=== PATIENT | female | born 1955 | race Caucasian/White ===

== ENCOUNTER → 2016-04-02 | Outpatient (CLI) | payer MEDICARE, MEDICAID | LOC: RAD 07:40 | PROVIDERS: ATTEND Specialist | DX: C34.82 Malignant neoplasm of overlapping sites of left bronchus and lung (principal) | CPT/HCPCS: 71260 ==

== ENCOUNTER → 2016-06-26 | Outpatient (CLI) | payer MEDICARE, MEDICAID | LOC: RAD 08:19 | PROVIDERS: ATTEND Specialist | DX: C34.82 Malignant neoplasm of overlapping sites of left bronchus and lung (principal) | CPT/HCPCS: 71260; 74160 ==

== ENCOUNTER → 2016-08-31 | Outpatient (CLI) | payer MEDICARE, MEDICAID ==
--- NOTE | 2016-08-31 08:58 | RADIOLOGY REPORT (SQ) ---
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 Images reviewed with lung, soft tissue and bone windows. Reconstruc lópez coronal and sagittal MPR images reviewed. All images stored on PACS. All CT scanners at this facility use dose modulation, iterative reconstruction, and/or weight based d osing when appropriate to reduce radiation dose to as low as reasonably achievable (ALARA). [facility]: Dose Right [facility]: CareDose [facility]: Dose Right [facility]: Teradose 4D [facility]: Infobright CONTRAST TYPE AND DOSE: contrast/concentration: Isovue 370.00 mg/ml; Total Contrast Delivered: 54.0 ml; Total Saline Delivered: 65.0 ml RENAL FUNCTION: Creatinine 0.8 RADIATION DOSE: 4.43; 9.82 . LIMITATIONS: None. FINDINGS: LUNGS AND PLEURA: Scarring in the posterior right lung apex with cavitation along its infe rior edge is similar compared to 06/26/2016, measuring about 5 x 2 cm in size. Stable left apical cav itary nodule 12 mm in size. Stable bandlike nodular scarring in the superior segment right lower lob e, superior segment left lower lobe, medial right middle lobe, medial lingula, and left lung base all stable from 06/26/2016. End-stage appearance of COPD. No pleural effusions. No pneumothorax. HILAR AND MEDIASTINAL STRUCTURES: No identified masses or abnormal nodes. HEART AND VASCULAR STRUCTURES: No aneurysm or dissection. No central pulmonary emboli. No pericardi al effusion. HARDWARE: Right jugular central line tip superior vena cava THYROID AND OTHER SOFT TISSUES: No masses. No adenopathy. BONES: Osteoporotic with multiple stable thoracic compression deformities. LIVER: Normal size. No masses or dilated ducts. Stable 1 cm cyst inferior left lobe liver SPLEEN: Normal size. No focal lesions. PANCREAS: No masses. No significant calcifications. No adjacent inflammation or peripancreatic fluid collections. Pancreatic duct not dilated. GALLBLADDER: Single 1 cm stone in the gallbladder. No gallbladder wall thickening or pericholecystic fluid ADRENAL GLANDS: No significant masses or asymmetry. RIGHT KIDNEY AND URETER: No solid masses. No significant calcification. No hydronephrosis or hydroureter. LEFT KIDNEY AND URETER: No solid masses. No significant calcification. No hydronephrosis or hydroureter. AORTA AND VESSELS: No aneurysm. No dissection. Renal arteries, SMA, celiac without stenosis. RETROPERITONEUM: No retroperitoneal adenopathy, hemorrhage or masses. BOWEL AND PERITONEAL CAVITY: No masses or inflammatory changes. OTHER: No other significant finding. IMPRESSION: Stable CT OF THE CHEST WITH IV CONTRAST. Unremarkable CT abdomen aside from a single gallstone without gallbladder wall thickening or perichol ecystic fluid. TECHNICAL DOCUMENTATION: JOB ID: [id number] Quality ID # [id number]: Final reports with documentation of one or more dose reduction techniques (e.g., Au tomated exposure control, adjustment of the mA and/or kV according to patient size, use of iterative reconstruction technique) 2010 [employer]- All Rights Reserved
== END ==
LOC: RAD 07:27
PROVIDERS: ATTEND Specialist
DX: C34.82 Malignant neoplasm of overlapping sites of left bronchus and lung (principal)
CPT/HCPCS: 71260; 74160

== ENCOUNTER → 2016-12-25 | Outpatient (CLI) | payer MEDICARE, MEDICAID ==
--- NOTE | 2016-12-25 09:20 | RADIOLOGY REPORT (SQ) ---
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 Images reviewed with lung, soft tissue and bone windows. Reconstructed coronal and sagittal MPR images reviewed. All images stored on PACS. All CT scanners at this facility use dose modulation, iterative reconstruction, and/or weight based d osing when appropriate to reduce radiation dose to as low as reasonably achievable (ALARA). [facility]: Dose Right [facility]: CareDose [facility]: Dose Right [facility]: Teradose 4D [facility]: [employer] CONTRAST TYPE AND DOSE: contrast/concentration: Isovue 370.00 mg/ml; Total Contrast Delivered: 80.0 ml; Total Saline Delivered: 55.0 ml RENAL FUNCTION: Creatinine 0.9 RADIATION DOSE: Up-to-date CT equipment and radiation dose reduction techniques were employed. CTDIv ol: 2.9 mGy. DLP: 112 mGy-cm. . LIMITATIONS: None. FINDINGS: LUNGS AND PLEURA: Patient has baseline extensive obstructive lung disease with hyperinflat ion and hyperlucency. Throughout both lungs, confluent opacities with combination of airspace disease and cavitation are pr esent, more pronounced than on 08/31/2016. In particular, there has been coal absence of the multiple small cavities in the right lung apex now forming 1 large cavity with an air-fluid level measuring a bout 6 x 4 cm in size. Tuberculosis or atypical tubercular infection, fungal disease should be consi dered. The patient's hypermetabolic lung lesions seen on 07/22/2015 are no longer identified. There are thin -walled cavities in these areas on the current study. No pleural effusion. No pneumothorax. HILAR AND MEDIASTINAL STRUCTURES: 11 x 9 mm precarinal lymph node is stable compared to 08/31/2016. M ultiple other smaller AP window, pretracheal, and bilateral hilar lymph nodes are stable HEART AND VASCULAR STRUCTURES: Trace pericardial fluid, stable. No cardiomegaly. Reason HARDWARE: None in the chest. UPPER ABDOMEN: No significant findings. Limited exam. THYROID AND OTHER SOFT TISSUES: No masses. No adenopathy. BONES: Thoracic and lumbar compression deformities at multiple levels, unchanged from 08/31/2016 OTHER: No other significant finding. IMPRESSION: Obstructive lung disease Multiple cavitary infiltrates throughout both lungs worrisome for tuberculosis or fungal infection TECHNICAL DOCUMENTATION: JOB ID: [id number] Quality ID # 436: Final reports with documentation of one or more dose reduction techniques (e.g., Au tomated exposure control, adjustment of the mA and/or kV according to patient size, use of iterative reconstruction technique) 2010 [employer]- All Rights Reserved
== END ==
LOC: RAD 07:26
PROVIDERS: ATTEND Internal Medicine Hematology & Oncology
DX: C34.82 Malignant neoplasm of overlapping sites of left bronchus and lung (principal)
CPT/HCPCS: 71260

== ENCOUNTER 2017-01-24 11:03 | Outpatient (CLI) | payer MEDICARE, MEDICAID ==
[~2017-01-24 11:03] MED LIST: ACETAMINOPHEN 325 MG TABLET PO PRN; DIPHENHYDRAMINE HCL 25 MG CAPSULE PO PRN
[2017-01-24] MEDS ORDERED: ACETAMINOPHEN 325 MG TABLET PO PRN (11:06)
[2017-01-24] MEDS ORDERED: DIPHENHYDRAMINE HCL 25 MG CAPSULE PO PRN (11:06)
[2017-01-24] MEDS ORDERED: NORMAL SALINE 250 ML IV PRN (11:28)
[2017-01-24 11:52] LABS: HEMATOCRIT 31.2 % (36.0-47.0); HEMOGLOBIN 9.7 g/dL (12.0-15.5); HGB HCT DIFFERENCE -2.1; MEAN CORPUSCULAR HGB CONC 31.1 g/dL (32.0-36.0); MEAN CORPUSCULAR VOLUME 74 fl (80-97); RED BLOOD COUNT 4.21 10^6/uL (3.72-5.28); RED CELL DISTRIBUTION WIDTH 19.6 % (11.5-14.0)
[2017-01-24 13:10] VITALS: BP 100/50
[2017-01-25 14:47] LABS: PATH REVIEW PATHOLOGIST REVIEWED
== END 2017-01-24 13:11 | disposition home or self-care (01) ==
LOC: II 11:03 → 5TH 11:06 → II 13:11
PROVIDERS: ATTEND Internal Medicine Hematology & Oncology
PROC: 30243R1 Transfusion of Nonautologous Platelets into Central Vein, Percutaneous Approach (ICD-10-PCS; principal; 2017-01-24)
DX: D69.6 Thrombocytopenia, unspecified (principal); C34.82 Malignant neoplasm of overlapping sites of left bronchus and lung
CPT/HCPCS: 86900; 86901; 36415; 36430; P9035; A9270 ×2

== ENCOUNTER → 2017-02-14 | Outpatient (CLI) | payer MEDICARE, MEDICAID ==
--- NOTE | 2017-02-14 09:30 | RADIOLOGY REPORT (SQ) ---
EXAM DESCRIPTION: CT ABD/PELVIS WITH IV ORAL COMPLETED DATE/TIME: 02/14/2017 9:16 am REASON FOR STUDY: LUNG CA (C34.82), ABD PAIN (R10.9) C34.82 MALIGNANT NEOPLASM OF OVRLP SITES OF LE FT BRONCHUS AN R10.9 UNSPECIFIED ABDOMINAL PAIN COMPARISON: 08/31/2016 and 06/26/2016. TECHNIQUE: CT scan of the abdomen and pelvis performed with intravenous and oral contrast using bri tammie scanning technique with dynamic intravenous contrast injection. Images reviewed with lung, soft t issue, and bone windows. Reconstructed coronal and sagittal MPR images reviewed. Delayed images for e valuation of the urinary system also acquired. All images stored on PACS. All CT scanners at this facility use dose modulation, iterative reconstruction, and/or weight based d osing when appropriate to reduce radiation dose to as low as reasonably achievable (ALARA). [facility]: Dose Right [facility]: CareDose [facility]: Dose Right [facility]: Teradose 4D [facility]: [employer] CONTRAST TYPE AND DOSE: contrast/concentration: Isovue 370.00 mg/ml; Total Contrast Delivered: 49.0 ml; Total Saline Delivered: 65.0 ml RENAL FUNCTION: Creatinine 0.8. RADIATION DOSE: CT Rad equipment meets quality standard of care and radiation dose reduction techniq ues were employed. CTDIvol: 2.4 - 2.9 mGy. DLP: 350 mGy-cm.. LIMITATIONS: None. FINDINGS: LOWER CHEST: Chronic changes in the lower lobes. Increasing density in the left lung base . LIVER: Normal size. Small subcentimeter cyst in the right lobe, unchanged. No masses. No dilated d ucts. SPLEEN: Normal size. No focal lesions. PANCREAS: No masses. No significant calcifications. No adjacent inflammation or peripancreatic fluid collections. Pancreatic duct not dilated. GALLBLADDER: Gallstone. No inflammatory changes to suggest cholecystitis. ADRENAL GLANDS: No significant masses or asymmetry. RIGHT KIDNEY AND URETER: No solid masses. No significant calcification. No hydronephrosis or hydroure ter. LEFT KIDNEY AND URETER: No solid masses. No significant calcification. No hydronephrosis or hydrouret er. AORTA AND VESSELS: No aneurysm. No dissection. Renal arteries, SMA, celiac without stenosis. RETROPERITONEUM: No retroperitoneal adenopathy, hemorrhage or masses. BOWEL AND PERITONEAL CAVITY: No obstruction. No visualized masses. No free fluid. No inflammatory ch anges or thickening of bowel wall. APPENDIX: Not visualized. PELVIS: No significant masses. Normal bladder. No free fluid. ABDOMINAL WALL: No masses. No hernias. BONES: No significant or acute findings. Chronic changes throughout the spine with multiple compress ion deformities. OTHER: No other significant finding. IMPRESSION: 1. GALLSTONE. NO ACUTE INFLAMMATORY CHANGES. STABLE SMALL SUBCENTIMETER CYST IN THE RIGHT LOBE OF T HE LIVER. NO OTHER SIGNIFICANT OR ACUTE FINDINGS IN THE ABDOMEN OR PELVIS. 2. CHRONIC CHANGES IN THE LUNG BASES. INCREASING DENSITY IN THE LEFT LOWER LOBE MAY BE DUE TO PROGRE SSION OF DISEASE OR DEVELOPING PNEUMONIA. TECHNICAL DOCUMENTATION: JOB ID: [id number] Quality ID # 436: Final reports with documentation of one or more dose reduction techniques (e.g., Au tomated exposure control, adjustment of the mA and/or kV according to patient size, use of iterative reconstruction technique) 2010 [employer]- All Rights Reserved
== END ==
LOC: RAD 08:21
PROVIDERS: ATTEND Internal Medicine Hematology & Oncology
DX: C34.82 Malignant neoplasm of overlapping sites of left bronchus and lung (principal); R10.9 Unspecified abdominal pain
CPT/HCPCS: 74177; 82565

== ENCOUNTER 2017-02-15 13:45 | Inpatient (IN) | payer MEDICARE, MEDICAID ==
[2017-02-15] MEDS ORDERED: MORPHINE SULFATE 10 MG/ML INJ IV ONE ×2 (14:13→15:43)
[2017-02-15] MEDS ORDERED: ONDANSETRON HCL INJ/PF 4 MG/2 ML SDV IV ONE ×2 (14:13→15:43)
--- NOTE | 2017-02-15 14:17 | ER Document Report ---
ED Medical Screen (RME) - General Chief Complaint: Abdominal Pain Stated Complaint: ABDOMINAL PAIN Time Seen by Provider: 02/15/17 14:10 Notes: 61-year-old female past medical history cancer here with complaints of upper abdominal pain ongoing for the past 1 week with nausea and vomiting. She was sent by her oncologist to obtain a CT scan yesterday which did show a gallstone but did not show any inflammatory changes. The CT scan did not show any other acute findings to account for the patient's abdominal symptoms however did show possible left lower lobe pneumonia. She has not had any diarrhea fevers chills. Last bowel movement was yesterday, nonbloody EXAM mod TTP upper quadrants no peritoneal signs TRAVEL OUTSIDE OF THE [place] IN LAST 30 DAYS: No - Related Data Allergies/Adverse Reactions: No Known Allergies Allergy (Verified 02/15/17 13:48) Past Medical History - Social History Chew tobacco use (# tins/day): No Frequency of alcohol use: None Drug Abuse: None - Past Medical History Cardiac Medical History: Denies: Hx Coronary Artery Disease, Hx Heart Attack, Hx Hypertension - HX OF LBP Pulmonary Medical History: Reports: Hx Bronchitis, Hx COPD Denies: Hx Asthma, Hx Pneumonia Neurological Medical History: Denies: Hx Cerebrovascular Accident, Hx Seizures Renal/ Medical History: Denies: Hx Peritoneal Dialysis Malignancy Medical History: Reports: Hx Lung Cancer - Current GI Medical History: Reports: Hx Ulcer - YRS AGO,. Denies: Hx Hepatitis, Hx Hiatal Hernia Musculoskeltal Medical History: Denies Hx Arthritis Psychiatric Medical History: Reports: Hx Depression Infectious Medical History: Denies: Hx Hepatitis Past Surgical History: Reports: Hx Abdominal Surgery - hernia repair, Hx Orthopedic Surgery - back. Denies: Hx Hysterectomy, Hx Mastectomy, Hx Open Heart Surgery, Hx Pacemaker - Immunizations Hx Diphtheria, Pertussis, Tetanus Vaccination: No History of Influenza Vaccine for 12/2016 - 05/2017 Season: Refused Physical Exam - Vital signs Vitals: Temp Pulse Resp BP Pulse Ox 97.5 F 110 H 24 H 112/75 93 02/15/17 13:53 02/15/17 13:53 02/15/17 13:53 02/15/17 13:53 02/15/17 13:53 Course - Vital Signs Vital signs: Temp Pulse Resp BP Pulse Ox 97.5 F 110 H 24 H 112/75 93 02/15/17 13:53 02/15/17 13:53 02/15/17 13:53 02/15/17 13:53 02/15/17 13:53
[2017-02-15 14:58] LABS: ABSOLUTE EOSINOPHILS # (AUTO) 0.2 10^3/uL (0.0-0.6); ABSOLUTE LYMPHOCYTES (AUTO) 1.5 10^3/uL (0.5-4.7); ABSOLUTE MONOCYTES (AUTO) 0.7 10^3/uL (0.1-1.4); ABSOLUTE NEUT (AUTO) 4.9 10^3/uL (1.7-8.2); BASOPHILS % (AUTO) 0.3 % (0-2); EOSINOPHILS % (AUTO) 2.5 % (0-6); HEMATOCRIT 38.4 % (36.0-47.0); HEMOGLOBIN 12.2 g/dL (12.0-15.5); HGB HCT DIFFERENCE -1.8; LYMPHOCYTES % (AUTO) 20.3 % (13-45); MEAN CORPUSCULAR HEMOGLOBIN 24.9 pg (27.0-33.4); MEAN CORPUSCULAR HGB CONC 31.7 g/dL (32.0-36.0); MONOCYTES % (AUTO) 9.3 % (3-13); RED BLOOD COUNT 4.88 10^6/uL (3.72-5.28); RED CELL DISTRIBUTION WIDTH 20.6 % (11.5-14.0); SEGMENTED NEUTROPHILS % (AUTO) 67.6 % (42-78); WHITE BLOOD COUNT 7.3 10^3/uL (4.0-10.5)
[2017-02-15 15:14] LABS: ALANINE AMINOTRANSFERASE 32 U/L (9-52); ALBUMIN 3.5 g/dL (3.5-5.0); ALKALINE PHOSPHATASE 77 U/L (38-126); ANION GAP 12 (5-19); ASPARTATE AMINO TRANSFERASE 19 U/L (14-36); BILIRUBIN,DIRECT 0.3 mg/dL (0.0-0.4); BILIRUBIN,TOTAL 0.5 mg/dL (0.2-1.3); BLOOD UREA NITROGEN 19 mg/dL (7-20); CALCIUM 8.5 mg/dL (8.4-10.2); CARBON DIOXIDE 24 mmol/L (22-30); CHLORIDE 109 mmol/L (98-107); CREATININE RESULT 0.68 mg/dL (0.52-1.25); GLUCOSE 126 mg/dL (75-110); LIPASE 52.8 U/L (23-300); POTASSIUM 3.9 mmol/L (3.6-5.0); SODIUM 145.4 mmol/L (137-145); TOTAL PROTEIN 6.4 g/dL (6.3-8.2)
[2017-02-15 15:29] LABS: MEAN CORPUSCULAR VOLUME 79 fl (80-97)
--- NOTE | 2017-02-15 15:40 | RADIOLOGY REPORT (SQ) ---
EXAM DESCRIPTION: CHEST PA/LAT COMPLETED DATE/TIME: 02/15/2017 3:26 pm REASON FOR STUDY: eval for L lower lobe pneumonia seen on CT COMPARISON: 07/11/2015 CT abdomen 2016 EXAM PARAMETERS: NUMBER OF VIEWS: two views TECHNIQUE: Digital Frontal and Lateral radiographic views of the chest acquired. RADIATION DOSE: NA LIMITATIONS: none FINDINGS: LUNGS AND PLEURA: Patchy infiltrate is seen the left mid and lower lung. Ill-defined opac ification is seen in the right and upper lung. MEDIASTINUM AND HILAR STRUCTURES: No masses or contour abnormalities. HEART AND VASCULAR STRUCTURES: Heart normal size. No evidence for failure. BONES: No acute findings. HARDWARE: None in the chest. OTHER: No other significant finding. IMPRESSION: Left lower lobe pneumonia, possible pneumonia with involvement of the right upper lobe o r middle lobe as well. TECHNICAL DOCUMENTATION: JOB ID: [id number] [employer]- All Rights Reserved
--- NOTE | 2017-02-15 15:44 | RADIOLOGY REPORT (SQ) ---
EXAM DESCRIPTION: U/S ABDOMEN LIMITED W/O DOP COMPLETED DATE/TIME: 02/15/2017 3:25 pm REASON FOR STUDY: upper abd pain n/v; eval cholecystitis COMPARISON: CT abdomen 02/14/2017 TECHNIQUE: Dynamic and static grayscale images acquired of the abdomen and recorded on PACS. Additio nal selected color Doppler and spectral images recorded. LIMITATIONS: None. FINDINGS: PANCREAS: No masses. Visualized pancreatic duct normal caliber. LIVER: 14.9 cm. Normal echotexture. Small amount of fluid around the liver. LIVER VASCULATURE: Normal directional flow of the main portal vein and hepatic veins. GALLBLADDER: Gallstones. No gallbladder wall thickening. No pericholecystic fluid. ULTRASOUND-DETECTED CHILDRESS'S SIGN: Negative. INTRAHEPATIC DUCTS AND COMMON DUCT: CBD and intrahepatic ducts normal caliber. No filling defects. INFERIOR VENA CAVA: Normal flow. AORTA: No aneurysm. RIGHT KIDNEY: Normal size, 9.1 cm. Normal echogenicity. No solid or suspicious masses. No hydronephr osis. No calcifications. PERITONEAL AND RIGHT PLEURAL SPACE: There is a small amount of ascites around the liver. OTHER: No other significant findings. IMPRESSION: Cholelithiasis with no evidence acute cholecystitis. There is a small amount of fluid a round the liver. TECHNICAL DOCUMENTATION: JOB ID: [id number] [employer]- All Rights Reserved
[2017-02-15] MEDS ORDERED: CEFEPIME 1 GM/D5W RTU 1 GM/50 ML RTUPB IV ONE (16:05)
--- NOTE | 2017-02-15 16:05 | ER Document Report ---
ED General - General Chief Complaint: Abdominal Pain Stated Complaint: ABDOMINAL PAIN Time Seen by Provider: 02/15/17 14:10 Mode of Arrival: Ambulatory Information source: Patient Notes: This is a 61-year-old female who has a history of lung cancer (status post chemotherapy, currently on Nevoldamab which heightens the immune system), history of thrombocytopenia (has received IVIG in the past and is currently on prednisone). The patient presents with nausea, vomiting and upper abdominal discomfort. She had an outpatient CT of the abdomen which showed cholelithiasis and a potential left lower lobe pneumonia. The patient presents with nausea and vomiting today. She does have some mild upper abdominal tenderness. TRAVEL OUTSIDE OF THE [place] IN LAST 30 DAYS: No - HPI Onset: Just prior to arrival Onset/Duration: Gradual Quality of pain: Dull Severity: Moderate Pain Level: 2 Associated symptoms: Nausea, Vomiting. denies: Chest pain, Fever, Shortness of breath, Slow to respond Exacerbated by: Denies Relieved by: Denies Similar symptoms previously: Yes Recently seen / treated by doctor: Yes - Related Data Allergies/Adverse Reactions: No Known Allergies Allergy (Verified 02/15/17 13:48) Home Medications: Current Home Medications Albuterol Sulfate [Ventolin Hfa] 2 puff IH Q4HP PRN 02/15/17 [History] Fluoxetine HCl [Fluoxetine HCl] 20 mg PO DAILY 02/15/17 [History] Levothyroxine Sodium [Levothyroxine Sodium] 150 mcg PO Q6AM 02/15/17 [History] Omeprazole [Omeprazole] 20 mg PO DAILY 02/15/17 [History] Prednisone [Prednisone] 10 mg PO QID 02/15/17 [History] Tiotropium Ida [Spiriva Respimat] 2 puff IH DAILY 02/15/17 [History] Past Medical History - General Information source: Patient - Social History Smoking Status: Former Smoker Cigarette use (# per day): No Chew tobacco use (# tins/day): No Frequency of alcohol use: None Drug Abuse: None Lives with: Family Family History: Reviewed & Not Pertinent Patient has suicidal ideation: No Patient has homicidal ideation: No - Past Medical History Cardiac Medical History: Denies: Hx Coronary Artery Disease, Hx Heart Attack, Hx Hypertension - HX OF LBP Pulmonary Medical History: Reports: Hx Bronchitis, Hx COPD Denies: Hx Asthma, Hx Pneumonia Neurological Medical History: Denies: Hx Cerebrovascular Accident, Hx Seizures Renal/ Medical History: Denies: Hx Peritoneal Dialysis Malignancy Medical History: Reports: Hx Lung Cancer - Current GI Medical History: Reports: Hx Ulcer - YRS AGO,. Denies: Hx Hepatitis, Hx Hiatal Hernia Musculoskeltal Medical History: Denies Hx Arthritis Psychiatric Medical History: Reports: Hx Depression Infectious Medical History: Denies: Hx Hepatitis Past Surgical History: Reports: Hx Abdominal Surgery - hernia repair, Hx Orthopedic Surgery - back. Denies: Hx Hysterectomy, Hx Mastectomy, Hx Open Heart Surgery, Hx Pacemaker - Immunizations Hx Diphtheria, Pertussis, Tetanus Vaccination: No Review of Systems - Review of Systems Constitutional: denies: Chills, Fever EENT: No symptoms reported Cardiovascular: No symptoms reported Respiratory: No symptoms reported Gastrointestinal: See HPI Genitourinary: No symptoms reported Female Genitourinary: No symptoms reported Musculoskeletal: No symptoms reported Skin: No symptoms reported Hematologic/Lymphatic: No symptoms reported Neurological/Psychological: No symptoms reported Physical Exam - Vital signs Vitals: Temp Pulse Resp BP Pulse Ox 97.5 F 110 H 24 H 112/75 93 02/15/17 13:53 02/15/17 13:53 02/15/17 13:53 02/15/17 13:53 02/15/17 13:53 Notes: Physical exam: GENERAL: 61-year-old female, chronic ill-appearing, no acute distress HEAD: Atraumatic, normocephalic. EYES: Pupils equal round and reactive to light, extraocular movements intact, sclera anicteric, conjunctiva are normal. ENT: TMs normal, nares patent, oropharynx clear without exudates. Moist mucous membranes. NECK: Normal range of motion, supple without obvious mass or JVD. LUNGS: Breath sounds clear to auscultation bilaterally and equal. No wheezes rales or rhonchi. HEART: Regular rate and rhythm without murmurs, rubs or gallops. ABDOMEN: Soft, normoactive bowel sounds. Mild upper abdominal tenderness to palpation. No guarding, no rebound. No masses appreciated. EXTREMITIES: Normal range of motion, no pitting or edema. No clubbing or cyanosis. NEUROLOGICAL: Cranial nerves II through XII grossly intact. Normal speech, moving all extremities. PSYCH: Normal mood, normal affect. SKIN: Warm, Dry, normal turgor, no rashes or lesions noted. No petechiae. Course - Re-evaluation Re-evalutation: 02/15/17 16:02 I discussed case with Dr. Garcia: The issues are as follows: Pneumonia: Chest x-ray does show a left lower lobe pneumonia and possible right pneumonia. The plan will be to start IV antibiotics. After speaking with Dr. Garcia, the patient is not considered immune optimized at this time. Blood cultures were sent. IV cefepime and IV azithromycin started. Thrombocytopenia: Dr. Garcia recommended IVIG while in the hospital. She can be consulted regarding writing the orders for this. She recommends keeping the current steroid dose as is. Patient has not had any active bleeding. She denies any black stools. She not denies any blood in the vomitus Vomiting with nausea: Treat symptomatically. CT of the abdomen performed yesterday and the ultrasound performed today shows cholelithiasis without any inflammation or acute surgical pathology. There is no evidence of obstruction on exam. 02/15/17 16:06 - Vital Signs Vital signs: Temp Pulse Resp BP Pulse Ox 97.7 F 70 18 95/60 L 95 02/15/17 20:35 02/15/17 20:35 02/15/17 20:35 02/15/17 20:35 02/15/17 20:35 - Laboratory Result Diagrams: 02/15/17 14:24 02/15/17 14:24 Laboratory results interpreted by me: 02/15/17 02/15/17 14:24 14:24 MCV 79 L D MCH 24.9 L MCHC 31.7 L RDW 20.6 H Plt Count 10 L* Sodium 145.4 H Chloride 109 H Glucose 126 H - Diagnostic Test Radiology reviewed: Image reviewed, Reports reviewed - Chest x-ray shows left lower lobe pneumonia, possible early right pneumonia Critical Care Note - Critical Care Note Total time excluding time spent on procedures (mins): 60 Discharge - Discharge Clinical Impression: Pneumonia, Thrombocytopenia, Vomiting with nausea Condition: Stable Disposition: ADMITTED INPATIENT Admitting Provider: Hospitalist - [facility] Admitted: Telemetry
[2017-02-15] MEDS ORDERED: AZITHROMYCIN INJ 500 MG VIAL IV ONE (16:06)
[2017-02-15] MEDS ORDERED: NORMAL SALINE 1000 ML 1,000 ML IV PRN (17:22)
[2017-02-15] MEDS ORDERED: ACETAMINOPHEN 325 MG TABLET PO PRN (17:31)
[2017-02-15] MEDS ORDERED: ONDANSETRON HCL INJ/PF 4 MG/2 ML SDV IV PRN (17:31)
[2017-02-15] MEDS ORDERED: ONDANSETRON 4 MG TAB.RAPDIS PO PRN (17:31)
--- NOTE | 2017-02-15 18:13 | PDOC H&P ---
History of Present Illness Admission Date/PCP: 02/15/17 17:14 DARA MINOR MD Oncologist: Dr. Garcia Patient complains of: Nausea, vomiting and abdominal pain. History of Present Illness: MERRILL BLAKE is a 61 year old female who presented to the emergency room with nausea, vomiting and diarrhea. Her past medical history is significant for lung cancer. Patient also has significant thrombocytopenia. She was recently transferred from this facility to [facility] where she was treated with steroids and IVIG. In the emergency room the patient was found to have a platelet level of 10. Chest x-ray was concerning for an underlying infiltrate. She had recently had a CT scan of the abdomen and pelvis this week which revealed evidence of cholelithiasis but no acute abnormalities. She had an abdominal ultrasound in the emergency room which confirmed this. Due to her low platelet level and underlying pneumonia she was referred for admission. Past Medical History Cardiac Medical History: Denies: Coronary Artery Disease, Myocardial Infarction, Hypertension - HX OF LBP Pulmonary Medical History: Reports: Bronchitis, Chronic Obstructive Pulmonary Disease (COPD) Denies: Asthma, Pneumonia EENT Medical History: Reports: None Neurological Medical History: Denies: Hemorrhagic CVA, Ischemic CVA, Seizures Endocrine Medical History: Reports: None, Hypothyroidism Renal/ Medical History: Reports: None Malignancy Medical History: Reports: Lung Cancer - Current, Other GI Medical History: Denies: Hepatitis, Hiatal Hernia Musculoskeltal Medical History: Denies: Arthritis Skin Medical History: Reports: None Psychiatric Medical History: Reports: Depression Traumatic Medical History: Reports: None Hematology: Reports: Anemia, Other - The patient also has chronic thrombocytopenia Denies: Sickle Cell Disease Infectious Medical History: Reports: None Past Surgical History Past Surgical History: Reports: Orthopedic Surgery - back Denies: Amputation, Hysterectomy, Mastectomy, Pacemaker Social History Information Source: Patient Lives with: Family Smoking Status: Former Smoker Frequency of Alcohol Use: None Hx Recreational Drug Use: No Hx Prescription Drug Abuse: No - Advance Directive Resuscitation Status: Full Code Surrogate healthcare decision maker:: Yen Varma [phone] is the patient's daughter and surrogate decision maker. The patient lives with her granddaughter, Juanita Huntley [phone] Family History Family History: Reviewed & Not Pertinent Parental Family History Reviewed: Yes Children Family History Reviewed: Yes Sibling(s) Family History Reviewed.: Yes Medication/Allergy Home Medications: Fluoxetine HCl [Prozac] 20 mg PO DAILY 08/03/13 Levothyroxine Sodium 175 mcg PO DAILY 08/03/13 Dexamethasone [Decadron 4 mg Tablet] 4 mg PO DAILY 06/01/15 Promethazine HCl [Phenergan 25 mg Tablet] 25 mg PO QID PRN 06/01/15 Aspirin [Ecotrin 81 mg EC Tablet] 81 mg PO DAILY tabec 06/10/15 Meclizine HCl [Antivert 25 mg Tablet] 25 mg PO TID PRN #90 tablet 06/10/15 Oxycodone HCl/Acetaminophen [Percocet 5-325 mg Tablet] 1 - 2 tab PO ASDIR PRN # 15 tablet 07/11/15 Allergies/Adverse Reactions: No Known Allergies Allergy (Verified 02/15/17 13:48) Review of Systems Constitutional: PRESENT: fatigue, weakness, weight loss Eyes: ABSENT: visual disturbances Ears: ABSENT: hearing changes Nose, Mouth, and Throat: ABSENT: headache(s), mouth pain, sore throat Cardiovascular: ABSENT: chest pain, dyspnea on exertion, edema, orthropnea, palpitations Respiratory: PRESENT: cough, dyspnea, sputum Gastrointestinal: PRESENT: abdominal pain, nausea, vomiting. ABSENT: diarrhea, hematemesis, hematochezia Genitourinary: ABSENT: dysuria, hematuria Musculoskeletal: ABSENT: joint swelling Integumentary: ABSENT: rash, wounds Neurological: ABSENT: abnormal gait, abnormal speech, confusion, dizziness, focal weakness, syncope Psychiatric: ABSENT: anxiety, depression, homidical ideation, suicidal ideation Endocrine: ABSENT: cold intolerance, heat intolerance, polydipsia, polyuria Hematologic/Lymphatic: PRESENT: easy bleeding, easy bruising Allergic/Immunologic: ABSENT: seasonal rhinorrhea Physical Exam Vital Signs: Temp Pulse Resp BP Pulse Ox 97.5 F 110 H 24 H 112/75 93 02/15/17 13:53 02/15/17 13:53 02/15/17 13:53 02/15/17 13:53 02/15/17 13:53 General appearance: PRESENT: thin, other - The patient is chronically ill- appearing and cachectic Head exam: PRESENT: atraumatic, other - Bitemporal muscle wasting Ear exam: PRESENT: normal external ear exam Mouth exam: PRESENT: dry mucosa Neck exam: ABSENT: carotid bruit, JVD, lymphadenopathy, thyromegaly Respiratory exam: PRESENT: decreased breath sounds, rhonchi Cardiovascular exam: PRESENT: RRR. ABSENT: diastolic murmur, rubs, systolic murmur GI/Abdominal exam: PRESENT: normal bowel sounds, soft. ABSENT: ascites, organolmegaly, tenderness Rectal exam: PRESENT: deferred Extremities exam: PRESENT: full ROM. ABSENT: calf tenderness, clubbing, pedal edema Musculoskeletal exam: PRESENT: full ROM Neurological exam: PRESENT: alert, awake, oriented to person, oriented to place , oriented to time, oriented to situation, CN II-XII grossly intact. ABSENT: motor sensory deficit Psychiatric exam: PRESENT: appropriate affect, normal mood. ABSENT: homicidal ideation, suicidal ideation Skin exam: PRESENT: dry, intact, warm. ABSENT: cyanosis, rash Results Impressions: Abdomen Ultrasound 02/15/17 14:14 IMPRESSION: Cholelithiasis with no evidence acute cholecystitis. There is a small amount of fluid around the liver. Chest X-Ray 02/15/17 14:17 IMPRESSION: Left lower lobe pneumonia, possible pneumonia with involvement of the right upper lobe or middle lobe as well. Assessment & Plan - Diagnosis (1) Abdominal pain Is this a current diagnosis for this admission?: Yes Plan: This is the reason for the patient's admission. She has received IV Zofran and currently has had no further episodes of nausea and vomiting. Her abdominal exam is benign. She does have noted cholelithiasis both on her CT scan and abdominal ultrasound. No evidence of an acute process seems to be going on. Her abdominal pain could be due to her possible underlying pneumonia or even her most recent treatment for her lung cancer. (2) Thrombocytopenia Is this a current diagnosis for this admission?: Yes Plan: I have spoken to oncology. She will continue prednisone 40 mg daily. She will start IVIG 1g/kg daily x [address] Zelaya will see the patient tomorrow (3) Pneumonia Is this a current diagnosis for this admission?: Yes Plan: Chest xray was concerning for pneumonia. However clinically on exam she does not appear acutely ill. She does not have a cough or increased shortness of breath. Oncology states she has been on nivolumab and is not considered immunosuppressed. Dr Garcia recommended she just be treated for community- acquired pneumonia with concerns for gram positives and atypicals. The patient received IV cefepime and Zithromax in the emergency room. I am going to place the patient on IV Levaquin for now. I did discuss this with oncology and we are going to get a noncontrasted CT scan of the chest to confirm her pneumonia. (4) Lung cancer Is this a current diagnosis for this admission?: Yes Plan: She follows with Dr. Garcia. (5) COPD (chronic obstructive pulmonary disease) Is this a current diagnosis for this admission?: Yes Plan: She does not appear to be having an acute exacerbation. She states she was recently started on Spiriva as an outpatient and we will continue this. She will have breathing treatments scheduled. (6) Hypothyroidism Plan: Continue Synthroid (7) Full code status Is this a current diagnosis for this admission?: Yes Plan: I did discuss this at length with the patient. She does not want to be resuscitated if there is no hope for meaningful recovery. I have discussed with her that in light of her advanced cancer and severe thrombocytopenia that she would likely not have a meaningful recovery. She is going to think about this overnight and follow-up conversations need to be had. For now she will remain a full code. - Time Time Spent: 50 to 70 Minutes - Inpatient Certification Based on my medical assessment, after consideration of the patient's comorbidities, presenting symptoms, or acuity I expect that the services needed warrant INPATIENT care.: Yes I certify that my determination is in accordance with my understanding of Medicare's requirements for reasonable and necessary INPATIENT services [42 CFR 412.3e].: Yes Medical Necessity: Need for IV Antibiotics, Other - Inpatient hospitalization remains necessary. The patient has severe thrombocytopenia with a platelet count of 10. She is going to be receiving IVIG for 2 days here in the hospital. She also has a possible pneumonia and will be receiving parenteral antibiotics. Timing of disposition will be determined by her clinical course but ultimately I expect her to spend greater than 2 midnights in the hospital.
[2017-02-15] MEDS ORDERED: PREDNISONE 20 MG TABLET PO ONE (18:30)
--- NOTE | 2017-02-15 18:58 | RADIOLOGY REPORT (SQ) ---
EXAM DESCRIPTION: CT CHEST WITHOUT COMPLETED DATE/TIME: 02/15/2017 6:46 pm REASON FOR STUDY: pneumonia, lung cancer COMPARISON: Chest x-ray dated 02/15/2017 CT 12/25/2016 TECHNIQUE: CT scan performed of the chest without intravenous contrast. Images reviewed with lung, soft tissue and bone windows. Reconstructed coronal and sagittal MPR images reviewed. All images st ored on PACS. All CT scanners at this facility use dose modulation, iterative reconstruction, and/or weight based d osing when appropriate to reduce radiation dose to as low as reasonably achievable (ALARA). [facility]: Dose Right [facility]: CareDose [facility]: Dose Right [facility]: Teradose 4D [facility]: [employer] RADIATION DOSE: mGy. LIMITATIONS: No technical limitations. FINDINGS: LUNGS AND PLEURA: Multiple cystic lesions are seen in both lungs, right upper lobe most pr edominantly. Fairly dense consolidation is present the left lower lobe. Nodularity is seen in the l ingula and in the superior segments of the left lower lobe. HILAR AND MEDIASTINAL STRUCTURES: No identified masses or abnormal nodes. No obvious aneurysm. HEART AND VASCULAR STRUCTURES: No aneurysm. No pericardial effusion. UPPER ABDOMEN: There is a small amount of fluid around the liver. THYROID AND OTHER SOFT TISSUES: No masses. No adenopathy. BONES: No significant finding. HARDWARE: None in the chest. OTHER: No other significant findings. IMPRESSION: Extensive lung disease with what appears to be consolidation in the left lower lobe. Th ere is considerable nodularity. Cystic lesions are present predominantly in the right upper lobe. T here is decreased amount of soft tissue density associated with the largest compared to the earlier s tudy. All these findings suggest pneumonia in the left lower lobe. Possibly an atypical infectious process elsewhere. Neoplasm certainly cannot be ruled out. TECHNICAL DOCUMENTATION: JOB ID: [id number] Quality ID # [id number]: Final reports with documentation of one or more dose reduction techniques (e.g., Au tomated exposure control, adjustment of the mA and/or kV according to patient size, use of iterative reconstruction technique) 2010 [employer]- All Rights Reserved
[2017-02-15] MEDS: LEVOFLOXACIN 750 MG/D5W RTU 750 MG/150 ML RTUPB IV SCH (19:59)
[2017-02-15] MEDS: IPRATROPIUM/ALBUTEROL 0.5-2.5 MG/3 ML AMPUL NEB SCH (21:38)
[2017-02-15] MEDS: IMMUNE GLOB GAM CAPRY IV SCH ×3 (22:07)
[2017-02-15] MEDS: [UNRECOGNIZED DRUG - OTHER] IV SCH ×3 (22:07)
[2017-02-15] MEDS: IMMUNE GLOB GAM CAPRYLATE IV SCH ×3 (22:07)
[2017-02-15] MEDS: CONTAINER EMPTY IV SCH ×3 (22:07)
[2017-02-16 01:43] LABS: APPEARANCE,URINE SLIGHTLY-CLOUDY; BILIRUBIN,URINE NEGATIVE (NEGATIVE); GLUCOSE, URINE NEGATIVE (NEGATIVE); KETONES,URINE NEGATIVE (NEGATIVE); LEUKOCYTE ESTERASE,URINE LARGE (NEGATIVE); NITRITE,URINE NEGATIVE (NEGATIVE); PROTEIN,URINE NEGATIVE (NEGATIVE); URINE SPECIFIC GRAVITY 1.024; UROBILINOGEN,URINE NEGATIVE mg/dL (<2.0)
[2017-02-16] MEDS: LEVOTHYROXINE SODIUM 0.1 MG TABLET PO SCH (05:29)
[2017-02-16] MEDS: LANSOPRAZOLE 30 MG TAB.RAP.DR PO SCH (05:29)
[2017-02-16] MEDS: LEVOTHYROXINE SODIUM 0.075 MG TABLET PO SCH (05:29)
[2017-02-16 07:56] LABS: ABSOLUTE LYMPHOCYTES (AUTO) 0.5 10^3/uL (0.5-4.7); ABSOLUTE MONOCYTES (AUTO) 0.2 10^3/uL (0.1-1.4); BASOPHILS % (AUTO) 0.2 % (0-2); EOSINOPHILS % (AUTO) 0.1 % (0-6); HEMATOCRIT 25.4 % (36.0-47.0); HGB HCT DIFFERENCE -1.4; LYMPHOCYTES % (AUTO) 13.1 % (13-45); MEAN CORPUSCULAR HEMOGLOBIN 24.7 pg (27.0-33.4); MEAN CORPUSCULAR HGB CONC 31.7 g/dL (32.0-36.0); MEAN CORPUSCULAR VOLUME 78 fl (80-97); MONOCYTES % (AUTO) 5.3 % (3-13); RED BLOOD COUNT 3.26 10^6/uL (3.72-5.28); RED CELL DISTRIBUTION WIDTH 20.3 % (11.5-14.0); SEGMENTED NEUTROPHILS % (AUTO) 81.3 % (42-78); WHITE BLOOD COUNT 3.7 10^3/uL (4.0-10.5)
[2017-02-16] MEDS: IPRATROPIUM/ALBUTEROL 0.5-2.5 MG/3 ML AMPUL NEB SCH ×3 (07:57→20:43)
[2017-02-16 08:10] LABS: ALANINE AMINOTRANSFERASE 29 U/L (9-52); ALBUMIN 2.5 g/dL (3.5-5.0); ALKALINE PHOSPHATASE 49 U/L (38-126); ANION GAP 6 (5-19); ASPARTATE AMINO TRANSFERASE 13 U/L (14-36); BILIRUBIN,DIRECT 0.3 mg/dL (0.0-0.4); BILIRUBIN,TOTAL 0.4 mg/dL (0.2-1.3); BLOOD UREA NITROGEN 19 mg/dL (7-20); CALCIUM 8.1 mg/dL (8.4-10.2); CARBON DIOXIDE 26 mmol/L (22-30); CHLORIDE 107 mmol/L (98-107); CREATININE RESULT 0.62 mg/dL (0.52-1.25); GLUCOSE 99 mg/dL (75-110); MAGNESIUM 1.8 mg/dL (1.6-2.3); POTASSIUM 4.7 mmol/L (3.6-5.0); SODIUM 138.8 mmol/L (137-145); TOTAL PROTEIN 6.3 g/dL (6.3-8.2)
[2017-02-16] MEDS: PREDNISONE 10 MG TABLET PO SCH (09:28)
[2017-02-16] MEDS: FLUOXETINE HCL 20 MG CAPSULE PO SCH (09:29)
[2017-02-16] MEDS: TIOTROPIUM BROMIDE DPI 5 CAP/KIT (18 MCG/CAP) IH SCH (09:29)
[2017-02-16] MEDS ORDERED: LEVOTHYROXINE SODIUM 0.15 MG TABLET PO SCH (10:00)
[2017-02-16] MEDS ORDERED: (PENDING PHARMACY ID) (Fluoxetine Hcl [Prozac] 20 MG) PO SCH (10:00)
--- NOTE | 2017-02-16 12:37 | PDOC CONSULTATION ---
Consultation Consult Date: 02/16/17 Attending physician:: LEONARD DICKERSON Consult reason:: ITP, Stage IV lung ca History of Present Illness Admission Date/PCP: 02/15/17 17:14 DARA MINOR MD Patient complains of: Low platelets, nose bleedings, gum bleeding History of Present Illness: 61-year-old female with known history of stage IV lung cancer, she was originally diagnosed about 2 years ago, had a large right lung mass as well as multiple left lung masses, was treated with chemotherapy with carboplatin and Taxol, and had a good response but ultimately progressed about 8-9 months after initiation of therapy. 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 She is doing great until about 6 weeks ago when she experienced more fatigue, ultimately about 2 weeks ago she ended up here with a platelet count less than 10, with nosebleeds, she was ultimately transferred to [facility] where she was given IVIG high-dose steroids, platelet counts improved to greater than 200 and she was discharged home. In our office, we checked her platelet count on 02/04/2017, and it was up to 243, but just about 1 week later it dropped down again to under 50 and then here to 10. Of note, I reviewed her vitals extensively from previous hospitalizations here, she did have a positive DARIN in the past, wonder if she does have some sort of a rheumatologic condition underlying as well. She does have known back pain with degenerative disc disease, but she does not really have diffuse joint pains otherwise. Past Medical History Cardiac Medical History: Denies: Coronary Artery Disease, Myocardial Infarction, Hypertension - HX OF LBP Pulmonary Medical History: Reports: Bronchitis, Chronic Obstructive Pulmonary Disease (COPD) Denies: Asthma, Pneumonia EENT Medical History: Reports: None, Other - The patient also has chronic thrombocytopenia Neurological Medical History: Denies: Hemorrhagic CVA, Ischemic CVA, Seizures Endocrine Medical History: Reports: None, Hypothyroidism Renal/ Medical History: Reports: None Malignancy Medical History: Reports: Lung Cancer - Current, Other GI Medical History: Denies: Hepatitis, Hiatal Hernia Musculoskeltal Medical History: Denies: Arthritis Skin Medical History: Reports: None Psychiatric Medical History: Reports: Depression Traumatic Medical History: Reports: None Hematology: Reports: Anemia, Other - The patient also has chronic thrombocytopenia Denies: Sickle Cell Disease Infectious Medical History: Reports: None Past Surgical History Past Surgical History: Reports: Orthopedic Surgery - back, Other - Lung biopsy Denies: Amputation, Hysterectomy, Mastectomy, Pacemaker Social History Information Source: Patient Lives with: Family Smoking Status: Former Smoker Frequency of Alcohol Use: None Hx Recreational Drug Use: No Hx Prescription Drug Abuse: No - Advance Directive Resuscitation Status: Full Code Family History Family History: Reviewed & Not Pertinent Parental Family History Reviewed: Yes Children Family History Reviewed: Yes Sibling(s) Family History Reviewed.: Yes Medication/Allergy Home Medications: Albuterol Sulfate [Ventolin Hfa] 2 puff IH Q4HP PRN 02/15/17 Fluoxetine HCl [Fluoxetine HCl] 20 mg PO DAILY 02/15/17 Levothyroxine Sodium [Levothyroxine Sodium] 150 mcg PO Q6AM 02/15/17 Omeprazole [Omeprazole] 20 mg PO DAILY 02/15/17 Prednisone [Prednisone] 10 mg PO QID 02/15/17 Tiotropium [place] [Spiriva Respimat] 2 puff IH DAILY 02/15/17 Allergies/Adverse Reactions: No Known Allergies Allergy (Verified 02/15/17 13:48) Review of Systems Constitutional: ABSENT: chills, fever(s), headache(s), weight gain, weight loss Eyes: ABSENT: visual disturbances Ears: ABSENT: hearing changes Cardiovascular: ABSENT: chest pain, dyspnea on exertion, edema, orthropnea, palpitations Respiratory: ABSENT: cough, hemoptysis Gastrointestinal: ABSENT: abdominal pain, constipation, diarrhea, hematemesis, hematochezia, nausea, vomiting Genitourinary: ABSENT: dysuria, hematuria Musculoskeletal: ABSENT: joint swelling Integumentary: ABSENT: rash, wounds Neurological: ABSENT: abnormal gait, abnormal speech, confusion, dizziness, focal weakness, syncope Psychiatric: ABSENT: anxiety, depression, homidical ideation, suicidal ideation Endocrine: ABSENT: cold intolerance, heat intolerance, polydipsia, polyuria Hematologic/Lymphatic: ABSENT: easy bleeding, easy bruising Physical Exam Vital Signs: Temp Pulse Resp BP Pulse Ox 97.8 F 76 16 97/64 L 94 02/16/17 12:00 02/16/17 12:00 02/16/17 12:00 02/16/17 12:00 02/16/17 12:00 Intake & Output 02/15/17 02/16/17 02/17/17 06:59 06:59 06:59 Intake Total 1178 Output Total 400 Balance 778 Weight 45.7 kg General appearance: PRESENT: no acute distress, well-developed, well-nourished Head exam: PRESENT: atraumatic, normocephalic Eye exam: PRESENT: conjunctiva pink, EOMI, PERRLA. ABSENT: scleral icterus Ear exam: PRESENT: normal external ear exam Mouth exam: PRESENT: moist, tongue midline Neck exam: ABSENT: carotid bruit, JVD, lymphadenopathy, thyromegaly Respiratory exam: PRESENT: clear to auscultation esdras. ABSENT: rales, rhonchi, wheezes Cardiovascular exam: PRESENT: RRR. ABSENT: diastolic murmur, rubs, systolic murmur Pulses: PRESENT: normal dorsalis pedis pul Vascular exam: PRESENT: normal capillary refill GI/Abdominal exam: PRESENT: normal bowel sounds, soft. ABSENT: distended, guarding, mass, organolmegaly, rebound, tenderness Rectal exam: PRESENT: deferred Extremities exam: PRESENT: full ROM. ABSENT: calf tenderness, clubbing, pedal edema Neurological exam: PRESENT: alert, awake, oriented to person, oriented to place , oriented to time, oriented to situation, CN II-XII grossly intact. ABSENT: motor sensory deficit Psychiatric exam: PRESENT: appropriate affect, normal mood. ABSENT: homicidal ideation, suicidal ideation Skin exam: PRESENT: dry, intact, warm. ABSENT: cyanosis, rash Results Laboratory Results: 02/16/17 06:27 02/16/17 06:27 02/16/17 02/16/17 02/16/17 01:23 06:27 06:27 WBC 3.7 L RBC 3.26 L Hgb 8.0 L D Hct 25.4 L MCV 78 L MCH 24.7 L MCHC 31.7 L RDW 20.3 H Plt Count 16 L* Seg Neutrophils % 81.3 H Lymphocytes % 13.1 Monocytes % 5.3 Eosinophils % 0.1 Basophils % 0.2 Absolute Neutrophils 3.0 Absolute Lymphocytes 0.5 Absolute Monocytes 0.2 Absolute Eosinophils 0.0 Absolute Basophils 0.0 Sodium 138.8 Potassium 4.7 Chloride 107 Carbon Dioxide 26 Anion Gap 6 BUN 19 Creatinine 0.62 Est GFR ( Amer) > 60 Est GFR (Non-Af Amer) > 60 Glucose 99 Calcium 8.1 L Phosphorus 4.0 Magnesium 1.8 Total Bilirubin 0.4 AST 13 L ALT 29 Alkaline Phosphatase 49 Total Protein 6.3 Albumin 2.5 L Urine Color YELLOW Urine Appearance SLIGHTLY-CLOUDY Urine pH 5.0 Ur Specific [place] 1.024 Urine Protein NEGATIVE Urine Glucose (UA) NEGATIVE Urine Ketones NEGATIVE Urine Blood NEGATIVE Urine Nitrite NEGATIVE Ur Leukocyte Esterase LARGE H Urine WBC (Auto) 12 Urine RBC (Auto) 7 Impressions: Chest CT 02/15/17 00:00 IMPRESSION: Extensive lung disease with what appears to be consolidation in the left lower lobe. There is considerable nodularity. Cystic lesions are present predominantly in the right upper lobe. There is decreased amount of soft tissue density associated with the largest compared to the earlier study. All these findings suggest pneumonia in the left lower lobe. Possibly an atypical infectious process elsewhere. Neoplasm certainly cannot be ruled out. Abdomen Ultrasound 02/15/17 14:14 IMPRESSION: Cholelithiasis with no evidence acute cholecystitis. There is a small amount of fluid around the liver. Chest X-Ray 02/15/17 14:17 IMPRESSION: Left lower lobe pneumonia, possible pneumonia with involvement of the right upper lobe or middle lobe as well. Assessment & Plan - Diagnosis (1) Acute ITP Is this a current diagnosis for this admission?: Yes Plan: Acute recurrence of ITP, patient was given 1 g/kg of IVIG yesterday and she will get another gram of IVIG per kilogram today. Previously she had a brisk response with 2-3 days her platelet count johnathon to greater than 100,in I would expect that again this time but unfortunately the response was very short- lived. Agree with continued high-dose steroids as well. As an outpatient we will give her Rituxan. I think the cause may be more some sort of underlying rheumatologic condition rather than truly the OPDiVO, certainly we will need to hold any further lung cancer therapy until the ITP is fully resolved. (2) Lung cancer Qualifiers: Laterality: right Lung location: upper lobe of lung Qualified Code(s): C34.11 - Malignant neoplasm of upper lobe, right bronchus or lung Is this a current diagnosis for this admission?: Yes Plan: Stage IV lung cancer, as noted above will be holding therapy until the ITP is resolved, I reviewed her imaging here, there really has not been a change that opacity has been persistent, so it is unlikely to represent true infection or true disease but probably more scar tissue. - Time Time Spent: Greater than 70 Minutes - Inpatient Certification Based on my medical assessment, after consideration of the patient's comorbidities, presenting symptoms, or acuity I expect that the services needed warrant INPATIENT care.: Yes I certify that my determination is in accordance with my understanding of Medicare's requirements for reasonable and necessary INPATIENT services [42 CFR 412.3e].: Yes Medical Necessity: Failure to Improve With Outpatient Therapy, Need Close Monitoring Due to Risk of Patient Decompensation, Other - Need for IVIG very low platelet count need for close monitoring
--- NOTE | 2017-02-16 13:03 | PDOC PROGRESS REPORT ---
Subjective Progress Note for:: 02/16/17 Subjective:: The patient is a 61-year-old female with known stage IV lung cancer. Her disease has progressed over the last 9 months. She has been receiving Opdiva. She was recently admitted for severe thrombo-cytopenia. She was transferred to [facility] in [facility] where she received IVIG. The thrombocytopenia is felt to be secondary to Opdiva, ITP or an underlying rheumatologic process. Oncology is following closely. The patient presented yesterday with nausea, vomiting and diarrhea. Today, she ate her breakfast which consisted of full liquids and she has not had any further vomiting. She did not have any diarrhea overnight. According to our oncology consultants the CT findings are stable and not indicative of pneumonia. Reason For Visit: PNEUMONIA,THROMBOCYTOPENIA,VOMITING WITH NAUSEA Physical Exam Vital Signs: Temp Pulse Resp BP Pulse Ox 97.8 F 76 16 97/64 L 94 02/16/17 12:00 02/16/17 12:00 02/16/17 12:00 02/16/17 12:00 02/16/17 12:00 Intake & Output 02/15/17 02/16/17 02/17/17 06:59 06:59 06:59 Intake Total 1178 Output Total 400 Balance 778 Weight 45.7 kg Additional comments: Apparently the patient is thin and borders on cachexia. She has temporal wasting. She also has significant pallor. Her facial appearance is also noteworthy for some lesions on the lower lip on the right side. She states that these have been present for 2 weeks and occurred when she was at [facility]. Otherwise, her oropharynx is benign. Her lungs demonstrate clear lung bui anteriorly. Her lung bui are clear posteriorly on the right side. Initially, she had rales noted in the left lower base, but these cleared with deep inspiration. Breath sounds were then somewhat diminished in nature. Her cardiac exam is regular without murmurs, gallops or rubs. The abdomen is noted to be soft and flat. Bowel sounds are present in all 4 quadrants. She does not have guarding or rebound noted. The right lower extremity is unremarkable, however, the left lower extremity does show some pedal edema at 1+. The patient's skin is noteworthy for multiple bruises and ecchymoses but otherwise no acute skin lesions or rashes are present. Results Laboratory Results: 02/16/17 06:27 02/16/17 06:27 02/16/17 02/16/17 02/16/17 01:23 06:27 06:27 WBC 3.7 L RBC 3.26 L Hgb 8.0 L D Hct 25.4 L MCV 78 L MCH 24.7 L MCHC 31.7 L RDW 20.3 H Plt Count 16 L* Seg Neutrophils % 81.3 H Lymphocytes % 13.1 Monocytes % 5.3 Eosinophils % 0.1 Basophils % 0.2 Absolute Neutrophils 3.0 Absolute Lymphocytes 0.5 Absolute Monocytes 0.2 Absolute Eosinophils 0.0 Absolute Basophils 0.0 Sodium 138.8 Potassium 4.7 Chloride 107 Carbon Dioxide 26 Anion Gap 6 BUN 19 Creatinine 0.62 Est GFR ( Amer) > 60 Est GFR (Non-Af Amer) > 60 Glucose 99 Calcium 8.1 L Phosphorus 4.0 Magnesium 1.8 Total Bilirubin 0.4 AST 13 L ALT 29 Alkaline Phosphatase 49 Total Protein 6.3 Albumin 2.5 L Urine Color YELLOW Urine Appearance SLIGHTLY-CLOUDY Urine pH 5.0 Ur Specific Strang 1.024 Urine Protein NEGATIVE Urine Glucose (UA) NEGATIVE Urine Ketones NEGATIVE Urine Blood NEGATIVE Urine Nitrite NEGATIVE Ur Leukocyte Esterase LARGE H Urine WBC (Auto) 12 Urine RBC (Auto) 7 Impressions: Chest CT 02/15/17 00:00 IMPRESSION: Extensive lung disease with what appears to be consolidation in the left lower lobe. There is considerable nodularity. Cystic lesions are present predominantly in the right upper lobe. There is decreased amount of soft tissue density associated with the largest compared to the earlier study. All these findings suggest pneumonia in the left lower lobe. Possibly an atypical infectious process elsewhere. Neoplasm certainly cannot be ruled out. Abdomen Ultrasound 02/15/17 14:14 IMPRESSION: Cholelithiasis with no evidence acute cholecystitis. There is a small amount of fluid around the liver. Chest X-Ray 02/15/17 14:17 IMPRESSION: Left lower lobe pneumonia, possible pneumonia with involvement of the right upper lobe or middle lobe as well. Assessment & Plan - Diagnosis (1) Diarrhea Is this a current diagnosis for this admission?: Yes Plan: If this persists I will make sure that stool cultures are ordered as well as PCR for C. difficile. (2) Abdominal pain Is this a current diagnosis for this admission?: Yes Plan: Resolving. This does not appear to be secondary to the cholelithiasis. The cholelithiasis appears to be an incidental finding. The patient is aware that she is not a candidate for surgery secondary to her lung cancer and severe thrombocytopenia. (3) Acute ITP Is this a current diagnosis for this admission?: Yes Plan: Continue steroids and IVIG per oncology's recommendations. (4) COPD (chronic obstructive pulmonary disease) Is this a current diagnosis for this admission?: Yes Plan: Stable (5) Full code status Is this a current diagnosis for this admission?: Yes Plan: I had a lengthy conversation with the patient today. She wishes to remain full code. Her daughter was present for the discussion. If at any point the patient would be dependent on life support she would like to be removed from life support. (6) Hypothyroidism Is this a current diagnosis for this admission?: Yes Plan: Continue supplementation. (7) Lung cancer Qualifiers: Laterality: right Lung location: upper lobe of lung Qualified Code(s): C34.11 - Malignant neoplasm of upper lobe, right bronchus or lung Is this a current diagnosis for this admission?: Yes Plan: Recommendations per oncology. (8) Pneumonia Is this a current diagnosis for this admission?: Yes Plan: Ruled out. I will stop antibiotics if urine culture is unremarkable. Patient did present with nausea, vomiting and abdominal pain and she does have significant leukocyte esterase on urinalysis which could be indicative of a urinary tract infection. (9) Thrombocytopenia Is this a current diagnosis for this admission?: Yes Plan: Per hematology/oncology. - Time Time Spent with patient: 25-34 minutes - Inpatient Certification Medical Necessity: Significant Comorbidiites Make Outpatient Treatment Too Risky , Need Close Monitoring Due to Risk of Patient Decompensation, Risk of Complication if Not Cared For in Hospital
[2017-02-16] MEDS: LEVOFLOXACIN 750 MG/D5W RTU 750 MG/150 ML RTUPB IV SCH (20:10)
[2017-02-16] MEDS: IMMUNE GLOB GAM CAPRY IV SCH ×3 (21:51)
[2017-02-16] MEDS: CONTAINER EMPTY IV SCH ×3 (21:51)
[2017-02-16] MEDS: IMMUNE GLOB GAM CAPRYLATE IV SCH ×3 (21:51)
[2017-02-16] MEDS: [UNRECOGNIZED DRUG - OTHER] IV SCH ×3 (21:51)
--- NOTE | 2017-02-16 21:55 | RADIOLOGY REPORT (SQ) ---
EXAM DESCRIPTION: VENOUS UNILATERAL LOWER COMPLETED DATE/TIME: 02/16/2017 9:43 pm REASON FOR STUDY: Left LE edema COMPARISON: None. TECHNIQUE: Dynamic and static escobedo scale and color images acquired of the left leg venous system. Se lected spectral images acquired with additional compression and augmentation maneuvers. The contralat eral common femoral vein and saphenofemoral junction were also imaged. Images stored on PACS. LIMITATIONS: None. FINDINGS: COMMON FEMORAL: Normal phasicity, compression and augmentation. No visualized echogenic ma terial on escobedo scale. No defects on color images. FEMORAL: Normal compression and augmentation. No visualized echogenic material on escobedo scale. No defe cts on color images. POPLITEAL: Normal compression, augmentation. No visualized echogenic material on escobedo scale. No defec ts on color images. CALF VESSELS: Normal compression, augmentation. No visualized echogenic material on escobedo scale. No de fects on color images. GSV and SSV: Normal compression, augmentation. No visualized echogenic material on escobedo scale. No def ects on color images. ANY DEEP VENOUS INSUFFICIENCY: Not evaluated. ANY EVIDENCE OF POPLITEAL CYST: No. OTHER: No other significant finding. CONTRALATERAL COMMON FEMORAL VEIN AND SAPHENOFEMORAL JUNCTION: Normal phasicity, compression and augmentation. No visualized echogenic material on escobedo scale. No de fects on color images. IMPRESSION: NO EVIDENCE DVT OR SVT IN THE LEFT LEG. TECHNICAL DOCUMENTATION: JOB ID: [id number] [employer]- All Rights Reserved
[2017-02-17] MEDS: LEVOTHYROXINE SODIUM 0.1 MG TABLET PO SCH (05:36)
[2017-02-17] MEDS: LANSOPRAZOLE 30 MG TAB.RAP.DR PO SCH (05:36)
[2017-02-17] MEDS: LEVOTHYROXINE SODIUM 0.075 MG TABLET PO SCH (05:36)
[2017-02-17 07:11] LABS: ABSOLUTE EOSINOPHILS # (AUTO) 0.1 10^3/uL (0.0-0.6); ABSOLUTE LYMPHOCYTES (AUTO) 1.3 10^3/uL (0.5-4.7); ABSOLUTE MONOCYTES (AUTO) 0.3 10^3/uL (0.1-1.4); ABSOLUTE NEUT (AUTO) 2.1 10^3/uL (1.7-8.2); BASOPHILS % (AUTO) 0.3 % (0-2); HEMATOCRIT 23.2 % (36.0-47.0); HGB HCT DIFFERENCE -1.3; LYMPHOCYTES % (AUTO) 33.5 % (13-45); MEAN CORPUSCULAR HEMOGLOBIN 24.7 pg (27.0-33.4); MEAN CORPUSCULAR HGB CONC 31.5 g/dL (32.0-36.0); MEAN CORPUSCULAR VOLUME 78 fl (80-97); MONOCYTES % (AUTO) 8.6 % (3-13); RED BLOOD COUNT 2.96 10^6/uL (3.72-5.28); RED CELL DISTRIBUTION WIDTH 20.6 % (11.5-14.0); SEGMENTED NEUTROPHILS % (AUTO) 54.6 % (42-78); WHITE BLOOD COUNT 3.9 10^3/uL (4.0-10.5)
[2017-02-17 07:23] LABS: ANION GAP 9 (5-19); BLOOD UREA NITROGEN 14 mg/dL (7-20); CARBON DIOXIDE 24 mmol/L (22-30); CHLORIDE 111 mmol/L (98-107); GLUCOSE 83 mg/dL (75-110); MAGNESIUM 1.8 mg/dL (1.6-2.3); POTASSIUM 3.7 mmol/L (3.6-5.0); SODIUM 143.5 mmol/L (137-145)
[2017-02-17 07:51] LABS: HEMOGLOBIN 7.3 g/dL (12.0-15.5)
[2017-02-17] MEDS: IPRATROPIUM/ALBUTEROL 0.5-2.5 MG/3 ML AMPUL NEB SCH ×3 (08:03→19:46)
[2017-02-17] MEDS: FLUOXETINE HCL 20 MG CAPSULE PO SCH (09:55)
[2017-02-17] MEDS: TIOTROPIUM BROMIDE DPI 5 CAP/KIT (18 MCG/CAP) IH SCH (09:56)
[2017-02-17] MEDS: PREDNISONE 10 MG TABLET PO SCH (09:56)
[2017-02-17] MEDS ORDERED: ACETAMINOPHEN 325 MG TABLET PO PRN (10:40)
[2017-02-17] MEDS ORDERED: DIPHENHYDRAMINE HCL 25 MG CAPSULE PO PRN (10:40)
--- NOTE | 2017-02-17 10:44 | PDOC PROGRESS REPORT ---
Subjective Progress Note for:: 02/17/17 Subjective:: Patient doing generally well, platelet count is 39, however hemoglobin is fallen to the 7 range, she is not having any hematochezia or hematemesis and does not seem to be having pain anywhere. So unsure of why the drop is, it may be volume, but given the low platelet count may have been some blood loss anemia as well. Plan for giving patient 1 unit of packed red blood cell today. I discussed discharge thereafter with the patient as well as hospitalist, the hospitalist was awaiting the urine culture because leukocyte esterase was large , so they were hoping to transition her to oral antibiotics based on that. If that comes back today, she will probably discharge home and she can then come to her office tomorrow for Rituxan therapy. If she stays overnight then we will transition Rituxan therapy for the following day possibly Saturday or Saturday. Reason For Visit: PNEUMONIA,THROMBOCYTOPENIA,VOMITING WITH NAUSEA Physical Exam Vital Signs: Temp Pulse Resp BP Pulse Ox 97.8 F 89 18 108/69 96 02/17/17 07:25 02/17/17 08:03 02/17/17 08:03 02/17/17 07:25 02/17/17 08:03 Intake & Output 02/16/17 02/17/17 02/18/17 06:59 06:59 06:59 Intake Total 1178 3685 Output Total 400 600 Balance 778 3085 Weight 45.7 kg 45.7 kg General appearance: PRESENT: no acute distress, well-developed, well-nourished Head exam: PRESENT: atraumatic, normocephalic Eye exam: PRESENT: conjunctiva pink, EOMI, PERRLA. ABSENT: scleral icterus Ear exam: PRESENT: normal external ear exam Mouth exam: PRESENT: moist, tongue midline Neck exam: ABSENT: carotid bruit, JVD, lymphadenopathy, thyromegaly Respiratory exam: PRESENT: clear to auscultation esdras. ABSENT: rales, rhonchi, wheezes Cardiovascular exam: PRESENT: RRR. ABSENT: diastolic murmur, rubs, systolic murmur Pulses: PRESENT: normal dorsalis pedis pul Vascular exam: PRESENT: normal capillary refill GI/Abdominal exam: PRESENT: normal bowel sounds, soft. ABSENT: distended, guarding, mass, organolmegaly, rebound, tenderness Rectal exam: PRESENT: deferred Extremities exam: PRESENT: full ROM. ABSENT: calf tenderness, clubbing, pedal edema Neurological exam: PRESENT: alert, awake, oriented to person, oriented to place , oriented to time, oriented to situation, CN II-XII grossly intact. ABSENT: motor sensory deficit Psychiatric exam: PRESENT: appropriate affect, normal mood. ABSENT: homicidal ideation, suicidal ideation Skin exam: PRESENT: dry, intact, warm. ABSENT: cyanosis, rash Results Laboratory Results: 02/17/17 06:44 02/17/17 06:44 02/17/17 02/17/17 06:44 06:44 WBC 3.9 L RBC 2.96 L Hgb 7.3 L Hct 23.2 L MCV 78 L MCH 24.7 L MCHC 31.5 L RDW 20.6 H Plt Count 39 L D Seg Neutrophils % 54.6 Lymphocytes % 33.5 Monocytes % 8.6 Eosinophils % 3.0 Basophils % 0.3 Absolute Neutrophils 2.1 Absolute Lymphocytes 1.3 Absolute Monocytes 0.3 Absolute Eosinophils 0.1 Absolute Basophils 0.0 Sodium 143.5 Potassium 3.7 Chloride 111 H Carbon Dioxide 24 Anion Gap 9 BUN 14 Creatinine 0.70 Est GFR ( Amer) > 60 Est GFR (Non-Af Amer) > 60 Glucose 83 Calcium 8.0 L Magnesium 1.8 02/15/17 20:02 Sputum Gram Stain - Final Impressions: Chest CT 02/15/17 00:00 IMPRESSION: Extensive lung disease with what appears to be consolidation in the left lower lobe. There is considerable nodularity. Cystic lesions are present predominantly in the right upper lobe. There is decreased amount of soft tissue density associated with the largest compared to the earlier study. All these findings suggest pneumonia in the left lower lobe. Possibly an atypical infectious process elsewhere. Neoplasm certainly cannot be ruled out. Abdomen Ultrasound 02/15/17 14:14 IMPRESSION: Cholelithiasis with no evidence acute cholecystitis. There is a small amount of fluid around the liver. Chest X-Ray 02/15/17 14:17 IMPRESSION: Left lower lobe pneumonia, possible pneumonia with involvement of the right upper lobe or middle lobe as well. Venous Doppler Study 02/16/17 00:00 IMPRESSION: NO EVIDENCE DVT OR SVT IN THE LEFT LEG. Assessment & Plan - Diagnosis (1) Acute ITP Is this a current diagnosis for this admission?: Yes Plan: Improving, continue to monitor. (2) Lung cancer Qualifiers: Laterality: right Lung location: upper lobe of lung Qualified Code(s): C34.11 - Malignant neoplasm of upper lobe, right bronchus or lung Is this a current diagnosis for this admission?: Yes (3) Anemia Qualifiers: Anemia type: other cause Other causes of anemia: acute posthemorrhagic Qualified Code(s): D62 - Acute posthemorrhagic anemia Is this a current diagnosis for this admission?: Yes Plan: Probable blood loss as well as volume dependent anemia, plan for 1 unit of packed red blood cell today, there does not appear to be any other bleeding so no workup needed for bleeding right now. - Time Time Spent with patient: 35 or more minutes Anticipated discharge: Home Within: within 24 hours - Inpatient Certification Based on my medical assessment, after consideration of the patient's comorbidities, presenting symptoms, or acuity I expect that the services needed warrant INPATIENT care.: Yes I certify that my determination is in accordance with my understanding of Medicare's requirements for reasonable and necessary INPATIENT services [42 CFR 412.3e].: Yes Medical Necessity: Other - Blood transfusion, close monitoring, awaiting urine culture
--- NOTE | 2017-02-17 12:10 | PDOC PROGRESS REPORT ---
Subjective Progress Note for:: 02/17/17 Subjective:: The patient is a 61-year-old female with known stage IV lung cancer. Her disease has progressed over the last 9 months. She has been receiving Opdiva. She was recently admitted for severe thrombo-cytopenia. She was transferred to [facility] in [facility] where she received IVIG. The thrombocytopenia is felt to be secondary to Opdiva, ITP or an underlying rheumatologic process. Oncology is following closely. The patient presented with abdominal pain associated with nausea, vomiting and diarrhea. She has been found incidentally to have gallstones but radiographically she does not have evidence of acute cholecystitis. She told me today that gallstones have been present as far she knows for about a decade. Today, her abdominal pain is significantly improved. She has noted that it is somewhat intermittent in character. She has not had any further nausea, vomiting or diarrhea. She is willing to try a regular diet. Yesterday, oncology noted that the findings on the CT scan of the chest are similar to old exams. Therefore, the findings are more likely to be cancer and not infection. However , the sputum culture is now showing evidence of both gram-negative rods and gram -positive cocci. Certainly, this could be colonization but this could be an issue for her treatment going forward. Urine culture is negative today. Reason For Visit: PNEUMONIA,THROMBOCYTOPENIA,VOMITING WITH NAUSEA Physical Exam Vital Signs: Temp Pulse Resp BP Pulse Ox 97.8 F 89 18 108/69 96 02/17/17 07:25 02/17/17 08:03 02/17/17 08:03 02/17/17 07:25 02/17/17 08:03 Intake & Output 02/16/17 02/17/17 02/18/17 06:59 06:59 06:59 Intake Total 1178 3685 Output Total 400 600 Balance 778 3085 Weight 45.7 kg 45.7 kg Additional comments: Patient appears improved today. She is in good spirits. She is noted to have a cough which is nonproductive. Her cognition and mentation remained normal. Her lungs demonstrate decreased breath sounds posteriorly in the left base greater than the right base. I did not hear any adventitious sounds today. The cardiac exam is regular without murmurs, gallops or rubs. The abdomen is soft and flat. Bowel sounds are present. No guarding or rebound is noted. Patient does not have tenderness even with very deep palpation. The lower extremities demonstrate trace edema in the left ankle. The patient did have NICK hose on and her edema overall is improved. The patient continues to have bruises and ecchymoses on her skin in various places. No new bruising is noted. Results Laboratory Results: 02/17/17 06:44 02/17/17 06:44 02/17/17 02/17/17 06:44 06:44 WBC 3.9 L RBC 2.96 L Hgb 7.3 L Hct 23.2 L MCV 78 L MCH 24.7 L MCHC 31.5 L RDW 20.6 H Plt Count 39 L D Seg Neutrophils % 54.6 Lymphocytes % 33.5 Monocytes % 8.6 Eosinophils % 3.0 Basophils % 0.3 Absolute Neutrophils 2.1 Absolute Lymphocytes 1.3 Absolute Monocytes 0.3 Absolute Eosinophils 0.1 Absolute Basophils 0.0 Sodium 143.5 Potassium 3.7 Chloride 111 H Carbon Dioxide 24 Anion Gap 9 BUN 14 Creatinine 0.70 Est GFR ( Amer) > 60 Est GFR (Non-Af Amer) > 60 Glucose 83 Calcium 8.0 L Magnesium 1.8 02/15/17 20:02 Sputum Gram Stain - Final Impressions: Chest CT 02/15/17 00:00 IMPRESSION: Extensive lung disease with what appears to be consolidation in the left lower lobe. There is considerable nodularity. Cystic lesions are present predominantly in the right upper lobe. There is decreased amount of soft tissue density associated with the largest compared to the earlier study. All these findings suggest pneumonia in the left lower lobe. Possibly an atypical infectious process elsewhere. Neoplasm certainly cannot be ruled out. Abdomen Ultrasound 02/15/17 14:14 IMPRESSION: Cholelithiasis with no evidence acute cholecystitis. There is a small amount of fluid around the liver. Chest X-Ray 02/15/17 14:17 IMPRESSION: Left lower lobe pneumonia, possible pneumonia with involvement of the right upper lobe or middle lobe as well. Venous Doppler Study 02/16/17 00:00 IMPRESSION: NO EVIDENCE DVT OR SVT IN THE LEFT LEG. Assessment & Plan - Diagnosis (1) Diarrhea Is this a current diagnosis for this admission?: Yes Plan: Resolved. For recurrent symptoms I would recommend checking Clostridium difficile PCR. (2) Abdominal pain Is this a current diagnosis for this admission?: Yes Plan: Resolving. This does not appear to be secondary to the cholelithiasis. The cholelithiasis appears to be an incidental finding. The patient is aware that she is not a candidate for surgery secondary to her lung cancer and severe thrombocytopenia. If her pain persists I would be worried about mesenteric ischemia. However, based on the patient's prognosis and comorbidities I would defer any additional workup until tricia discussion was had between the patient and oncology. (3) Acute ITP Is this a current diagnosis for this admission?: Yes Plan: Continue steroids and IVIG per oncology's recommendations. They also plan on starting Rituxan (4) COPD (chronic obstructive pulmonary disease) Is this a current diagnosis for this admission?: Yes Plan: Stable (5) Full code status Is this a current diagnosis for this admission?: Yes (6) Hypothyroidism Is this a current diagnosis for this admission?: Yes Plan: Continue supplementation. (7) Lung cancer Qualifiers: Laterality: right Lung location: upper lobe of lung Qualified Code(s): C34.11 - Malignant neoplasm of upper lobe, right bronchus or lung Is this a current diagnosis for this admission?: Yes Plan: Recommendations per oncology. (8) Pneumonia Is this a current diagnosis for this admission?: Yes Plan: Clinically, I feel that the diagnosis of pneumonia is unlikely. However, sputum cultures now showing evidence of both gram-positive cocci and gram- negative rods. Therefore, I am going to continue the Levaquin for now pending final analysis. If patient is going to get more chemotherapy including other immune modulator such as Rituxan identifying the bacteria species is imperative. I will continue the Levaquin for now.. (9) Thrombocytopenia Is this a current diagnosis for this admission?: Yes Plan: Per hematology/oncology. Improved. (10) Anemia Qualifiers: Anemia type: other cause Other causes of anemia: acute posthemorrhagic Qualified Code(s): D62 - Acute posthemorrhagic anemia Is this a current diagnosis for this admission?: Yes Plan: Hemoglobin and hematocrit trended down overnight. Patient will be seen receiving a 1 unit packed red blood cell transfusion per oncology. She has no obvious GI blood loss at this time but this is certainly a possibility due to her thrombocytopenia. - Time Time Spent with patient: 25-34 minutes - Inpatient Certification Medical Necessity: Need Close Monitoring Due to Risk of Patient Decompensation, Need for IV Antibiotics, Other - Need for PRBC transfusion.
[2017-02-17 17:21] LABS: HEMATOCRIT 29.1 % (36.0-47.0); HEMOGLOBIN 9.3 g/dL (12.0-15.5); HGB HCT DIFFERENCE -1.2; MEAN CORPUSCULAR HEMOGLOBIN 25.2 pg (27.0-33.4); MEAN CORPUSCULAR HGB CONC 31.9 g/dL (32.0-36.0); MEAN CORPUSCULAR VOLUME 79 fl (80-97); RED BLOOD COUNT 3.68 10^6/uL (3.72-5.28); RED CELL DISTRIBUTION WIDTH 19.4 % (11.5-14.0)
[2017-02-17 17:26] LABS: WHITE BLOOD COUNT 2.6 10^3/uL (4.0-10.5)
[2017-02-17] MEDS: LEVOFLOXACIN 750 MG/D5W RTU 750 MG/150 ML RTUPB IV SCH (19:59)
[2017-02-18] MEDS: LEVOTHYROXINE SODIUM 0.1 MG TABLET PO SCH (05:49)
[2017-02-18] MEDS: LEVOTHYROXINE SODIUM 0.075 MG TABLET PO SCH (05:50)
[2017-02-18] MEDS: LANSOPRAZOLE 30 MG TAB.RAP.DR PO SCH (05:50)
[2017-02-18 07:41] LABS: ABSOLUTE EOSINOPHILS # (AUTO) 0.3 10^3/uL (0.0-0.6); ABSOLUTE LYMPHOCYTES (AUTO) 1.6 10^3/uL (0.5-4.7); ABSOLUTE MONOCYTES (AUTO) 0.5 10^3/uL (0.1-1.4); ABSOLUTE NEUT (AUTO) 2.4 10^3/uL (1.7-8.2); BASOPHILS % (AUTO) 0.2 % (0-2); EOSINOPHILS % (AUTO) 5.9 % (0-6); HEMOGLOBIN 9.6 g/dL (12.0-15.5); HGB HCT DIFFERENCE -1.2; MEAN CORPUSCULAR HEMOGLOBIN 25.3 pg (27.0-33.4); MEAN CORPUSCULAR HGB CONC 32.1 g/dL (32.0-36.0); MEAN CORPUSCULAR VOLUME 79 fl (80-97); MONOCYTES % (AUTO) 9.7 % (3-13); RED BLOOD COUNT 3.81 10^6/uL (3.72-5.28); SEGMENTED NEUTROPHILS % (AUTO) 51.2 % (42-78); WHITE BLOOD COUNT 4.7 10^3/uL (4.0-10.5)
[2017-02-18 08:11] LABS: OVALOCYTES 2+; POIKILOCYTOSIS 2+; TEAR DROP CELLS SLIGHT
--- NOTE | 2017-02-18 08:16 | PDOC PROGRESS REPORT ---
Subjective Progress Note for:: 02/18/17 Subjective:: Patient states she is feeling much better than on admission. Her abdominal pain has resolved. No new complaints today. She is anxious to go home. On ROS, she has had regular BMs. No further pain. Eating well. No dyspnea. Reason For Visit: PNEUMONIA,THROMBOCYTOPENIA,VOMITING WITH NAUSEA Physical Exam Vital Signs: Temp Pulse Resp BP Pulse Ox 97.8 F 84 16 117/74 99 02/17/17 23:12 02/17/17 23:12 02/17/17 23:12 02/17/17 23:12 02/17/17 23:12 Intake & Output 02/17/17 02/18/17 02/19/17 06:59 06:59 06:59 Intake Total 3685 2599 Output Total 600 3550 Balance 3085 -951 Weight 45.7 kg 46.8 kg General appearance: PRESENT: no acute distress, thin Head exam: PRESENT: atraumatic Respiratory exam: PRESENT: unlabored Neurological exam: PRESENT: alert, awake, oriented to person, oriented to place , oriented to time, oriented to situation Psychiatric exam: PRESENT: appropriate affect Skin exam: PRESENT: pallor Results Laboratory Results: 02/17/17 06:44 02/17/17 17:00 WBC 2.6 L D RBC 3.68 L Hgb 9.3 L Hct 29.1 L MCV 79 L MCH 25.2 L MCHC 31.9 L RDW 19.4 H Plt Count 45 L 02/15/17 20:02 Sputum Gram Stain - Final Impressions: Chest CT 02/15/17 00:00 IMPRESSION: Extensive lung disease with what appears to be consolidation in the left lower lobe. There is considerable nodularity. Cystic lesions are present predominantly in the right upper lobe. There is decreased amount of soft tissue density associated with the largest compared to the earlier study. All these findings suggest pneumonia in the left lower lobe. Possibly an atypical infectious process elsewhere. Neoplasm certainly cannot be ruled out. Abdomen Ultrasound 02/15/17 14:14 IMPRESSION: Cholelithiasis with no evidence acute cholecystitis. There is a small amount of fluid around the liver. Chest X-Ray 02/15/17 14:17 IMPRESSION: Left lower lobe pneumonia, possible pneumonia with involvement of the right upper lobe or middle lobe as well. Venous Doppler Study 02/16/17 00:00 IMPRESSION: NO EVIDENCE DVT OR SVT IN THE LEFT LEG. Assessment & Plan - Diagnosis (1) Acute ITP Is this a current diagnosis for this admission?: Yes Plan: Improving s/p IVIg. Plan is for Rituxan as an outpatient as soon as she is discharged. Continue steroids at current dose. Await today's CBC. Blood smear yesterday showed microcytic, hypochromic RBCs with occasional stoma cells and shistocytes. Increased lymphocytes. (2) Lung cancer Qualifiers: Laterality: right Lung location: upper lobe of lung Qualified Code(s): C34.11 - Malignant neoplasm of upper lobe, right bronchus or lung Is this a current diagnosis for this admission?: Yes Plan: Treatment is on hold until after ITP resolves. Her current therapy is an immune modulator which increases the immune system and is most likely the cause of her ITP. (3) Pneumonia Is this a current diagnosis for this admission?: Yes Plan: Still unclear if this is bacterial, but Levaquin seems to be helping her symptoms. Would continue as outpatient. (4) Abdominal pain Is this a current diagnosis for this admission?: Yes Plan: Now resolving with Levaquin. - Plan Summary Plan Summary: Agree with plans to continue Levaquin PO on discharge. Will follow-up in my office day after Discharge for Rituxan and continued treatment.
[2017-02-18] MEDS: IPRATROPIUM/ALBUTEROL 0.5-2.5 MG/3 ML AMPUL NEB SCH ×2 (08:45→13:45)
[2017-02-18] MEDS: PREDNISONE 10 MG TABLET PO SCH (09:24)
[2017-02-18] MEDS: TIOTROPIUM BROMIDE DPI 5 CAP/KIT (18 MCG/CAP) IH SCH (09:25)
[2017-02-18] MEDS: FLUOXETINE HCL 20 MG CAPSULE PO SCH (09:25)
[2017-02-18 12:30] LABS: PATH REVIEW PATHOLOGIST REVIEWED
--- NOTE | 2017-02-18 12:34 | PDOC DISCHARGE SUMMARY ---
General - Admit/Disc Date/PCP Admission Date/Primary Care Provider: 02/15/17 17:14 DARA MINOR MD Discharge Date: 02/18/17 - Discharge Diagnosis (1) Diarrhea Is this a current diagnosis for this admission?: Yes (2) Abdominal pain Is this a current diagnosis for this admission?: Yes (3) Acute ITP Is this a current diagnosis for this admission?: Yes (4) COPD (chronic obstructive pulmonary disease) Is this a current diagnosis for this admission?: Yes (5) Full code status Is this a current diagnosis for this admission?: Yes (6) Hypothyroidism Is this a current diagnosis for this admission?: Yes (7) Lung cancer Is this a current diagnosis for this admission?: Yes (8) Pneumonia Is this a current diagnosis for this admission?: Yes (9) Thrombocytopenia Is this a current diagnosis for this admission?: Yes (10) Anemia Is this a current diagnosis for this admission?: Yes - Additional Information Resuscitation Status: Full Code Discharge Diet: Regular Discharge Activity: Activity As Tolerated Home Medications: Albuterol Sulfate [Ventolin Hfa] 2 puff IH Q4HP PRN 02/15/17 Fluoxetine HCl 20 mg PO DAILY 02/15/17 Levothyroxine Sodium 150 mcg PO Q6AM 02/15/17 Omeprazole 20 mg PO DAILY 02/15/17 Prednisone 10 mg PO QID 02/15/17 Tiotropium Marine [Spiriva Respimat] 2 puff IH DAILY 02/15/17 Levofloxacin [Levaquin 750 mg Tablet] 750 mg PO QPM 5 Days #5 tablet 02/18/17 History of Present Illness History of Present Illness: MERRILL BLAKE is a 61 year old female who presented to the emergency room with nausea, vomiting and diarrhea. Her past medical history is significant for lung cancer. Patient also has significant thrombocytopenia. She was recently transferred from this facility to [facility] where she was treated with steroids and IVIG. In the emergency room the patient was found to have a platelet level of 10. Chest x-ray was concerning for an underlying infiltrate. She had recently had a CT scan of the abdomen and pelvis this week which revealed evidence of cholelithiasis but no acute abnormalities. She had an abdominal ultrasound in the emergency room which confirmed this. Due to her low platelet level and underlying pneumonia she was referred for admission. Hospital Course Hospital Course: The patient presented to the hospital with abdominal pain. She was identified as having gallstones but no evidence of cholecystitis. She reports that gallstones are not a new finding for her. The patient was placed on a liquid diet and her pain abated within 24 hours. During this hospitalization she also had a CT scan. There is a question of a new pneumonia. The CT scan findings are consistent with her prior CT scan demonstrating a lung cancer, however, her sputum culture is growing E. coli and therefore she will complete a 7 day course of 750 mg of Levaquin. In regards to her thrombocytopenia she was continued on her prednisone this hospitalization. She will be discharged on prednisone and she will have close follow-up with oncology to start rituximab. I am concerned that her abdominal pain could be a harbinger for mesenteric ischemia. If her pain persists further workup may be advisable. Physical Exam Vital Signs: Temp Pulse Resp BP Pulse Ox 97.8 F 86 20 127/89 H 96 02/18/17 07:27 02/18/17 08:45 02/18/17 08:45 02/18/17 07:27 02/18/17 08:45 Intake & Output 02/17/17 02/18/17 02/19/17 06:59 06:59 06:59 Intake Total 3685 2599 Output Total 600 3550 Balance 3085 -951 Weight 45.7 kg 46.8 kg Additional comments: Patient is a delightful, middle-aged female. She is frail and thin. However, she does not appear to be septic and she does not appear to be in any distress. The lesions on her right lower lip are resolving. Her lungs are clear to auscultation bilaterally today. Her cardiac exam is regular without murmurs, gallops or rubs. The abdomen is soft and flat. Bowel sounds are noted in the lower quadrants. The lower extremities are warm to touch. The patient continues to have some trace edema in the lower extremities left greater than right. Results Laboratory Results: 02/18/17 06:58 02/17/17 06:44 02/17/17 02/18/17 17:00 06:58 WBC 2.6 L D 4.7 RBC 3.68 L 3.81 Hgb 9.3 L 9.6 L Hct 29.1 L 30.0 L MCV 79 L 79 L MCH 25.2 L 25.3 L MCHC 31.9 L 32.1 RDW 19.4 H 19.0 H Plt Count 45 L 55 L Seg Neutrophils % 51.2 Lymphocytes % 33.0 Monocytes % 9.7 Eosinophils % 5.9 Basophils % 0.2 Absolute Neutrophils 2.4 Absolute Lymphocytes 1.6 Absolute Monocytes 0.5 Absolute Eosinophils 0.3 Absolute Basophils 0.0 02/15/17 20:02 Sputum Gram Stain - Final 02/15/17 20:02 Sputum Sputum Culture - Final Escherichia Coli Normal Kinsey 02/16/17 01:23 Clean Catch Midstream Urine Culture - Final NO GROWTH 2 DAYS Impressions: Chest CT 02/15/17 00:00 IMPRESSION: Extensive lung disease with what appears to be consolidation in the left lower lobe. There is considerable nodularity. Cystic lesions are present predominantly in the right upper lobe. There is decreased amount of soft tissue density associated with the largest compared to the earlier study. All these findings suggest pneumonia in the left lower lobe. Possibly an atypical infectious process elsewhere. Neoplasm certainly cannot be ruled out. Abdomen Ultrasound 02/15/17 14:14 IMPRESSION: Cholelithiasis with no evidence acute cholecystitis. There is a small amount of fluid around the liver. Chest X-Ray 02/15/17 14:17 IMPRESSION: Left lower lobe pneumonia, possible pneumonia with involvement of the right upper lobe or middle lobe as well. Venous Doppler Study 02/16/17 00:00 IMPRESSION: NO EVIDENCE DVT OR SVT IN THE LEFT LEG. Plan Discharge Plan: The patient will need to follow-up with her oncologist tomorrow to initiate therapy with Rituxan. 2. Follow-up with primary inpatient care manager rn in 1-2 weeks.
[2017-02-18 13:08] VITALS: BP 124/79
[2017-02-18] MEDS ORDERED: ONDANSETRON HCL INJ/PF 4 MG/2 ML SDV IV PRN (14:30)
[2017-02-18] MEDS ORDERED: ONDANSETRON 4 MG TAB.RAPDIS PO PRN (14:30)
[2017-02-18] MEDS ORDERED: LEVOFLOXACIN 750 MG TABLET PO SCH (18:00)
[2017-02-19] MEDS ORDERED: LANSOPRAZOLE 30 MG TAB.RAP.DR PO SCH (06:00)
[2017-02-19] MEDS ORDERED: PREDNISONE 20 MG TABLET PO SCH (10:00)
== END 2017-02-18 14:20 | disposition home or self-care (01) | DRG 194 ==
LOC: ER 13:45 → EH 17:14 → 4W 20:09
PROVIDERS: ADMIT Internal Medicine; ATTEND Internal Medicine
DX: J18.9 Pneumonia, unspecified organism (principal); J44.0 Chronic obstructive pulmonary disease with (acute) lower respiratory infection; D69.3 Immune thrombocytopenic purpura; C34.11 Malignant neoplasm of upper lobe, right bronchus or lung; C79.51 Secondary malignant neoplasm of bone; D62 Acute posthemorrhagic anemia; K80.20 Calculus of gallbladder without cholecystitis without obstruction; R19.7 Diarrhea, unspecified; E03.9 Hypothyroidism, unspecified; F32.9 Major depressive disorder, single episode, unspecified; Z79.82 Long term (current) use of aspirin; Z79.899 Other long term (current) drug therapy; Z87.891 Personal history of nicotine dependence
CPT/HCPCS: 36415; 36430; 71020; 71250; 74177; 76705; 80048; 80053; 80076; 81001; 82565; 83690; 83735; 84100; 85025; 85027; 86850; 86900; 86901; 86920; 87040; 87070; 87077; 87086; 87186; 87205; 93971; 94640; 96365; 96375; 96376; 99291; G8978-GP; G8979-GP; G8980-GP; J0456; J0692; J1561; J1956; J2270; J2405; J3490; J7030; J7512; J7620; P9016

== ENCOUNTER 2017-03-19 13:51 | Outpatient (CLI) | payer MEDICARE, MEDICAID ==
[2017-03-19 14:29] VITALS: BP 107/66
[2017-03-19] MEDS ORDERED: NORMAL SALINE 500 ML IV PRN (14:35)
== END 2017-03-19 14:55 | disposition home or self-care (01) ==
LOC: II 13:51 → 5TH 13:57 → II 14:55
PROVIDERS: ATTEND Internal Medicine Hematology & Oncology
PROC: 3E0437Z Introduction of Electrolytic and Water Balance Substance into Central Vein, Percutaneous Approach (ICD-10-PCS; principal; 2017-03-19)
DX: E86.0 Dehydration (principal); C34.82 Malignant neoplasm of overlapping sites of left bronchus and lung
CPT/HCPCS: 96360; 96523

== ENCOUNTER 2017-04-03 11:56 | Inpatient (IN) | payer MEDICARE, MEDICAID ==
[2017-04-03] MEDS ORDERED: ASPIRIN 81 MG TABLET, CHEWABLE PO ONE (12:00)
[2017-04-03] MEDS ORDERED: IPRATROPIUM/ALBUTEROL 0.5-2.5 MG/3 ML AMPUL NEB ONE (12:34)
--- NOTE | 2017-04-03 12:35 | ER Document Report ---
ED Medical Screen (RME) - General Chief Complaint: Shortness Of Breath Stated Complaint: SHORTNESS OF BREATH Time Seen by Provider: 04/03/17 12:33 Notes: Patient has lung cancer and was sent from her oncologist office today with shortness of breath and tachycardia. Patient states she has been using her inhaler today but is short of breath. She states she has not smoked for several months. She is also not currently taking any type of hormones. TRAVEL OUTSIDE OF THE [place] IN LAST 30 DAYS: No - Related Data Allergies/Adverse Reactions: No Known Allergies Allergy (Verified 04/03/17 11:58) Past Medical History - Social History Frequency of alcohol use: None Drug Abuse: None - Past Medical History Cardiac Medical History: Denies: Hx Coronary Artery Disease, Hx Heart Attack Comment Only: Hx Hypertension - HX OF LBP Pulmonary Medical History: Reports: Hx Bronchitis, Hx COPD Denies: Hx Asthma, Hx Pneumonia Neurological Medical History: Denies: Hx Cerebrovascular Accident, Hx Seizures Endocrine Medical History: Reports: Hx Hypothyroidism Renal/ Medical History: Denies: Hx Peritoneal Dialysis Malignancy Medical History: Reports: Hx Lung Cancer - Current GI Medical History: Reports: Hx Ulcer - YRS AGO,. Denies: Hx Hepatitis, Hx Hiatal Hernia Musculoskeltal Medical History: Denies Hx Arthritis Psychiatric Medical History: Reports: Hx Depression Infectious Medical History: Denies: Hx Hepatitis Past Surgical History: Reports: Hx Abdominal Surgery - hernia repair, Hx Orthopedic Surgery - back, Other - Lung biopsy. Denies: Hx Hysterectomy, Hx Mastectomy, Hx Open Heart Surgery, Hx Pacemaker - Immunizations Hx Diphtheria, Pertussis, Tetanus Vaccination: No History of Influenza Vaccine for 12/2016 - 05/2017 Season: Refused Physical Exam - Vital signs Vitals: Temp Pulse Resp BP Pulse Ox 98.3 F 139 H 18 99/77 L 94 04/03/17 12:15 04/03/17 12:15 04/03/17 12:15 04/03/17 12:15 04/03/17 12:15 Course - Vital Signs Vital signs: Temp Pulse Resp BP Pulse Ox 98.3 F 139 H 18 99/77 L 94 04/03/17 12:15 04/03/17 12:15 04/03/17 12:15 04/03/17 12:15 04/03/17 12:15
[2017-04-03 13:17] LABS: HEMATOCRIT 33.1 % (36.0-47.0); MEAN CORPUSCULAR HEMOGLOBIN 22.9 pg (27.0-33.4); MEAN CORPUSCULAR HGB CONC 30.3 g/dL (32.0-36.0); MEAN CORPUSCULAR VOLUME 76 fl (80-97); PLATELET COUNT 118 10^3/uL (150-450); RED BLOOD COUNT 4.38 10^6/uL (3.72-5.28); RED CELL DISTRIBUTION WIDTH 18.6 % (11.5-14.0); WHITE BLOOD COUNT 12.4 10^3/uL (4.0-10.5)
[2017-04-03 13:32] LABS: ABSOLUTE LYMPHOCYTES# (MANUAL) 2.1 10^3/uL (0.5-4.7); ABSOLUTE NEUTROPHILS# (MANUAL) 9.3 10^3/uL (1.7-8.2); BASOPHILS % (MANUAL) 0 % (0-2); EOSINOPHILS % (MANUAL) 0 % (0-6); LYMPHOCYTES % (MANUAL) 17 % (13-45); METAMYELOCYTES % (MANUAL) 1 % (0); MONOCYTES % (MANUAL) 8 % (3-13); SEGMENTED NEUTROPHILS % (MAN) 74 % (42-78); TOTAL CELLS COUNTED 100
[2017-04-03 13:35] LABS: ANISOCYTOSIS 2+; HYPOCHROMASIA 2+; OVALOCYTES 1+; POIKILOCYTOSIS SLIGHT; POLYCHROMASIA 1+; TARGET CELLS SLIGHT; TOXIC VACUOLATION PRESENT
[2017-04-03 13:36] LABS: PLATELET COMMENT DECREASED
[2017-04-03 13:47] LABS: ALANINE AMINOTRANSFERASE 27 U/L (9-52); ALBUMIN 3.7 g/dL (3.5-5.0); ALKALINE PHOSPHATASE 76 U/L (38-126); ANION GAP 6 (5-19); ASPARTATE AMINO TRANSFERASE 29 U/L (14-36); BILIRUBIN,DIRECT 0.2 mg/dL (0.0-0.4); BILIRUBIN,TOTAL 0.3 mg/dL (0.2-1.3); BLOOD UREA NITROGEN 16 mg/dL (7-20); CALCIUM 9.5 mg/dL (8.4-10.2); CARBON DIOXIDE 29 mmol/L (22-30); CHLORIDE 102 mmol/L (98-107); CREATINE KINASE < 20 U/L (30-135); GLUCOSE 102 mg/dL (75-110); POTASSIUM 4.8 mmol/L (3.6-5.0); SODIUM 136.8 mmol/L (137-145); TOTAL PROTEIN 6.7 g/dL (6.3-8.2)
--- NOTE | 2017-04-03 13:54 | RADIOLOGY REPORT (SQ) ---
EXAM DESCRIPTION: CHEST SINGLE VIEW COMPLETED DATE/TIME: 04/03/2017 1:23 pm REASON FOR STUDY: shortness of breath COMPARISON: CT chest 08/31/2016, 12/25/2016, 02/15/2017 Chest films 07/11/2015, 02/15/2017 EXAM PARAMETERS: NUMBER OF VIEWS: One view. TECHNIQUE: Single frontal radiographic view of the chest acquired. RADIATION DOSE: NA LIMITATIONS: None. FINDINGS: LUNGS AND PLEURA: No new opacities in the chest compared to the previous studies. There is bilateral volume loss with increased interstitial markings, and cavitary scarring in the esdras ateral upper lobes. No pleural effusion. No pneumothorax. MEDIASTINUM AND HILAR STRUCTURES: No masses. Contour normal. HEART AND VASCULAR STRUCTURES: Heart normal in size. Normal vasculature. BONES: Osteoporotic HARDWARE: Right-sided permanent central line tip superior vena cava OTHER: No other significant finding. IMPRESSION: Grossly stable bilateral upper lobe cavitary changes compared to imaging from February. Chronic increased interstitial markings in the mid and lower lungs. No acute infiltrates. TECHNICAL DOCUMENTATION: JOB ID: [id number]- All Rights Reserved
[2017-04-03 13:59] LABS: CREATINE KINASE MB 1.23 ng/mL (<4.55)
[2017-04-03 14:00] LABS: TROPONIN I < 0.012 ng/mL
--- NOTE | 2017-04-03 14:49 | ER Document Report ---
ED General - General Mode of Arrival: Ambulatory Information source: Patient TRAVEL OUTSIDE OF THE [place] IN LAST 30 DAYS: No <JOSE ENRIQUE OMER - Last Filed: 04/03/17 18:49> <RUBENNIKI Zamudio - Last Filed: 04/09/17 20:47> - General Chief Complaint: Shortness Of Breath Stated Complaint: SHORTNESS OF BREATH Time Seen by Provider: 04/03/17 12:33 Notes: Patient is an 61 year old female with lung cancer presents to the emergency department complaining of multiple symptoms including shortness of breath, tachycardia, and a fever. Patient states she was sent here from her Oncologist office this morning due to her being short of breath and febrile with a temperature of 101. Patient also complains of cough, swollen feet, and chills. Patient states she has an inhaler but does not have any oxygen at home. Patient denies being on any blood thinners. (JOSE ENRIQUE OMER) - Related Data Allergies/Adverse Reactions: No Known Allergies Allergy (Verified 04/03/17 11:58) Past Medical History - General Information source: Patient - Social History Smoking Status: Former Smoker Frequency of alcohol use: None Drug Abuse: None Family History: Reviewed & Not Pertinent Patient has suicidal ideation: No Patient has homicidal ideation: No - Past Medical History Cardiac Medical History: Comment Only: Hx Hypertension - HX OF LBP Pulmonary Medical History: Reports: Hx Bronchitis, Hx COPD Endocrine Medical History: Reports: Hx Hypothyroidism Malignancy Medical History: Reports: Hx Lung Cancer - Current GI Medical History: Reports: Hx Ulcer - YRS AGO, Psychiatric Medical History: Reports: Hx Depression Past Surgical History: Reports: Hx Abdominal Surgery - hernia repair, Hx Orthopedic Surgery - back, Other - Lung biopsy - Immunizations Hx Diphtheria, Pertussis, Tetanus Vaccination: No <JOSE ENRIQUE OMER - Last Filed: 04/03/17 18:49> Review of Systems - Review of Systems Constitutional: See HPI, Chills, Fever EENT: No symptoms reported Respiratory: See HPI, Cough, Short of breath Gastrointestinal: No symptoms reported Genitourinary: No symptoms reported Female Genitourinary: No symptoms reported Musculoskeletal: No symptoms reported Skin: No symptoms reported Hematologic/Lymphatic: No symptoms reported Neurological/Psychological: No symptoms reported -: Yes All other systems reviewed and negative <JOSE ENRIQUE OMER - Last Filed: 04/03/17 18:49> Physical Exam <HENRI OMERAMBER - Last Filed: 04/03/17 18:49> <NIKI MIRANDA Lizz - Last Filed: 04/09/17 20:47> - Vital signs Vitals: Pulse Ox 100 04/03/17 12:01 - Notes Notes: GENERAL: Alert, interacts well. No acute distress. HEAD: Normocephalic, atraumatic. EYES: Appear normal. Pupils equal, round, and reactive to light. ENT: Moist mucus membranes, tongue midline. NECK: Full range of motion. Supple. Trachea midline. LUNGS: Minimal crackles in the left lung base. Minimal wheezes. HEART: Tachycardia. No murmurs, gallops, or rubs. ABDOMEN: Soft, non-tender. Non-distended. Normal bowel sounds. EXTREMITIES: Moves all 4 extremities spontaneously. 1+ pitting edema in the BLE. NEUROLOGICAL: Alert and oriented x3. Normal speech. PSYCH: Normal affect, normal mood. SKIN: Warm, dry, normal turgor. No rashes or lesions noted. (JOSE ENRIQUE OMER) Course - Laboratory Result Diagrams: 04/03/17 13:00 04/03/17 13:00 - Consults Dr. Singleton Time consulted: 16:35 - Admitted and accepted to telemetry <JOSE ENRIQUE MOER - Last Filed: 04/03/17 18:49> - Laboratory Result Diagrams: 04/06/17 06:56 04/06/17 06:56 <NIKI MIRANDA Lizz - Last Filed: 04/09/17 20:47> - Vital Signs Vital signs: Temp Pulse Resp BP Pulse Ox 97.8 F 76 18 90/61 L 98 04/06/17 11:16 04/06/17 11:16 04/06/17 11:16 04/06/17 11:16 04/06/17 11:16 - Laboratory Laboratory results interpreted by me: 04/03/17 04/03/17 13:00 13:00 WBC 12.4 H Hgb 10.0 L Hct 33.1 L MCV 76 L MCH 22.9 L MCHC 30.3 L RDW 18.6 H Plt Count 118 L Metamyelocytes % 1 H Abs Neuts (Manual) 9.3 H Sodium 136.8 L Creatine Kinase < 20 L Discharge - Discharge Admitting Provider: [facility] Admitted: Telemetry <JOSE ENRIQUE OMER - Last Filed: 04/03/17 18:49> <NIKI MIRANDA - Last Filed: 04/09/17 20:47> - Discharge Clinical Impression: Shortness of breath, Tachycardia, Hospital-acquired pneumonia Condition: Fair Disposition: ADMITTED INPATIENT Scribe Attestation: 04/09/17 20:47 I personally performed the services described documentation, reviewed and edited the documentation which was dictated to describe my presence, and it accurately records my words and actions. (NIKI MIRANDA) Scribe Documentation - Scribe Written by Rainae:: Tony Briggs, 04/03/2017 15:09 acting as scribe for :: Ruben <JOSE ENRIQUE OMER - Last Filed: 04/03/17 18:49>
[2017-04-03] MEDS ORDERED: NORMAL SALINE 1000 ML 500 ML IV ONE (14:59)
--- NOTE | 2017-04-03 15:14 | RADIOLOGY REPORT (SQ) ---
EXAM DESCRIPTION: CTA CHEST COMPLETED DATE/TIME: 04/03/2017 2:24 pm REASON FOR STUDY: cancer sob COMPARISON: Non contrasted chest CT scan dated 02/15/2017 in chest x-ray dated 04/03/2017 TECHNIQUE: CT scan of the chest performed using helical scanning technique with dynamic intravenous contrast injection. Images reviewed with lung, soft tissue and bone windows. Reconstructed coronal and sagittal MPR images reviewed. Additional 3 dimensional post-processing performed to develop Maximal Intensity Projection images (MO P). All images stored on PACS. All CT scanners at this facility use dose modulation, iterative reconstruction, and/or weight based d osing when appropriate to reduce radiation dose to as low as reasonably achievable (ALARA). [facility]: Dose Right [facility]: CareDose [facility]: Dose Right [facility]: Teradose 4D [facility]: Beta Dash CONTRAST TYPE AND DOSE: contrast/concentration: Isovue 370.00 mg/ml; Total Contrast Delivered: 56.0 ml; Total Saline Delivered: 97.0 ml Contrast bolus optimized for the pulmonary arteries. Not diagnostic for the aorta. RENAL FUNCTION: Creatinine 0.74 RADIATION DOSE: CT Rad equipment meets quality standard of care and radiation dose reduction techniq ues were employed. CTDIvol: 14.3 - 16.5 mGy. DLP: 531 mGy-cm. . LIMITATIONS: None. FINDINGS: LUNGS AND PLEURA: Extensive chronic appearing varying size cystic lesions are identified t hroughout both lungs. Emphysematous changes are also identified. When correlated with the previous study, the associated consolidative process appear minimally improved in the upper lung bui as com pared to the previous study although fairly extensive residual changes are identified. The dense con solidative process in the left lower lung field has almost completely resolved. There is a patchy co nsolidative process in the right lower lung field laterally which was not present on the previous hugo dy. No pleural effusions are identified. No pneumothorax is seen. AORTA AND GREAT VESSELS: No aneurysm. Contrast bolus not optimized for the aorta. HEART: There is some thickening of the pericardium consistent with a small pericardial effusion. No s ignificant coronary artery calcifications. PULMONARY ARTERIES: No emboli visualized in the main pulmonary arteries or the segmental branches. HILAR AND MEDIASTINAL STRUCTURES: A mass is identified in the aortopulmonary window measuring 1.4 x 2 .3 cm in diameters which could represent adenopathy or a primary neoplasm. There are enlarged bilate ral hilar lymph nodes. HARDWARE: None in the chest. UPPER ABDOMEN: No significant findings. Limited exam. THYROID AND OTHER SOFT TISSUES: No masses. No adenopathy. BONES: Multiple thoracic compression fractures are identified which were present on the previous stud y 3D MIPS: Confirm above findings. OTHER: No other significant finding. IMPRESSION: Extensive chronic appearing varying size cystic lesions are identified as well as emphys ematous changes. There are associated with consolidative process ease which appear minimally improve d in the upper lung bui and in the left lower lung field as compared to the previous study. There is a patchy consolidative process in the right lower lung field laterally which was not present on t he previous study. No pleural effusions are identified. Mediastinal and hilar adenopathy is noted a lisette. No evidence for pulmonary embolic disease. Other findings as noted above COMMENT: Quality ID # [id number]: Final reports with documentation of one or more dose reduction techniques (e.g., Automated exposure control, adjustment of the mA and/or kV according to patient size, use of iterative reconstruction technique) TECHNICAL DOCUMENTATION: JOB ID: [id number] [employer]- All Rights Reserved
[2017-04-03 15:39] LABS: A TYPE INFLUENZA AG NEGATIVE (NEGATIVE); B INFLUENZA AG NEGATIVE (NEGATIVE)
[2017-04-03] MEDS ORDERED: VANCOMYCIN HCL INJ 1000 MG VIAL IV ONE (16:35)
[2017-04-03] MEDS ORDERED: PIPERACILLIN/TAZOBACTAM 3.375 GM VIAL IV ONE (16:35)
[2017-04-03] MEDS ORDERED: ONDANSETRON HCL INJ/PF 4 MG/2 ML SDV IV PRN (16:40)
[2017-04-03] MEDS ORDERED: ACETAMINOPHEN 325 MG TABLET PO PRN (16:40)
[2017-04-03] MEDS ORDERED: ALBUTEROL SULFATE 0.083% NEB 2.5 MG/3 ML AMPUL NEB PRN (16:40)
[2017-04-03 18:08] LABS: APPEARANCE,URINE CLEAR; BILIRUBIN,URINE NEGATIVE (NEGATIVE); COLOR,URINE STRAW; GLUCOSE, URINE NEGATIVE (NEGATIVE); KETONES,URINE NEGATIVE (NEGATIVE); LEUKOCYTE ESTERASE,URINE NEGATIVE (NEGATIVE); NITRITE,URINE NEGATIVE (NEGATIVE); PROTEIN,URINE NEGATIVE (NEGATIVE); URINE SPECIFIC GRAVITY 1.031; UROBILINOGEN,URINE NEGATIVE mg/dL (<2.0)
--- NOTE | 2017-04-03 18:12 | PDOC H&P ---
History of Present Illness Admission Date/PCP: 04/03/17 17:13 VIRAL GARCIA MD Patient complains of: Fever noted at oncologist's office today History of Present Illness: MERRILL BLAKE is a 61 year old femaleWas referred to emergency room from her oncologist office since up when checking vital signs temperature was 101. Patient stated that she was unaware that she was having any fever. Interestingly she was not medicated and sent to emergency room and on arrival to emergency room the fever had resolved. Patient complains that she has been having shortness of breath, productive cough of mostly white phlegm. Patient had been noticing swelling of her legs for a couple of weeks. She admits that she continues smoking off and on when she gets upset. Patient was evaluated in emergency room through CTA of the chest and there was a concern about the possibility of pneumonia and the hospitalist service was consulted for further management and prompted to admit. Past Medical History Cardiac Medical History: Denies: Coronary Artery Disease, Myocardial Infarction Comment Only: Hypertension - HX OF LBP Pulmonary Medical History: Reports: Bronchitis, Chronic Obstructive Pulmonary Disease (COPD) Denies: Asthma, Pneumonia Neurological Medical History: Denies: Seizures Endocrine Medical History: Reports: Hypothyroidism Malignancy Medical History: Reports: Lung Cancer - Current GI Medical History: Denies: Hepatitis, Hiatal Hernia Musculoskeltal Medical History: Denies: Arthritis Psychiatric Medical History: Reports: Depression Hematology: Reports: Anemia, Other - Thrombocytopenia Denies: Sickle Cell Disease Past Surgical History Past Surgical History: Reports: Orthopedic Surgery - back, Other - Lung biopsy Denies: Amputation, Hysterectomy, Mastectomy, Pacemaker Social History Information Source: Patient Lives with: Family Smoking Status: Current Some Day Smoker Frequency of Alcohol Use: None Hx Recreational Drug Use: No Drugs: None Hx Prescription Drug Abuse: No - Advance Directive Resuscitation Status: Full Code Family History Family History: Reviewed & Not Pertinent Parental Family History Reviewed: Yes Children Family History Reviewed: Yes Sibling(s) Family History Reviewed.: Yes Medication/Allergy Allergies/Adverse Reactions: No Known Allergies Allergy (Verified 04/03/17 11:58) Review of Systems Constitutional: PRESENT: weakness Eyes: ABSENT: visual disturbances Ears: ABSENT: hearing changes Nose, Mouth, and Throat: ABSENT: mouth pain, sore throat Cardiovascular: PRESENT: edema Respiratory: PRESENT: cough, dyspnea Gastrointestinal: ABSENT: diarrhea, nausea, vomiting Genitourinary: ABSENT: dysuria, hematuria Neurological: ABSENT: abnormal gait, focal weakness Psychiatric: PRESENT: depression Hematologic/Lymphatic: ABSENT: easy bruising Physical Exam Vital Signs: Temp Pulse Resp BP Pulse Ox 99.6 F 139 H 26 H 104/80 96 04/03/17 13:16 04/03/17 12:15 04/03/17 14:01 04/03/17 14:01 04/03/17 17:43 General appearance: PRESENT: no acute distress, cooperative, thin, other - Chronically ill looking Head exam: PRESENT: atraumatic, normocephalic Eye exam: PRESENT: conjunctiva pale, EOMI, PERRLA Ear exam: PRESENT: normal external ear exam Mouth exam: PRESENT: moist, neck supple Teeth exam: PRESENT: poor dentation Neck exam: PRESENT: full ROM. ABSENT: JVD, lymphadenopathy, tenderness, thyromegaly Respiratory exam: PRESENT: crackles, decreased breath sounds. ABSENT: tachypnea , unlabored, wheezes Cardiovascular exam: PRESENT: RRR. ABSENT: diastolic murmur, systolic murmur Vascular exam: PRESENT: normal capillary refill GI/Abdominal exam: PRESENT: normal bowel sounds, soft. ABSENT: tenderness Extremities exam: PRESENT: full ROM, other - 3+ pitting edema bilaterally. ABSENT: clubbing Musculoskeletal exam: PRESENT: ambulatory, full ROM Neurological exam: PRESENT: alert, awake, oriented to person, oriented to place , oriented to time, oriented to situation, CN II-XII grossly intact Psychiatric exam: PRESENT: appropriate affect, normal mood Skin exam: PRESENT: intact, normal color Results Impressions: Chest X-Ray 04/03/17 12:01 IMPRESSION: Grossly stable bilateral upper lobe cavitary changes compared to imaging from February. Chronic increased interstitial markings in the mid and lower lungs. No acute infiltrates. Chest/Abdomen CTA 04/03/17 12:34 IMPRESSION: Extensive chronic appearing varying size cystic lesions are identified as well as emphysematous changes. There are associated with consolidative process ease which appear minimally improved in the upper lung bui and in the left lower lung field as compared to the previous study. There is a patchy consolidative process in the right lower lung field laterally which was not present on the previous study. No pleural effusions are identified. Mediastinal and hilar adenopathy is noted above. No evidence for pulmonary embolic disease. Other findings as noted above Assessment & Plan - Diagnosis (1) Sepsis Qualifiers: Sepsis type: sepsis due to unspecified organism Qualified Code(s): A41.9 - Sepsis, unspecified organism Is this a current diagnosis for this admission?: Yes Plan: Presumptively may relate to pneumonic process however CTA of the chest is unchanged when compared to previous CT. Will order a urine culture. To continue Zosyn and vancomycin which has been started in ED (2) Tobacco abuse Is this a current diagnosis for this admission?: Yes Plan: Patient continues smoking off and on when gets upset. (3) Hospital-acquired pneumonia Is this a current diagnosis for this admission?: Yes Plan: Will continue Zosyn and vancomycin (4) COPD (chronic obstructive pulmonary disease) Qualifiers: COPD type: emphysema Emphysema type: unspecified Qualified Code(s): J43.9 - Emphysema, unspecified Is this a current diagnosis for this admission?: Yes Plan: Will place patient on nebulizer treatments, IV steroids, Mucinex. Will order echocardiogram to evaluate for pulmonary hypertension (5) Lung cancer Is this a current diagnosis for this admission?: Yes Plan: According to patient multiple regimens have been tried and not working for her. Will consult Dr. Garica (6) Immunosuppressed status Is this a current diagnosis for this admission?: Yes Plan: Chemotherapy for lung cancer is rendering patient immunosuppressant propensity infection. Patient had been advised as to get the flu shot on a yearly basis and also she will benefit from getting pneumonia vaccines - Time Time Spent: 50 to 70 Minutes Medications reviewed and adjusted accordingly: Yes Anticipated discharge: Home Within: within 72 hours - Inpatient Certification Based on my medical assessment, after consideration of the patient's comorbidities, presenting symptoms, or acuity I expect that the services needed warrant INPATIENT care.: Yes I certify that my determination is in accordance with my understanding of Medicare's requirements for reasonable and necessary INPATIENT services [42 CFR 412.3e].: Yes Medical Necessity: Need For IV Fluids, Need for IV Antibiotics
[2017-04-03] MEDS: IPRATROPIUM/ALBUTEROL 0.5-2.5 MG/3 ML AMPUL NEB SCH (20:49)
[2017-04-03] MEDS: NORMAL SALINE 1000 ML 1,000 ML IV PRN (21:17)
[2017-04-04 06:53] LABS: ANION GAP 5 (5-19); BLOOD UREA NITROGEN 22 mg/dL (7-20); CALCIUM 7.8 mg/dL (8.4-10.2); CARBON DIOXIDE 24 mmol/L (22-30); CHLORIDE 110 mmol/L (98-107); GLUCOSE 86 mg/dL (75-110); MAGNESIUM 1.8 mg/dL (1.6-2.3); POTASSIUM 4.3 mmol/L (3.6-5.0)
[2017-04-04] MEDS: IPRATROPIUM/ALBUTEROL 0.5-2.5 MG/3 ML AMPUL NEB SCH ×3 (07:46→19:56)
[2017-04-04] MEDS ORDERED: FONDAPARINUX SODIUM INJ 2.5 MG/0.5 ML DISP.SYRIN SUBCUT SCH (08:00)
[2017-04-04 08:26] LABS: ABSOLUTE LYMPHOCYTES (AUTO) 0.8 10^3/uL (0.5-4.7); ABSOLUTE MONOCYTES (AUTO) 0.6 10^3/uL (0.1-1.4); BASOPHILS % (AUTO) 0.4 % (0-2); EOSINOPHILS % (AUTO) 0.2 % (0-6); HEMATOCRIT 23.7 % (36.0-47.0); LYMPHOCYTES % (AUTO) 9.8 % (13-45); MEAN CORPUSCULAR HGB CONC 30.5 g/dL (32.0-36.0); MEAN CORPUSCULAR VOLUME 76 fl (80-97); MONOCYTES % (AUTO) 6.9 % (3-13); RED BLOOD COUNT 3.14 10^6/uL (3.72-5.28); RED CELL DISTRIBUTION WIDTH 18.4 % (11.5-14.0); SEGMENTED NEUTROPHILS % (AUTO) 82.7 % (42-78); TOTAL CELLS COUNTED % (AUTO) 100 %; WHITE BLOOD COUNT 8.5 10^3/uL (4.0-10.5)
[2017-04-04 09:08] LABS: HEMOGLOBIN 7.2 g/dL (12.0-15.5); PLATELET COUNT 9 10^3/uL (150-450)
[2017-04-04] MEDS ORDERED: NORMAL SALINE 250 ML IV PRN ×2 (09:32)
[2017-04-04] MEDS ORDERED: FUROSEMIDE INJ/PF 20 MG/2 ML SDV IV PRN (09:32)
--- NOTE | 2017-04-04 09:42 | PDOC PROGRESS REPORT ---
Subjective Progress Note for:: 04/04/17 Subjective:: Complains of spitting some blood tinged phlegm Review of systems All organ systems is similarly negative except as in subjective All laboratories and significant diagnostics have been reviewed Reason For Visit: PNEUMONIA FEVER LUNG CANCER Physical Exam Vital Signs: Temp Pulse Resp BP Pulse Ox 97.8 F 109 H 20 101/65 95 04/04/17 01:09 04/04/17 01:09 04/04/17 01:09 04/04/17 01:09 04/04/17 01:09 Intake & Output 04/03/17 04/04/17 04/05/17 06:59 06:59 06:59 Intake Total 300 Balance 300 Weight 46.6 kg General appearance: PRESENT: no acute distress, cooperative, thin Head exam: PRESENT: atraumatic, normocephalic Eye exam: PRESENT: EOMI, PERRLA Ear exam: PRESENT: normal external ear exam, TM's normal bilaterally Mouth exam: PRESENT: moist, neck supple Teeth exam: PRESENT: poor dentation Neck exam: PRESENT: full ROM. ABSENT: JVD, tenderness Respiratory exam: PRESENT: clear to auscultation esdras Cardiovascular exam: PRESENT: RRR. ABSENT: diastolic murmur, systolic murmur GI/Abdominal exam: PRESENT: normal bowel sounds, soft. ABSENT: tenderness Extremities exam: ABSENT: joint swelling, pedal edema Musculoskeletal exam: PRESENT: ambulatory, full ROM Neurological exam: PRESENT: alert, awake, oriented to person, oriented to place , oriented to time, oriented to situation, CN II-XII grossly intact Psychiatric exam: PRESENT: appropriate affect, normal mood Skin exam: PRESENT: intact, pallor Results Laboratory Results: 04/04/17 05:54 04/04/17 05:54 04/03/17 04/04/17 04/04/17 17:50 05:54 05:54 WBC Cancelled RBC Cancelled Hgb Cancelled Hct Cancelled MCV Cancelled MCH Cancelled MCHC Cancelled RDW Cancelled Plt Count Cancelled Seg Neutrophils % Cancelled Lymphocytes % Cancelled Monocytes % Cancelled Eosinophils % Cancelled Basophils % Cancelled Absolute Neutrophils Cancelled Absolute Lymphocytes Cancelled Absolute Monocytes Cancelled Absolute Eosinophils Cancelled Absolute Basophils Cancelled Sodium 139.0 Potassium 4.3 Chloride 110 H Carbon Dioxide 24 Anion Gap 5 BUN 22 H Creatinine 0.62 Est GFR ( Amer) > 60 Est GFR (Non-Af Amer) > 60 Glucose 86 Calcium 7.8 L Magnesium 1.8 Urine Color STRAW Urine Appearance CLEAR Urine pH 6.0 Ur Specific [place] 1.031 Urine Protein NEGATIVE Urine Glucose (UA) NEGATIVE Urine Ketones NEGATIVE Urine Blood SMALL H Urine Nitrite NEGATIVE Ur Leukocyte Esterase NEGATIVE Urine WBC (Auto) 0 Urine RBC (Auto) 1 Impressions: Chest X-Ray 04/03/17 12:01 IMPRESSION: Grossly stable bilateral upper lobe cavitary changes compared to imaging from February. Chronic increased interstitial markings in the mid and lower lungs. No acute infiltrates. Chest/Abdomen CTA 04/03/17 12:34 IMPRESSION: Extensive chronic appearing varying size cystic lesions are identified as well as emphysematous changes. There are associated with consolidative process ease which appear minimally improved in the upper lung bui and in the left lower lung field as compared to the previous study. There is a patchy consolidative process in the right lower lung field laterally which was not present on the previous study. No pleural effusions are identified. Mediastinal and hilar adenopathy is noted above. No evidence for pulmonary embolic disease. Other findings as noted above Assessment & Plan - Diagnosis (1) Sepsis Qualifiers: Sepsis type: sepsis due to unspecified organism Qualified Code(s): A41.9 - Sepsis, unspecified organism Is this a current diagnosis for this admission?: Yes Plan: Presumptively may relate to pneumonic process however CTA of the chest is unchanged when compared to previous CT. Urine culture preliminary negative. To continue Zosyn and vancomycin (2) Tobacco abuse Is this a current diagnosis for this admission?: Yes Plan: Patient continues smoking off and on when gets upset. (3) Hospital-acquired pneumonia Is this a current diagnosis for this admission?: Yes Plan: Will continue Zosyn and vancomycin (4) COPD (chronic obstructive pulmonary disease) Qualifiers: COPD type: emphysema Emphysema type: unspecified Qualified Code(s): J43.9 - Emphysema, unspecified Is this a current diagnosis for this admission?: Yes Plan: Continue nebulizer treatments, IV steroids, Mucinex. Ordered echocardiogram to evaluate for pulmonary hypertension (5) Lung cancer Qualifiers: Laterality: unspecified laterality Is this a current diagnosis for this admission?: Yes Plan: Consulted Dr Garcia (6) Immunosuppressed status Is this a current diagnosis for this admission?: Yes Plan: Chemotherapy for lung cancer is rendering patient immunosuppressant propensity infection. Patient had been advised as to get the flu shot on a yearly basis and also she will benefit from getting pneumonia vaccines (7) Anemia Qualifiers: Bone marrow failure anemia type: pancytopenia, antineoplastic chemotherapy- induced Is this a current diagnosis for this admission?: Yes Plan: To transfused 2 units of packed red blood cells and trend (8) Thrombocytopenia Is this a current diagnosis for this admission?: Yes Plan: To transfuse platelet pheresis and trend - Time Time Spent with patient: 15-24 minutes Medications reviewed and adjusted accordingly: Yes Anticipated discharge: Home Within: within 72 hours - Inpatient Certification Based on my medical assessment, after consideration of the patient's comorbidities, presenting symptoms, or acuity I expect that the services needed warrant INPATIENT care.: Yes I certify that my determination is in accordance with my understanding of Medicare's requirements for reasonable and necessary INPATIENT services [42 CFR 412.3e].: Yes Medical Necessity: Need Close Monitoring Due to Risk of Patient Decompensation, Need for IV Antibiotics - Blood product transfusions
--- NOTE | 2017-04-04 09:50 | RADIOLOGY REPORT (SQ) ---
EXAM DESCRIPTION: WRIST LEFT 3 VIEWS COMPLETED DATE/TIME: 04/04/2017 9:00 am REASON FOR STUDY: pain without trauma COMPARISON: 09/15/2010. NUMBER OF VIEWS: Three views. TECHNIQUE: AP, lateral, and oblique radiographic images acquired of the left wrist. LIMITATIONS: None. FINDINGS: MINERALIZATION: Normal. BONES: No acute fracture or dislocation. Degenerative changes at the radioscaphoid articulation with joint space narrowing and sclerosis. No worrisome bone lesions. Normal alignment. SOFT TISSUES: No soft tissue swelling. No foreign body. OTHER: No other significant finding. IMPRESSION: DEGENERATIVE CHANGES. NO ACUTE FINDINGS. TECHNICAL DOCUMENTATION: JOB ID: [id number] [employer]- All Rights Reserved
--- NOTE | 2017-04-04 11:57 | PDOC CONSULTATION ---
Consultation Consult Date: 04/04/17 Consult reason:: Patient with known history of lung cancer and pancytopenia. History of Present Illness Admission Date/PCP: 04/03/17 17:13 VIRAL BASURTO MD History of Present Illness: Ms. Thorne is a 61 year old female who was diagnosed with lung cancer in September 2014. She had been stable on Nivolumab until 2016 when she developed a severe thrombocytopenia. 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 She was treated with steroids, IVIg and Rituximab. However, none of these have had lasting results. Her Nivolumab has been on hold since Jan. She has had several infectious episodes, treated with antibiotics, which usually accompany the periods of anemia and thrombocytopenia. Yesterday, she was seen in my office and found to have acute fever with temp 101.4, dehydration with very rapid heart rate at 120-130. Her platelet count was again starting to decline from her baseline of 357 to 107. She was sent to the hospital for further evaluation and started on antibiotics. This morning, she is feeling a little better. She remains with mild shortness of breath. She denies any chest pain. Past Medical History Cardiac Medical History: Denies: Coronary Artery Disease, Myocardial Infarction Comment Only: Hypertension - HX OF LBP Pulmonary Medical History: Reports: Bronchitis, Chronic Obstructive Pulmonary Disease (COPD) Denies: Asthma, Pneumonia EENT Medical History: Reports: Other - Thrombocytopenia Neurological Medical History: Denies: Seizures Endocrine Medical History: Reports: Hypothyroidism Malignancy Medical History: Reports: Lung Cancer - Current GI Medical History: Denies: Hepatitis, Hiatal Hernia Musculoskeltal Medical History: Reports: Other - Osteoporosis Denies: Arthritis Psychiatric Medical History: Reports: Depression Hematology: Reports: Anemia, Other - Thrombocytopenia Denies: Sickle Cell Disease Past Surgical History Past Surgical History: Reports: Herniorrhaphy, Orthopedic Surgery - back, Other - Lung biopsy Denies: Amputation, Hysterectomy, Mastectomy, Pacemaker Social History Lives with: Family Smoking Status: Former Smoker Frequency of Alcohol Use: None Hx Recreational Drug Use: No Drugs: None Hx Prescription Drug Abuse: No - Advance Directive Resuscitation Status: Full Code Family History Family History: Reviewed & Not Pertinent Parental Family History Reviewed: Yes - Both parents have . Maternal grandmother with lung cancer Children Family History Reviewed: No Sibling(s) Family History Reviewed.: Yes Medication/Allergy Home Medications: Levothyroxine Sodium [Synthroid] 150 mcg PO Q6AM 04/03/17 Omeprazole 20 mg PO DAILY 04/03/17 Prednisone [Deltasone 20 mg Tablet] 20 mg PO DAILY 04/03/17 Allergies/Adverse Reactions: No Known Allergies Allergy (Verified 04/03/17 11:58) Review of Systems Constitutional: PRESENT: fatigue, weight loss Eyes: ABSENT: visual disturbances Ears: ABSENT: hearing changes Nose, Mouth, and Throat: ABSENT: sore throat Cardiovascular: PRESENT: dyspnea on exertion Respiratory: PRESENT: cough, dyspnea Gastrointestinal: ABSENT: nausea Genitourinary: ABSENT: dysuria Musculoskeletal: PRESENT: other - Pain in left wrist after she heard it crack. Integumentary: ABSENT: rash Neurological: ABSENT: memory loss, numbness Psychiatric: ABSENT: anxiety Hematologic/Lymphatic: ABSENT: easy bruising Physical Exam Vital Signs: Temp Pulse Resp BP Pulse Ox 98.8 F 122 H 22 H 101/67 98 04/04/17 08:09 04/04/17 08:09 04/04/17 08:09 04/04/17 08:09 04/04/17 08:09 Intake & Output 04/03/17 04/04/17 04/05/17 06:59 06:59 06:59 Intake Total 300 Balance 300 Weight 46.6 kg General appearance: PRESENT: no acute distress, thin Head exam: PRESENT: atraumatic Eye exam: PRESENT: EOMI Mouth exam: PRESENT: tongue midline Neck exam: ABSENT: tenderness Respiratory exam: PRESENT: unlabored, wheezes Cardiovascular exam: PRESENT: RRR Pulses: PRESENT: normal dorsalis pedis pul GI/Abdominal exam: PRESENT: soft. ABSENT: tenderness Extremities exam: ABSENT: pedal edema Musculoskeletal exam: PRESENT: normal inspection Neurological exam: PRESENT: alert, awake, CN II-XII grossly intact Psychiatric exam: PRESENT: appropriate affect Skin exam: PRESENT: pallor Results Laboratory Results: 04/04/17 08:05 04/04/17 05:54 04/03/17 04/04/17 04/04/17 17:50 05:54 05:54 WBC Cancelled RBC Cancelled Hgb Cancelled Hct Cancelled MCV Cancelled MCH Cancelled MCHC Cancelled RDW Cancelled Plt Count Cancelled Seg Neutrophils % Cancelled Lymphocytes % Cancelled Monocytes % Cancelled Eosinophils % Cancelled Basophils % Cancelled Absolute Neutrophils Cancelled Absolute Lymphocytes Cancelled Absolute Monocytes Cancelled Absolute Eosinophils Cancelled Absolute Basophils Cancelled Sodium 139.0 Potassium 4.3 Chloride 110 H Carbon Dioxide 24 Anion Gap 5 BUN 22 H Creatinine 0.62 Est GFR ( Amer) > 60 Est GFR (Non-Af Amer) > 60 Glucose 86 Calcium 7.8 L Magnesium 1.8 Urine Color STRAW Urine Appearance CLEAR Urine pH 6.0 Ur Specific [place] 1.031 Urine Protein NEGATIVE Urine Glucose (UA) NEGATIVE Urine Ketones NEGATIVE Urine Blood SMALL H Urine Nitrite NEGATIVE Ur Leukocyte Esterase NEGATIVE Urine WBC (Auto) 0 Urine RBC (Auto) 1 04/04/17 08:05 WBC 8.5 RBC 3.14 L Hgb 7.2 L D Hct 23.7 L MCV 76 L MCH 23.0 L MCHC 30.5 L RDW 18.4 H Plt Count 9 L* D Seg Neutrophils % 82.7 H Lymphocytes % 9.8 L Monocytes % 6.9 Eosinophils % 0.2 Basophils % 0.4 Absolute Neutrophils 7.0 Absolute Lymphocytes 0.8 Absolute Monocytes 0.6 Absolute Eosinophils 0.0 Absolute Basophils 0.0 Sodium Potassium Chloride Carbon Dioxide Anion Gap BUN Creatinine Est GFR ( Amer) Est GFR (Non-Af Amer) Glucose Calcium Magnesium Urine Color Urine Appearance Urine pH Ur Specific [place] Urine Protein Urine Glucose (UA) Urine Ketones Urine Blood Urine Nitrite Ur Leukocyte Esterase Urine WBC (Auto) Urine RBC (Auto) Impressions: Chest X-Ray 04/03/17 12:01 IMPRESSION: Grossly stable bilateral upper lobe cavitary changes compared to imaging from February. Chronic increased interstitial markings in the mid and lower lungs. No acute infiltrates. Chest/Abdomen CTA 04/03/17 12:34 IMPRESSION: Extensive chronic appearing varying size cystic lesions are identified as well as emphysematous changes. There are associated with consolidative process ease which appear minimally improved in the upper lung bui and in the left lower lung field as compared to the previous study. There is a patchy consolidative process in the right lower lung field laterally which was not present on the previous study. No pleural effusions are identified. Mediastinal and hilar adenopathy is noted above. No evidence for pulmonary embolic disease. Other findings as noted above Assessment & Plan - Diagnosis (1) Lung cancer Qualifiers: Laterality: left Lung location: overlapping sites Qualified Code(s): C34.82 - Malignant neoplasm of overlapping sites of left bronchus and lung Is this a current diagnosis for this admission?: Yes Plan: Treatment remains on hold due to fever and blood counts. (2) Anemia Qualifiers: Anemia type: unspecified type Qualified Code(s): D64.9 - Anemia, unspecified Is this a current diagnosis for this admission?: Yes Plan: Acute, NOT thought to be due to chemotherapy. Most likely hemolytic. I will check LDH and antibodies. 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 I would NOT transfuse at this point, unless severe bleeding. I will review blood smear and consider restarting steroids. Although this has not helped in the past. She has already received Rituxan. (4) Tachycardia Plan: Chronic, thought to be A-fib initially, but EKG shows sinus rhythm. This has improved with hydration.
--- NOTE | 2017-04-04 12:05 | EKG REPORT ---
SEVERITY:- BORDERLINE ECG - SINUS TACHYCARDIA PROBABLE LEFT ATRIAL ABNORMALITY RIGHT AXIS DEVIATION : Confirmed by: Denisha Seth 04-Apr-2017 12:04:39
[2017-04-04] MEDS: METHYLPREDNISOLONE INJ 40 MG/1 ML SDV IV SCH (18:17)
[2017-04-04] MEDS: OXYCODONE-ACETAMINOPHEN 5-325 MG TABLET PO PRN (18:21)
[2017-04-04] MEDS: NORMAL SALINE 1000 ML 1,000 ML IV PRN (18:22)
[2017-04-04] MEDS ORDERED: ACETAMINOPHEN 325 MG TABLET PO ONE (19:00)
[2017-04-05] MEDS: NORMAL SALINE 1000 ML 1,000 ML IV PRN (02:31)
[2017-04-05] MEDS: METHYLPREDNISOLONE INJ 40 MG/1 ML SDV IV SCH ×3 (02:31→17:56)
[2017-04-05] MEDS: LANSOPRAZOLE 15 MG TAB.RAP.DR PO SCH (06:06)
[2017-04-05] MEDS: LEVOTHYROXINE SODIUM 0.15 MG TABLET PO SCH (06:07)
[2017-04-05 06:58] LABS: BLOOD UREA NITROGEN 16 mg/dL (7-20); CALCIUM 8.5 mg/dL (8.4-10.2); CHLORIDE 110 mmol/L (98-107); GLUCOSE 138 mg/dL (75-110); POTASSIUM 4.3 mmol/L (3.6-5.0)
[2017-04-05 06:59] LABS: ANION GAP 7 (5-19); CARBON DIOXIDE 24 mmol/L (22-30); MAGNESIUM 1.8 mg/dL (1.6-2.3); SODIUM 140.5 mmol/L (137-145)
[2017-04-05 07:06] LABS: MEAN CORPUSCULAR HEMOGLOBIN 24.4 pg (27.0-33.4); MEAN CORPUSCULAR HGB CONC 31.9 g/dL (32.0-36.0); MEAN CORPUSCULAR VOLUME 77 fl (80-97); RED BLOOD COUNT 2.88 10^6/uL (3.72-5.28); RED CELL DISTRIBUTION WIDTH 19.2 % (11.5-14.0); WHITE BLOOD COUNT 5.9 10^3/uL (4.0-10.5)
[2017-04-05 07:25] LABS: ABSOLUTE LYMPHOCYTES# (MANUAL) 0.3 10^3/uL (0.5-4.7); ABSOLUTE MONOCYTES # (MANUAL) 0.1 10^3/uL (0.1-1.4); ABSOLUTE NEUTROPHILS# (MANUAL) 5.5 10^3/uL (1.7-8.2); BAND NEUTROPHILS % (MANUAL) 1 % (3-5); BASOPHILS % (MANUAL) 0 % (0-2); EOSINOPHILS % (MANUAL) 0 % (0-6); LYMPHOCYTES % (MANUAL) 5 % (13-45); METAMYELOCYTES % (MANUAL) 1 % (0); MONOCYTES % (MANUAL) 1 % (3-13); MYELOCYTES % (MANUAL) 1 % (0); PROMYELOCYTES % (MANUAL) 1 % (0); SEGMENTED NEUTROPHILS % (MAN) 90 % (42-78); TOTAL CELLS COUNTED 100
[2017-04-05 07:28] LABS: HYPOCHROMASIA SLIGHT; OVALOCYTES 2+; PLATELET COMMENT DECREASED; POIKILOCYTOSIS 2+; ROULEAUX 1+; TOXIC GRANULATION 2+
[2017-04-05 07:29] LABS: POLYCHROMASIA 1+
[2017-04-05 07:30] LABS: PLATELET COUNT 10 10^3/uL (150-450)
[2017-04-05] MEDS ORDERED: NORMAL SALINE 250 ML IV PRN (08:04)
[2017-04-05] MEDS: IPRATROPIUM/ALBUTEROL 0.5-2.5 MG/3 ML AMPUL NEB SCH ×3 (09:00→20:57)
[2017-04-05] MEDS ORDERED: FUROSEMIDE INJ/PF 20 MG/2 ML SDV IV PRN (10:51)
--- NOTE | 2017-04-05 12:22 | PDOC PROGRESS REPORT ---
Subjective Progress Note for:: 04/05/17 Subjective:: Patient about the same today. Still very dyspnic on minor exertion. No pain. No known fevers, except during blood transfusion yesterday. ROS: No chest pain. No constipation or diarrhea. Reason For Visit: PNEUMONIA FEVER LUNG CANCER Physical Exam Vital Signs: Temp Pulse Resp BP Pulse Ox 98.0 F 99 18 100/73 100 04/05/17 11:05 04/05/17 11:05 04/05/17 11:05 04/05/17 11:05 04/05/17 11:05 Intake & Output 04/04/17 04/05/17 04/06/17 06:59 06:59 06:59 Intake Total 300 2490 0 Balance 300 2490 0 Weight 46.6 kg 46.6 kg General appearance: PRESENT: thin Respiratory exam: PRESENT: clear to auscultation esdras, other - Mild-moderate respiratory distrees, as she is up walking to the bathroom. Cardiovascular exam: PRESENT: RRR Extremities exam: ABSENT: pedal edema Psychiatric exam: PRESENT: appropriate affect Results Laboratory Results: 04/05/17 06:15 04/05/17 06:15 04/04/17 04/05/17 04/05/17 11:12 06:15 06:15 WBC 5.9 RBC 2.88 L Hgb 7.0 L Hct 22.0 L MCV 77 L MCH 24.4 L MCHC 31.9 L RDW 19.2 H Plt Count 10 L* Seg Neutrophils % Not Reportable Lymphocytes % Not Reportable Monocytes % Not Reportable Eosinophils % Not Reportable Basophils % Not Reportable Absolute Neutrophils Not Reportable Absolute Lymphocytes Not Reportable Absolute Monocytes Not Reportable Absolute Eosinophils Not Reportable Absolute Basophils Not Reportable Sodium 140.5 Potassium 4.3 Chloride 110 H Carbon Dioxide 24 Anion Gap 7 BUN 16 Creatinine 0.64 Est GFR ( Amer) > 60 Est GFR (Non-Af Amer) > 60 Glucose 138 H Calcium 8.5 Magnesium 1.8 Blood Type O NEGATIVE Antibody Screen NEGATIVE 04/03/17 17:50 Catheterized Urine Urine Culture - Final NO GROWTH 2 DAYS Impressions: Chest X-Ray 04/03/17 12:01 IMPRESSION: Grossly stable bilateral upper lobe cavitary changes compared to imaging from February. Chronic increased interstitial markings in the mid and lower lungs. No acute infiltrates. Chest/Abdomen CTA 04/03/17 12:34 IMPRESSION: Extensive chronic appearing varying size cystic lesions are identified as well as emphysematous changes. There are associated with consolidative process ease which appear minimally improved in the upper lung bui and in the left lower lung field as compared to the previous study. There is a patchy consolidative process in the right lower lung field laterally which was not present on the previous study. No pleural effusions are identified. Mediastinal and hilar adenopathy is noted above. No evidence for pulmonary embolic disease. Other findings as noted above Wrist X-Ray 04/04/17 00:00 IMPRESSION: DEGENERATIVE CHANGES. NO ACUTE FINDINGS. Assessment & Plan - Diagnosis (1) Lung cancer Qualifiers: Laterality: left Lung location: overlapping sites Qualified Code(s): C34.82 - Malignant neoplasm of overlapping sites of left bronchus and lung Is this a current diagnosis for this admission?: Yes Plan: Treatment remains on hold. (2) Anemia Qualifiers: Anemia type: unspecified type Qualified Code(s): D64.9 - Anemia, unspecified Is this a current diagnosis for this admission?: Yes Plan: Although this is acute and may be hemolytic, her LDH remains normal. Spear does not show significant Schistocytes. Due to her symptoms, will go ahead and order 2 units pRBCs. 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 Although it has been very refractory to all treatments thus far and continues to return with fevers. No transfusion for now, unless evidence of active bleeding. (5) Pneumonia Plan: New infiltrate on chest CT. Difficult to say if this is also tumor progression. She is being treated with appropriate antibiotics, but this is the third or 4th time she has been on treatment for this in the last 2 months. - Plan Summary Plan Summary: I will continue to follow her with you.
[2017-04-05 12:23] LABS: PATH REVIEW PATHOLOGIST REVIEWED
--- NOTE | 2017-04-05 18:44 | PDOC PROGRESS REPORT ---
Subjective Progress Note for:: 04/05/17 Subjective:: Patient states that is not having blood-tinged sputum today. Otherwise no other concerns Review of systems All organ systems is similarly negative except as in subjective All laboratories and significant diagnostics have been reviewed Reason For Visit: PNEUMONIA FEVER LUNG CANCER Physical Exam Vital Signs: Temp Pulse Resp BP Pulse Ox 97.5 F 101 H 18 103/62 100 04/04/17 23:00 04/04/17 23:00 04/04/17 23:00 04/04/17 23:00 04/04/17 23:00 Intake & Output 04/04/17 04/05/17 04/06/17 06:59 06:59 06:59 Intake Total 300 2490 Balance 300 2490 Weight 46.6 kg 46.6 kg General appearance: PRESENT: no acute distress, cooperative, thin Head exam: PRESENT: atraumatic, normocephalic Eye exam: PRESENT: EOMI, PERRLA Ear exam: PRESENT: normal external ear exam, TM's normal bilaterally Mouth exam: PRESENT: moist, neck supple Neck exam: PRESENT: full ROM. ABSENT: JVD, lymphadenopathy Respiratory exam: PRESENT: clear to auscultation esdras Cardiovascular exam: PRESENT: RRR. ABSENT: diastolic murmur, systolic murmur Vascular exam: PRESENT: normal capillary refill GI/Abdominal exam: PRESENT: normal bowel sounds, soft. ABSENT: tenderness Extremities exam: PRESENT: full ROM. ABSENT: joint swelling, pedal edema Musculoskeletal exam: PRESENT: ambulatory Neurological exam: PRESENT: alert, awake, oriented to person, oriented to place , oriented to time, oriented to situation, CN II-XII grossly intact Psychiatric exam: PRESENT: appropriate affect, normal mood Skin exam: PRESENT: intact, normal color Results Laboratory Results: 04/05/17 06:15 04/05/17 06:15 04/04/17 04/04/17 04/05/17 08:05 11:12 06:15 WBC 8.5 5.9 RBC 3.14 L 2.88 L Hgb 7.2 L D 7.0 L Hct 23.7 L 22.0 L MCV 76 L 77 L MCH 23.0 L 24.4 L MCHC 30.5 L 31.9 L RDW 18.4 H 19.2 H Plt Count 9 L* D 10 L* Seg Neutrophils % 82.7 H Not Reportable Lymphocytes % 9.8 L Not Reportable Monocytes % 6.9 Not Reportable Eosinophils % 0.2 Not Reportable Basophils % 0.4 Not Reportable Absolute Neutrophils 7.0 Not Reportable Absolute Lymphocytes 0.8 Not Reportable Absolute Monocytes 0.6 Not Reportable Absolute Eosinophils 0.0 Not Reportable Absolute Basophils 0.0 Not Reportable Sodium Potassium Chloride Carbon Dioxide Anion Gap BUN Creatinine Est GFR ( Amer) Est GFR (Non-Af Amer) Glucose Calcium Magnesium Blood Type O NEGATIVE Antibody Screen NEGATIVE 04/05/17 06:15 WBC RBC Hgb Hct MCV MCH MCHC RDW Plt Count Seg Neutrophils % Lymphocytes % Monocytes % Eosinophils % Basophils % Absolute Neutrophils Absolute Lymphocytes Absolute Monocytes Absolute Eosinophils Absolute Basophils Sodium 140.5 Potassium 4.3 Chloride 110 H Carbon Dioxide 24 Anion Gap 7 BUN 16 Creatinine 0.64 Est GFR ( Amer) > 60 Est GFR (Non-Af Amer) > 60 Glucose 138 H Calcium 8.5 Magnesium 1.8 Blood Type Antibody Screen Impressions: Chest X-Ray 04/03/17 12:01 IMPRESSION: Grossly stable bilateral upper lobe cavitary changes compared to imaging from February. Chronic increased interstitial markings in the mid and lower lungs. No acute infiltrates. Chest/Abdomen CTA 04/03/17 12:34 IMPRESSION: Extensive chronic appearing varying size cystic lesions are identified as well as emphysematous changes. There are associated with consolidative process ease which appear minimally improved in the upper lung bui and in the left lower lung field as compared to the previous study. There is a patchy consolidative process in the right lower lung field laterally which was not present on the previous study. No pleural effusions are identified. Mediastinal and hilar adenopathy is noted above. No evidence for pulmonary embolic disease. Other findings as noted above Wrist X-Ray 04/04/17 00:00 IMPRESSION: DEGENERATIVE CHANGES. NO ACUTE FINDINGS. Assessment & Plan - Diagnosis (1) Sepsis Qualifiers: Sepsis type: sepsis due to unspecified organism Qualified Code(s): A41.9 - Sepsis, unspecified organism Is this a current diagnosis for this admission?: Yes Plan: Presumptively may relate to pneumonic process however CTA of the chest is unchanged when compared to previous CT. Urine culture negative. To continue Zosyn and vancomycin (2) Tobacco abuse Is this a current diagnosis for this admission?: Yes Plan: Patient continues smoking off and on when gets upset. (3) Hospital-acquired pneumonia Is this a current diagnosis for this admission?: Yes Plan: Continue Zosyn and vancomycin (4) COPD (chronic obstructive pulmonary disease) Qualifiers: COPD type: emphysema Emphysema type: unspecified Qualified Code(s): J43.9 - Emphysema, unspecified Is this a current diagnosis for this admission?: Yes Plan: Continue nebulizer treatments, IV steroids, Mucinex. Leg swelling improved. Echo result pending. (5) Lung cancer Qualifiers: Laterality: left Lung location: overlapping sites Qualified Code(s): C34.82 - Malignant neoplasm of overlapping sites of left bronchus and lung Is this a current diagnosis for this admission?: Yes Plan: Consulted Dr Garcia (6) Immunosuppressed status Is this a current diagnosis for this admission?: Yes Plan: Chemotherapy for lung cancer is rendering patient immunosuppressant propensity infection. Patient had been advised as to get the flu shot on a yearly basis and also she will benefit from getting pneumonia vaccines (7) Anemia Qualifiers: Anemia type: unspecified type Qualified Code(s): D64.9 - Anemia, unspecified Is this a current diagnosis for this admission?: Yes Plan: Transfuison ordered by Dr Garcia. (8) Thrombocytopenia Is this a current diagnosis for this admission?: Yes Plan: To trend. May need transfusion - Time Time Spent with patient: 15-24 minutes Medications reviewed and adjusted accordingly: Yes Anticipated discharge: Home Within: within 48 hours - Inpatient Certification Based on my medical assessment, after consideration of the patient's comorbidities, presenting symptoms, or acuity I expect that the services needed warrant INPATIENT care.: Yes I certify that my determination is in accordance with my understanding of Medicare's requirements for reasonable and necessary INPATIENT services [42 CFR 412.3e].: Yes Medical Necessity: Need Close Monitoring Due to Risk of Patient Decompensation, Need for IV Antibiotics
--- NOTE | 2017-04-05 19:57 | XCELERA REPORT ---
[address] [address] Transthoracic Echocardiogram Report Name: MERRILL BLAKE Age: 61 yrs Gender: Female : 1955 Patient Status: Inpatient Patient Location: [address] [place] [address] Study Date: 04/05/2017 09:37 AM Height: 63 in Weight: 97 lb BSA: 1.4 m2 Procedure: A complete two-dimensional transthoracic echocardiogram was performed (2D, M-mode, spectral and color flow Doppler). The study was technically difficult with many images being suboptimal in quality. Reason For Study: eval for pulmonary hypertension Ordering Physician: FLORES RAZO Performed By: Hannah Eisenberg Interpretation Summary The left ventricular ejection fraction is normal. Doppler measurements suggest pseudonormalized left ventricular relaxation, which is associated with grade II/IV or mild to moderate diastolic dysfunction Wall motion cannot be accurately commented on, but no definite regional wall motion abnormalities noted. There is mild concentric left ventricular hypertrophy. The left ventricle is grossly normal size. The right ventricular systolic function is normal. The left atrial size is normal. The right atrium is normal in size There is a trace amount of mitral regurgitation There is no mitral valve stenosis. No aortic regurgitation is present. There is no aortic valve stenosis No tricuspid regurgitation. Tricuspid regurgitation jet envelope present to measure RV systolic pressure.. The aortic root is not well visualized. The inferior vena cava was not well visualized Minimal pericardial effusion. MMode/2D Measurements & Calculations RVDd: 1.2 cm LVIDd: 3.3 cm FS: 36.2 % Ao root diam: 2.6 cm IVSd: 1.0 cm LVIDs: 2.1 cm EDV(Teich): 45.0 ml LVPWd: 1.0 cm ESV(Teich): 14.8 ml Ao root area: 5.3 cm2 EF(Teich): 67.1 % LA dimension: 2.4 cm Doppler Measurements & Calculations MV E max iker: MV P1/2t max iker: Ao V2 max: LV V1 max P.5 cm/sec 117.0 cm/sec 133.7 cm/sec 4.9 mmHg MV P1/2t: 39.0 msec Ao max PG: LV V1 max: 7.2 mmHg 110.6 cm/sec MVA(P1/2t): 5.6 cm2 MV dec slope: 879.0 cm/sec2 PA V2 max: 107.6 cm/sec PA max P.6 mmHg Left Ventricle The left ventricle is grossly normal size. There is mild concentric left ventricular hypertrophy. The left ventricular ejection fraction is normal. Doppler measurements suggest pseudonormalized left ventricular relaxation, which is associated with grade II/IV or mild to moderate diastolic dysfunction. Wall motion cannot be accurately commented on, but no definite regional wall motion abnormalities noted. Right Ventricle The right ventricle is grossly normal size. There is normal right ventricular wall thickness. The right ventricular systolic function is normal. Atria The right atrium is normal in size. The left atrial size is normal. Interarterial septum not well visualized and not well dopplered. Cannot comment on ASD/PFO presence. Mitral Valve The mitral valve is grossly normal. There is no mitral valve stenosis. There is a trace amount of mitral regurgitation. Aortic Valve The aortic valve is not well visualized secondary to technical limitations. There is no aortic valve stenosis. No aortic regurgitation is present. Tricuspid Valve The tricuspid valve is not well visualized secondary to technical limitations. There is no tricuspid stenosis. No tricuspid regurgitation. Tricuspid regurgitation jet envelope not well defined to measure RV systolic pressure accurately. Pulmonic Valve The pulmonic valve is not well visualized. Great Vessels The aortic root is not well visualized. The inferior vena cava was not well visualized. Effusions Minimal pericardial effusion. : FLORES RAZO > Denisha Seth
[2017-04-05] MEDS: OXYCODONE-ACETAMINOPHEN 5-325 MG TABLET PO PRN (22:37)
[2017-04-06] MEDS: METHYLPREDNISOLONE INJ 40 MG/1 ML SDV IV SCH (02:26)
[2017-04-06] MEDS: NORMAL SALINE 1000 ML 1,000 ML IV PRN ×2 (02:27→10:11)
[2017-04-06] MEDS: LEVOTHYROXINE SODIUM 0.15 MG TABLET PO SCH (06:17)
[2017-04-06] MEDS: LANSOPRAZOLE 15 MG TAB.RAP.DR PO SCH (06:17)
[2017-04-06 07:14] LABS: HEMATOCRIT 28.8 % (36.0-47.0); MEAN CORPUSCULAR HEMOGLOBIN 25.7 pg (27.0-33.4); MEAN CORPUSCULAR HGB CONC 32.7 g/dL (32.0-36.0); MEAN CORPUSCULAR VOLUME 79 fl (80-97); RED BLOOD COUNT 3.67 10^6/uL (3.72-5.28); RED CELL DISTRIBUTION WIDTH 17.5 % (11.5-14.0); WHITE BLOOD COUNT 11.3 10^3/uL (4.0-10.5)
[2017-04-06 07:32] LABS: ALANINE AMINOTRANSFERASE 26 U/L (9-52); ALBUMIN 2.5 g/dL (3.5-5.0); ALKALINE PHOSPHATASE 60 U/L (38-126); ANION GAP 7 (5-19); ASPARTATE AMINO TRANSFERASE 16 U/L (14-36); BLOOD UREA NITROGEN 14 mg/dL (7-20); CALCIUM 8.3 mg/dL (8.4-10.2); CARBON DIOXIDE 25 mmol/L (22-30); CHLORIDE 111 mmol/L (98-107); GLUCOSE 107 mg/dL (75-110); SODIUM 142.6 mmol/L (137-145); TOTAL PROTEIN 4.6 g/dL (6.3-8.2)
[2017-04-06 07:38] LABS: BILIRUBIN,TOTAL < 0.1 mg/dL (0.2-1.3)
--- NOTE | 2017-04-06 07:50 | PDOC PROGRESS REPORT ---
Subjective Progress Note for:: 04/06/17 Subjective:: Patient still has cough and dyspnea on exertion. However, she did try to walk in painter yesterday. She asks about test results. ROS: Wrist pain, dyspnea, No constipation or diarrhea. Nurses report no reaction to blood transfusions. Reason For Visit: PNEUMONIA FEVER LUNG CANCER Physical Exam Vital Signs: Temp Pulse Resp BP Pulse Ox 97.8 F 99 20 107/70 99 04/05/17 23:58 04/05/17 23:58 04/05/17 23:58 04/05/17 23:58 04/05/17 23:58 Intake & Output 04/05/17 04/06/17 04/07/17 06:59 06:59 06:59 Intake Total 2490 4240 Output Total 2900 Balance 2490 1340 Weight 46.6 kg 46.4 kg General appearance: PRESENT: no acute distress, thin Head exam: PRESENT: atraumatic Respiratory exam: PRESENT: crackles, wheezes Cardiovascular exam: PRESENT: RRR GI/Abdominal exam: PRESENT: soft. ABSENT: tenderness Extremities exam: ABSENT: pedal edema Neurological exam: PRESENT: alert, awake Psychiatric exam: PRESENT: appropriate affect Results Laboratory Results: 04/06/17 06:56 04/04/17 04/06/17 11:12 06:56 Sodium 142.6 Potassium 4.0 Chloride 111 H Carbon Dioxide 25 Anion Gap 7 BUN 14 Creatinine 0.55 Est GFR ( Amer) > 60 Est GFR (Non-Af Amer) > 60 Glucose 107 Calcium 8.3 L Total Bilirubin < 0.1 L AST 16 ALT 26 Alkaline Phosphatase 60 Total Protein 4.6 L Albumin 2.5 L Blood Type O NEGATIVE Antibody Screen NEGATIVE 04/03/17 17:50 Catheterized Urine Urine Culture - Final NO GROWTH 2 DAYS Impressions: Chest X-Ray 04/03/17 12:01 IMPRESSION: Grossly stable bilateral upper lobe cavitary changes compared to imaging from February. Chronic increased interstitial markings in the mid and lower lungs. No acute infiltrates. Chest/Abdomen CTA 04/03/17 12:34 IMPRESSION: Extensive chronic appearing varying size cystic lesions are identified as well as emphysematous changes. There are associated with consolidative process ease which appear minimally improved in the upper lung bui and in the left lower lung field as compared to the previous study. There is a patchy consolidative process in the right lower lung field laterally which was not present on the previous study. No pleural effusions are identified. Mediastinal and hilar adenopathy is noted above. No evidence for pulmonary embolic disease. Other findings as noted above Wrist X-Ray 04/04/17 00:00 IMPRESSION: DEGENERATIVE CHANGES. NO ACUTE FINDINGS. Assessment & Plan - Diagnosis (1) Lung cancer Qualifiers: Laterality: left Lung location: overlapping sites Qualified Code(s): C34.82 - Malignant neoplasm of overlapping sites of left bronchus and lung Is this a current diagnosis for this admission?: Yes Plan: Patient is Stage IV, but has been stable for many months. She has not received any chemotherapy for a long time and her most recent treatment for cancer was an agent that heightens the immune system (not suppressive), but that was in 2016. Further treatment as outpatient is planned. (2) Anemia Qualifiers: Anemia type: unspecified type Qualified Code(s): D64.9 - Anemia, unspecified Is this a current diagnosis for this admission?: Yes Plan: Unsure as to cause at this point. Thought to be hemolytic, but labs do not support this. Await today's CBC. 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 She did not respond to steroids. She had a very brief response to both IVIg and Rituxan, but has again relapsed. Would NOT transfuse any platelets at this point unless severe bleeding. Await today' s CBC (5) Pneumonia Plan: I would continue antibiotics, although patient denies having received any in the past 24 hours. Cultures remain NGTD.
[2017-04-06 08:01] LABS: HEMOGLOBIN 9.4 g/dL (12.0-15.5)
[2017-04-06 08:02] LABS: PLATELET COUNT 41 10^3/uL (150-450)
[2017-04-06 08:10] LABS: ABSOLUTE LYMPHOCYTES# (MANUAL) 0.3 10^3/uL (0.5-4.7); ANISOCYTOSIS 2+; BAND NEUTROPHILS % (MANUAL) 1 % (3-5); BASOPHILS % (MANUAL) 0 % (0-2); EOSINOPHILS % (MANUAL) 0 % (0-6); HYPOCHROMASIA SLIGHT; LYMPHOCYTES % (MANUAL) 3 % (13-45); MONOCYTES % (MANUAL) 0 % (3-13); OVALOCYTES 2+; PLATELET COMMENT DECREASED; POIKILOCYTOSIS 2+; POLYCHROMASIA 2+; ROULEAUX SLIGHT; SCHISTOCYTES SLIGHT; SEGMENTED NEUTROPHILS % (MAN) 96 % (42-78); TOTAL CELLS COUNTED 100; TOXIC GRANULATION 2+
[2017-04-06] MEDS: IPRATROPIUM/ALBUTEROL 0.5-2.5 MG/3 ML AMPUL NEB SCH (08:35)
[2017-04-06] MEDS ORDERED: LEVOFLOXACIN 750 MG TABLET PO SCH (10:00)
[2017-04-06 11:18] VITALS: BP 90/61
[2017-04-06] MEDS ORDERED: INFLUENZA ADLT QUAD (36MOS+) 2017-18 VAC 0.5 ML SYR IM PRN (11:30)
--- NOTE | 2017-04-06 15:01 | PDOC DISCHARGE SUMMARY ---
General - Admit/Disc Date/PCP Admission Date/Primary Care Provider: 04/03/17 17:13 VIRAL GARCIA MD Discharge Date: 04/06/17 - Discharge Diagnosis (1) Hospital-acquired pneumonia Is this a current diagnosis for this admission?: Yes (2) COPD exacerbation Is this a current diagnosis for this admission?: Yes (3) Tobacco abuse Is this a current diagnosis for this admission?: Yes (4) Lung cancer Is this a current diagnosis for this admission?: Yes (5) Anemia Is this a current diagnosis for this admission?: Yes (6) Thrombocytopenia Is this a current diagnosis for this admission?: Yes (7) Localized swelling of both lower legs Is this a current diagnosis for this admission?: Yes (8) Diastolic dysfunction without heart failure Is this a current diagnosis for this admission?: Yes - Additional Information Resuscitation Status: Full Code Discharge Diet: Regular Discharge Activity: Activity As Tolerated Prescriptions: Fluticasone/Salmeterol [Advair 250-50 Diskus 14 Dose/Diskus] 1 inh IH Q12H 30 Days #1 inhaler Levofloxacin [Levaquin 750 mg Tablet] 750 mg PO DAILY #5 tablet Tiotropium [place] [Spiriva Handihaler 18 mcg/dose (30 Dose)] 1 cap IH DAILY # 30 capsule Home Medications: Levothyroxine Sodium [Synthroid] 150 mcg PO Q6AM 04/03/17 Omeprazole 20 mg PO DAILY 04/03/17 Prednisone [Deltasone 20 mg Tablet] 20 mg PO DAILY 04/03/17 Fluticasone/Salmeterol [Advair 250-50 Diskus 14 Dose/Diskus] 1 inh IH Q12H 30 Days #1 inhaler 04/06/17 Levofloxacin [Levaquin 750 mg Tablet] 750 mg PO DAILY #5 tablet 04/06/17 Tiotropium [place] [Spiriva Handihaler 18 mcg/dose (30 Dose)] 1 cap IH DAILY # 30 capsule 04/06/17 History of Present Illness History of Present Illness: MERRILL BLAKE is a 61 year old femaleWas referred to emergency room from her oncologist office since up when checking vital signs temperature was 101. Patient stated that she was unaware that she was having any fever. Interestingly she was not medicated and sent to emergency room and on arrival to emergency room the fever had resolved. Patient complains that she has been having shortness of breath, productive cough of mostly white phlegm. Patient had been noticing swelling of her legs for a couple of weeks. She admits that she continues smoking off and on when she gets upset. Patient was evaluated in emergency room through CTA of the chest and there was a concern about the possibility of pneumonia and the hospitalist service was consulted for further management and prompted to admit. Hospital Course Hospital Course: Patient was admitted under the hospitalist service. Initially there was a concern about the possibility of sepsis. Interestingly by the time patient arrived to emergency room she was afebrile. Blood cultures and urine cultures were negative. Sepsis was ruled out Patient was treated for community-acquired pneumonia and is discharged on Levaquin 750 mg for 5 days. CBC was trended and noted a downward shift of both the hemoglobin and platelets. Dr. Garcia had been following this patient and she had expressed her concern that patient had a hemolytic process. However, it was was ruled out since was not sustained by laboratory data. Patient did not receive platelet transfusions as per Dr. Garcia recommendations. Patient was transfused 3 units of packed red blood cells leukocyte reduced. On admission patient complained of experiencing bilateral leg swelling and she was evaluated thru an echocardiogram for the possibility of pulmonary hypertension. The latter demonstrated a grade 2 diastolic dysfunction. We were not able to gather further information as far as ruling out the possibility of pulmonary hypertension. She was treated with nebulizer treatment and IV steroids with further improvement of respiratory status and leg swelling resolved. On discharge we prescribed Advair and Spiriva and recommend primary care provider to continue. When initially admitted there was a concern about immunosuppression because patient kept mentioning being treated with chemotherapy last January. Dr. Owens clarified this issue since actually the latest regimens were to boost her immune status. Therefore immunosuppressed status was ruled out. Patient had been also encouraged to quit smoking. Patient is to follow-up with primary care provider as well as Dr. Garcia and is aware she will need follow up work up next week. Patient had been stable during her hospitalization stay and prompted to discharge under stable condition. Physical Exam Vital Signs: Temp Pulse Resp BP Pulse Ox 97.8 F 76 18 90/61 L 98 04/06/17 11:16 04/06/17 11:16 04/06/17 11:16 04/06/17 11:16 04/06/17 11:16 Intake & Output 04/05/17 04/06/17 04/07/17 06:59 06:59 06:59 Intake Total 2490 4240 Output Total 2900 Balance 2490 1340 Weight 46.6 kg 46.4 kg General appearance: PRESENT: no acute distress, cooperative, thin Head exam: PRESENT: atraumatic, normocephalic Eye exam: PRESENT: EOMI, PERRLA Ear exam: PRESENT: normal external ear exam Mouth exam: PRESENT: moist, neck supple Neck exam: PRESENT: full ROM. ABSENT: JVD, lymphadenopathy, tenderness Respiratory exam: PRESENT: clear to auscultation esdras Cardiovascular exam: PRESENT: RRR. ABSENT: diastolic murmur, systolic murmur Vascular exam: PRESENT: normal capillary refill GI/Abdominal exam: PRESENT: normal bowel sounds, soft. ABSENT: tenderness Extremities exam: PRESENT: full ROM. ABSENT: joint swelling, pedal edema Musculoskeletal exam: PRESENT: ambulatory, full ROM Neurological exam: PRESENT: alert, awake, oriented to person, oriented to place , oriented to time, oriented to situation, CN II-XII grossly intact Psychiatric exam: PRESENT: appropriate affect, normal mood Skin exam: PRESENT: intact, normal color Results Laboratory Results: 04/06/17 06:56 04/06/17 06:56 04/06/17 04/06/17 06:56 06:56 WBC 11.3 H RBC 3.67 L Hgb 9.4 L D Hct 28.8 L MCV 79 L MCH 25.7 L MCHC 32.7 RDW 17.5 H Plt Count 41 L D Seg Neutrophils % Not Reportable Lymphocytes % Not Reportable Monocytes % Not Reportable Eosinophils % Not Reportable Basophils % Not Reportable Absolute Neutrophils Not Reportable Absolute Lymphocytes Not Reportable Absolute Monocytes Not Reportable Absolute Eosinophils Not Reportable Absolute Basophils Not Reportable Sodium 142.6 Potassium 4.0 Chloride 111 H Carbon Dioxide 25 Anion Gap 7 BUN 14 Creatinine 0.55 Est GFR ( Amer) > 60 Est GFR (Non-Af Amer) > 60 Glucose 107 Calcium 8.3 L Total Bilirubin < 0.1 L AST 16 ALT 26 Alkaline Phosphatase 60 Total Protein 4.6 L Albumin 2.5 L 04/03/17 17:50 Catheterized Urine Urine Culture - Final NO GROWTH 2 DAYS Impressions: Chest X-Ray 04/03/17 12:01 IMPRESSION: Grossly stable bilateral upper lobe cavitary changes compared to imaging from February. Chronic increased interstitial markings in the mid and lower lungs. No acute infiltrates. Chest/Abdomen CTA 04/03/17 12:34 IMPRESSION: Extensive chronic appearing varying size cystic lesions are identified as well as emphysematous changes. There are associated with consolidative process ease which appear minimally improved in the upper lung bui and in the left lower lung field as compared to the previous study. There is a patchy consolidative process in the right lower lung field laterally which was not present on the previous study. No pleural effusions are identified. Mediastinal and hilar adenopathy is noted above. No evidence for pulmonary embolic disease. Other findings as noted above Wrist X-Ray 04/04/17 00:00 IMPRESSION: DEGENERATIVE CHANGES. NO ACUTE FINDINGS. Plan Discharge Plan: Discharge home Time Spent: Less than 30 Minutes
== END 2017-04-06 12:45 | disposition home or self-care (01) | DRG 194 ==
LOC: ER 11:56 → EH 17:13 → 4W 04-04 01:12
PROVIDERS: ADMIT Emergency Medicine; ATTEND Emergency Medicine
PROC: 3E0F73Z Introduction of Anti-inflammatory into Respiratory Tract, Via Natural or Artificial Opening (ICD-10-PCS; 2017-04-03)
PROC: 30233N1 Transfusion of Nonautologous Red Blood Cells into Peripheral Vein, Percutaneous Approach (ICD-10-PCS; principal; 2017-04-04)
PROC: 3E0234Z Introduction of Serum, Toxoid and Vaccine into Muscle, Percutaneous Approach (ICD-10-PCS; 2017-04-06)
DX: J18.9 Pneumonia, unspecified organism (principal); J44.1 Chronic obstructive pulmonary disease with (acute) exacerbation; J44.0 Chronic obstructive pulmonary disease with (acute) lower respiratory infection; D61.818 Other pancytopenia; C34.82 Malignant neoplasm of overlapping sites of left bronchus and lung; D64.9 Anemia, unspecified; D69.59 Other secondary thrombocytopenia; M79.89 Other specified soft tissue disorders; E86.0 Dehydration; E03.9 Hypothyroidism, unspecified; M81.0 Age-related osteoporosis without current pathological fracture; F17.210 Nicotine dependence, cigarettes, uncomplicated; R00.0 Tachycardia, unspecified; I10 Essential (primary) hypertension; F32.9 Major depressive disorder, single episode, unspecified; Z23 Encounter for immunization; Z79.899 Other long term (current) drug therapy
CPT/HCPCS: 36415; 36430; 71045; 71275; 80048; 80053; 81001; 82550; 82553; 83605; 83615; 83735; 84484; 85025; 86850; 86900; 86901; 86920; 87040; 87086; 87804; 90686; 93005; 93010; 93306; 94640; 99285; J1940; J2543; J2920; J3370; J7030; J7620; P9016

== ENCOUNTER 2017-04-18 16:36 | Inpatient (IN) | payer MEDICARE, MEDICAID ==
[2017-04-18] MEDS ORDERED: ONDANSETRON HCL INJ/PF 4 MG/2 ML SDV IV PRN (19:48)
[2017-04-18] MEDS ORDERED: IPRATROPIUM/ALBUTEROL 0.5-2.5 MG/3 ML AMPUL NEB PRN (19:48)
[2017-04-18] MEDS ORDERED: ONDANSETRON 4 MG TAB.RAPDIS PO PRN (19:48)
[2017-04-18] MEDS ORDERED: ACETAMINOPHEN 325 MG TABLET PO PRN (19:48)
[2017-04-18] MEDS ORDERED: MORPHINE SULFATE 10 MG/ML INJ IV PRN (20:09)
--- NOTE | 2017-04-18 20:19 | PDOC H&P ---
History of Present Illness Admission Date/PCP: 04/18/17 16:36 VIRAL BASURTO MD History of Present Illness: MERRILL BLAKE is a 61 year old female 61 year old female with past medical history of Hypothyroidism COPD Lung cancer Was recently admitted to the hospital and discharged on April 06 and was treated for pneumonia. Referred for admission by her senior portfolio manager for thrombocytopenia. Her platelet count today was 16,000. Hemoglobin 11.4, WBC count 11,000 when checked as an outpatient. Last time she had a Chem-7 checked was on April 03. Sodium was 135, potassium 4.2, bicarb 25, BUN of 15, creatinine 0.7 Liver function tests are within normal limits. The patient is complaining of of cough and shortness of breath. She hears to have a COPD exacerbation and acute bronchitis. Stat chest x-ray has been ordered to rule out pneumonia. She has been started on nebulizers steroids and antibiotics. She uses oxygen at home. Past Medical History Cardiac Medical History: Denies: Coronary Artery Disease, Myocardial Infarction Comment Only: Hypertension - HX OF LBP Pulmonary Medical History: Reports: Bronchitis, Chronic Obstructive Pulmonary Disease (COPD) Denies: Asthma, Pneumonia Neurological Medical History: Denies: Seizures Endocrine Medical History: Reports: Hypothyroidism Malignancy Medical History: Reports: Lung Cancer - Current GI Medical History: Denies: Hepatitis, Hiatal Hernia Musculoskeltal Medical History: Denies: Arthritis Psychiatric Medical History: Reports: Depression Hematology: Reports: Anemia Denies: Sickle Cell Disease Past Surgical History Past Surgical History: Reports: Herniorrhaphy, Orthopedic Surgery - back, Other - Lung biopsy Denies: Amputation, Hysterectomy, Mastectomy, Pacemaker Social History Smoking Status: Former Smoker Frequency of Alcohol Use: None Hx Recreational Drug Use: No Drugs: None Hx Prescription Drug Abuse: No - Advance Directive Resuscitation Status: Full Code Family History Family History: Hypertension Parental Family History Reviewed: Yes Children Family History Reviewed: Yes Sibling(s) Family History Reviewed.: Yes Medication/Allergy Home Medications: Bupropion HCl [Bupropion HCl Sr] 150 mg PO Q12 04/18/17 Fluoxetine HCl [Prozac 20 mg Capsule] 20 mg PO DAILY 04/18/17 Levothyroxine Sodium [Synthroid] 150 mcg PO Q6AM 04/18/17 Omeprazole 20 mg PO DAILY 04/18/17 Tiotropium [place] [Spiriva Handihaler 5 Cap/Kit (18 Mcg/Cap)] 1 puff IH DAILY 04/18/17 Allergies/Adverse Reactions: No Known Allergies Allergy (Verified 04/03/17 11:58) Review of Systems Eyes: ABSENT: visual disturbances Ears: ABSENT: hearing changes Cardiovascular: ABSENT: palpitations Respiratory: PRESENT: cough, dyspnea Gastrointestinal: ABSENT: abdominal pain, hematemesis, nausea, vomiting Genitourinary: ABSENT: dysuria Musculoskeletal: ABSENT: deformity Neurological: ABSENT: focal weakness Physical Exam Vital Signs: Temp Pulse Resp BP Pulse Ox 94 04/18/17 18:52 Pulse Oximeter Continuous Start: 04/18/17 17: 23 Freq: RTQ4 Status: Active Document 04/18/17 18:52 [facility] (Rec: 04/18/17 18:52 [facility] [email or web address]) Pulse Oximetry Assessment Oxygen Saturation (92-100) 94 Oxygen Flow Rate (L/min) 2 Oxygen Delivery Method Nasal Cannula Equipment Usage Initial Set Up Continuous Pulse Oximeter 24 Hour Charge Charge Now Continuous SpO2 Machine # 3 Additional comments: Middle-aged female sitting in bed not in acute distress Lungs: She has coarse breath sounds and bilateral basal crackles with rhonchi. Positive use of accessory muscles Cardiac: S1-S2 regular no peripheral edema no cyanosis no calf tenderness Abdomen: Soft, no focal tenderness normal bowel sounds Skin: Warm and dry Neurologic: No facial droop speech is clear and fluent no tremor awake alert and oriented 3 Assessment & Plan - Diagnosis (1) Thrombocytopenia Is this a current diagnosis for this admission?: Yes Plan: Manage per hematology service, monitor platelet count (2) COPD exacerbation Is this a current diagnosis for this admission?: Yes Plan: IV Solu-Medrol, oxygen nebulizers and antibiotics. Check chest x-ray. (3) History of lung cancer Is this a current diagnosis for this admission?: Yes Plan: Per Oncologist (4) Hypothyroidism Is this a current diagnosis for this admission?: Yes Plan: Continue Synthroid (5) Depression Is this a current diagnosis for this admission?: Yes Plan: Continue outpatient meds - Time Time Spent: 50 to 70 Minutes
[2017-04-18] MEDS ORDERED: ALBUTEROL SULFATE 0.042% NEB (1.25 MG/3 ML) AMPUL NEB ONE (20:39)
[2017-04-18] MEDS: ALBUTEROL SULFATE 0.083% NEB 2.5 MG/3 ML AMPUL NEB SCH (20:40)
[2017-04-18] MEDS ORDERED: LANSOPRAZOLE 30 MG TAB.RAP.DR PO ONE (20:45)
--- NOTE | 2017-04-18 20:49 | RADIOLOGY REPORT (SQ) ---
EXAM DESCRIPTION: CHEST SINGLE VIEW COMPLETED DATE/TIME: 04/18/2017 8:30 pm REASON FOR STUDY: SOB COMPARISON: 04/03/2017 EXAM PARAMETERS: NUMBER OF VIEWS: One view. TECHNIQUE: Single frontal radiographic view of the chest acquired. RADIATION DOSE: NA LIMITATIONS: None. FINDINGS: LUNGS AND PLEURA: Right lung is stable. Increasing interstitial changes left upper lobe. MEDIASTINUM AND HILAR STRUCTURES: No masses. Contour normal. HEART AND VASCULAR STRUCTURES: Heart normal in size. Normal vasculature. BONES: No acute findings. HARDWARE: Venous access catheter unchanged. OTHER: No other significant finding. IMPRESSION: Stable appearance of the right lung. Increasing interstitial changes in the left upper lobe. TECHNICAL DOCUMENTATION: JOB ID: [id number] [employer]- All Rights Reserved
[2017-04-18] MEDS: DOXYCYCLINE HYCLATE 100 MG TABLET PO SCH (21:21)
[2017-04-18] MEDS: BUPROPION HCL 100 MG TABLET PO SCH (21:21)
[2017-04-18] MEDS: METHYLPREDNISOLONE INJ 40 MG/1 ML SDV IV SCH (21:21)
[2017-04-18] MEDS: HYDROMORPHONE HCL INJ/PF 2 MG/ML AMPULE IV PRN (21:21)
[2017-04-19] MEDS: HYDROMORPHONE HCL INJ/PF 2 MG/ML AMPULE IV PRN ×2 (03:38→21:57)
[2017-04-19 04:21] LABS: HEMATOCRIT 36.3 % (36.0-47.0); HEMOGLOBIN 11.3 g/dL (12.0-15.5); MEAN CORPUSCULAR HEMOGLOBIN 24.9 pg (27.0-33.4); MEAN CORPUSCULAR HGB CONC 31.2 g/dL (32.0-36.0); MEAN CORPUSCULAR VOLUME 80 fl (80-97); RED BLOOD COUNT 4.56 10^6/uL (3.72-5.28); RED CELL DISTRIBUTION WIDTH 18.4 % (11.5-14.0); WHITE BLOOD COUNT 6.8 10^3/uL (4.0-10.5)
[2017-04-19 04:23] LABS: PLATELET COUNT 23 10^3/uL (150-450)
[2017-04-19 04:32] LABS: ALANINE AMINOTRANSFERASE 31 U/L (9-52); ALBUMIN 3.1 g/dL (3.5-5.0); ALKALINE PHOSPHATASE 77 U/L (38-126); ANION GAP 9 (5-19); ASPARTATE AMINO TRANSFERASE 19 U/L (14-36); BILIRUBIN,DIRECT 0.2 mg/dL (0.0-0.4); BILIRUBIN,TOTAL 0.2 mg/dL (0.2-1.3); BLOOD UREA NITROGEN 18 mg/dL (7-20); CALCIUM 8.6 mg/dL (8.4-10.2); CARBON DIOXIDE 26 mmol/L (22-30); CHLORIDE 103 mmol/L (98-107); GLUCOSE 143 mg/dL (75-110); MAGNESIUM 1.8 mg/dL (1.6-2.3); POTASSIUM 5.1 mmol/L (3.6-5.0); TOTAL PROTEIN 5.3 g/dL (6.3-8.2)
[2017-04-19 04:42] LABS: ABSOLUTE LYMPHOCYTES# (MANUAL) 0.3 10^3/uL (0.5-4.7); ABSOLUTE MONOCYTES # (MANUAL) 0.2 10^3/uL (0.1-1.4); ABSOLUTE NEUTROPHILS# (MANUAL) 6.3 10^3/uL (1.7-8.2); BASOPHILS % (MANUAL) 0 % (0-2); EOSINOPHILS % (MANUAL) 0 % (0-6); LYMPHOCYTES % (MANUAL) 4 % (13-45); MONOCYTES % (MANUAL) 3 % (3-13); SEGMENTED NEUTROPHILS % (MAN) 93 % (42-78); TOTAL CELLS COUNTED 100; TOXIC GRANULATION SLIGHT
[2017-04-19 04:43] LABS: PLATELET COMMENT DECREASED; PLATELET LARGE PRESENT
[2017-04-19 04:46] LABS: HYPOCHROMASIA 2+; POLYCHROMASIA 1+
[2017-04-19 04:47] LABS: ANISOCYTOSIS 2+
[2017-04-19 04:48] LABS: BURR CELLS SLIGHT; HYPERSEGMENTED NEUTROPHILS PRESENT; POIKILOCYTOSIS SLIGHT
[2017-04-19] MEDS: LEVOTHYROXINE SODIUM 0.15 MG TABLET PO SCH (05:52)
[2017-04-19] MEDS: BUPROPION HCL 100 MG TABLET PO SCH ×3 (05:53→21:57)
[2017-04-19] MEDS: LANSOPRAZOLE 30 MG TAB.RAP.DR PO SCH ×2 (05:53→18:49)
[2017-04-19] MEDS: METHYLPREDNISOLONE INJ 40 MG/1 ML SDV IV SCH ×3 (05:53→18:49)
[2017-04-19] MEDS: FLUOXETINE HCL 20 MG CAPSULE PO SCH (09:47)
[2017-04-19] MEDS: DOCUSATE SODIUM 100 MG CAPSULE PO SCH (09:47)
[2017-04-19] MEDS: DOXYCYCLINE HYCLATE 100 MG TABLET PO SCH ×2 (09:47→21:57)
[2017-04-19] MEDS: TIOTROPIUM BROMIDE DPI 5 CAP/KIT (18 MCG/CAP) IH SCH (09:48)
--- NOTE | 2017-04-19 10:00 | PDOC CONSULTATION ---
Consultation Consult Date: 04/19/17 Consult reason:: Hematology/Oncology consulation was requested for patient with lung cancer and ITP. History of Present Illness Admission Date/PCP: 04/18/17 16:36 VIRAL BASURTO MD History of Present Illness: MERRILL BLAKE is a 61 year old female who is followed for lung cancer and chronic ITP. Was recently admitted to the hospital and discharged on April 06 and was treated for pneumonia. She has had several bouts of respiratory distress each causing worsening of her ITP and resolving after a few days of antibiotics. It is thought that mold or another substance in her home is exacerbating her lung issues. She had been very stable on an immulomodulator without evidence of cancer progression. However, she has had no active treatment for her cancer since Jan 2017, due to the thrombocytopenia. She has failed steriods, IVIg (although had a brief response), Rituxan. Goal is to start Nplate now. The patient presented complaining of of cough and shortness of breath. She appears to have a COPD exacerbation and acute bronchitis. No recent bleeding. Past Medical History Cardiac Medical History: Denies: Coronary Artery Disease, Myocardial Infarction Comment Only: Hypertension - HX OF LBP Pulmonary Medical History: Reports: Bronchitis, Chronic Obstructive Pulmonary Disease (COPD) Denies: Asthma, Pneumonia Neurological Medical History: Denies: Seizures Endocrine Medical History: Reports: Hypothyroidism Malignancy Medical History: Reports: Lung Cancer - Current GI Medical History: Denies: Hepatitis, Hiatal Hernia Musculoskeltal Medical History: Denies: Arthritis Psychiatric Medical History: Reports: Depression Hematology: Reports: Anemia Denies: Sickle Cell Disease Hematology History Note: ITP Past Surgical History Past Surgical History: Reports: Herniorrhaphy, Orthopedic Surgery - back, Other - Lung biopsy Denies: Amputation, Hysterectomy, Mastectomy, Pacemaker Social History Smoking Status: Never Smoker Frequency of Alcohol Use: None Hx Recreational Drug Use: No Drugs: None Hx Prescription Drug Abuse: No - Advance Directive Resuscitation Status: Full Code Family History Family History: Hypertension Parental Family History Reviewed: Yes Children Family History Reviewed: Yes Sibling(s) Family History Reviewed.: Yes Medication/Allergy Home Medications: Bupropion HCl [Bupropion HCl Sr] 150 mg PO Q12 04/18/17 Fluoxetine HCl [Prozac 20 mg Capsule] 20 mg PO DAILY 04/18/17 Levothyroxine Sodium [Synthroid] 150 mcg PO Q6AM 04/18/17 Omeprazole 20 mg PO DAILY 04/18/17 Tiotropium [place] [Spiriva Handihaler 5 Cap/Kit (18 Mcg/Cap)] 1 puff IH DAILY 04/18/17 Allergies/Adverse Reactions: No Known Allergies Allergy (Verified 04/03/17 11:58) Review of Systems Constitutional: PRESENT: weight loss. ABSENT: fever(s) Eyes: ABSENT: visual disturbances Ears: ABSENT: hearing changes Nose, Mouth, and Throat: ABSENT: sore throat Cardiovascular: PRESENT: dyspnea on exertion Respiratory: PRESENT: cough, dyspnea Gastrointestinal: ABSENT: nausea, vomiting Genitourinary: ABSENT: dysuria Integumentary: ABSENT: rash Neurological: PRESENT: weakness. ABSENT: abnormal gait, syncope Psychiatric: PRESENT: depression Hematologic/Lymphatic: ABSENT: easy bruising Physical Exam Vital Signs: Temp Pulse Resp BP Pulse Ox 97.9 F 105 H 18 109/85 94 04/18/17 23:36 04/18/17 23:36 04/18/17 23:36 04/18/17 23:36 04/19/17 04:00 Pulse Oximeter Continuous Start: 04/18/17 17: 23 Freq: RTQ4 Status: Active Document 04/19/17 04:00 [facility] (Rec: 04/19/17 07:26 [facility] [email or web address]) Pulse Oximetry Assessment Oxygen Saturation (92-100) 94 Oxygen Flow Rate (L/min) 3 Oxygen Delivery Method Nasal Cannula Fraction of Inspired Oxygen (FIO2) 32 Equipment Usage Equipment in Use Continuous SpO2 Machine # 3 Intake & Output 04/18/17 04/19/17 04/20/17 06:59 06:59 06:59 Intake Total 240 Balance 240 Weight 43.4 kg General appearance: PRESENT: mild distress, thin Head exam: PRESENT: atraumatic Eye exam: PRESENT: PERRLA Mouth exam: PRESENT: moist Neck exam: ABSENT: JVD, tenderness Respiratory exam: PRESENT: wheezes Cardiovascular exam: PRESENT: RRR, tachycardia GI/Abdominal exam: PRESENT: soft. ABSENT: tenderness Extremities exam: ABSENT: pedal edema Musculoskeletal exam: PRESENT: ambulatory Neurological exam: PRESENT: alert, awake, oriented to person, oriented to place , oriented to time Psychiatric exam: PRESENT: appropriate affect Skin exam: PRESENT: cyanosis Results Laboratory Results: 04/19/17 04:02 04/19/17 04:02 04/19/17 04/19/17 04:02 04:02 WBC 6.8 RBC 4.56 Hgb 11.3 L Hct 36.3 MCV 80 MCH 24.9 L MCHC 31.2 L RDW 18.4 H Plt Count 23 L* Seg Neutrophils % Not Reportable Lymphocytes % Not Reportable Monocytes % Not Reportable Eosinophils % Not Reportable Basophils % Not Reportable Absolute Neutrophils Not Reportable Absolute Lymphocytes Not Reportable Absolute Monocytes Not Reportable Absolute Eosinophils Not Reportable Absolute Basophils Not Reportable Sodium 138.0 Potassium 5.1 H Chloride 103 Carbon Dioxide 26 Anion Gap 9 BUN 18 Creatinine 0.63 Est GFR ( Amer) > 60 Est GFR (Non-Af Amer) > 60 Glucose 143 H Calcium 8.6 Magnesium 1.8 Total Bilirubin 0.2 AST 19 ALT 31 Alkaline Phosphatase 77 Total Protein 5.3 L Albumin 3.1 L Impressions: Chest X-Ray 04/18/17 00:00 IMPRESSION: Stable appearance of the right lung. Increasing interstitial changes in the left upper lobe. Assessment & Plan - Diagnosis (1) Lung cancer Qualifiers: Laterality: right Lung location: upper lobe of lung Qualified Code(s): C34.11 - Malignant neoplasm of upper lobe, right bronchus or lung Is this a current diagnosis for this admission?: Yes Plan: Treatment has been on hold due to thrombocytopenia. Plan for repeat CT once platelet issues resolve. (2) Acute ITP Plan: Now recurrent, chronic ITP. She has failed Steroids, IVIg, Rituxan. Next step would be to start Nplate. I have ordered this. However, ITP has been exacerbated by her chronic lung issues. (3) COPD exacerbation Is this a current diagnosis for this admission?: Yes Plan: I believe there may be an underlying instigating factor at home. Unsure how to test for this, or remove her from the situation. Family is working on this as well. Agree with plans for antibiotics and nebulizers.
[2017-04-19] MEDS ORDERED: ROMIPLOSTIM SUBCUT PRN (10:33)
[2017-04-19] MEDS ORDERED: DISPOSABLE SUBCUT PRN (10:33)
[2017-04-19] MEDS: OXYCODONE-ACETAMINOPHEN 5-325 MG TABLET PO PRN (12:11)
[2017-04-19] MEDS: ALBUTEROL SULFATE 0.083% NEB 2.5 MG/3 ML AMPUL NEB SCH (14:25)
[2017-04-19] MEDS ORDERED: LEVALBUTEROL HCL NEB 0.63 MG/3 ML AMPUL NEB PRN (16:38)
--- NOTE | 2017-04-19 19:04 | PROGRESS NOTE E ---
Progress Note NAME: MERRILL BLAKE : 1955 AGE: 61Y DATE: 04/19/2017 ROOM: 534 SUBJECTIVE: The patient is lying in bed. She states that as long as she at rest she feels well. However, with activity she becomes acutely dyspneic. The patient denies any nausea, vomiting. No diarrhea, dizziness, chest pain. No fevers, chills. No evidence of bleeding. The patient does not voice any other concerns at this time. REVIEW OF SYSTEMS: The rest of the review of systems negative. MEDICATIONS: Have been reviewed. OBJECTIVE: GENERAL: The patient is a 61-year-old female who is awake, alert, and oriented to person, time, place, situation. She is verbal, conversational. Does not appear to be in any acute distress. VITAL SIGNS: Temperature is 97.6, pulse 106, respirations 17, blood pressure is 118/75, oxygen saturation is 97% on 3 liters nasal cannula. SKIN: Warm and dry. No rash. She is not diaphoretic. HEENT: Pupils, equal, round and reactive to light and accommodation. Conjunctivae are pink. No evidence of JVP. CARDIOVASCULAR: Heart is tachycardic, regular. No rub. CHEST: The patient is very diminished with fine wheezes in upper lung ubi. ABDOMEN: Very thin, bowel sounds are present. EXTREMITIES: No clubbing, cyanosis, edema. PSYCHIATRIC: Appropriate affect, pleasant mood. LABORATORY DATA: Hematology obtained on 04/19/2017; WBC is 6.8, hemoglobin 12.3, hematocrit 36.3, platelet count of 23,000. Chemistry obtained on 04/19/2017; sodium is 138, potassium 5.1, chloride is 106, carbon dioxide 26, BUN 18, creatinine is 0.6, glucose 143, calcium is 8.6, magnesium is 1.8, bilirubin 0.2, AST 19, ALT 31, alk-phos 77. Total protein 5.3, albumin 3.1. IMPRESSION AND PLAN: 1. RIGHT UPPER LOBE LUNG CANCER. The patient is being followed by oncology. The patient's treatment has been put on hold due to thrombocytopenia. Will follow. 2. ACUTE THROMBOCYTOPENIA. The patient is currently on steroids as well as IV Ig and Rituxan. The patient did start Nplate. 3. CHRONIC OBSTRUCTIVE PULMONARY DISEASE EXACERBATION. Will continue steroids as well as the patient's home medication. 4. ACUTE ON CHRONIC HYPOXEMIC RESPIRATORY FAILURE. Will increase steroids due to increased wheezing. Will also transition nebs given increased tachycardia. CODE STATUS: The patient is a full code. DISPOSITION: Depending on the patient's symptomatology and diagnostic findings will reevaluate in the a.m. TIME SPENT: On this follow up, including assessment and plan, physical examination, patient education, review of records is 20 minutes. DICTATING PHYSICIAN: MALIKA DIEGO NP [id number] PHY#: [id number] ID: [id number] JOB#: [id number] ACCT: [id number] cc: > MTDD
[2017-04-19] MEDS: LEVALBUTEROL HCL NEB 1.25 MG/3 ML AMPUL NEB SCH (20:26)
[2017-04-20] MEDS: METHYLPREDNISOLONE INJ 40 MG/1 ML SDV IV SCH ×3 (03:07→17:31)
[2017-04-20 05:33] LABS: HEMATOCRIT 31.7 % (36.0-47.0); MEAN CORPUSCULAR HEMOGLOBIN 24.9 pg (27.0-33.4); MEAN CORPUSCULAR HGB CONC 31.6 g/dL (32.0-36.0); RED BLOOD COUNT 4.02 10^6/uL (3.72-5.28); RED CELL DISTRIBUTION WIDTH 18.6 % (11.5-14.0); WHITE BLOOD COUNT 5.7 10^3/uL (4.0-10.5)
[2017-04-20] MEDS: LEVOTHYROXINE SODIUM 0.15 MG TABLET PO SCH (05:34)
[2017-04-20] MEDS: BUPROPION HCL 100 MG TABLET PO SCH ×3 (05:34→21:47)
[2017-04-20] MEDS: OXYCODONE-ACETAMINOPHEN 5-325 MG TABLET PO PRN ×3 (05:35→21:47)
[2017-04-20] MEDS: LANSOPRAZOLE 30 MG TAB.RAP.DR PO SCH ×2 (05:35→17:31)
[2017-04-20 05:48] LABS: ANION GAP 5 (5-19); BLOOD UREA NITROGEN 21 mg/dL (7-20); CALCIUM 9.2 mg/dL (8.4-10.2); CARBON DIOXIDE 31 mmol/L (22-30); CHLORIDE 102 mmol/L (98-107); GLUCOSE 122 mg/dL (75-110); MAGNESIUM 1.7 mg/dL (1.6-2.3); POTASSIUM 5.1 mmol/L (3.6-5.0); SODIUM 137.6 mmol/L (137-145)
[2017-04-20 06:31] LABS: MEAN CORPUSCULAR VOLUME 79 fl (80-97); PLATELET COUNT 80 10^3/uL (150-450)
[2017-04-20] MEDS: LEVALBUTEROL HCL NEB 1.25 MG/3 ML AMPUL NEB SCH ×3 (07:38→20:53)
[2017-04-20] MEDS: TIOTROPIUM BROMIDE DPI 5 CAP/KIT (18 MCG/CAP) IH SCH (10:35)
[2017-04-20] MEDS: MAGNESIUM OXIDE 400 MG TABLET PO SCH ×2 (10:35→17:31)
[2017-04-20] MEDS: DOCUSATE SODIUM 100 MG CAPSULE PO SCH (10:36)
[2017-04-20] MEDS: FLUOXETINE HCL 20 MG CAPSULE PO SCH (10:36)
[2017-04-20] MEDS: DOXYCYCLINE HYCLATE 100 MG TABLET PO SCH ×2 (10:36→21:47)
--- NOTE | 2017-04-20 13:06 | PDOC PROGRESS REPORT ---
Subjective Progress Note for:: 04/20/17 Subjective:: Patient stable this morning, platelet count has improved to 80, patient did receive Nplate and steroids and she is doing better. Reason For Visit: ITP Physical Exam Vital Signs: Temp Pulse Resp BP Pulse Ox 97.6 F 91 21 H 109/72 100 04/20/17 12:00 04/20/17 12:00 04/20/17 12:00 04/20/17 12:00 04/20/17 12:00 Pulse Oximeter Continuous Start: 04/18/17 17: 23 Freq: RTQ4 Status: Active Document 04/20/17 07:38 LDA (Rec: 04/20/17 09:10 LDA [email or web address]) Pulse Oximetry Assessment Oxygen Saturation (92-100) 100 Oxygen Flow Rate (L/min) 3 Oxygen Delivery Method Nasal Cannula Equipment Usage Equipment in Use Continuous SpO2 Machine # 3 Intake & Output 04/19/17 04/20/17 04/21/17 06:59 06:59 06:59 Intake Total 240 1227 Balance 240 1227 Weight 43.4 kg General appearance: PRESENT: no acute distress, well-developed, well-nourished Head exam: PRESENT: atraumatic, normocephalic Eye exam: PRESENT: conjunctiva pink, EOMI, PERRLA. ABSENT: scleral icterus Ear exam: PRESENT: normal external ear exam Mouth exam: PRESENT: moist, tongue midline Neck exam: ABSENT: carotid bruit, JVD, lymphadenopathy, thyromegaly Respiratory exam: PRESENT: clear to auscultation esdras. ABSENT: rales, rhonchi, wheezes Cardiovascular exam: PRESENT: RRR. ABSENT: diastolic murmur, rubs, systolic murmur Pulses: PRESENT: normal dorsalis pedis pul Vascular exam: PRESENT: normal capillary refill GI/Abdominal exam: PRESENT: normal bowel sounds, soft. ABSENT: distended, guarding, mass, organolmegaly, rebound, tenderness Rectal exam: PRESENT: deferred Extremities exam: PRESENT: full ROM. ABSENT: calf tenderness, clubbing, pedal edema Neurological exam: PRESENT: alert, awake, oriented to person, oriented to place , oriented to time, oriented to situation, CN II-XII grossly intact. ABSENT: motor sensory deficit Psychiatric exam: PRESENT: appropriate affect, normal mood. ABSENT: homicidal ideation, suicidal ideation Skin exam: PRESENT: dry, intact, warm. ABSENT: cyanosis, rash Results Laboratory Results: 04/20/17 04:53 04/20/17 04:53 04/20/17 04/20/17 04:53 04:53 WBC 5.7 RBC 4.02 Hgb 10.0 L Hct 31.7 L MCV 79 L MCH 24.9 L MCHC 31.6 L RDW 18.6 H Plt Count 80 L D Sodium 137.6 Potassium 5.1 H Chloride 102 Carbon Dioxide 31 H Anion Gap 5 BUN 21 H Creatinine 0.70 Est GFR ( Amer) > 60 Est GFR (Non-Af Amer) > 60 Glucose 122 H Calcium 9.2 Magnesium 1.7 Impressions: Chest X-Ray 04/18/17 00:00 IMPRESSION: Stable appearance of the right lung. Increasing interstitial changes in the left upper lobe. Assessment & Plan - Diagnosis (1) Acute ITP Is this a current diagnosis for this admission?: Yes Plan: Patient receiving NPLATE/Steroids, at present continue, no changes today, patient generally will need 2-3 days of IV steroids before transitioning to oral steroids and continuing on outpatient NPLATE that was just started.
--- NOTE | 2017-04-20 16:13 | PDOC PROGRESS REPORT ---
Subjective Progress Note for:: 04/20/17 Subjective:: 61-year-old female with lung cancer and chronic ITP who presented to the hospital with low platelet count. The patient also complained of cough and shortness of breath and was started on treatment for COPD exacerbation. She had been very stable on an immunomodulator for her lung cancer. She has had no active treatment for her cancer since January 2017 due to thrombocytopenia. The thrombocytopenia has been unresponsive to steroids, IVIG or Rituxan. She was admitted per recommendations by Dr. Garcia her loan assistant oncologist and was recommended Nplate treatment. I spoke to Dr. Zelaya who said that now that her platelet counts have improved we can slowly taper the steroids. Reason For Visit: ITP Physical Exam Vital Signs: Temp Pulse Resp BP Pulse Ox 98.1 F 88 18 106/71 100 04/20/17 08:00 04/20/17 08:00 04/20/17 08:00 04/20/17 08:00 04/20/17 08:00 Pulse Oximeter Continuous Start: 04/18/17 17: 23 Freq: RTQ4 Status: Active Document 04/20/17 04:00 SFL (Rec: 04/20/17 04:04 SFL [email or web address]) Pulse Oximetry Assessment Oxygen Saturation (92-100) 98 Oxygen Flow Rate (L/min) 3 Oxygen Delivery Method Nasal Cannula Equipment Usage Equipment in Use Continuous SpO2 Machine # 3 Intake & Output 04/19/17 04/20/17 04/21/17 06:59 06:59 06:59 Intake Total 240 1227 Balance 240 1227 Weight 43.4 kg Additional comments: Ill middle-aged female lying in bed not in acute distress HEENT: Pupils equal reactive light no conjunctival discharge moist pink oropharyngeal mucosa Lungs: Bilateral rhonchi and coarse breath sounds no wheezing heard normal respiratory effort Cardiac: S1-S2 regular, no peripheral edema no cyanosis no calf tenderness Skin: Warm and dry Abdomen: Soft, no focal tenderness normal bowel sounds Psychiatric normal mood and affect awake and alert oriented 3 Results Laboratory Results: 04/20/17 04:53 04/20/17 04:53 04/20/17 04/20/17 04:53 04:53 WBC 5.7 RBC 4.02 Hgb 10.0 L Hct 31.7 L MCV 79 L MCH 24.9 L MCHC 31.6 L RDW 18.6 H Plt Count 80 L D Sodium 137.6 Potassium 5.1 H Chloride 102 Carbon Dioxide 31 H Anion Gap 5 BUN 21 H Creatinine 0.70 Est GFR ( Amer) > 60 Est GFR (Non-Af Amer) > 60 Glucose 122 H Calcium 9.2 Magnesium 1.7 Impressions: Chest X-Ray 04/18/17 00:00 IMPRESSION: Stable appearance of the right lung. Increasing interstitial changes in the left upper lobe. Assessment & Plan - Diagnosis (1) Thrombocytopenia Is this a current diagnosis for this admission?: Yes Plan: Manage per hematology service, monitor platelet count. Blood count is improving. (2) COPD exacerbation Is this a current diagnosis for this admission?: Yes Plan: IV Solu-Medrol, oxygen nebulizers and antibiotics. Chest x-ray showed stable appearance of the right lung with increasing interstitial changes in the left upper lobe. (3) History of lung cancer Is this a current diagnosis for this admission?: Yes Plan: Management per Oncologist (4) Hypothyroidism Is this a current diagnosis for this admission?: Yes Plan: Continue Synthroid (5) Depression Is this a current diagnosis for this admission?: Yes (6) Hypomagnesemia Is this a current diagnosis for this admission?: Yes Plan: Replace - Time Time Spent with patient: 35 or more minutes
[2017-04-21] MEDS: METHYLPREDNISOLONE INJ 40 MG/1 ML SDV IV SCH ×3 (01:31→17:25)
[2017-04-21] MEDS: OXYCODONE-ACETAMINOPHEN 5-325 MG TABLET PO PRN ×2 (05:35→22:07)
[2017-04-21] MEDS: LEVOTHYROXINE SODIUM 0.15 MG TABLET PO SCH (05:35)
[2017-04-21] MEDS: LANSOPRAZOLE 30 MG TAB.RAP.DR PO SCH ×2 (05:35→17:26)
[2017-04-21] MEDS: BUPROPION HCL 100 MG TABLET PO SCH ×3 (05:35→21:57)
[2017-04-21] MEDS: LEVALBUTEROL HCL NEB 1.25 MG/3 ML AMPUL NEB SCH ×3 (07:57→19:31)
[2017-04-21] MEDS: TIOTROPIUM BROMIDE DPI 5 CAP/KIT (18 MCG/CAP) IH SCH (09:48)
[2017-04-21] MEDS: MAGNESIUM OXIDE 400 MG TABLET PO SCH ×2 (09:48→17:26)
[2017-04-21] MEDS: DOXYCYCLINE HYCLATE 100 MG TABLET PO SCH ×2 (09:48→21:57)
[2017-04-21] MEDS: FLUOXETINE HCL 20 MG CAPSULE PO SCH (09:48)
[2017-04-21] MEDS: DOCUSATE SODIUM 100 MG CAPSULE PO SCH (09:48)
[2017-04-21] MEDS: GUAIFENESIN 600 MG TABLET.SA PO SCH ×2 (10:54→21:57)
[2017-04-21 11:29] LABS: HEMATOCRIT 32.3 % (36.0-47.0); HEMOGLOBIN 10.3 g/dL (12.0-15.5); MEAN CORPUSCULAR HEMOGLOBIN 25.2 pg (27.0-33.4); MEAN CORPUSCULAR HGB CONC 31.9 g/dL (32.0-36.0); MEAN CORPUSCULAR VOLUME 79 fl (80-97); PLATELET COUNT 132 10^3/uL (150-450); RED CELL DISTRIBUTION WIDTH 18.4 % (11.5-14.0)
[2017-04-21 11:30] LABS: ANION GAP 9 (5-19); BLOOD UREA NITROGEN 31 mg/dL (7-20); CARBON DIOXIDE 30 mmol/L (22-30); CHLORIDE 101 mmol/L (98-107); GLUCOSE 116 mg/dL (75-110); MAGNESIUM 1.9 mg/dL (1.6-2.3); PHOSPHORUS 3.4 mg/dL (2.5-4.5); POTASSIUM 4.3 mmol/L (3.6-5.0); SODIUM 140.4 mmol/L (137-145); WHITE BLOOD COUNT 11.6 10^3/uL (4.0-10.5)
--- NOTE | 2017-04-21 11:52 | PDOC PROGRESS REPORT ---
Subjective Progress Note for:: 04/21/17 Subjective:: 61-year-old female with lung cancer and chronic ITP who presented to the hospital with low platelet count. The patient also complained of cough and shortness of breath and was started on treatment for COPD exacerbation. She had been very stable on an immunomodulator for her lung cancer. She has had no active treatment for her cancer since January 2017 due to thrombocytopenia. The thrombocytopenia has been unresponsive to steroids, IVIG or Rituxan. She was admitted per recommendations by Dr. Garcia her nursing resident oncologist and was recommended Nplate treatment. I spoke to Dr. Zelaya who said that now that her platelet counts have improved we can slowly taper the steroids. She continues to have cough and dyspnea with exertion. We will get a 2 view chest Xray today. Reason For Visit: ITP Physical Exam Vital Signs: Temp Pulse Resp BP Pulse Ox 97.2 F 94 20 103/69 99 04/21/17 11:42 04/21/17 11:42 04/21/17 11:42 04/21/17 11:42 04/21/17 11:42 Pulse Oximeter Continuous Start: 04/18/17 17: 23 Freq: RTQ4 Status: Active Document 04/21/17 07:57 LDA (Rec: 04/21/17 10:39 LDA [email or web address]) Pulse Oximetry Assessment Oxygen Saturation (92-100) 98 Oxygen Flow Rate (L/min) 3 Oxygen Delivery Method Nasal Cannula Equipment Usage Equipment in Use Continuous SpO2 Machine # n-3 Intake & Output 04/20/17 04/21/17 04/22/17 06:59 06:59 06:59 Intake Total 1227 1490 Balance 1227 1490 Additional comments: Frail, middle-aged female lying in bed not in acute distress HEENT: Pupils equal and reactive light, no conjunctival discharge, moist pink oropharyngeal mucosa Lungs: Bilateral rhonchi and coarse breath sounds no wheezing heard normal respiratory effort Cardiac: S1-S2 regular, no peripheral edema no cyanosis no calf tenderness Skin: Warm and dry Abdomen: Soft, no focal tenderness normal bowel sounds Psychiatric normal mood and affect awake and alert oriented 3 Results Laboratory Results: 04/21/17 10:57 04/21/17 10:57 04/21/17 04/21/17 10:57 10:57 WBC 11.6 H D RBC 4.10 Hgb 10.3 L Hct 32.3 L MCV 79 L MCH 25.2 L MCHC 31.9 L RDW 18.4 H Plt Count 132 L Sodium 140.4 Potassium 4.3 Chloride 101 Carbon Dioxide 30 Anion Gap 9 BUN 31 H Creatinine 0.66 Est GFR ( Amer) > 60 Est GFR (Non-Af Amer) > 60 Glucose 116 H Calcium 9.0 Phosphorus 3.4 Magnesium 1.9 Impressions: Chest X-Ray 04/18/17 00:00 IMPRESSION: Stable appearance of the right lung. Increasing interstitial changes in the left upper lobe. Assessment & Plan - Diagnosis (1) Thrombocytopenia Is this a current diagnosis for this admission?: Yes Plan: Manage per hematology service, monitor platelet count. Platelet count is improving. (2) COPD exacerbation Is this a current diagnosis for this admission?: Yes Plan: IV Solu-Medrol, oxygen nebulizers and antibiotics. Chest x-ray showed stable appearance of the right lung with increasing interstitial changes in the left upper lobe. (3) History of lung cancer Is this a current diagnosis for this admission?: Yes Plan: Management per Oncologist (4) Hypothyroidism Is this a current diagnosis for this admission?: Yes Plan: Continue Synthroid (5) Depression Is this a current diagnosis for this admission?: Yes Plan: Continue outpatient meds (6) Hypomagnesemia Is this a current diagnosis for this admission?: Yes Plan: Replace - Time Time Spent with patient: 25-34 minutes
--- NOTE | 2017-04-21 12:39 | RADIOLOGY REPORT (SQ) ---
EXAM DESCRIPTION: CHEST PA/LAT COMPLETED DATE/TIME: 04/21/2017 12:27 pm REASON FOR STUDY: Cough, dyspnea D69.6 THROMBOCYTOPENIA, UNSPECIFIED COMPARISON: 04/18/2017. NUMBER OF VIEWS: Two view. TECHNIQUE: Frontal and lateral radiographic views of the chest acquired. LIMITATIONS: None. FINDINGS: LUNGS AND PLEURA: Extensive chronic interstitial scarring. No pneumothorax. No pleural ef fusion. Attenuated blood vessels and flattened dee-diaphragms. MEDIASTINUM AND HILAR STRUCTURES: No masses. No contour abnormalities. HEART AND VASCULAR STRUCTURES: Heart normal in size and contour. No evidence for failure. BONES: No acute findings. HARDWARE: Vascular access port. OTHER: No other significant finding. IMPRESSION: COPD. EXTENSIVE CHRONIC SCARRING. NO DEFINITE ACUTE RADIOGRAPHIC FINDING IN THE CHEST. TECHNICAL DOCUMENTATION: JOB ID: [id number] [employer]- All Rights Reserved
[2017-04-22] MEDS: METHYLPREDNISOLONE INJ 40 MG/1 ML SDV IV SCH ×2 (02:03→10:37)
[2017-04-22] MEDS: OXYCODONE-ACETAMINOPHEN 5-325 MG TABLET PO PRN ×4 (05:20→19:29)
[2017-04-22] MEDS: LANSOPRAZOLE 30 MG TAB.RAP.DR PO SCH ×2 (05:20→17:39)
[2017-04-22] MEDS: BUPROPION HCL 100 MG TABLET PO SCH ×3 (05:20→22:28)
[2017-04-22] MEDS: LEVOTHYROXINE SODIUM 0.15 MG TABLET PO SCH (05:20)
[2017-04-22] MEDS: LEVALBUTEROL HCL NEB 1.25 MG/3 ML AMPUL NEB SCH ×3 (07:47→20:07)
[2017-04-22] MEDS: MAGNESIUM OXIDE 400 MG TABLET PO SCH ×2 (10:37→17:51)
[2017-04-22] MEDS: DOCUSATE SODIUM 100 MG CAPSULE PO SCH (10:37)
[2017-04-22] MEDS: FLUOXETINE HCL 20 MG CAPSULE PO SCH (10:37)
[2017-04-22] MEDS: GUAIFENESIN 600 MG TABLET.SA PO SCH ×2 (10:37→22:28)
[2017-04-22] MEDS: DOXYCYCLINE HYCLATE 100 MG TABLET PO SCH ×2 (10:38→22:28)
[2017-04-22] MEDS: TIOTROPIUM BROMIDE DPI 5 CAP/KIT (18 MCG/CAP) IH SCH (10:38)
--- NOTE | 2017-04-22 10:44 | PDOC PROGRESS REPORT ---
Subjective Progress Note for:: 04/22/17 Subjective:: Patient still with severe dyspnea on exertion. No bleeding. No new problems voiced. Reason For Visit: ITP Physical Exam Vital Signs: Temp Pulse Resp BP Pulse Ox 97.2 F 89 17 111/77 99 04/22/17 07:37 04/22/17 07:37 04/22/17 07:37 04/22/17 07:37 04/22/17 07:37 Pulse Oximeter Continuous Start: 04/18/17 17: 23 Freq: RTQ4 Status: Active Document 04/22/17 04:10 EAL (Rec: 04/22/17 04:10 EAL [email or web address]) Pulse Oximetry Assessment Oxygen Saturation (92-100) 100 Oxygen Flow Rate (L/min) 3 Oxygen Delivery Method Nasal Cannula Fraction of Inspired Oxygen (FIO2) 32 Equipment Usage Equipment in Use Continuous SpO2 Machine # 3 Intake & Output 04/21/17 04/22/17 04/23/17 06:59 06:59 06:59 Intake Total 1490 3170 Balance 1490 3170 Weight 44.9 kg General appearance: PRESENT: no acute distress Exam: 61 year old female sitting up in bed eating breakfast. Head exam: PRESENT: atraumatic Respiratory exam: PRESENT: crackles - Left base, unlabored Cardiovascular exam: PRESENT: RRR Extremities exam: ABSENT: pedal edema Results Laboratory Results: 04/21/17 10:57 04/21/17 10:57 04/21/17 04/21/17 10:57 10:57 WBC 11.6 H D RBC 4.10 Hgb 10.3 L Hct 32.3 L MCV 79 L MCH 25.2 L MCHC 31.9 L RDW 18.4 H Plt Count 132 L Sodium 140.4 Potassium 4.3 Chloride 101 Carbon Dioxide 30 Anion Gap 9 BUN 31 H Creatinine 0.66 Est GFR ( Amer) > 60 Est GFR (Non-Af Amer) > 60 Glucose 116 H Calcium 9.0 Phosphorus 3.4 Magnesium 1.9 Impressions: Chest X-Ray 04/21/17 00:00 IMPRESSION: COPD. EXTENSIVE CHRONIC SCARRING. NO DEFINITE ACUTE RADIOGRAPHIC FINDING IN THE CHEST. Assessment & Plan - Diagnosis (1) Lung cancer Qualifiers: Laterality: right Lung location: upper lobe of lung Qualified Code(s): C34.11 - Malignant neoplasm of upper lobe, right bronchus or lung Is this a current diagnosis for this admission?: Yes Plan: Plan restaging studies once discharged and further treatment for lung cancer as outpatient. (2) Acute ITP Is this a current diagnosis for this admission?: Yes Plan: Much improved with Nplate. Will continue same dose weekly. Due again on 2017 (3) COPD exacerbation Is this a current diagnosis for this admission?: Yes Plan: Agree with current treatment plan. - Plan Summary Plan Summary: OK for discharge from hematology standpoint. Please call me with any concerns.
--- NOTE | 2017-04-22 15:14 | PDOC PROGRESS REPORT ---
Subjective Progress Note for:: 04/22/17 Subjective:: Patient is still complaining of shortness of breath when she ambulates She has been eating very well She still has pain between the shoulder blades 2-510 No fever no chills No bleeding Platelet count is up Reason For Visit: ITP Physical Exam Vital Signs: Temp Pulse Resp BP Pulse Ox 98.3 F 102 H 18 117/79 97 04/22/17 12:01 04/22/17 13:32 04/22/17 13:32 04/22/17 12:01 04/22/17 12:01 Pulse Oximeter Continuous Start: 04/18/17 17: 23 Freq: RTQ4 Status: Active Document 04/22/17 12:00 [facility] (Rec: 04/22/17 13:02 [email or web address]) Pulse Oximetry Assessment Oxygen Saturation (92-100) 99 Oxygen Flow Rate (L/min) 3 Oxygen Delivery Method Nasal Cannula Equipment Usage Equipment in Use Continuous SpO2 Machine # 3 Intake & Output 04/21/17 04/22/17 04/23/17 00:59 00:59 00:59 Intake Total 1323 2487 1450 Balance 1323 2487 1450 Weight 44.9 kg General appearance: PRESENT: no acute distress, other - She is extremely thin and frail Head exam: PRESENT: atraumatic, normocephalic Eye exam: PRESENT: conjunctiva pink, EOMI, PERRLA. ABSENT: scleral icterus Respiratory exam: PRESENT: accessory muscle use, decreased breath sounds. ABSENT: rales, rhonchi, wheezes Cardiovascular exam: PRESENT: RRR. ABSENT: diastolic murmur, rubs, systolic murmur Pulses: PRESENT: normal dorsalis pedis pul Musculoskeletal exam: PRESENT: ambulatory Neurological exam: PRESENT: alert, awake, oriented to person, oriented to place , oriented to time, oriented to situation, CN II-XII grossly intact. ABSENT: motor sensory deficit Results Laboratory Results: 04/21/17 10:57 04/21/17 10:57 Impressions: Chest X-Ray 04/21/17 00:00 IMPRESSION: COPD. EXTENSIVE CHRONIC SCARRING. NO DEFINITE ACUTE RADIOGRAPHIC FINDING IN THE CHEST. Assessment & Plan - Diagnosis (1) Chronic obstructive pulmonary disease (COPD) Qualifiers: Emphysema type: unspecified Is this a current diagnosis for this admission?: Yes (2) History of lung cancer Is this a current diagnosis for this admission?: Yes (3) Acute ITP Is this a current diagnosis for this admission?: Yes (4) Chronic hypoxemic respiratory failure Is this a current diagnosis for this admission?: Yes - Time Time Spent with patient: Patient will be discharged home tomorrow with nasal O2 home health
[2017-04-22] MEDS ORDERED: LIDOCAINE 5% (700 MG) TRANSDERMAL ADH..PATCH TP ONE (16:30)
[2017-04-23] MEDS: LEVOTHYROXINE SODIUM 0.15 MG TABLET PO SCH (05:52)
[2017-04-23] MEDS: OXYCODONE-ACETAMINOPHEN 5-325 MG TABLET PO PRN ×3 (05:52→14:08)
[2017-04-23] MEDS: LANSOPRAZOLE 30 MG TAB.RAP.DR PO SCH ×2 (05:53→16:01)
[2017-04-23] MEDS: BUPROPION HCL 100 MG TABLET PO SCH ×2 (05:53→14:08)
[2017-04-23 07:14] LABS: HEMATOCRIT 35.9 % (36.0-47.0); HEMOGLOBIN 11.2 g/dL (12.0-15.5); MEAN CORPUSCULAR HEMOGLOBIN 24.6 pg (27.0-33.4); MEAN CORPUSCULAR VOLUME 79 fl (80-97); PLATELET COUNT 173 10^3/uL (150-450); RED BLOOD COUNT 4.54 10^6/uL (3.72-5.28); RED CELL DISTRIBUTION WIDTH 18.7 % (11.5-14.0); WHITE BLOOD COUNT 12.6 10^3/uL (4.0-10.5)
[2017-04-23] MEDS: LEVALBUTEROL HCL NEB 1.25 MG/3 ML AMPUL NEB SCH ×2 (09:08→14:21)
[2017-04-23] MEDS: FLUOXETINE HCL 20 MG CAPSULE PO SCH (09:46)
[2017-04-23] MEDS: GUAIFENESIN 600 MG TABLET.SA PO SCH (09:46)
[2017-04-23] MEDS: DOXYCYCLINE HYCLATE 100 MG TABLET PO SCH (09:46)
[2017-04-23] MEDS: DOCUSATE SODIUM 100 MG CAPSULE PO SCH (09:46)
[2017-04-23] MEDS: MAGNESIUM OXIDE 400 MG TABLET PO SCH (09:46)
[2017-04-23] MEDS: TIOTROPIUM BROMIDE DPI 5 CAP/KIT (18 MCG/CAP) IH SCH (09:47)
[2017-04-23] MEDS ORDERED: PREDNISONE 20 MG TABLET PO SCH (10:00)
[2017-04-23] MEDS ORDERED: LIDOCAINE 5% (700 MG) TRANSDERMAL ADH..PATCH TP SCH (10:00)
--- NOTE | 2017-04-23 13:59 | PDOC DISCHARGE SUMMARY ---
General - Admit/Disc Date/PCP Admission Date/Primary Care Provider: 04/18/17 16:36 VIRAL BASURTO MD Discharge Date: 04/23/17 - Discharge Diagnosis (1) Chronic obstructive pulmonary disease (COPD) Is this a current diagnosis for this admission?: Yes (2) History of lung cancer Is this a current diagnosis for this admission?: Yes (3) Acute ITP Is this a current diagnosis for this admission?: Yes (4) Chronic hypoxemic respiratory failure Is this a current diagnosis for this admission?: Yes - Additional Information Resuscitation Status: Full Code Discharge Activity: Activity As Tolerated Prescriptions: Bisacodyl [Dulcolax 5 Mg Tablet] 10 mg PO QHS #30 tabec Oxycodone HCl/Acetaminophen [Percocet 5-325 mg Tablet] 1 tab PO Q4HP PRN #30 tab PRN Reason: Docusate Sodium [Colace 100 mg Capsule] 100 mg PO BID #60 capsule Doxycycline Hyclate [Vibramycin 100 mg Tablet] 100 mg PO Q12 #14 tablet Fluticasone/Salmeterol [Advair 250-50 Diskus 28 dose] 1 inh IH Q12H #1 inhaler Guaifenesin [Mucinex Sr 600 mg Tablet.sa] 1,200 mg PO Q12 #14 tablet.sa Lidocaine [Lidoderm 5% (700 mg) Transdermal Patch] 1 patch TP DAILY #30 adh..patch Prednisone [Deltasone 20 mg Tablet] 40 mg PO DAILY #16 tablet Home Medications: Bupropion HCl [Bupropion HCl Sr] 150 mg PO Q12 04/18/17 Fluoxetine HCl [Prozac 20 mg Capsule] 20 mg PO DAILY 04/18/17 Levothyroxine Sodium [Synthroid] 150 mcg PO Q6AM 04/18/17 Omeprazole 20 mg PO DAILY 04/18/17 Tiotropium [place] [Spiriva Handihaler 5 Cap/Kit (18 Mcg/Cap)] 1 puff IH DAILY 04/18/17 Bisacodyl [Dulcolax 5 Mg Tablet] 10 mg PO QHS #30 tabec 04/23/17 Docusate Sodium [Colace 100 mg Capsule] 100 mg PO BID #60 capsule 04/23/17 Doxycycline Hyclate [Vibramycin 100 mg Tablet] 100 mg PO Q12 #14 tablet Fluticasone/Salmeterol [Advair 250-50 Diskus 28 dose] 1 inh IH Q12H #1 inhaler 04/23/17 Guaifenesin [Mucinex Sr 600 mg Tablet.sa] 1,200 mg PO Q12 #14 tablet.sa Lidocaine [Lidoderm 5% (700 mg) Transdermal Patch] 1 patch TP DAILY #30 adh..patch 04/23/17 Oxycodone HCl/Acetaminophen [Percocet 5-325 mg Tablet] 1 tab PO Q4HP PRN #30 tab 04/23/17 Prednisone [Deltasone 20 mg Tablet] 40 mg PO DAILY #16 tablet 04/23/17 History of Present Illness Patient complains of: cough SOB History of Present Illness: MERRILL BLAKE is a 61 year old female Was recently admitted to the hospital and discharged on April 06 and was treated for pneumonia. Referred for admission by her corporate executive chef for thrombocytopenia. Hospital Course Hospital Course: (1) Chronic obstructive pulmonary disease (COPD) Patient was treated with steroids and nebs She will be discharged on a prednisone taper; doxycycline and Advair She did improve somewhat and is stable on nasal oxygen (2) History of lung cancer Patient has a lot of pain referred to the middle of her back between the shoulder blades Pain likely secondary to malignancy Patient's pain improved somewhat with Percocet and like lidocaine patch pain may be secondary to multiple compression fractures thoracic spine (3) Acute ITP Improved with NPlate and steroids Patient to follow-up with oncology At discharge platelet count is 173 (4) Chronic hypoxemic respiratory failure Secondary to COPD Patient was discharged on home O2 Physical Exam Vital Signs: Temp Pulse Resp BP Pulse Ox 98.5 F 96 17 118/74 95 04/23/17 11:30 04/23/17 11:30 04/23/17 11:30 04/23/17 11:30 04/23/17 12:00 Pulse Oximeter Continuous Start: 04/18/17 17: 23 Freq: RTQ4 Status: Active Document 04/23/17 12:00 J (Rec: 04/23/17 12:31 JDR [email or web address]) Pulse Oximetry Assessment Oxygen Saturation (92-100) 95 Oxygen Flow Rate (L/min) 1 Oxygen Delivery Method Nasal Cannula Equipment Usage Equipment in Use Continuous SpO2 Machine # 3 Intake & Output 04/22/17 04/23/1704/24/18 00:59 00:59 00:59 Intake Total 2487 2207 798 Output Total 750 600 Balance 2487 1457 198 Weight 44.9 kg 45.9 kg General appearance: PRESENT: no acute distress, other - She is extremely thin and frail Head exam: PRESENT: atraumatic, normocephalic Eye exam: PRESENT: conjunctiva pink, EOMI, PERRLA. ABSENT: scleral icterus Respiratory exam: PRESENT: accessory muscle use, decreased breath sounds. ABSENT: rales, rhonchi, wheezes Cardiovascular exam: PRESENT: RRR. ABSENT: diastolic murmur, rubs, systolic murmur Pulses: PRESENT: normal dorsalis pedis pul Musculoskeletal exam: PRESENT: ambulatory Neurological exam: PRESENT: alert, awake, oriented to person, oriented to place , oriented to time, oriented to situation, CN II-XII grossly intact. ABSENT: motor sensory deficit Results Laboratory Results: 04/23/17 06:41 04/21/17 10:57 04/23/17 06:41 WBC 12.6 H RBC 4.54 Hgb 11.2 L Hct 35.9 L MCV 79 L MCH 24.6 L MCHC 31.0 L RDW 18.7 H Plt Count 173 Impressions: Chest X-Ray 04/21/17 00:00 IMPRESSION: COPD. EXTENSIVE CHRONIC SCARRING. NO DEFINITE ACUTE RADIOGRAPHIC FINDING IN THE CHEST. Plan Discharge Plan: Discharge home follow-up with Dr. Owens oncology Time Spent: Greater than 30 Minutes
[2017-04-23 14:11] VITALS: BP 101/56
== END 2017-04-23 17:12 | disposition home or self-care (01) | DRG 813 ==
LOC: OBSVTOIN 16:36 → 5 16:36
PROVIDERS: ADMIT Emergency Medicine; ATTEND Emergency Medicine
DX: D69.3 Immune thrombocytopenic purpura (principal); J96.21 Acute and chronic respiratory failure with hypoxia; J44.1 Chronic obstructive pulmonary disease with (acute) exacerbation; J44.0 Chronic obstructive pulmonary disease with (acute) lower respiratory infection; C34.11 Malignant neoplasm of upper lobe, right bronchus or lung; J20.9 Acute bronchitis, unspecified; E83.42 Hypomagnesemia; E03.9 Hypothyroidism, unspecified; F32.9 Major depressive disorder, single episode, unspecified; Z99.81 Dependence on supplemental oxygen
CPT/HCPCS: 36415; 71045; 71046; 80048; 80053; 83735; 84100; 85025; 85027; 94640; 94667; 94762; 94799; J1170; J2796; J2920; J3490; J7512; J7620

== ENCOUNTER → 2017-05-03 | Outpatient (CLI) | payer MEDICARE, MEDICAID ==
--- NOTE | 2017-05-03 11:25 | RADIOLOGY REPORT (SQ) ---
EXAM DESCRIPTION: CT CHEST WITH COMPLETED DATE/TIME: 05/03/2017 9:33 am REASON FOR STUDY: LUNG CA C34.82 MALIGNANT NEOPLASM OF OVRLP SITES OF LEFT BRONCHUS AN COMPARISON: CT angio chest 04/03/2017 CT chest 02/15/2017, 01/17/2016 PET-CT 07/22/2015 TECHNIQUE: CT scan of the chest performed using helical scanning technique with dynamic intravenous contrast injection. Images reviewed with lung, soft tissue and bone windows. Reconstructed coronal and sagittal MPR images reviewed. All images stored on PACS. All CT scanners at this facility use dose modulation, iterative reconstruction, and/or weight based d osing when appropriate to reduce radiation dose to as low as reasonably achievable (ALARA). [facility]: Dose Right [facility]: CareDose [facility]: Dose Right [facility]: Teradose 4D [facility]: Leaders2020 CONTRAST TYPE AND DOSE: contrast/concentration: Isovue 370.00 mg/ml; Total Contrast Delivered: 80.0 ml; Total Saline Delivered: 39.7 ml RENAL FUNCTION: Creatinine 0.66 RADIATION DOSE: CT Rad equipment meets quality standard of care and radiation dose reduction techniq ues were employed. CTDIvol: 3.0 mGy. DLP: 115 mGy-cm. . LIMITATIONS: None. FINDINGS: LUNGS AND PLEURA: Lungs are diffusely abnormal with advanced centrilobular emphysema. The See mass in the superior segment left lower lobe seen on PET-CT 07/22/2015 is no longer identified. There is chronic scarring in the posterior aspect right lung apex with a thin walled cavity and adjac ent lung parenchymal bandlike consolidation. Stable Chronic appearing bandlike scarring is present in the right lung along the minor fissure, and in the right lower lobe. Stable chronic appearing scarring in the left upper lobe and superior segment left lower lobe and a b andlike distribution likely post radiation change. Stable bandlike scarring in the lingula. No pleural effusion. No pneumothorax. No acute infiltrates. HILAR AND MEDIASTINAL STRUCTURES: Enlarged AP window lymph node on axial image 20, lymph node measure s 2.2 x 1.4 cm in size (was 1.2 x 0.9 cm in size on 04/03/2017). HEART AND VASCULAR STRUCTURES: No aneurysm or dissection. No central pulmonary emboli. No pericardi al effusion. HARDWARE: Right-sided permanent central line tip superior vena cava UPPER ABDOMEN: No significant findings. Limited exam. THYROID AND OTHER SOFT TISSUES: No masses. No adenopathy. BONES: Stable multiple thoracic compression deformities OTHER: No other significant finding. IMPRESSION: No acute findings in the lung parenchyma worrisome for acute pneumonia. No pleural effu damian or pneumothorax. Multifocal scarring throughout both lungs. Advanced centrilobular emphysema bilaterally. Enlarged AP window lymph node of uncertain clinical significance TECHNICAL DOCUMENTATION: JOB ID: [id number] Quality ID # [id number]: Final reports with documentation of one or more dose reduction techniques (e.g., Au tomated exposure control, adjustment of the mA and/or kV according to patient size, use of iterative reconstruction technique) 2010 [employer]- All Rights Reserved
== END ==
LOC: RAD 08:32
PROVIDERS: ATTEND Internal Medicine Hematology & Oncology
DX: C34.82 Malignant neoplasm of overlapping sites of left bronchus and lung (principal)
CPT/HCPCS: 71260

== ENCOUNTER 2017-06-12 16:24 | Inpatient (IN) | payer MEDICARE, MEDICAID ==
[~2017-06-12 16:24] MED LIST changes: -ACETAMINOPHEN 325 MG TABLET PO PRN; -DIPHENHYDRAMINE HCL 25 MG CAPSULE PO PRN; +SUCCINYLCHOLINE CHLORIDE INJ 200 MG/10 ML VIAL ONE
--- NOTE | 2017-06-12 16:42 | ER Document Report ---
ED General - General Stated Complaint: RIGHT SIDE PAIN Time Seen by Provider: 06/12/17 16:31 Notes: 61-year-old female. History of COPD as well as lung cancer to the emergency department complaining of right chest pain and shortness of breath. Cannot seem to catch her breath. Requiring oxygen. EMS gave fentanyl in route. No fever chills or sweats. Significant work of breathing with chest pain and shortness of breath. Recent CT scan was performed approximately 1 month ago. TRAVEL OUTSIDE OF THE [place] IN LAST 30 DAYS: No - HPI Onset: Just prior to arrival Onset/Duration: Gradual, Worse - Related Data Allergies/Adverse Reactions: No Known Allergies Allergy (Verified 06/12/17 18:03) Past Medical History - General Information source: Patient, [facility] Records - Social History Smoking Status: Former Smoker Frequency of alcohol use: None Drug Abuse: None Lives with: Family Family History: Reviewed & Not Pertinent, Hypertension - Past Medical History Cardiac Medical History: Denies: Hx Coronary Artery Disease, Hx Heart Attack Comment Only: Hx Hypertension - HX OF LBP Pulmonary Medical History: Reports: Hx Bronchitis, Hx COPD Denies: Hx Asthma, Hx Pneumonia Neurological Medical History: Denies: Hx Cerebrovascular Accident, Hx Seizures Endocrine Medical History: Reports: Hx Hypothyroidism Renal/ Medical History: Denies: Hx Peritoneal Dialysis Malignancy Medical History: Reports: Hx Lung Cancer - Current GI Medical History: Reports: Hx Ulcer - YRS AGO,. Denies: Hx Hepatitis, Hx Hiatal Hernia Musculoskeltal Medical History: Denies Hx Arthritis Psychiatric Medical History: Reports: Hx Depression Infectious Medical History: Denies: Hx Hepatitis Past Surgical History: Reports: Hx Abdominal Surgery - hernia repair, Hx Herniorrhaphy, Hx Orthopedic Surgery - back, Other - Lung biopsy. Denies: Hx Hysterectomy, Hx Mastectomy, Hx Open Heart Surgery, Hx Pacemaker - Immunizations Hx Diphtheria, Pertussis, Tetanus Vaccination: No Review of Systems - Review of Systems Constitutional: denies: Fever, Malaise, Weakness EENT: denies: Ear pain, Nose pain, Difficulty swallowing, Throat swelling, Mouth pain Cardiovascular: Chest pain, Heart racing, Dyspnea, Edema Respiratory: Cough, Short of breath, Wheezing Gastrointestinal: denies: Abdominal pain, Diarrhea, Nausea, Vomiting Genitourinary: denies: Burning, Dysuria, Discharge Musculoskeletal: Back pain. denies: Joint pain, Joint swelling, Muscle stiffness, Neck pain, Deformity Skin: denies: Dryness, Lesions, Lumps, Rash Hematologic/Lymphatic: Anemia, Easy bruising. denies: Blood clots, Easy bleeding Neurological/Psychological: denies: Confusion, Weakness, Numbness Physical Exam - Vital signs Vitals: Pulse Ox 93 06/12/17 16:38 Interpretation: Tachycardic, Tachypneic - General General appearance: Appears well, Anxious In distress: Moderate - HEENT Head: Normocephalic, Atraumatic Eyes: Normal Pupils: PERRL - Respiratory Respiratory status: Respiratory distress Chest status: Nontender Breath sounds: Other - Wheezes bilaterally, decreased breath sounds bilaterally. Tachypneic. Mild respiratory distress. Chest palpation: Normal - Cardiovascular Rhythm: Tachycardia Heart sounds: Normal auscultation Murmur: No - Abdominal Inspection: Normal Distension: No distension Bowel sounds: Normal Tenderness: Nontender Organomegaly: No organomegaly - Back Back: Normal, Nontender - Extremities General upper extremity: Normal inspection, Nontender, Normal color, Normal ROM , Normal temperature General lower extremity: Normal inspection, Nontender, Normal color, Normal ROM , Normal temperature, Normal weight bearing. No: Thien's sign - Neurological Neuro grossly intact: Yes Cognition: Normal Orientation: AAOx4 [place] Coma Scale Eye Opening: Spontaneous [place] Coma Scale Verbal: Oriented [place] Coma Scale Motor: Obeys Commands [place] Coma Scale Total: 15 Speech: Normal Motor strength normal: LUE, RUE, LLE, RLE Sensory: Normal - Psychological Associated symptoms: Normal affect, Normal mood - Skin Skin Temperature: Warm Skin Moisture: Dry Skin Color: Normal Course - Re-evaluation Re-evalutation: 06/12/17 17:03 Patient with tachypnea and mild respiratory distress. Starting on breathing treatments Solu-Medrol, chest x-ray. Will give a small dose of Toradol she just had fentanyl and I do not want to decrease her respiratory drive at this time is she is needing to maintain her tachypnea in order to oxygenate appropriately. May need to perform a CT scan as well. 06/12/17 19:55 No obvious PE. Consult with patient's oncologist. More likely this is a COPD exacerbation but will need to treat aggressively. Will admit shortly. 06/12/17 20:13 Patient was doing quite well her heart rate came down to roughly 100 and was breathing well and then all of a sudden began having pain in her chest again with tachypnea. Respiratory rate in the 40s. Wheezing bilaterally. Second breathing treatment ordered. Consulted hospitalist. Decision has been made to intubate. 06/12/17 20:39 Patient was intubated. Sedated at this time with ketamine and propofol. Oxygen saturation is 100%. Breath sounds bilaterally. 06/12/17 23:39 06/12/17 23:40 Notified the hospitalist that patient's blood pressure dropping and now has fever. Blood cultures were obtained. Antibiotics have been started. Levophed started. 06/12/17 23:40 Long conversation with family members at the bedside. Prognosis is poor. I did consult with Dr. Owens with oncology who is aware that her patient is in critical condition at this time. 06/12/17 23:41 Laboratory 06/12/17 06/12/17 06/12/17 17:19 17:19 17:19 WBC 13.3 H RBC 3.92 Hgb 9.2 L Hct 29.9 L MCV 76 L MCH 23.6 L MCHC 30.9 L RDW 19.0 H Plt Count 681 H Total Counted 100 Seg Neutrophils % Not Reportable Seg Neuts % (Manual) 82 H Lymphocytes % Not Reportable Lymphocytes % (Manual) 4 L Monocytes % Not Reportable Monocytes % (Manual) 9 Eosinophils % Not Reportable Eosinophils % (Manual) 5 Basophils % Not Reportable Basophils % (Manual) 0 Absolute Neutrophils Not Reportable Abs Neuts (Manual) 10.9 H Absolute Lymphocytes Not Reportable Abs Lymphs (Manual) 0.5 Absolute Monocytes Not Reportable Abs Monocytes (Manual) 1.2 Absolute Eosinophils Not Reportable Absolute Eos (Manual) 0.7 H Absolute Basophils Not Reportable Abs Basophils (Manual) 0.0 Toxic Granulation SLIGHT Platelet Comment ADEQUATE Hypochromasia SLIGHT Poikilocytosis SLIGHT Anisocytosis 1+ Microcytosis SLIGHT PT 12.7 INR 0.89 APTT 35.0 Carbonic Acid HCO3/H2CO3 Ratio ABG pH ABG pCO2 ABG pO2 ABG HCO3 ABG Total CO2 ABG O2 Saturation ABG Base Excess FiO2 Sodium 138.2 Potassium 5.2 H Chloride 99 Carbon Dioxide 34 H Anion Gap 5 BUN 18 Creatinine 0.51 L Est GFR ( Amer) > 60 Est GFR (Non-Af Amer) > 60 Glucose 104 Calcium 9.6 Total Bilirubin 0.2 Direct Bilirubin 0.1 Neonat Total Bilirubin Not Reportable Neonat Direct Bilirubin Not Reportable Neonat Indirect Bili Not Reportable AST 18 ALT 20 Alkaline Phosphatase 70 Troponin I NT-Pro-B Natriuret Pep Total Protein 5.9 L Albumin 3.5 06/12/17 06/12/17 06/12/17 17:19 17:19 20:45 WBC RBC Hgb Hct MCV MCH MCHC RDW Plt Count Total Counted Seg Neutrophils % Seg Neuts % (Manual) Lymphocytes % Lymphocytes % (Manual) Monocytes % Monocytes % (Manual) Eosinophils % Eosinophils % (Manual) Basophils % Basophils % (Manual) Absolute Neutrophils Abs Neuts (Manual) Absolute Lymphocytes Abs Lymphs (Manual) Absolute Monocytes Abs Monocytes (Manual) Absolute Eosinophils Absolute Eos (Manual) Absolute Basophils Abs Basophils (Manual) Toxic Granulation Platelet Comment Hypochromasia Poikilocytosis Anisocytosis Microcytosis PT INR APTT Carbonic Acid 2.04 H HCO3/H2CO3 Ratio 13:1 ABG pH 7.22 L ABG pCO2 67.8 H ABG pO2 97.9 ABG HCO3 27.4 H ABG Total CO2 29.5 H ABG O2 Saturation 95.9 ABG Base Excess -1.2 FiO2 45% Sodium Potassium Chloride Carbon Dioxide Anion Gap BUN Creatinine Est GFR ( Amer) Est GFR (Non-Af Amer) Glucose Calcium Total Bilirubin Direct Bilirubin Neonat Total Bilirubin Neonat Direct Bilirubin Neonat Indirect Bili AST ALT Alkaline Phosphatase Troponin I < 0.012 NT-Pro-B Natriuret Pep 340 Total Protein Albumin Chest/Abdomen CTA 06/12/17 18:09 IMPRESSION: No emboli visualized in the main pulmonary arteries or the segmental branches. The multiple new subcentimeter pulmonary nodules most notable in the left upper and right lower lobes.Similar hypodense 1.5 x 2.3 cm AP window enlarged lymph node. Chest X-Ray 06/12/17 20:06 IMPRESSION: Similar coarse interstitial and nodular opacities. No pneumothorax or pleural effusion. - Vital Signs Vital signs: Temp Pulse Resp BP Pulse Ox 97.4 F 21 H 97/76 L 98 06/12/17 17:25 06/12/17 22:24 06/12/17 22:24 06/12/17 22:24 - Laboratory Result Diagrams: 06/12/17 17:19 06/12/17 17:19 Laboratory results interpreted by me: 06/12/17 06/12/17 06/12/17 17:19 17:19 20:45 WBC 13.3 H Hgb 9.2 L Hct 29.9 L MCV 76 L MCH 23.6 L MCHC 30.9 L RDW 19.0 H Plt Count 681 H Seg Neuts % (Manual) 82 H Lymphocytes % (Manual) 4 L Abs Neuts (Manual) 10.9 H Absolute Eos (Manual) 0.7 H Carbonic Acid 2.04 H ABG pH 7.22 L ABG pCO2 67.8 H ABG HCO3 27.4 H ABG Total CO2 29.5 H Potassium 5.2 H Carbon Dioxide 34 H Creatinine 0.51 L Total Protein 5.9 L - EKG Interpretation by Me EKG shows normal: Baggs, Intervals, QRS Complexes, ST-T Waves Rate: Tachycardia Procedures - Intubation Orotracheal Airway evaluation: Normal anatomy Mallampati Classification: Class 2 Medications: Etomidate, Succinylcholine, Ketamine, Diprivan Intubation method: Orotracheal Blade type: Roddy Blade size: 3 Equipment used: Glidescope ETT size: 7.0 ETT secured at: Lips ETT secured at (cm): 21 Breath Sounds after Intubation: Equal End tidal CO2 confirmed: Yes Ventilator settings: SIMV Critical Care Note - Critical Care Note Total time excluding time spent on procedures (mins): 90 Comments: Tachycardia, hypoxia, respiratory distress Discharge - Discharge Clinical Impression: Acute respiratory failure Qualifiers: Respiratory failure complication: hypoxia and hypercapnia Qualified Code(s): J96.01 - Acute respiratory failure with hypoxia; J96.02 - Acute respiratory failure with hypercapnia; J96.02 - Acute respiratory failure with hypercapnia; J96.02 - Acute respiratory failure with hypercapnia Lung cancer Qualifiers: Laterality: unspecified laterality Lung location: unspecified part of lung Qualified Code(s): C34.90 - Malignant neoplasm of unspecified part of unspecified bronchus or lung Sepsis Qualifiers: Sepsis type: sepsis due to unspecified organism Qualified Code(s): A41.9 - Sepsis, unspecified organism Condition: Poor Disposition: ADMITTED INPATIENT Admitting Provider: [facility] Unit Admitted: ICU
[2017-06-12] MEDS ORDERED: METHYLPREDNISOLONE INJ 125 MG/2 ML SDV IV ONE (16:52)
[2017-06-12] MEDS ORDERED: ALBUTEROL SULFATE 0.083% NEB 2.5 MG/3 ML AMPUL NEB ONE ×2 (16:52→20:06)
[2017-06-12] MEDS ORDERED: KETOROLAC TROMETHAMINE INJ/PF 30 MG/1 ML SDV IV ONE (16:52)
--- NOTE | 2017-06-12 17:23 | RADIOLOGY REPORT (SQ) ---
EXAM DESCRIPTION: CHEST SINGLE VIEW COMPLETED DATE/TIME: 06/12/2017 5:06 pm REASON FOR STUDY: sob COMPARISON: 04/21/2017 CT 05/03/2017 EXAM PARAMETERS: NUMBER OF VIEWS: One view. TECHNIQUE: Single frontal radiographic view of the chest acquired. RADIATION DOSE: NA LIMITATIONS: None. FINDINGS: LUNGS AND PLEURA: Pulmonary fibrosis most prominent in the upper lung bui no acute infi ltrate is appreciated. No pleural effusion is present. Subsegmental atelectatic changes are present in the upper lung bui. MEDIASTINUM AND HILAR STRUCTURES: No masses. Contour normal. HEART AND VASCULAR STRUCTURES: Heart normal in size. Normal vasculature. BONES: No acute findings. HARDWARE: An injection port is present on the right. OTHER: No other significant finding. IMPRESSION: Chronic lung changes with no acute cardiopulmonary disease. TECHNICAL DOCUMENTATION: JOB ID: [id number] [employer]- All Rights Reserved Reading location - IP/workstation name: [email or web address]
[2017-06-12 17:40] LABS: HEMATOCRIT 29.9 % (36.0-47.0); HEMOGLOBIN 9.2 g/dL (12.0-15.5); MEAN CORPUSCULAR HEMOGLOBIN 23.6 pg (27.0-33.4); MEAN CORPUSCULAR HGB CONC 30.9 g/dL (32.0-36.0); MEAN CORPUSCULAR VOLUME 76 fl (80-97); PLATELET COUNT 681 10^3/uL (150-450); RED BLOOD COUNT 3.92 10^6/uL (3.72-5.28); WHITE BLOOD COUNT 13.3 10^3/uL (4.0-10.5)
[2017-06-12] MEDS ORDERED: FENTANYL CITRATE INJ/PF 100 MCG/2 ML AMPUL IV ONE ×2 (17:43→20:06)
[2017-06-12 17:55] LABS: INTERNATIONAL RATION (INR) 0.89; PROTHROMBIN TIME 12.7 SEC (11.4-15.4)
[2017-06-12 18:03] LABS: ABSOLUTE LYMPHOCYTES# (MANUAL) 0.5 10^3/uL (0.5-4.7); ABSOLUTE MONOCYTES # (MANUAL) 1.2 10^3/uL (0.1-1.4); ABSOLUTE NEUTROPHILS# (MANUAL) 10.9 10^3/uL (1.7-8.2); BASOPHILS % (MANUAL) 0 % (0-2); EOSINOPHILS % (MANUAL) 5 % (0-6); LYMPHOCYTES % (MANUAL) 4 % (13-45); MONOCYTES % (MANUAL) 9 % (3-13); SEGMENTED NEUTROPHILS % (MAN) 82 % (42-78); TOTAL CELLS COUNTED 100
[2017-06-12 18:05] LABS: ALANINE AMINOTRANSFERASE 20 U/L (9-52); ALBUMIN 3.5 g/dL (3.5-5.0); ALKALINE PHOSPHATASE 70 U/L (38-126); ANION GAP 5 (5-19); ASPARTATE AMINO TRANSFERASE 18 U/L (14-36); BILIRUBIN,DIRECT 0.1 mg/dL (0.0-0.4); BILIRUBIN,TOTAL 0.2 mg/dL (0.2-1.3); BLOOD UREA NITROGEN 18 mg/dL (7-20); CALCIUM 9.6 mg/dL (8.4-10.2); CARBON DIOXIDE 34 mmol/L (22-30); CHLORIDE 99 mmol/L (98-107); GLUCOSE 104 mg/dL (75-110); POTASSIUM 5.2 mmol/L (3.6-5.0); SODIUM 138.2 mmol/L (137-145); TOTAL PROTEIN 5.9 g/dL (6.3-8.2)
[2017-06-12 18:08] LABS: ANISOCYTOSIS 1+; HYPOCHROMASIA SLIGHT; PLATELET COMMENT ADEQUATE; POIKILOCYTOSIS SLIGHT; TOXIC GRANULATION SLIGHT
[2017-06-12] MEDS ORDERED: NORMAL SALINE 500 ML IV ONE (18:10)
--- NOTE | 2017-06-12 19:35 | RADIOLOGY REPORT (SQ) ---
EXAM DESCRIPTION: CTA CHEST COMPLETED DATE/TIME: 06/12/2017 7:12 pm REASON FOR STUDY: chest pain , sob COMPARISON: 05/03/2017 TECHNIQUE: CT scan of the chest performed using helical scanning technique with dynamic intravenous contrast injection. Images reviewed with lung, soft tissue and bone windows. Reconstructed coronal and sagittal MPR images reviewed. Additional 3 dimensional post-processing performed to develop Maximal Intensity Projection images (MD P). All images stored on PACS. All CT scanners at this facility use dose modulation, iterative reconstruction, and/or weight based d osing when appropriate to reduce radiation dose to as low as reasonably achievable (ALARA). [facility]: Dose Right [facility]: CareDose [facility]: Dose Right [facility]: Teradose 4D [facility]: for[MD] CONTRAST TYPE AND DOSE: contrast/concentration: Isovue 370.00 mg/ml; Total Contrast Delivered: 62.0 ml; Total Saline Delivered: 90.0 ml Contrast bolus optimized for the pulmonary arteries. Not diagnostic for the aorta. RENAL FUNCTION: GFR > 60. RADIATION DOSE: CT Rad equipment meets quality standard of care and radiation dose reduction techniq ues were employed. CTDIvol: 13.2 - 14.3 mGy. DLP: 499 mGy-cm. . LIMITATIONS: None. FINDINGS: LUNGS AND PLEURA: The multiple new subcentimeter pulmonary nodules most notable in the lef t upper and right lower lobes. Similar additional areas of parenchymal scarring and nodularity. Sev ere emphysema with bullous changes in the right apex. AORTA AND GREAT VESSELS: No aneurysm. Contrast bolus not optimized for the aorta. HEART: No pericardial effusion. No significant coronary artery calcifications. PULMONARY ARTERIES: No emboli visualized in the main pulmonary arteries or the segmental branches. HILAR AND MEDIASTINAL STRUCTURES: Similar hypodense 1.5 x 2.3 cm AP window node. No additional bulky nodes are identified. HARDWARE: Right chest port. UPPER ABDOMEN: No significant findings. Limited exam. THYROID AND OTHER SOFT TISSUES: No masses. No adenopathy. BONES: No acute finding. 3D MIPS: Confirm above findings. OTHER: No other significant finding. IMPRESSION: No emboli visualized in the main pulmonary arteries or the segmental branches. The multiple new subcentimeter pulmonary nodules most notable in the left upper and right lower lobes .Similar hypodense 1.5 x 2.3 cm AP window enlarged lymph node. COMMENT: Quality ID # [id number]: Final reports with documentation of one or more dose reduction techniques (e.g., Automated exposure control, adjustment of the mA and/or kV according to patient size, use of iterative reconstruction technique) TECHNICAL DOCUMENTATION: JOB ID: [id number] [place]-72 2010 [employer]- All Rights Reserved Reading location - IP/workstation name: [email or web address]
[2017-06-12] MEDS ORDERED: CEFTRIAXONE INJ 1000 MG VIAL IV ONE (19:54)
[2017-06-12] MEDS ORDERED: IPRATROPIUM/ALBUTEROL 0.5-2.5 MG/3 ML AMPUL NEB ONE (20:06)
[2017-06-12] MEDS ORDERED: ETOMIDATE INJ/PF 20 MG/10 ML SDV IV ONE ×2 (20:16→21:58)
[2017-06-12] MEDS ORDERED: KETAMINE HCL INJ 500 MG/10 ML VIAL ONE (20:27)
[2017-06-12] MEDS ORDERED: PROPOFOL 100 ML IV ONE (20:27)
--- NOTE | 2017-06-12 21:00 | RADIOLOGY REPORT (SQ) ---
EXAM DESCRIPTION: CHEST SINGLE VIEW COMPLETED DATE/TIME: 06/12/2017 8:25 pm REASON FOR STUDY: sob COMPARISON: 06/12/2017 at 1700 EXAM PARAMETERS: NUMBER OF VIEWS: One view. TECHNIQUE: Single frontal radiographic view of the chest acquired. RADIATION DOSE: NA LIMITATIONS: None. FINDINGS: LUNGS AND PLEURA: Similar coarse interstitial and nodular opacities. No pneumothorax or p leural effusion. MEDIASTINUM AND HILAR STRUCTURES: Stable. HEART AND VASCULAR STRUCTURES: Stable. BONES: No acute findings. HARDWARE: Right chest port. OTHER: No other significant finding. IMPRESSION: Similar coarse interstitial and nodular opacities. No pneumothorax or pleural effusion. TECHNICAL DOCUMENTATION: JOB ID: [id number] [place]-72 2010 [employer]- All Rights Reserved Reading location - IP/workstation name: [employer]
[2017-06-12] MEDS ORDERED: ACETAMINOPHEN 650 MG SUPP.RECT PR ONE ×2 (21:18→21:21)
[2017-06-12 21:28] LABS: ARTERIAL BLOOD BASE EXCESS -1.2 mmol/L; ARTERIAL BLOOD FIO2 45%; ARTERIAL BLOOD H2CO3 2.04 mmol/L (1.05-1.35); ARTERIAL BLOOD HCO3 27.4 mmol/L (20-26); ARTERIAL BLOOD O2 SATURATION 95.9 % (94-98); ARTERIAL BLOOD PCO2 67.8 mmHg (35-45); ARTERIAL BLOOD PH 7.22 (7.35-7.45); ARTERIAL BLOOD PO2 97.9 mmHg (80-100); ARTERIAL BLOOD TOTAL CO2 29.5 mmol/L (21-25)
[2017-06-12] MEDS ORDERED: DEXTROSE 40% GEL 15 GM TUBE PO PRN ×2 (21:46)
[2017-06-12] MEDS ORDERED: DEXTROSE 50%-WATER 25 GM/50 ML DISP.SYRIN IV PRN ×2 (21:46)
[2017-06-12] MEDS ORDERED: GLUCAGON,HUMAN RECOMB 1 MG INJ SUBCUT PRN (21:46)
[2017-06-12] MEDS ORDERED: FENTANYL CITRATE INJ/PF 100 MCG/2 ML AMPUL ONE (21:51)
[2017-06-12] MEDS ORDERED: SUCCINYLCHOLINE CHLORIDE INJ 200 MG/10 ML VIAL IV ONE (21:58)
[2017-06-12] MEDS ORDERED: PROPOFOL 100 ML IV PRN (21:58)
[2017-06-12] MEDS ORDERED: KETAMINE HCL INJ 500 MG/10 ML VIAL IV ONE (21:59)
[2017-06-12] MEDS ORDERED: NOREPINEPHRINE BITARTRATE INJ/PF 4 MG/4 ML SDV IV ONE (22:13)
[2017-06-12] MEDS: DEXTROSE 5%-WATER 250 ML with NOREPINEPHRINE BITARTRATE 4 MG IV PRN ×2 (22:25)
[2017-06-12] MEDS: LEVOFLOXACIN 750 MG/D5W RTU 750 MG/150 ML RTUPB IV SCH (22:40)
--- NOTE | 2017-06-12 23:31 | EKG REPORT ---
SEVERITY:- OTHERWISE NORMAL ECG - SINUS TACHYCARDIA RIGHT AXIS DEVIATION : Confirmed by: Denisha Seth 12-Jun-2017 23:29:45
--- NOTE | 2017-06-12 23:47 | RADIOLOGY REPORT (SQ) ---
EXAM DESCRIPTION: CHEST SINGLE VIEW COMPLETED DATE/TIME: 06/12/2017 8:45 pm REASON FOR STUDY: ETT/NG PLACEMENT COMPARISON: Earlier exam same date EXAM PARAMETERS: NUMBER OF VIEWS: One view. TECHNIQUE: Single frontal radiographic view of the chest acquired. RADIATION DOSE: NA LIMITATIONS: None. FINDINGS: Nasogastric catheter tip overlies the body of the stomach. Endotracheal tube tip overlies the mid trachea. Stable right chest port in pulmonary parenchymal nodular-coarse interstitial opaci ties. IMPRESSION: Nasogastric catheter tip overlies the body of the stomach. Endotracheal tube tip overli es the mid trachea. TECHNICAL DOCUMENTATION: JOB ID: [id number] [place]-72 2010 [employer]- All Rights Reserved Reading location - IP/workstation name: [employer]
--- NOTE | 2017-06-13 01:07 | PDOC H&P ---
History of Present Illness Admission Date/PCP: 06/12/17 21:04 History of Present Illness: MERRILL BLAKE is a 61 year old female patient presented with chief complaint of shortness of breath and chest pain. Since patient is intubated and on mechanical ventilator she is not source of history. Brief history is obtained from the ER attending note. Her Dr. Gabriel patient presented to emergency department with chief complaint of right-sided chest pain and shortness of breath. She is initially evaluated with CT scan of the chest to rule out PE and resulted is reported as negative for PE but she has scattered new nodules bilaterally. Of note patient is a known case of lung cancer. While she is in ER patient's condition is deteriorated she desaturates and her respiratory rate was around 45 at this point patient emergently intubated and put on mechanical ventilation and transferred to ICU. Past Medical History Cardiac Medical History: Denies: Coronary Artery Disease, Myocardial Infarction Comment Only: Hypertension - HX OF LBP Pulmonary Medical History: Reports: Bronchitis, Chronic Obstructive Pulmonary Disease (COPD) Denies: Asthma, Pneumonia Neurological Medical History: Denies: Seizures Endocrine Medical History: Reports: Hypothyroidism Malignancy Medical History: Reports: Lung Cancer - Current GI Medical History: Denies: Hepatitis, Hiatal Hernia Musculoskeltal Medical History: Denies: Arthritis Psychiatric Medical History: Reports: Depression Hematology: Reports: Anemia Denies: Sickle Cell Disease Past Surgical History Past Surgical History: Reports: Herniorrhaphy, Orthopedic Surgery - back, Other - Lung biopsy Denies: Amputation, Hysterectomy, Mastectomy, Pacemaker Social History Lives with: Family Smoking Status: Former Smoker Frequency of Alcohol Use: None Hx Recreational Drug Use: No Drugs: None Hx Prescription Drug Abuse: No Family History Family History: Reviewed & Not Pertinent, Hypertension Parental Family History Reviewed: Yes Children Family History Reviewed: No Sibling(s) Family History Reviewed.: No Medication/Allergy Home Medications: Bupropion HCl [Bupropion HCl Sr] 150 mg PO Q12 04/18/17 Levothyroxine Sodium [Synthroid] 150 mcg PO Q6AM 04/18/17 Omeprazole 20 mg PO DAILY 04/18/17 Albuterol Sulfate [Ventolin Hfa] 2 puff IH Q4HP PRN 06/13/17 Aspirin [Aspirin EC] 81 mg PO DAILY 06/13/17 Fluticasone/Vilanterol [Breo Ellipta 100-25 Mcg INH] 1 each IH DAILY 06/13/17 Ibuprofen [Advil] 400 mg PO BIDP PRN 06/13/17 Ipratropium/Albuterol Sulfate [Iprat-Albut 0.5-3(2.5) Mg/3 Ml] 1 vial NEB Q6H Oxycodone HCl/Acetaminophen [Percocet 10-325 mg Tablet] 1 tab PO Q4HP PRN Allergies/Adverse Reactions: No Known Allergies Allergy (Verified 06/12/17 18:03) Review of Systems ROS unobtainable: Due to endotracheal tube Physical Exam Vital Signs: Temp Pulse Resp BP Pulse Ox 97.4 F 21 H 97/76 L 99 06/12/17 17:25 06/12/17 22:24 06/12/17 22:24 06/13/17 00:00 General appearance: PRESENT: severe distress, other - Cachectic Respiratory exam: PRESENT: wheezes - Has diffuse bilateral wheezing Cardiovascular exam: PRESENT: tachycardia Results Impressions: Chest/Abdomen CTA 06/12/17 18:09 IMPRESSION: No emboli visualized in the main pulmonary arteries or the segmental branches. The multiple new subcentimeter pulmonary nodules most notable in the left upper and right lower lobes.Similar hypodense 1.5 x 2.3 cm AP window enlarged lymph node. Chest X-Ray 06/12/17 20:06 IMPRESSION: Similar coarse interstitial and nodular opacities. No pneumothorax or pleural effusion. Assessment & Plan - Diagnosis (1) Thrombocytopenia Plan: This might be related to her underlying malignancy (2) Acute respiratory failure Qualifiers: Respiratory failure complication: hypoxia and hypercapnia Qualified Code(s) : J96.01 - Acute respiratory failure with hypoxia; J96.02 - Acute respiratory failure with hypercapnia; J96.02 - Acute respiratory failure with hypercapnia; J96.02 - Acute respiratory failure with hypercapnia Is this a current diagnosis for this admission?: Yes Plan: Patient has been intubated and on mechanical ventilation. (3) Lung cancer Qualifiers: Laterality: unspecified laterality Lung location: unspecified part of lung Qualified Code(s): C34.90 - Malignant neoplasm of unspecified part of unspecified bronchus or lung Plan: Primary oncologist. Her overall prognosis is poor. (4) COPD (chronic obstructive pulmonary disease) Qualifiers: COPD type: emphysema Emphysema type: unspecified Qualified Code(s): J43.9 - Emphysema, unspecified Is this a current diagnosis for this admission?: Yes Plan: Scheduled DuoNeb treatment, Solu-Medrol and Levaquin - Time Time Spent: 30 to 50 Minutes - Inpatient Certification Medical Necessity: Need Close Monitoring Due to Risk of Patient Decompensation
[2017-06-13] MEDS: IPRATROPIUM/ALBUTEROL 0.5-2.5 MG/3 ML AMPUL NEB SCH ×5 (02:02→20:09)
[2017-06-13] MEDS ORDERED: NOREPINEPHRINE BITARTRATE INJ/PF 4 MG/4 ML SDV IV ONE (03:12)
[2017-06-13] MEDS: DEXTROSE 5%-WATER 250 ML with NOREPINEPHRINE BITARTRATE 4 MG IV PRN ×6 (03:20→22:58)
[2017-06-13 04:02] LABS: HEMOGLOBIN 8.7 g/dL (12.0-15.5); MEAN CORPUSCULAR VOLUME 77 fl (80-97); RED BLOOD COUNT 3.77 10^6/uL (3.72-5.28); RED CELL DISTRIBUTION WIDTH 19.5 % (11.5-14.0); WHITE BLOOD COUNT 22.2 10^3/uL (4.0-10.5)
[2017-06-13 04:11] LABS: PLATELET COUNT 19 10^3/uL (150-450)
[2017-06-13 04:17] LABS: ALANINE AMINOTRANSFERASE 31 U/L (9-52); ALBUMIN 3.2 g/dL (3.5-5.0); ALKALINE PHOSPHATASE 54 U/L (38-126); ANION GAP 8 (5-19); ASPARTATE AMINO TRANSFERASE 20 U/L (14-36); BLOOD UREA NITROGEN 17 mg/dL (7-20); CALCIUM 8.7 mg/dL (8.4-10.2); CARBON DIOXIDE 27 mmol/L (22-30); CHLORIDE 105 mmol/L (98-107); GLUCOSE 187 mg/dL (75-110); POTASSIUM 5.7 mmol/L (3.6-5.0); SODIUM 140.3 mmol/L (137-145); TOTAL PROTEIN 5.4 g/dL (6.3-8.2)
[2017-06-13] MEDS: PROPOFOL 100 ML IV PRN ×4 (04:20→23:03)
[2017-06-13] MEDS: NORMAL SALINE 1000 ML 1,000 ML IV PRN (04:20)
[2017-06-13 04:21] LABS: BILIRUBIN,TOTAL < 0.1 mg/dL (0.2-1.3)
[2017-06-13] MEDS ORDERED: METHYLPREDNISOLONE INJ 125 MG/2 ML SDV IV SCH (06:00)
[2017-06-13 06:16] LABS: ARTERIAL BLOOD BASE EXCESS -1.1 mmol/L; ARTERIAL BLOOD H2CO3 1.48 mmol/L (1.05-1.35); ARTERIAL BLOOD HCO3 25.1 mmol/L (20-26); ARTERIAL BLOOD O2 SATURATION 98.7 % (94-98); ARTERIAL BLOOD PCO2 49.3 mmHg (35-45); ARTERIAL BLOOD PH 7.32 (7.35-7.45); ARTERIAL BLOOD PO2 147.9 mmHg (80-100); ARTERIAL BLOOD TOTAL CO2 26.6 mmol/L (21-25)
[2017-06-13 06:21] LABS: ARTERIAL BLOOD FIO2 45%
--- NOTE | 2017-06-13 09:18 | RADIOLOGY REPORT (SQ) ---
EXAM DESCRIPTION: CHEST SINGLE VIEW COMPLETED DATE/TIME: 06/13/2017 9:04 am REASON FOR STUDY: Vent check COMPARISON: CT chest 04/03/2017, 05/03/2017, 06/12/2017 Chest films 04/03/2017, 04/18/2017, 04/21/2017, 06/12/2017 EXAM PARAMETERS: NUMBER OF VIEWS: One view. TECHNIQUE: Single frontal radiographic view of the chest acquired. RADIATION DOSE: NA LIMITATIONS: None. FINDINGS: LUNGS AND PLEURA: Accounting for differences in technique, there is no change in appearanc e of the lungs by plain film compared to 04/03/2017. There is end-stage appearance of obstructive jamil g disease and bilateral lung parenchymal scarring. No pleural effusion. No pneumothorax. MEDIASTINUM AND HILAR STRUCTURES: No masses. Contour normal. HEART AND VASCULAR STRUCTURES: Heart normal in size. Normal vasculature. BONES: No acute findings. HARDWARE: Endotracheal tube tip 5 cm above the bella. Nasogastric tube tip and side port in the sto mach. Right-sided permanent central line tip superior vena cava OTHER: No other significant finding. IMPRESSION: Tubes and lines in good positioning. No change in appearance of the lungs. No new infiltrates TECHNICAL DOCUMENTATION: JOB ID: [id number] [employer]- All Rights Reserved Reading location - IP/workstation name: [email or web address]
[2017-06-13] MEDS ORDERED: LEVALBUTEROL HCL NEB 0.63 MG/3 ML AMPUL NEB PRN (09:29)
[2017-06-13 10:16] LABS: HEMATOCRIT 27.8 % (36.0-47.0); HEMOGLOBIN 8.5 g/dL (12.0-15.5); MEAN CORPUSCULAR HEMOGLOBIN 23.5 pg (27.0-33.4); MEAN CORPUSCULAR HGB CONC 30.6 g/dL (32.0-36.0); MEAN CORPUSCULAR VOLUME 77 fl (80-97); RED BLOOD COUNT 3.63 10^6/uL (3.72-5.28); WHITE BLOOD COUNT 16.3 10^3/uL (4.0-10.5)
[2017-06-13] MEDS: METHYLPREDNISOLONE SOD SUCC 500 MG in NORMAL SALINE 50 ML IV SCH (10:19)
[2017-06-13] MEDS: MIDAZOLAM HCL 50 MG/100 ML RTUINJ IV PRN ×2 (10:20→20:43)
[2017-06-13] MEDS: ENOXAPARIN SODIUM INJ 30 MG/0.3 ML DISP.SYRIN SUBCUT SCH (10:22)
[2017-06-13] MEDS ORDERED: PANTOPRAZOLE SODIUM 40 MG VIAL IV ONE (10:30)
[2017-06-13 10:42] LABS: PLATELET COUNT 37 10^3/uL (150-450)
[2017-06-13 10:48] LABS: CREATINE KINASE MB 5.04 ng/mL (<4.55)
[2017-06-13 10:54] LABS: TROPONIN I 0.517 ng/mL
[2017-06-13] MEDS ORDERED: ROMIPLOSTIM SUBCUT ONE (11:30)
[2017-06-13] MEDS ORDERED: DISPOSABLE SUBCUT ONE (11:30)
[2017-06-13 12:48] LABS: ARTERIAL BLOOD BASE EXCESS 1.6 mmol/L; ARTERIAL BLOOD H2CO3 1.58 mmol/L (1.05-1.35); ARTERIAL BLOOD HCO3 27.8 mmol/L (20-26); ARTERIAL BLOOD O2 SATURATION 97.7 % (94-98); ARTERIAL BLOOD PCO2 52.6 mmHg (35-45); ARTERIAL BLOOD PH 7.34 (7.35-7.45); ARTERIAL BLOOD PO2 109.7 mmHg (80-100); ARTERIAL BLOOD TOTAL CO2 29.4 mmol/L (21-25)
[2017-06-13 12:50] LABS: ARTERIAL BLOOD FIO2 35%
--- NOTE | 2017-06-13 13:02 | PDOC CONSULTATION ---
Consultation Consult Date: 06/13/17 Attending physician:: KIERAN HILL Consult reason:: resp failure History of Present Illness Admission Date/PCP: 06/12/17 21:04 History of Present Illness: MERRILL BLAKE is a 61 year old female presented to emergency department with chief complaint of right-sided chest pain and shortness of breath. She is initially evaluated with CT scan of the chest to rule out PE and resulted is reported as negative for PE.She is Well-known to [facility].She is followed for severe COPD as well as non-small cell lung cancer is also being treated by [facility] (Dr. Jackson) patient is currently intubated and on mechanical ventilation per chart it appears she presented to the emergency room with right-sided chest pain and shortness of breath. She has had back pain for extensive amount of time she did have a CTA which ruled out PE new nodules have been seen peripherally as well as in the hilum area even in the emergency room her SaO2 decrease in her respiratory rate increased and she was subsequently intubated. She has had greater than 100 pack year history of smoking but has not smoked in the last 3 years he denies any chronic lung disease as a child or adolescent is advanced bullous emphysema and cavitary lesion have been noted in the past. Per family she has poor p.o. 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 and currently has a platelet count of 19,000 Past Medical History Cardiac Medical History: Denies: Coronary Artery Disease, Myocardial Infarction Comment Only: Hypertension - HX OF LBP Pulmonary Medical History: Reports: Bronchitis, Chronic Obstructive Pulmonary Disease (COPD) Denies: Asthma, Pneumonia Neurological Medical History: Denies: Seizures Endocrine Medical History: Reports: Hypothyroidism Malignancy Medical History: Reports: Lung Cancer - Current GI Medical History: Denies: Hepatitis, Hiatal Hernia Musculoskeltal Medical History: Denies: Arthritis Psychiatric Medical History: Reports: Depression Hematology: Reports: Anemia Denies: Sickle Cell Disease Past Surgical History Past Surgical History: Reports: Herniorrhaphy, Orthopedic Surgery - back, Other - Lung biopsy Denies: Amputation, Hysterectomy, Mastectomy, Pacemaker Social History Information Source: [facility] Records Lives with: Family Smoking Status: Former Smoker Cigarettes Packs Per Day: 2 Number of Years Smokin Last Time Smoked: 3 Passive smoke exposure as: Both Frequency of Alcohol Use: None Hx Recreational Drug Use: No Drugs: None Hx Prescription Drug Abuse: No Have you had any respiratory illnesses as a child?: No Have you been exposed to any sick contacts recently?: No Have you had any recent respiratory illnesses?: No Have you travelled outside of [place] in the past 12 months?: No Family History Family History: Hypertension, Malignancy Parental Family History Reviewed: Yes Children Family History Reviewed: Yes Sibling(s) Family History Reviewed.: Yes Medication/Allergy Home Medications: Bupropion HCl [Bupropion HCl Sr] 150 mg PO Q12 04/18/17 Levothyroxine Sodium [Synthroid] 150 mcg PO Q6AM 04/18/17 Omeprazole 20 mg PO DAILY 04/18/17 Albuterol Sulfate [Ventolin Hfa] 2 puff IH Q4HP PRN 06/13/17 Aspirin [Aspirin EC] 81 mg PO DAILY 06/13/17 Fluticasone/Vilanterol [Breo Ellipta 100-25 Mcg INH] 1 each IH DAILY 06/13/17 Ibuprofen [Advil] 400 mg PO BIDP PRN 06/13/17 Ipratropium/Albuterol Sulfate [Iprat-Albut 0.5-3(2.5) Mg/3 Ml] 1 vial NEB Q6H Oxycodone HCl/Acetaminophen [Percocet 10-325 mg Tablet] 1 tab PO Q4HP PRN Allergies/Adverse Reactions: No Known Allergies Allergy (Verified 06/12/17 18:03) Review of Systems ROS unobtainable: Due to endotracheal tube Physical Exam Vital Signs: Temp Pulse Resp BP Pulse Ox 99.3 F 91 19 88/65 L 100 06/13/17 05:41 06/13/17 09:02 06/13/17 09:02 06/13/17 05:47 06/13/17 09:02 Intake & Output 06/12/17 06/13/17 06/14/17 06:59 06:59 06:59 Intake Total 1473 Output Total 500 500 Balance 973 -500 Weight 48.3 kg General appearance: PRESENT: no acute distress, disheveled, thin. ABSENT: cooperative Head exam: PRESENT: atraumatic, normocephalic Eye exam: PRESENT: conjunctiva pale. ABSENT: EOMI, nystagmus, periorbital swelling, scleral icterus Mouth exam: PRESENT: dry mucosa, neck supple, tongue midline, other - ET tube in place Neck exam: ABSENT: carotid bruit, JVD, lymphadenopathy, thyromegaly, tracheal deviation, tracheostomy Respiratory exam: PRESENT: decreased breath sounds, prolonged expiratory phas, rales, rhonchi, symmetrical, unlabored, wheezes. ABSENT: retraction, stridor, tachypnea Cardiovascular exam: PRESENT: RRR, +S1, +S2, tachycardia Pulses: PRESENT: normal radial pulses GI/Abdominal exam: PRESENT: diminished bowel sounds, soft Extremities exam: ABSENT: calf tenderness, clubbing, joint swelling Musculoskeletal exam: ABSENT: deformity, dislocation Neurological exam: ABSENT: awake Skin exam: PRESENT: dry, warm Results Laboratory Results: 06/13/17 03:48 06/13/17 03:48 06/13/17 06/13/17 06/13/17 03:48 03:48 03:48 WBC 22.2 H RBC 3.77 Hgb 8.7 L Hct 29.0 L MCV 77 L MCH 23.0 L MCHC 30.0 L RDW 19.5 H Plt Count 19 L* Carbonic Acid HCO3/H2CO3 Ratio ABG pH ABG pCO2 ABG pO2 ABG HCO3 ABG O2 Saturation ABG Base Excess FiO2 Sodium 140.3 Potassium 5.7 H Chloride 105 Carbon Dioxide 27 Anion Gap 8 BUN 17 Creatinine 0.56 Est GFR ( Amer) > 60 Est GFR (Non-Af Amer) > 60 Glucose 187 H Calcium 8.7 Total Bilirubin < 0.1 L AST 20 ALT 31 Alkaline Phosphatase 54 Total Protein 5.4 L Albumin 3.2 L Triglycerides 48 06/13/17 05:50 WBC RBC Hgb Hct MCV MCH MCHC RDW Plt Count Carbonic Acid 1.48 H HCO3/H2CO3 Ratio 16:1 ABG pH 7.32 L ABG pCO2 49.3 H ABG pO2 147.9 H ABG HCO3 25.1 ABG O2 Saturation 98.7 H ABG Base Excess -1.1 FiO2 45% Sodium Potassium Chloride Carbon Dioxide Anion Gap BUN Creatinine Est GFR ( Amer) Est GFR (Non-Af Amer) Glucose Calcium Total Bilirubin AST ALT Alkaline Phosphatase Total Protein Albumin Triglycerides Impressions: Chest/Abdomen CTA 06/12/17 18:09 IMPRESSION: No emboli visualized in the main pulmonary arteries or the segmental branches. The multiple new subcentimeter pulmonary nodules most notable in the left upper and right lower lobes.Similar hypodense 1.5 x 2.3 cm AP window enlarged lymph node. Chest X-Ray 06/13/17 06:00 IMPRESSION: Tubes and lines in good positioning. No change in appearance of the lungs. No new infiltrates Assessment & Plan - Diagnosis (1) Acute respiratory failure Qualifiers: Respiratory failure complication: hypoxia and hypercapnia Qualified Code(s) : J96.01 - Acute respiratory failure with hypoxia; J96.02 - Acute respiratory failure with hypercapnia; J96.02 - Acute respiratory failure with hypercapnia; J96.02 - Acute respiratory failure with hypercapnia Is this a current diagnosis for this admission?: Yes Plan: Oxygenate and ventilate with mechanical ventilation when currently increased respiratory rate decreased PCO2 (2) Lung cancer Qualifiers: Laterality: unspecified laterality Lung location: unspecified part of lung Qualified Code(s): C34.90 - Malignant neoplasm of unspecified part of unspecified bronchus or lung Is this a current diagnosis for this admission?: Yes Plan: As per oncology (3) Thrombocytopenia Is this a current diagnosis for this admission?: Yes Plan: Platelet count 19,000 as per oncology (4) COPD (chronic obstructive pulmonary disease) Qualifiers: COPD type: emphysema Emphysema type: unspecified Qualified Code(s): J43.9 - Emphysema, unspecified Is this a current diagnosis for this admission?: Yes Plan: LABA+NENO+LAMA (5) Chronic hypoxemic respiratory failure Is this a current diagnosis for this admission?: Yes Plan: Advanced COPD wears oxygen at home will continue supplemental oxygen as needed - Time Total Critical Time (Minutes): 55
--- NOTE | 2017-06-13 16:26 | PDOC PROGRESS REPORT ---
Subjective Progress Note for:: 06/13/17 Subjective:: This patient was admitted with difficulty breathing and shortness of breath. Patient is intubated and information obtained from the chart. CT scan done revealed pulmonary nodules in a patient with a known history of lung cancer. Reason For Visit: ACUTE RESPIRATORY FAILURE Physical Exam Vital Signs: Temp Pulse Resp BP Pulse Ox 99.3 F 90 17 91/70 L 99 06/13/17 05:41 06/13/17 14:03 06/13/17 14:03 06/13/17 13:42 06/13/17 14:03 Intake & Output 06/12/17 06/13/17 06/14/17 06:59 06:59 06:59 Intake Total 1473 Output Total 500 925 Balance 973 -925 Weight 48.3 kg General appearance: PRESENT: other - Intubated Head exam: PRESENT: atraumatic, normocephalic Neck exam: ABSENT: carotid bruit, JVD, lymphadenopathy, thyromegaly Respiratory exam: PRESENT: other - Mechanical ventilation Cardiovascular exam: PRESENT: RRR. ABSENT: diastolic murmur, rubs, systolic murmur GI/Abdominal exam: PRESENT: normal bowel sounds, soft. ABSENT: distended, guarding, mass, organolmegaly, rebound, tenderness Rectal exam: PRESENT: deferred Psychiatric exam: PRESENT: other - sedated Results Laboratory Results: 06/13/17 09:57 06/13/17 03:48 06/13/17 06/13/17 06/13/17 03:48 03:48 03:48 WBC 22.2 H RBC 3.77 Hgb 8.7 L Hct 29.0 L MCV 77 L MCH 23.0 L MCHC 30.0 L RDW 19.5 H Plt Count 19 L* Carbonic Acid HCO3/H2CO3 Ratio ABG pH ABG pCO2 ABG pO2 ABG HCO3 ABG O2 Saturation ABG Base Excess FiO2 Sodium 140.3 Potassium 5.7 H Chloride 105 Carbon Dioxide 27 Anion Gap 8 BUN 17 Creatinine 0.56 Est GFR ( Amer) > 60 Est GFR (Non-Af Amer) > 60 Glucose 187 H Calcium 8.7 Total Bilirubin < 0.1 L AST 20 ALT 31 Alkaline Phosphatase 54 Total Protein 5.4 L Albumin 3.2 L Triglycerides 48 06/13/17 06/13/17 06/13/17 05:50 09:57 12:30 WBC 16.3 H RBC 3.63 L Hgb 8.5 L Hct 27.8 L MCV 77 L MCH 23.5 L MCHC 30.6 L RDW 19.0 H Plt Count 37 L Carbonic Acid 1.48 H 1.58 H HCO3/H2CO3 Ratio 16:1 17:1 ABG pH 7.32 L 7.34 L ABG pCO2 49.3 H 52.6 H ABG pO2 147.9 H 109.7 H ABG HCO3 25.1 27.8 H ABG O2 Saturation 98.7 H 97.7 ABG Base Excess -1.1 1.6 FiO2 45% 35% Sodium Potassium Chloride Carbon Dioxide Anion Gap BUN Creatinine Est GFR ( Amer) Est GFR (Non-Af Amer) Glucose Calcium Total Bilirubin AST ALT Alkaline Phosphatase Total Protein Albumin Triglycerides 06/13/17 06/13/17 09:57 09:57 Creatine Kinase 115 CK-MB (CK-2) 5.04 H Troponin I 0.517 Impressions: Chest/Abdomen CTA 06/12/17 18:09 IMPRESSION: No emboli visualized in the main pulmonary arteries or the segmental branches. The multiple new subcentimeter pulmonary nodules most notable in the left upper and right lower lobes.Similar hypodense 1.5 x 2.3 cm AP window enlarged lymph node. Chest X-Ray 06/13/17 06:00 IMPRESSION: Tubes and lines in good positioning. No change in appearance of the lungs. No new infiltrates Assessment & Plan - Time Time Spent with patient: 15-24 minutes Medications reviewed and adjusted accordingly: Yes Anticipated discharge: Home - Plan Summary Plan Summary: 1. Acute respiratory failure, hypoxic as well as hypercapnic. Patient is currently intubated. She has been seen by the chair lift operator. 2. Lung cancer, further details unknown will consult Dr. Owens for management. 3. Thrombocytopenia likely secondary to malignancy. There is no evidence of bleeding. Initial platelet count was 681,000 and so there must be some kind of mistake as a repeat was 19,000. Will follow closely. No platelet transfusion indicated 4. COPD with acute exacerbation. Patient is on bronchodilators as well as steroids 5. Hyperkalemia-etiology unclear will repeat labs in a.m. and follow
--- NOTE | 2017-06-13 17:10 | PDOC CONSULTATION ---
Consultation Consult Date: 06/13/17 Consult reason:: Hematology/Oncology consultation was requested for patient with lung cancer and thrombocytopenia. History of Present Illness Admission Date/PCP: 06/12/17 21:04 History of Present Illness: Ms. Thorne is a 61 year old female well known to me who presented to the ED with acute chest pain and dyspnea. She was evaluated in my office earlier that day without these complaints. While in the ED, she decompensated, was placed on ventilator, and admitted to the ICU. She was originally diagnosed with Stage IV non-small cell lung cancer in September 2014. Since that time, she has been on several agents, including carboplatin, paclitaxel, and nivolumab. She has had stable disease on Nivolumab (Immune modulator) since Oct 2015. However, this agent was stopped Jan 2017 due to thrombocytopenia thought to be due to ITP from the nivolumab. She had been treated with steroids, IVIg, Rituxan, and most recently Nplate for the ITP. She was due for Nplate yesterday, but this was held as her platelet count in our office was 510. She has had several recent hospital admissions for dyspnea due to acute pulmonary infections accompanied by ITP over the 6 months. Today, she is intubated and appears comfortable. She does not respond to verbal or tactile stimuli. Past Medical History Cardiac Medical History: Denies: Coronary Artery Disease, Myocardial Infarction Comment Only: Hypertension - HX OF LBP Pulmonary Medical History: Reports: Bronchitis, Chronic Obstructive Pulmonary Disease (COPD) Denies: Asthma, Pneumonia Neurological Medical History: Denies: Seizures Endocrine Medical History: Reports: Hypothyroidism Malignancy Medical History: Reports: Lung Cancer - Current GI Medical History: Denies: Hepatitis, Hiatal Hernia Musculoskeltal Medical History: Denies: Arthritis Psychiatric Medical History: Reports: Depression Hematology: Reports: Anemia Denies: Sickle Cell Disease Past Surgical History Past Surgical History: Reports: Herniorrhaphy, Orthopedic Surgery - back, Other - Lung biopsy Denies: Amputation, Hysterectomy, Mastectomy, Pacemaker Social History Lives with: Family Smoking Status: Former Smoker Cigarettes Packs Per Day: 2 Number of Years Smokin Last Time Smoked: 3 Frequency of Alcohol Use: None Hx Recreational Drug Use: No Drugs: None Hx Prescription Drug Abuse: No Family History Family History: Hypertension, Malignancy Parental Family History Reviewed: Yes Children Family History Reviewed: Yes Sibling(s) Family History Reviewed.: Yes Medication/Allergy Home Medications: Bupropion HCl [Bupropion HCl Sr] 150 mg PO Q12 04/18/17 Levothyroxine Sodium [Synthroid] 150 mcg PO Q6AM 04/18/17 Omeprazole 20 mg PO DAILY 04/18/17 Albuterol Sulfate [Ventolin Hfa] 2 puff IH Q4HP PRN 06/13/17 Aspirin [Aspirin EC] 81 mg PO DAILY 06/13/17 Fluticasone/Vilanterol [Breo Ellipta 100-25 Mcg INH] 1 each IH DAILY 06/13/17 Ibuprofen [Advil] 400 mg PO BIDP PRN 06/13/17 Ipratropium/Albuterol Sulfate [Iprat-Albut 0.5-3(2.5) Mg/3 Ml] 1 vial NEB Q6H Oxycodone HCl/Acetaminophen [Percocet 10-325 mg Tablet] 1 tab PO Q4HP PRN Allergies/Adverse Reactions: No Known Allergies Allergy (Verified 06/12/17 18:03) Review of Systems ROS unobtainable: Due to endotracheal tube Physical Exam Vital Signs: Temp Pulse Resp BP Pulse Ox 99.3 F 90 21 H 92/65 L 98 06/13/17 05:41 06/13/17 14:03 06/13/17 16:27 06/13/17 16:27 06/13/17 16:27 Intake & Output 06/12/17 06/13/17 06/14/17 06:59 06:59 06:59 Intake Total 1473 Output Total 500 925 Balance 973 -925 Weight 48.3 kg General appearance: PRESENT: thin Exam: 61 year old female. Head exam: PRESENT: atraumatic Eye exam: PRESENT: PERRLA Mouth exam: PRESENT: dry mucosa Neck exam: ABSENT: lymphadenopathy Respiratory exam: PRESENT: clear to auscultation esdras, unlabored Cardiovascular exam: PRESENT: RRR. ABSENT: systolic murmur Pulses: PRESENT: normal dorsalis pedis pul GI/Abdominal exam: PRESENT: soft. ABSENT: tenderness Extremities exam: ABSENT: pedal edema Neurological exam: PRESENT: other - Sedated on vent. Focused psych exam: ABSENT: restlessness Skin exam: PRESENT: pallor Results Laboratory Results: 06/13/17 09:57 06/13/17 03:48 06/13/17 06/13/17 06/13/17 03:48 03:48 03:48 WBC 22.2 H RBC 3.77 Hgb 8.7 L Hct 29.0 L MCV 77 L MCH 23.0 L MCHC 30.0 L RDW 19.5 H Plt Count 19 L* Carbonic Acid HCO3/H2CO3 Ratio ABG pH ABG pCO2 ABG pO2 ABG HCO3 ABG O2 Saturation ABG Base Excess FiO2 Sodium 140.3 Potassium 5.7 H Chloride 105 Carbon Dioxide 27 Anion Gap 8 BUN 17 Creatinine 0.56 Est GFR ( Amer) > 60 Est GFR (Non-Af Amer) > 60 Glucose 187 H Calcium 8.7 Total Bilirubin < 0.1 L AST 20 ALT 31 Alkaline Phosphatase 54 Total Protein 5.4 L Albumin 3.2 L Triglycerides 48 06/13/17 06/13/17 06/13/17 05:50 09:57 12:30 WBC 16.3 H RBC 3.63 L Hgb 8.5 L Hct 27.8 L MCV 77 L MCH 23.5 L MCHC 30.6 L RDW 19.0 H Plt Count 37 L Carbonic Acid 1.48 H 1.58 H HCO3/H2CO3 Ratio 16:1 17:1 ABG pH 7.32 L 7.34 L ABG pCO2 49.3 H 52.6 H ABG pO2 147.9 H 109.7 H ABG HCO3 25.1 27.8 H ABG O2 Saturation 98.7 H 97.7 ABG Base Excess -1.1 1.6 FiO2 45% 35% Sodium Potassium Chloride Carbon Dioxide Anion Gap BUN Creatinine Est GFR ( Amer) Est GFR (Non-Af Amer) Glucose Calcium Total Bilirubin AST ALT Alkaline Phosphatase Total Protein Albumin Triglycerides 06/13/17 06/13/17 09:57 09:57 Creatine Kinase 115 CK-MB (CK-2) 5.04 H Troponin I 0.517 Impressions: Chest/Abdomen CTA 06/12/17 18:09 IMPRESSION: No emboli visualized in the main pulmonary arteries or the segmental branches. The multiple new subcentimeter pulmonary nodules most notable in the left upper and right lower lobes.Similar hypodense 1.5 x 2.3 cm AP window enlarged lymph node. Chest X-Ray 06/13/17 06:00 IMPRESSION: Tubes and lines in good positioning. No change in appearance of the lungs. No new infiltrates Status: Image reviewed by me Assessment & Plan - Diagnosis (1) Lung cancer Qualifiers: Laterality: unspecified laterality Lung location: unspecified part of lung Qualified Code(s): C34.90 - Malignant neoplasm of unspecified part of unspecified bronchus or lung Is this a current diagnosis for this admission?: Yes Plan: This has been stable recently. No active treatment is planned thus far. (2) Acute ITP Plan: I will order Nplate today, as platelets have again dropped. I do not believe platelet transfusions will help in this situation. She has been evaluated several times in the past for TTP, but this has been negative. (3) Anemia Qualifiers: Anemia type: other cause Other causes of anemia: acute posthemorrhagic Qualified Code(s): D62 - Acute posthemorrhagic anemia Plan: Mild. Will watch closely and transfuse as needed. (4) Pneumonia Plan: Agree with antibiotic coverage. I will defer to Dr. Cabrales. - Plan Summary Plan Summary: Her care was discussed with Dr. Cabrales. I will be happy to follow her with you. Please feel free to call with any questions or concerns.
[2017-06-13 18:25] LABS: CREATINE KINASE MB 4.61 ng/mL (<4.55); TROPONIN I 0.332 ng/mL
[2017-06-13] MEDS: LEVOFLOXACIN 750 MG/D5W RTU 750 MG/150 ML RTUPB IV SCH (21:10)
[2017-06-13] MEDS: PANTOPRAZOLE SODIUM 40 MG VIAL IV SCH (21:11)
--- NOTE | 2017-06-13 21:59 | EKG REPORT ---
SEVERITY:- ABNORMAL ECG - SINUS RHYTHM BORDERLINE RIGHT AXIS DEVIATION NONSPECIFIC T ABNORMALITIES, LATERAL LEADS BORDERLINE PROLONGED QT INTERVAL : Confirmed by: Denisha Seth 13-Jun-2017 21:57:37
[2017-06-14] MEDS: IPRATROPIUM/ALBUTEROL 0.5-2.5 MG/3 ML AMPUL NEB SCH ×4 (02:02→20:06)
[2017-06-14 02:26] LABS: CREATINE KINASE MB 3.26 ng/mL (<4.55)
[2017-06-14 02:35] LABS: TROPONIN I 0.235 ng/mL
[2017-06-14] MEDS: NORMAL SALINE 1000 ML 1,000 ML IV PRN ×2 (03:32→09:17)
[2017-06-14 04:23] LABS: HEMATOCRIT 25.2 % (36.0-47.0); MEAN CORPUSCULAR HEMOGLOBIN 23.2 pg (27.0-33.4); MEAN CORPUSCULAR HGB CONC 30.2 g/dL (32.0-36.0); MEAN CORPUSCULAR VOLUME 77 fl (80-97); RED BLOOD COUNT 3.28 10^6/uL (3.72-5.28); RED CELL DISTRIBUTION WIDTH 19.5 % (11.5-14.0)
[2017-06-14 04:25] LABS: HEMOGLOBIN 7.6 g/dL (12.0-15.5)
[2017-06-14 04:26] LABS: PLATELET COUNT 104 10^3/uL (150-450)
[2017-06-14 04:39] LABS: ALBUMIN 2.8 g/dL (3.5-5.0); GLUCOSE 132 mg/dL (75-110); POTASSIUM 4.4 mmol/L (3.6-5.0); TOTAL PROTEIN 4.9 g/dL (6.3-8.2)
[2017-06-14 04:42] LABS: ALANINE AMINOTRANSFERASE 29 U/L (9-52); ALKALINE PHOSPHATASE 49 U/L (38-126); ASPARTATE AMINO TRANSFERASE 18 U/L (14-36); BLOOD UREA NITROGEN 16 mg/dL (7-20); CALCIUM 8.8 mg/dL (8.4-10.2); PHOSPHORUS 3.4 mg/dL (2.5-4.5)
[2017-06-14 04:45] LABS: ANION GAP 5 (5-19); CARBON DIOXIDE 29 mmol/L (22-30); CHLORIDE 110 mmol/L (98-107); SODIUM 143.5 mmol/L (137-145)
[2017-06-14 04:46] LABS: BILIRUBIN,TOTAL < 0.1 mg/dL (0.2-1.3)
[2017-06-14] MEDS: MIDAZOLAM HCL 50 MG/100 ML RTUINJ IV PRN ×3 (05:11→21:46)
[2017-06-14 05:41] LABS: ARTERIAL BLOOD BASE EXCESS 1.5 mmol/L; ARTERIAL BLOOD H2CO3 1.43 mmol/L (1.05-1.35); ARTERIAL BLOOD O2 SATURATION 98.4 % (94-98); ARTERIAL BLOOD PCO2 47.4 mmHg (35-45); ARTERIAL BLOOD PH 7.37 (7.35-7.45); ARTERIAL BLOOD TOTAL CO2 28.4 mmol/L (21-25)
[2017-06-14 05:53] LABS: ARTERIAL BLOOD FIO2 35%
[2017-06-14] MEDS: PROPOFOL 100 ML IV PRN ×2 (06:28→16:51)
--- NOTE | 2017-06-14 06:53 | RADIOLOGY REPORT (SQ) ---
EXAM DESCRIPTION: CHEST SINGLE VIEW CLINICAL HISTORY: resp fail/COPD/lung ca COMPARISON: 06/13/2017 FINDINGS: Single frontal view of the chest. Right IJ dual-lumen Mediport. Endotracheal tube with tip 5 cm above the bella. NG tube with tip below the diaphragm. Leads overlie the chest. No pneumothorax. Bilateral pleural parenchymal scarring without significant change. No large effusion. No acute osseous abnormalities. Upper abdominal soft tissues are unremarkable. IMPRESSION: 1. Stable appearance of the chest.
[2017-06-14] MEDS ORDERED: NORMAL SALINE 250 ML IV PRN (08:34)
--- NOTE | 2017-06-14 08:34 | PDOC PROGRESS REPORT ---
Subjective Progress Note for:: 06/14/17 Subjective:: Patient remains sedated on vent. Daughter is at bedside. Nurses report no concerns overnight. Daughter is frustrated with situation. ROS: unable to obtain due to ventilator. Reason For Visit: ACUTE RESPIRATORY FAILURE Physical Exam Vital Signs: Temp Pulse Resp BP Pulse Ox 98.6 F 106 H 16 103/73 98 06/14/17 06:00 06/14/17 02:05 06/14/17 07:28 06/14/17 07:28 06/14/17 07:28 Intake & Output 06/13/17 06/14/17 06/15/17 06:59 06:59 06:59 Intake Total 1473 3181 Output Total 500 2285 Balance 973 896 Weight 48.3 kg 50.5 kg General appearance: PRESENT: no acute distress, thin Head exam: PRESENT: normocephalic Mouth exam: PRESENT: moist Respiratory exam: PRESENT: clear to auscultation esdras, unlabored Cardiovascular exam: PRESENT: RRR GI/Abdominal exam: PRESENT: soft. ABSENT: tenderness Extremities exam: ABSENT: pedal edema Skin exam: PRESENT: normal color Results Laboratory Results: 06/14/17 04:03 06/14/17 04:03 06/13/17 06/13/17 06/14/17 09:57 12:30 04:03 WBC 16.3 H 15.0 H RBC 3.63 L 3.28 L Hgb 8.5 L 7.6 L Hct 27.8 L 25.2 L MCV 77 L 77 L MCH 23.5 L 23.2 L MCHC 30.6 L 30.2 L RDW 19.0 H 19.5 H Plt Count 37 L 104 L D Carbonic Acid 1.58 H HCO3/H2CO3 Ratio 17:1 ABG pH 7.34 L ABG pCO2 52.6 H ABG pO2 109.7 H ABG HCO3 27.8 H ABG O2 Saturation 97.7 ABG Base Excess 1.6 FiO2 35% Sodium Potassium Chloride Carbon Dioxide Anion Gap BUN Creatinine Est GFR ( Amer) Est GFR (Non-Af Amer) Glucose Calcium Phosphorus Magnesium Total Bilirubin AST ALT Alkaline Phosphatase Total Protein Albumin 06/14/17 06/14/17 04:03 05:20 WBC RBC Hgb Hct MCV MCH MCHC RDW Plt Count Carbonic Acid 1.43 H HCO3/H2CO3 Ratio 18:1 ABG pH 7.37 ABG pCO2 47.4 H ABG pO2 128.0 H ABG HCO3 27.0 H ABG O2 Saturation 98.4 H ABG Base Excess 1.5 FiO2 35% Sodium 143.5 Potassium 4.4 Chloride 110 H Carbon Dioxide 29 Anion Gap 5 BUN 16 Creatinine 0.48 L Est GFR ( Amer) > 60 Est GFR (Non-Af Amer) > 60 Glucose 132 H Calcium 8.8 Phosphorus 3.4 Magnesium 1.9 Total Bilirubin < 0.1 L AST 18 ALT 29 Alkaline Phosphatase 49 Total Protein 4.9 L Albumin 2.8 L 06/13/17 06/13/17 06/13/17 09:57 09:57 17:47 Creatine Kinase 115 85 CK-MB (CK-2) 5.04 H Troponin I 0.517 06/13/17 06/14/17 06/14/17 17:47 01:43 01:43 Creatine Kinase 72 CK-MB (CK-2) 4.61 H 3.26 Troponin I 0.332 0.235 Impressions: Chest/Abdomen CTA 06/12/17 18:09 IMPRESSION: No emboli visualized in the main pulmonary arteries or the segmental branches. The multiple new subcentimeter pulmonary nodules most notable in the left upper and right lower lobes.Similar hypodense 1.5 x 2.3 cm AP window enlarged lymph node. Chest X-Ray 06/14/17 06:00 IMPRESSION: 1. Stable appearance of the chest. Assessment & Plan - Diagnosis (1) Lung cancer Qualifiers: Laterality: unspecified laterality Lung location: unspecified part of lung Qualified Code(s): C34.90 - Malignant neoplasm of unspecified part of unspecified bronchus or lung Is this a current diagnosis for this admission?: Yes Plan: I discussed repeat CT scan with the daughter. I have reviewed these films myself. It is still unclear to me if the abnormalities are inflammatory or progression of her lung cancer. (2) Acute ITP Is this a current diagnosis for this admission?: Yes Plan: She received Nplate yesterday and has had good response. PLT have improved. (3) Anemia Qualifiers: Anemia type: other cause Other causes of anemia: acute posthemorrhagic Qualified Code(s): D62 - Acute posthemorrhagic anemia Is this a current diagnosis for this admission?: Yes Plan: I will transfuse 2 units pRBCs today. However, in the past, HGB has improved on it's own as well. Due to her ICU status, I will give 2 units. (4) Pneumonia Is this a current diagnosis for this admission?: Yes Plan: Dr. Cabrales following.
[2017-06-14] MEDS: PANTOPRAZOLE SODIUM 40 MG VIAL IV SCH ×2 (09:05→21:47)
[2017-06-14] MEDS: METHYLPREDNISOLONE SOD SUCC 500 MG in NORMAL SALINE 50 ML IV SCH (09:06)
[2017-06-14] MEDS: ENOXAPARIN SODIUM INJ 30 MG/0.3 ML DISP.SYRIN SUBCUT SCH (09:06)
--- NOTE | 2017-06-14 15:34 | PDOC PROGRESS REPORT ---
Subjective Progress Note for:: 06/14/17 Subjective:: This patient was admitted with difficulty breathing and shortness of breath. Patient is intubated and information obtained from the chart. CT scan done revealed pulmonary nodules in a patient with a known history of lung cancer. Patient remains intubated Reason For Visit: ACUTE RESPIRATORY FAILURE Physical Exam Vital Signs: Temp Pulse Resp BP Pulse Ox 98.2 F 94 22 H 109/79 98 06/14/17 13:08 06/14/17 13:41 06/14/17 13:41 06/14/17 13:08 06/14/17 13:41 Intake & Output 06/13/17 06/14/17 06/15/17 06:59 06:59 06:59 Intake Total 1473 3181 0 Output Total 500 2285 325 Balance 973 896 -325 Weight 48.3 kg 50.5 kg General appearance: PRESENT: no acute distress, other - Intubated Head exam: PRESENT: atraumatic Neck exam: ABSENT: carotid bruit, JVD, lymphadenopathy, thyromegaly Respiratory exam: PRESENT: other - Mechanical ventilation Cardiovascular exam: PRESENT: RRR. ABSENT: diastolic murmur, rubs, systolic murmur Pulses: PRESENT: normal dorsalis pedis pul Rectal exam: PRESENT: deferred Extremities exam: ABSENT: joint swelling Neurological exam: PRESENT: other - Sedated Results Laboratory Results: 06/14/17 04:03 06/14/17 04:03 06/14/17 06/14/17 06/14/17 04:03 04:03 05:20 WBC 15.0 H RBC 3.28 L Hgb 7.6 L Hct 25.2 L MCV 77 L MCH 23.2 L MCHC 30.2 L RDW 19.5 H Plt Count 104 L D Carbonic Acid 1.43 H HCO3/H2CO3 Ratio 18:1 ABG pH 7.37 ABG pCO2 47.4 H ABG pO2 128.0 H ABG HCO3 27.0 H ABG O2 Saturation 98.4 H ABG Base Excess 1.5 FiO2 35% Sodium 143.5 Potassium 4.4 Chloride 110 H Carbon Dioxide 29 Anion Gap 5 BUN 16 Creatinine 0.48 L Est GFR ( Amer) > 60 Est GFR (Non-Af Amer) > 60 Glucose 132 H Calcium 8.8 Phosphorus 3.4 Magnesium 1.9 Total Bilirubin < 0.1 L AST 18 ALT 29 Alkaline Phosphatase 49 Total Protein 4.9 L Albumin 2.8 L Blood Type Antibody Screen 06/14/17 09:45 WBC RBC Hgb Hct MCV MCH MCHC RDW Plt Count Carbonic Acid HCO3/H2CO3 Ratio ABG pH ABG pCO2 ABG pO2 ABG HCO3 ABG O2 Saturation ABG Base Excess FiO2 Sodium Potassium Chloride Carbon Dioxide Anion Gap BUN Creatinine Est GFR ( Amer) Est GFR (Non-Af Amer) Glucose Calcium Phosphorus Magnesium Total Bilirubin AST ALT Alkaline Phosphatase Total Protein Albumin Blood Type O NEGATIVE Antibody Screen NEGATIVE 06/13/17 06/13/17 06/13/17 09:57 09:57 17:47 Creatine Kinase 115 85 CK-MB (CK-2) 5.04 H Troponin I 0.517 06/13/17 06/14/17 06/14/17 17:47 01:43 01:43 Creatine Kinase 72 CK-MB (CK-2) 4.61 H 3.26 Troponin I 0.332 0.235 Impressions: Chest/Abdomen CTA 06/12/17 18:09 IMPRESSION: No emboli visualized in the main pulmonary arteries or the segmental branches. The multiple new subcentimeter pulmonary nodules most notable in the left upper and right lower lobes.Similar hypodense 1.5 x 2.3 cm AP window enlarged lymph node. Chest X-Ray 06/14/17 06:00 IMPRESSION: 1. Stable appearance of the chest. Assessment & Plan - Time Time Spent with patient: 15-24 minutes Medications reviewed and adjusted accordingly: Yes Anticipated discharge: Home with Homehealth - Plan Summary Plan Summary: 1. Acute respiratory failure, hypoxic as well as hypercapnic. Patient is currently intubated. appreciate yard motor operator consult. We will continue with the mechanical ventilation and wean as tolerated 2. Lung cancer, appreciate consult by Dr. Owens. 3. Thrombocytopenia likely secondary to malignancy. There is no evidence of bleeding. Patient received Romiplostim. Her platelet count has improved to about 104,000 4. COPD with acute exacerbation. Patient is on bronchodilators as well as steroids. Will taper as tolerated 5. Hyperkalemia-resolved
--- NOTE | 2017-06-14 19:53 | PDOC CONSULTATION ---
Consultation Consult Date: 06/14/17 Attending physician:: YOSVANY BRUMFIELD Consult reason:: Positive troponin I History of Present Illness Admission Date/PCP: 06/12/17 21:04 Patient complains of: Patient is intubated and sedated. Patient noted to have positive troponin I. History of Present Illness: MERRILL BLAKE is a 61 year old female patient presented with chief complaint of shortness of breath and chest pain. Since patient is intubated and on mechanical ventilator she is not source of history. Brief history is obtained from the ER attending note. Her Dr. Gabriel patient presented to emergency department with chief complaint of right-sided chest pain and shortness of breath. She is initially evaluated with CT scan of the chest to rule out PE and resulted is reported as negative for PE but she has scattered new nodules bilaterally. Of note patient is a known case of lung cancer. While she is in ER patient's condition is deteriorated she desaturates and her respiratory rate was around 45 at this point patient emergently intubated and put on mechanical ventilation and transferred to ICU. Patient was seen this morning. She was still intubated and sedated. No further history could be obtained. Past Medical History Cardiac Medical History: Denies: Coronary Artery Disease, Myocardial Infarction Comment Only: Hypertension - HX OF LBP Pulmonary Medical History: Reports: Bronchitis, Chronic Obstructive Pulmonary Disease (COPD) Denies: Asthma, Pneumonia Neurological Medical History: Denies: Seizures Endocrine Medical History: Reports: Hypothyroidism Malignancy Medical History: Reports: Lung Cancer - Current GI Medical History: Denies: Hepatitis, Hiatal Hernia Musculoskeltal Medical History: Denies: Arthritis Psychiatric Medical History: Reports: Depression Hematology: Reports: Anemia Denies: Sickle Cell Disease Past Surgical History Past Surgical History: Reports: Herniorrhaphy, Orthopedic Surgery - back, Other - Lung biopsy Denies: Amputation, Hysterectomy, Mastectomy, Pacemaker Social History Information Source: [facility] Records Lives with: Family Smoking Status: Former Smoker Cigarettes Packs Per Day: 2 Number of Years Smokin Last Time Smoked: 3 Frequency of Alcohol Use: None Hx Recreational Drug Use: No Drugs: None Hx Prescription Drug Abuse: No - Advance Directive Resuscitation Status: Full Code Family History Family History: Reviewed & Not Pertinent, Hypertension Parental Family History Reviewed: No Children Family History Reviewed: No Sibling(s) Family History Reviewed.: No - Could not be reviewed. Medication/Allergy Home Medications: Bupropion HCl [Bupropion HCl Sr] 150 mg PO Q12 04/18/17 Levothyroxine Sodium [Synthroid] 150 mcg PO Q6AM 04/18/17 Omeprazole 20 mg PO DAILY 04/18/17 Albuterol Sulfate [Ventolin Hfa] 2 puff IH Q4HP PRN 06/13/17 Aspirin [Aspirin EC] 81 mg PO DAILY 06/13/17 Fluticasone/Vilanterol [Breo Ellipta 100-25 Mcg INH] 1 each IH DAILY 06/13/17 Ibuprofen [Advil] 400 mg PO BIDP PRN 06/13/17 Ipratropium/Albuterol Sulfate [Iprat-Albut 0.5-3(2.5) Mg/3 Ml] 1 vial NEB Q6H Oxycodone HCl/Acetaminophen [Percocet 10-325 mg Tablet] 1 tab PO Q4HP PRN Allergies/Adverse Reactions: No Known Allergies Allergy (Verified 06/12/17 18:03) Review of Systems ROS unobtainable: Due to endotracheal tube Physical Exam Vital Signs: Temp Pulse Resp BP Pulse Ox 98.6 F 85 20 120/87 H 98 06/14/17 18:24 06/14/17 18:24 06/14/17 18:24 06/14/17 18:24 06/14/17 18:24 Intake & Output 06/13/17 06/14/17 06/15/17 06:59 06:59 06:59 Intake Total 1473 3181 2192 Output Total 500 2285 800 Balance 361 170 9476 Weight 48.3 kg 50.5 kg Exam: GENERAL: well-nourished and in no acute distress. Patient is intubated and sedated. Orientation cannot be checked HEAD: Atraumatic, normocephalic. EYES: Pupils equal round and reactive to light, extraocular movements could not be checked, sclera anicteric, conjunctiva are normal. ENT: TMs normal, nares patent, oropharynx clear without exudates. Moist mucous membranes. No oral ulcerations or bleeding gums noted NECK: supple without lymphadenopathy or JVD. Trachea is central. No cervical or axillary lymphadenopathy noted. Carotids are 2+ LUNGS: Bilateral crackles and wheezing noted. CHEST: Palpation of the chest wall shows no significant chest wall tenderness or abnormalities. HEART: [place] STUDENT ASSISTANT, No PSH, 2/6 CM aortic area, 1/6 lopez systolic murmur mitral area , no rubs or gallops. ABDOMEN: Soft, no significant tenderness appreciated, normoactive bowel sounds. No guarding, no rebound. No rigidity noted . No masses appreciated. EXTREMITIES: Pedal pulses are 1-2+, no calf tenderness noted, 1+ pedal edema noted. No clubbing or cyanosis. NEUROLOGICAL: The patient cannot participate in the neurological exam but no facial asymmetry noted. Extremities slightly hypotonic PSYCH: This cannot be evaluated. Patient cannot participate. SKIN: No significant ecchymosis, rash, or signs of pruritus noted. MUSCULOSKELETAL EXAM: No significant joint swelling noted. Patient cannot participate in musculoskeletal exam Results Laboratory Results: 06/14/17 04:03 06/14/17 04:03 06/14/17 06/14/17 06/14/17 04:03 04:03 05:20 WBC 15.0 H RBC 3.28 L Hgb 7.6 L Hct 25.2 L MCV 77 L MCH 23.2 L MCHC 30.2 L RDW 19.5 H Plt Count 104 L D Carbonic Acid 1.43 H HCO3/H2CO3 Ratio 18:1 ABG pH 7.37 ABG pCO2 47.4 H ABG pO2 128.0 H ABG HCO3 27.0 H ABG O2 Saturation 98.4 H ABG Base Excess 1.5 FiO2 35% Sodium 143.5 Potassium 4.4 Chloride 110 H Carbon Dioxide 29 Anion Gap 5 BUN 16 Creatinine 0.48 L Est GFR ( Amer) > 60 Est GFR (Non-Af Amer) > 60 Glucose 132 H Calcium 8.8 Phosphorus 3.4 Magnesium 1.9 Total Bilirubin < 0.1 L AST 18 ALT 29 Alkaline Phosphatase 49 Total Protein 4.9 L Albumin 2.8 L Blood Type Antibody Screen 06/14/17 09:45 WBC RBC Hgb Hct MCV MCH MCHC RDW Plt Count Carbonic Acid HCO3/H2CO3 Ratio ABG pH ABG pCO2 ABG pO2 ABG HCO3 ABG O2 Saturation ABG Base Excess FiO2 Sodium Potassium Chloride Carbon Dioxide Anion Gap BUN Creatinine Est GFR ( Amer) Est GFR (Non-Af Amer) Glucose Calcium Phosphorus Magnesium Total Bilirubin AST ALT Alkaline Phosphatase Total Protein Albumin Blood Type O NEGATIVE Antibody Screen NEGATIVE 06/13/17 06/13/17 06/13/17 09:57 09:57 17:47 Creatine Kinase 115 85 CK-MB (CK-2) 5.04 H Troponin I 0.517 06/13/17 06/14/17 06/14/17 17:47 01:43 01:43 Creatine Kinase 72 CK-MB (CK-2) 4.61 H 3.26 Troponin I 0.332 0.235 EKG Comments: Twelve-lead EKG is reviewed shows sinus tachycardia, no acute ST-T wave changes noted. Impressions: Chest/Abdomen CTA 06/12/17 18:09 IMPRESSION: No emboli visualized in the main pulmonary arteries or the segmental branches. The multiple new subcentimeter pulmonary nodules most notable in the left upper and right lower lobes.Similar hypodense 1.5 x 2.3 cm AP window enlarged lymph node. Chest X-Ray 06/14/17 06:00 IMPRESSION: 1. Stable appearance of the chest. Assessment & Plan - Diagnosis (1) Non-STEMI (non-ST elevated myocardial infarction) Is this a current diagnosis for this admission?: Yes (2) Elevated troponin I level Is this a current diagnosis for this admission?: Yes (3) Respiratory failure Qualifiers: Chronicity: acute on chronic Respiratory failure complication: hypoxia Qualified Code(s): J96.21 - Acute and chronic respiratory failure with hypoxia Is this a current diagnosis for this admission?: Yes (4) COPD (chronic obstructive pulmonary disease) Qualifiers: COPD type: emphysema Emphysema type: unspecified Qualified Code(s): J43.9 - Emphysema, unspecified Is this a current diagnosis for this admission?: Yes (5) Lung cancer Qualifiers: Laterality: unspecified laterality Lung location: unspecified part of lung Qualified Code(s): C34.90 - Malignant neoplasm of unspecified part of unspecified bronchus or lung Is this a current diagnosis for this admission?: Yes (6) Thrombocytopenia Is this a current diagnosis for this admission?: Yes - Notes Notes: Elevated troponin I: I was asked to see this patient because of elevated troponin I. Patient's previous EKGs were reviewed. Patient noted to have sinus tachycardia without any acute ST-T wave changes. Will repeat an EKG and also order an 2D echo. It is felt that elevated troponin I is related to metabolic reasons, severe hypoxemia rather than acute coronary syndrome. Pulmonary embolism was rightly ruled out by CTA. Patient also was noted to have severe thrombocytopenia therefore no real need for anticoagulation as there is more potential harm. Non-STEMI: Most likely related to supply demand mismatch and type II rather than due to acute coronary syndrome. Recommend follow-up EKGs. Acute respiratory failure: Secondary to severe COPD, emphysema, lung cancer. There could be an element of CHF. At this point agree with ventilatory support and oxygenation. Thrombocytopenia: Patient being managed by oncologist. Lung cancer: Patient being managed by oncologist. Patient's overall prognosis is guarded. I will be off over the weekend however Dr. Chip Giang could be contacted through the beam dyer operator if patient needs to be seen through the weekend. I will resume care on Saturday. - Time Time Spent: 30 to 50 Minutes - CODE STATUS was discussed, patient remains full code. Multiple medical problems were addressed. More than 50% of the time spent coordinating care, discussing management plans with involved caregivers. Management plans discussed with involved personnels. Medical decision making was of moderate to high complexity, patient's has multiple comorbidities. Medications reviewed and adjusted accordingly: Yes
[2017-06-14] MEDS ORDERED: FENTANYL 50 MCG/HR PATCH.TD72 ONE (21:31)
[2017-06-14 21:35] LABS: HEMATOCRIT 32.1 % (36.0-47.0); MEAN CORPUSCULAR HEMOGLOBIN 24.4 pg (27.0-33.4); MEAN CORPUSCULAR HGB CONC 31.3 g/dL (32.0-36.0); MEAN CORPUSCULAR VOLUME 78 fl (80-97); PLATELET COUNT 134 10^3/uL (150-450); RED BLOOD COUNT 4.11 10^6/uL (3.72-5.28); RED CELL DISTRIBUTION WIDTH 19.8 % (11.5-14.0); WHITE BLOOD COUNT 12.7 10^3/uL (4.0-10.5)
[2017-06-14] MEDS: FENTANYL 50 MCG/HR PATCH.TD72 TD SCH (21:46)
[2017-06-14] MEDS: METHYLPREDNISOLONE INJ 125 MG/2 ML SDV IV SCH (21:47)
[2017-06-14] MEDS: LEVOFLOXACIN 750 MG/D5W RTU 750 MG/150 ML RTUPB IV SCH (21:48)
[2017-06-14 22:03] LABS: ABSOLUTE LYMPHOCYTES# (MANUAL) 0.5 10^3/uL (0.5-4.7); ABSOLUTE MONOCYTES # (MANUAL) 0.9 10^3/uL (0.1-1.4); ABSOLUTE NEUTROPHILS# (MANUAL) 11.3 10^3/uL (1.7-8.2); BASOPHILS % (MANUAL) 0 % (0-2); EOSINOPHILS % (MANUAL) 0 % (0-6); LYMPHOCYTES % (MANUAL) 4 % (13-45); MONOCYTES % (MANUAL) 7 % (3-13); SEGMENTED NEUTROPHILS % (MAN) 89 % (42-78); TOTAL CELLS COUNTED 100
[2017-06-14 22:04] LABS: TOXIC GRANULATION SLIGHT
[2017-06-14 22:05] LABS: ANISOCYTOSIS 2+; HYPOCHROMASIA SLIGHT; OVALOCYTES SLIGHT; PLATELET COMMENT DECREASED; POIKILOCYTOSIS 1+
[2017-06-15] MEDS: PROPOFOL 100 ML IV PRN ×4 (01:50→18:27)
[2017-06-15] MEDS: IPRATROPIUM/ALBUTEROL 0.5-2.5 MG/3 ML AMPUL NEB SCH ×4 (01:54→20:23)
[2017-06-15 04:25] LABS: HEMATOCRIT 30.6 % (36.0-47.0); HEMOGLOBIN 9.8 g/dL (12.0-15.5); MEAN CORPUSCULAR HEMOGLOBIN 24.9 pg (27.0-33.4); MEAN CORPUSCULAR VOLUME 78 fl (80-97); PLATELET COUNT 130 10^3/uL (150-450); RED BLOOD COUNT 3.93 10^6/uL (3.72-5.28); RED CELL DISTRIBUTION WIDTH 19.6 % (11.5-14.0)
[2017-06-15 04:27] LABS: ALANINE AMINOTRANSFERASE 21 U/L (9-52); ALBUMIN 2.7 g/dL (3.5-5.0); ALKALINE PHOSPHATASE 46 U/L (38-126); ASPARTATE AMINO TRANSFERASE 16 U/L (14-36); BILIRUBIN,DIRECT 0.1 mg/dL (0.0-0.4); BILIRUBIN,TOTAL 0.2 mg/dL (0.2-1.3); BLOOD UREA NITROGEN 22 mg/dL (7-20); CALCIUM 8.9 mg/dL (8.4-10.2); GLUCOSE 124 mg/dL (75-110); POTASSIUM 4.3 mmol/L (3.6-5.0); TOTAL PROTEIN 4.8 g/dL (6.3-8.2)
[2017-06-15 04:32] LABS: CARBON DIOXIDE 29 mmol/L (22-30); CHLORIDE 113 mmol/L (98-107); SODIUM 144.6 mmol/L (137-145)
[2017-06-15 04:47] LABS: ANION GAP 3 (5-19)
[2017-06-15 05:02] LABS: ARTERIAL BLOOD BASE EXCESS 0.9 mmol/L; ARTERIAL BLOOD H2CO3 1.47 mmol/L (1.05-1.35); ARTERIAL BLOOD HCO3 26.8 mmol/L (20-26); ARTERIAL BLOOD O2 SATURATION 95.2 % (94-98); ARTERIAL BLOOD PCO2 48.8 mmHg (35-45); ARTERIAL BLOOD PH 7.36 (7.35-7.45); ARTERIAL BLOOD PO2 79.8 mmHg (80-100); ARTERIAL BLOOD TOTAL CO2 28.3 mmol/L (21-25)
[2017-06-15 05:03] LABS: ARTERIAL BLOOD FIO2 30%
[2017-06-15] MEDS: METHYLPREDNISOLONE INJ 125 MG/2 ML SDV IV SCH ×3 (05:04→21:48)
[2017-06-15 05:11] LABS: ABSOLUTE LYMPHOCYTES# (MANUAL) 0.4 10^3/uL (0.5-4.7); ABSOLUTE MONOCYTES # (MANUAL) 0.6 10^3/uL (0.1-1.4); BASOPHILS % (MANUAL) 0 % (0-2); EOSINOPHILS % (MANUAL) 0 % (0-6); LYMPHOCYTES % (MANUAL) 4 % (13-45); MONOCYTES % (MANUAL) 6 % (3-13); SEGMENTED NEUTROPHILS % (MAN) 90 % (42-78); TOTAL CELLS COUNTED 100
[2017-06-15 05:12] LABS: ANISOCYTOSIS 2+; HYPOCHROMASIA SLIGHT; POIKILOCYTOSIS 1+
[2017-06-15 05:14] LABS: OVALOCYTES 2+; POLYCHROMASIA 1+; TEAR DROP CELLS SLIGHT
[2017-06-15 05:15] LABS: BURR CELLS SLIGHT; SCHISTOCYTES SLIGHT
[2017-06-15 05:17] LABS: PLATELET COMMENT ADEQUATE
[2017-06-15] MEDS ORDERED: METHYLPREDNISOLONE INJ 40 MG/1 ML SDV IV SCH (06:00)
[2017-06-15] MEDS: MIDAZOLAM HCL 50 MG/100 ML RTUINJ IV PRN (06:47)
--- NOTE | 2017-06-15 08:40 | PDOC PROGRESS REPORT ---
Subjective Progress Note for:: 06/15/17 Subjective:: unable to obtain as she in intubated and sedated, per RN had quiet night, she is on sedation holiday and slightly tachynic, grimacing. She is passing gas, had fentanyl patch placed yesterday and HR improved. Is being followed by cards for elevated trop, pulm for vent, heme onc for thrombocytopenia and lung ca. Reason For Visit: ACUTE RESPIRATORY FAILURE, sedated on vent Physical Exam Vital Signs: Temp Pulse Resp BP Pulse Ox 98.6 F 100 20 91/59 L 95 06/14/17 18:24 06/15/17 01:55 06/15/17 06:00 06/15/17 05:27 06/15/17 06:00 Intake & Output 06/14/17 06/15/17 06/16/17 06:59 06:59 06:59 Intake Total 3181 3936 Output Total 2285 1340 60 Balance 896 2596 -60 Weight 50.5 kg 52.5 kg General appearance: PRESENT: no acute distress, thin Head exam: PRESENT: atraumatic, normocephalic Eye exam: PRESENT: conjunctiva pink, PERRLA. ABSENT: periorbital swelling Ear exam: PRESENT: normal external ear exam Mouth exam: ABSENT: dry mucosa Neck exam: ABSENT: thyromegaly Respiratory exam: PRESENT: decreased breath sounds. ABSENT: rales, retraction, rhonchi Cardiovascular exam: PRESENT: RRR, systolic murmur Pulses: PRESENT: normal radial pulses, +1 pedal pulses bilateral, +2 pedal pulses bilateral Vascular exam: PRESENT: normal capillary refill GI/Abdominal exam: PRESENT: normal bowel sounds, soft. ABSENT: distended, firm , tenderness Rectal exam: PRESENT: deferred Extremities exam: ABSENT: pedal edema Psychiatric exam: ABSENT: agitated Skin exam: PRESENT: dry, warm Results Laboratory Results: 06/15/17 04:07 06/15/17 04:07 06/14/17 06/14/17 06/15/17 09:45 21:10 04:07 WBC 12.7 H 10.0 RBC 4.11 3.93 Hgb 10.0 L D 9.8 L Hct 32.1 L 30.6 L MCV 78 L 78 L MCH 24.4 L 24.9 L MCHC 31.3 L 32.0 RDW 19.8 H 19.6 H Plt Count 134 L 130 L Seg Neutrophils % Not Reportable Not Reportable Lymphocytes % Not Reportable Not Reportable Monocytes % Not Reportable Not Reportable Eosinophils % Not Reportable Not Reportable Basophils % Not Reportable Not Reportable Absolute Neutrophils Not Reportable Not Reportable Absolute Lymphocytes Not Reportable Not Reportable Absolute Monocytes Not Reportable Not Reportable Absolute Eosinophils Not Reportable Not Reportable Absolute Basophils Not Reportable Not Reportable Carbonic Acid HCO3/H2CO3 Ratio ABG pH ABG pCO2 ABG pO2 ABG HCO3 ABG O2 Saturation ABG Base Excess FiO2 Sodium Potassium Chloride Carbon Dioxide Anion Gap BUN Creatinine Est GFR ( Amer) Est GFR (Non-Af Amer) Glucose Calcium Magnesium Total Bilirubin AST ALT Alkaline Phosphatase Total Protein Albumin Blood Type O NEGATIVE Antibody Screen NEGATIVE 06/15/17 06/15/17 04:07 04:55 WBC RBC Hgb Hct MCV MCH MCHC RDW Plt Count Seg Neutrophils % Lymphocytes % Monocytes % Eosinophils % Basophils % Absolute Neutrophils Absolute Lymphocytes Absolute Monocytes Absolute Eosinophils Absolute Basophils Carbonic Acid 1.47 H HCO3/H2CO3 Ratio 18:1 ABG pH 7.36 ABG pCO2 48.8 H ABG pO2 79.8 L ABG HCO3 26.8 H ABG O2 Saturation 95.2 ABG Base Excess 0.9 FiO2 30% Sodium 144.6 Potassium 4.3 Chloride 113 H Carbon Dioxide 29 Anion Gap 3 L BUN 22 H Creatinine 0.50 L Est GFR ( Amer) > 60 Est GFR (Non-Af Amer) > 60 Glucose 124 H Calcium 8.9 Magnesium 1.9 Total Bilirubin 0.2 AST 16 ALT 21 Alkaline Phosphatase 46 Total Protein 4.8 L Albumin 2.7 L Blood Type Antibody Screen 06/13/17 06/13/17 06/13/17 09:57 09:57 17:47 Creatine Kinase 115 85 CK-MB (CK-2) 5.04 H Troponin I 0.517 06/13/17 06/14/17 06/14/17 17:47 01:43 01:43 Creatine Kinase 72 CK-MB (CK-2) 4.61 H 3.26 Troponin I 0.332 0.235 Impressions: Chest/Abdomen CTA 06/12/17 18:09 IMPRESSION: No emboli visualized in the main pulmonary arteries or the segmental branches. The multiple new subcentimeter pulmonary nodules most notable in the left upper and right lower lobes.Similar hypodense 1.5 x 2.3 cm AP window enlarged lymph node. Status: Image reviewed by me Assessment & Plan - Diagnosis (1) Acute respiratory failure Qualifiers: Respiratory failure complication: hypoxia and hypercapnia Qualified Code(s) : J96.01 - Acute respiratory failure with hypoxia; J96.02 - Acute respiratory failure with hypercapnia; J96.02 - Acute respiratory failure with hypercapnia; J96.02 - Acute respiratory failure with hypercapnia Is this a current diagnosis for this admission?: Yes Plan: Pt has multifactorial resp failure, COPD, PNA vs. bronchitis, lung CA. She is intubated on vent. FiO2 30%, PEEP 5, rate 16 and TV of 350. Hypercarbia had improved. Will wean went as tolerated to extubation. Cont to treat underlying causes. Dr. Cabrales managing vent. (2) Elevated troponin I level Is this a current diagnosis for this admission?: Yes Plan: trended down, no longer checking, cards consulted. Thought to be secondary to resp failure and not primarily cardiac. EKG yesterday showed inverted twaves, will repeat EKG. Pt is tachy but imrpoved once sedation restarted. WIll consider trop check. (3) Lung cancer Qualifiers: Laterality: unspecified laterality Lung location: unspecified part of lung Qualified Code(s): C34.90 - Malignant neoplasm of unspecified part of unspecified bronchus or lung Is this a current diagnosis for this admission?: Yes Plan: New lesions seen on CT chest in ED, ? inflammatory vs. cancer progression. Oncology following. (4) Thrombocytopenia Is this a current diagnosis for this admission?: Yes Plan: Improved, followed by cards, I have stopped lovenox for DVT prophylaxis this am and will ask onc about safety of that given her thrombocytopenia (5) Anemia Qualifiers: Anemia type: other cause Other causes of anemia: acute posthemorrhagic Qualified Code(s): D62 - Acute posthemorrhagic anemia Is this a current diagnosis for this admission?: Yes (6) COPD exacerbation Is this a current diagnosis for this admission?: Yes Plan: pt on steroids and will taper as she improves, will cont levaquin and duonebs. Improving. (7) Lung cancer Qualifiers: Laterality: unspecified laterality Lung location: unspecified part of lung Qualified Code(s): C34.90 - Malignant neoplasm of unspecified part of unspecified bronchus or lung Is this a current diagnosis for this admission?: Yes (8) Tobacco abuse Is this a current diagnosis for this admission?: Yes - Time Time Spent with patient: 35 or more minutes Medications reviewed and adjusted accordingly: Yes Anticipated discharge: Home - Inpatient Certification Based on my medical assessment, after consideration of the patient's comorbidities, presenting symptoms, or acuity I expect that the services needed warrant INPATIENT care.: Yes I certify that my determination is in accordance with my understanding of Medicare's requirements for reasonable and necessary INPATIENT services [42 CFR 412.3e].: Yes Medical Necessity: Other - intubated
--- NOTE | 2017-06-15 09:02 | RADIOLOGY REPORT (SQ) ---
EXAM DESCRIPTION: CHEST SINGLE VIEW COMPLETED DATE/TIME: 06/15/2017 6:50 am REASON FOR STUDY: pna/copd/resp failure/lung cancer COMPARISON: 06/14/2017, 06/12/2017 NUMBER OF VIEWS: One view. TECHNIQUE: Single frontal radiographic image of the chest acquired. LIMITATIONS: Overlying support apparatus. FINDINGS: LUNGS AND PLEURA: COPD with known small pulmonary nodules which are not significantly shah ged. Subsegmental airspace disease in the right upper lobe is not significantly changed from 8 but more conspicuous compared 06/12/2017. MEDIASTINUM AND HEART: Stable heart size and mediastinal structures. SUPPORT DEVICES: Appropriate location without change. BONY STRUCTURES: No acute findings. HARDWARE: None. OTHER: No other significant finding. IMPRESSION: Increasing right upper lobe airspace disease on a background of chronic changes. No sig nificant change. No pneumothorax. Reading location - IP/workstation name: [email or web address]
[2017-06-15] MEDS: PANTOPRAZOLE SODIUM 40 MG VIAL IV SCH ×2 (09:08→21:47)
[2017-06-15] MEDS: NORMAL SALINE 1000 ML 1,000 ML IV PRN ×2 (09:08→15:25)
--- NOTE | 2017-06-15 10:18 | EKG REPORT ---
SEVERITY:- ABNORMAL ECG - SINUS TACHYCARDIA LATERAL INFARCT, AGE INDETERMINATE ABNORMAL T, CONSIDER ISCHEMIA, ANTERIOR LEADS : Confirmed by: Denisha Seth 15-Jun-2017 10:17:46
--- NOTE | 2017-06-15 10:18 | EKG REPORT ---
SEVERITY:- ABNORMAL ECG - SINUS TACHYCARDIA RIGHT AXIS DEVIATION LOW VOLTAGE IN FRONTAL LEADS BORDERLINE R WAVE PROGRESSION, ANTERIOR LEADS ABNORMAL T, CONSIDER ISCHEMIA, ANT-LAT LEADS : Confirmed by: Denisha Seth 15-Jun-2017 10:18:03
--- NOTE | 2017-06-15 14:40 | PDOC PROGRESS REPORT ---
Subjective Progress Note for:: 06/15/17 Subjective:: Patient remains sedated on vent. Nurses state that she is now only on pressure support but when her sedation is taken off, she is tachypnic and uncomfortable. They are weaning her sedation. No new concerns. No evidence of bleeding. ROS: unable to obtain secondary to ventilator. Reason For Visit: ACUTE RESPIRATORY FAILURE Physical Exam Vital Signs: Temp Pulse Resp BP Pulse Ox 98.6 F 94 18 95/59 L 97 06/14/17 18:24 06/15/17 09:00 06/15/17 11:00 06/15/17 10:27 06/15/17 11:00 Intake & Output 06/14/17 06/15/17 06/16/17 06:59 06:59 06:59 Intake Total 3181 3936 80 Output Total 2285 1340 175 Balance 896 2596 -95 Weight 50.5 kg 52.5 kg General appearance: PRESENT: thin Exam: 61 year old female on ventilator. Respiratory exam: PRESENT: unlabored Extremities exam: ABSENT: pedal edema Neurological exam: PRESENT: other - Moves all 4 extremities. Skin exam: PRESENT: normal color Results Laboratory Results: 06/15/17 04:07 06/15/17 04:07 06/14/17 06/14/17 06/15/17 09:45 21:10 04:07 WBC 12.7 H 10.0 RBC 4.11 3.93 Hgb 10.0 L D 9.8 L Hct 32.1 L 30.6 L MCV 78 L 78 L MCH 24.4 L 24.9 L MCHC 31.3 L 32.0 RDW 19.8 H 19.6 H Plt Count 134 L 130 L Seg Neutrophils % Not Reportable Not Reportable Lymphocytes % Not Reportable Not Reportable Monocytes % Not Reportable Not Reportable Eosinophils % Not Reportable Not Reportable Basophils % Not Reportable Not Reportable Absolute Neutrophils Not Reportable Not Reportable Absolute Lymphocytes Not Reportable Not Reportable Absolute Monocytes Not Reportable Not Reportable Absolute Eosinophils Not Reportable Not Reportable Absolute Basophils Not Reportable Not Reportable Carbonic Acid HCO3/H2CO3 Ratio ABG pH ABG pCO2 ABG pO2 ABG HCO3 ABG O2 Saturation ABG Base Excess FiO2 Sodium Potassium Chloride Carbon Dioxide Anion Gap BUN Creatinine Est GFR ( Amer) Est GFR (Non-Af Amer) Glucose Calcium Magnesium Total Bilirubin AST ALT Alkaline Phosphatase Total Protein Albumin Blood Type O NEGATIVE Antibody Screen NEGATIVE 06/15/17 06/15/17 04:07 04:55 WBC RBC Hgb Hct MCV MCH MCHC RDW Plt Count Seg Neutrophils % Lymphocytes % Monocytes % Eosinophils % Basophils % Absolute Neutrophils Absolute Lymphocytes Absolute Monocytes Absolute Eosinophils Absolute Basophils Carbonic Acid 1.47 H HCO3/H2CO3 Ratio 18:1 ABG pH 7.36 ABG pCO2 48.8 H ABG pO2 79.8 L ABG HCO3 26.8 H ABG O2 Saturation 95.2 ABG Base Excess 0.9 FiO2 30% Sodium 144.6 Potassium 4.3 Chloride 113 H Carbon Dioxide 29 Anion Gap 3 L BUN 22 H Creatinine 0.50 L Est GFR ( Amer) > 60 Est GFR (Non-Af Amer) > 60 Glucose 124 H Calcium 8.9 Magnesium 1.9 Total Bilirubin 0.2 AST 16 ALT 21 Alkaline Phosphatase 46 Total Protein 4.8 L Albumin 2.7 L Blood Type Antibody Screen 06/13/17 08:00 Catheterized Urine Urine Culture - Final NO GROWTH 2 DAYS 06/13/17 06/13/17 06/13/17 09:57 09:57 17:47 Creatine Kinase 115 85 CK-MB (CK-2) 5.04 H Troponin I 0.517 06/13/17 06/14/17 06/14/17 17:47 01:43 01:43 Creatine Kinase 72 CK-MB (CK-2) 4.61 H 3.26 Troponin I 0.332 0.235 Impressions: Chest/Abdomen CTA 06/12/17 18:09 IMPRESSION: No emboli visualized in the main pulmonary arteries or the segmental branches. The multiple new subcentimeter pulmonary nodules most notable in the left upper and right lower lobes.Similar hypodense 1.5 x 2.3 cm AP window enlarged lymph node. Chest X-Ray 06/15/17 06:00 IMPRESSION: Increasing right upper lobe airspace disease on a background of chronic changes. No significant change. No pneumothorax. Assessment & Plan - Diagnosis (1) Lung cancer Qualifiers: Laterality: unspecified laterality Lung location: unspecified part of lung Qualified Code(s): C34.90 - Malignant neoplasm of unspecified part of unspecified bronchus or lung Is this a current diagnosis for this admission?: Yes Plan: No active treatment at present. (2) Acute ITP Is this a current diagnosis for this admission?: Yes Plan: Receiving Nplate. Not due again until next week. PLT have been stable. As long as PLT >50, OK for any type of anticoagulation. I agree with DVT prophylaxis. (3) Anemia Qualifiers: Anemia type: other cause Other causes of anemia: acute posthemorrhagic Qualified Code(s): D62 - Acute posthemorrhagic anemia Is this a current diagnosis for this admission?: Yes Plan: Currently stable. Will continue to monitor. (4) Pneumonia Is this a current diagnosis for this admission?: Yes Plan: Slowly improving. Agree with vent weaning. Dr. Cabrales following.
[2017-06-15 16:40] LABS: HEMATOCRIT 33.9 % (36.0-47.0); HEMOGLOBIN 10.8 g/dL (12.0-15.5); MEAN CORPUSCULAR HEMOGLOBIN 24.8 pg (27.0-33.4); MEAN CORPUSCULAR HGB CONC 31.8 g/dL (32.0-36.0); MEAN CORPUSCULAR VOLUME 78 fl (80-97); RED BLOOD COUNT 4.34 10^6/uL (3.72-5.28); RED CELL DISTRIBUTION WIDTH 19.5 % (11.5-14.0); WHITE BLOOD COUNT 10.6 10^3/uL (4.0-10.5)
[2017-06-15 17:05] LABS: PLATELET COUNT 153 10^3/uL (150-450)
[2017-06-15 17:38] LABS: INTERNATIONAL RATION (INR) 0.87; PROTHROMBIN TIME 12.3 SEC (11.4-15.4)
[2017-06-15 17:39] LABS: PARTIAL THROMBOPLASTIN TIME 21.3 SEC (23.5-35.8)
--- NOTE | 2017-06-15 19:45 | PDOC PROGRESS REPORT ---
Subjective Progress Note for:: 06/14/17 Subjective:: intubated sedated Reason For Visit: ACUTE RESPIRATORY FAILURE Physical Exam Vital Signs: Temp Pulse Resp BP Pulse Ox 98.6 F 92 16 103/73 98 06/14/17 06:00 06/14/17 07:00 06/14/17 07:28 06/14/17 07:28 06/14/17 07:28 Intake & Output 06/13/17 06/14/17 06/15/17 06:59 06:59 06:59 Intake Total 1473 3181 Output Total 500 2285 Balance 973 896 Weight 48.3 kg 50.5 kg General appearance: PRESENT: no acute distress, disheveled, thin. ABSENT: cooperative Head exam: PRESENT: atraumatic, normocephalic Eye exam: PRESENT: conjunctiva pale. ABSENT: EOMI, nystagmus, periorbital swelling, scleral icterus Mouth exam: PRESENT: dry mucosa, neck supple, tongue midline, other - ET tube Neck exam: ABSENT: carotid bruit, JVD, lymphadenopathy, thyromegaly, tracheal deviation, tracheostomy Respiratory exam: PRESENT: decreased breath sounds, prolonged expiratory phas, rhonchi, symmetrical, unlabored, wheezes. ABSENT: rales, retraction, stridor, tachypnea Cardiovascular exam: PRESENT: RRR, +S1, +S2, tachycardia Pulses: PRESENT: normal radial pulses GI/Abdominal exam: PRESENT: diminished bowel sounds, soft Gentrourinary exam: PRESENT: indwelling catheter Extremities exam: ABSENT: clubbing, joint swelling Musculoskeletal exam: ABSENT: deformity, dislocation Neurological exam: ABSENT: awake, oriented to person Skin exam: PRESENT: dry, warm Results Laboratory Results: 06/14/17 04:03 06/14/17 04:03 06/13/17 06/13/17 06/14/17 09:57 12:30 04:03 WBC 16.3 H 15.0 H RBC 3.63 L 3.28 L Hgb 8.5 L 7.6 L Hct 27.8 L 25.2 L MCV 77 L 77 L MCH 23.5 L 23.2 L MCHC 30.6 L 30.2 L RDW 19.0 H 19.5 H Plt Count 37 L 104 L D Carbonic Acid 1.58 H HCO3/H2CO3 Ratio 17:1 ABG pH 7.34 L ABG pCO2 52.6 H ABG pO2 109.7 H ABG HCO3 27.8 H ABG O2 Saturation 97.7 ABG Base Excess 1.6 FiO2 35% Sodium Potassium Chloride Carbon Dioxide Anion Gap BUN Creatinine Est GFR ( Amer) Est GFR (Non-Af Amer) Glucose Calcium Phosphorus Magnesium Total Bilirubin AST ALT Alkaline Phosphatase Total Protein Albumin 06/14/17 06/14/17 04:03 05:20 WBC RBC Hgb Hct MCV MCH MCHC RDW Plt Count Carbonic Acid 1.43 H HCO3/H2CO3 Ratio 18:1 ABG pH 7.37 ABG pCO2 47.4 H ABG pO2 128.0 H ABG HCO3 27.0 H ABG O2 Saturation 98.4 H ABG Base Excess 1.5 FiO2 35% Sodium 143.5 Potassium 4.4 Chloride 110 H Carbon Dioxide 29 Anion Gap 5 BUN 16 Creatinine 0.48 L Est GFR ( Amer) > 60 Est GFR (Non-Af Amer) > 60 Glucose 132 H Calcium 8.8 Phosphorus 3.4 Magnesium 1.9 Total Bilirubin < 0.1 L AST 18 ALT 29 Alkaline Phosphatase 49 Total Protein 4.9 L Albumin 2.8 L 06/13/17 06/13/17 06/13/17 09:57 09:57 17:47 Creatine Kinase 115 85 CK-MB (CK-2) 5.04 H Troponin I 0.517 06/13/17 06/14/17 06/14/17 17:47 01:43 01:43 Creatine Kinase 72 CK-MB (CK-2) 4.61 H 3.26 Troponin I 0.332 0.235 Impressions: Chest/Abdomen CTA 06/12/17 18:09 IMPRESSION: No emboli visualized in the main pulmonary arteries or the segmental branches. The multiple new subcentimeter pulmonary nodules most notable in the left upper and right lower lobes.Similar hypodense 1.5 x 2.3 cm AP window enlarged lymph node. Chest X-Ray 06/14/17 06:00 IMPRESSION: 1. Stable appearance of the chest. Assessment & Plan - Diagnosis (1) Acute respiratory failure Qualifiers: Respiratory failure complication: hypoxia and hypercapnia Qualified Code(s) : J96.01 - Acute respiratory failure with hypoxia; J96.02 - Acute respiratory failure with hypercapnia; J96.02 - Acute respiratory failure with hypercapnia; J96.02 - Acute respiratory failure with hypercapnia Is this a current diagnosis for this admission?: Yes Plan: proceed with weaning trial (2) Lung cancer Qualifiers: Laterality: unspecified laterality Lung location: unspecified part of lung Qualified Code(s): C34.90 - Malignant neoplasm of unspecified part of unspecified bronchus or lung Is this a current diagnosis for this admission?: Yes Plan: As per oncology (3) Thrombocytopenia Is this a current diagnosis for this admission?: Yes Plan: Platelet count 19,000 as per oncology (4) COPD (chronic obstructive pulmonary disease) Qualifiers: COPD type: emphysema Emphysema type: unspecified Qualified Code(s): J43.9 - Emphysema, unspecified Is this a current diagnosis for this admission?: Yes Plan: LABA+NENO+LAMA (5) Chronic hypoxemic respiratory failure Is this a current diagnosis for this admission?: Yes - Time Total Critical Time (Minutes): 45
--- NOTE | 2017-06-15 19:51 | PDOC PROGRESS REPORT ---
Subjective Progress Note for:: 06/15/17 Subjective:: failed trial of ps-cpap Reason For Visit: ACUTE RESPIRATORY FAILURE Physical Exam Vital Signs: Temp Pulse Resp BP Pulse Ox 98.6 F 94 19 91/59 L 94 06/14/17 18:24 06/15/17 09:00 06/15/17 08:34 06/15/17 05:27 06/15/17 08:34 Intake & Output 06/14/17 06/15/17 06/16/17 06:59 06:59 06:59 Intake Total 3181 3936 Output Total 2285 1340 60 Balance 896 2596 -60 Weight 50.5 kg 52.5 kg General appearance: PRESENT: no acute distress, disheveled, thin. ABSENT: cooperative Head exam: PRESENT: atraumatic, normocephalic Eye exam: PRESENT: conjunctiva pale. ABSENT: EOMI, scleral icterus Mouth exam: PRESENT: dry mucosa, neck supple, tongue midline, other - ET Neck exam: ABSENT: carotid bruit, JVD, lymphadenopathy, thyromegaly, tracheal deviation, tracheostomy Respiratory exam: PRESENT: prolonged expiratory phas, rhonchi, symmetrical, wheezes. ABSENT: rales, retraction, stridor, tachypnea, unlabored Cardiovascular exam: PRESENT: RRR, +S1, +S2, tachycardia Pulses: PRESENT: normal radial pulses GI/Abdominal exam: PRESENT: diminished bowel sounds, soft Gentrourinary exam: PRESENT: indwelling catheter Extremities exam: ABSENT: clubbing, joint swelling Musculoskeletal exam: ABSENT: deformity, dislocation Neurological exam: ABSENT: awake, oriented to person Skin exam: PRESENT: dry, warm Results Laboratory Results: 06/15/17 04:07 06/15/17 04:07 06/14/17 06/14/17 06/15/17 09:45 21:10 04:07 WBC 12.7 H 10.0 RBC 4.11 3.93 Hgb 10.0 L D 9.8 L Hct 32.1 L 30.6 L MCV 78 L 78 L MCH 24.4 L 24.9 L MCHC 31.3 L 32.0 RDW 19.8 H 19.6 H Plt Count 134 L 130 L Seg Neutrophils % Not Reportable Not Reportable Lymphocytes % Not Reportable Not Reportable Monocytes % Not Reportable Not Reportable Eosinophils % Not Reportable Not Reportable Basophils % Not Reportable Not Reportable Absolute Neutrophils Not Reportable Not Reportable Absolute Lymphocytes Not Reportable Not Reportable Absolute Monocytes Not Reportable Not Reportable Absolute Eosinophils Not Reportable Not Reportable Absolute Basophils Not Reportable Not Reportable Carbonic Acid HCO3/H2CO3 Ratio ABG pH ABG pCO2 ABG pO2 ABG HCO3 ABG O2 Saturation ABG Base Excess FiO2 Sodium Potassium Chloride Carbon Dioxide Anion Gap BUN Creatinine Est GFR ( Amer) Est GFR (Non-Af Amer) Glucose Calcium Magnesium Total Bilirubin AST ALT Alkaline Phosphatase Total Protein Albumin Blood Type O NEGATIVE Antibody Screen NEGATIVE 06/15/17 06/15/17 04:07 04:55 WBC RBC Hgb Hct MCV MCH MCHC RDW Plt Count Seg Neutrophils % Lymphocytes % Monocytes % Eosinophils % Basophils % Absolute Neutrophils Absolute Lymphocytes Absolute Monocytes Absolute Eosinophils Absolute Basophils Carbonic Acid 1.47 H HCO3/H2CO3 Ratio 18:1 ABG pH 7.36 ABG pCO2 48.8 H ABG pO2 79.8 L ABG HCO3 26.8 H ABG O2 Saturation 95.2 ABG Base Excess 0.9 FiO2 30% Sodium 144.6 Potassium 4.3 Chloride 113 H Carbon Dioxide 29 Anion Gap 3 L BUN 22 H Creatinine 0.50 L Est GFR ( Amer) > 60 Est GFR (Non-Af Amer) > 60 Glucose 124 H Calcium 8.9 Magnesium 1.9 Total Bilirubin 0.2 AST 16 ALT 21 Alkaline Phosphatase 46 Total Protein 4.8 L Albumin 2.7 L Blood Type Antibody Screen 06/13/17 06/13/17 06/13/17 09:57 09:57 17:47 Creatine Kinase 115 85 CK-MB (CK-2) 5.04 H Troponin I 0.517 06/13/17 06/14/17 06/14/17 17:47 01:43 01:43 Creatine Kinase 72 CK-MB (CK-2) 4.61 H 3.26 Troponin I 0.332 0.235 Impressions: Chest/Abdomen CTA 06/12/17 18:09 IMPRESSION: No emboli visualized in the main pulmonary arteries or the segmental branches. The multiple new subcentimeter pulmonary nodules most notable in the left upper and right lower lobes.Similar hypodense 1.5 x 2.3 cm AP window enlarged lymph node. Chest X-Ray 06/15/17 06:00 IMPRESSION: Increasing right upper lobe airspace disease on a background of chronic changes. No significant change. No pneumothorax. Assessment & Plan - Diagnosis (1) Acute respiratory failure Qualifiers: Respiratory failure complication: hypoxia and hypercapnia Qualified Code(s) : J96.01 - Acute respiratory failure with hypoxia; J96.02 - Acute respiratory failure with hypercapnia; J96.02 - Acute respiratory failure with hypercapnia; J96.02 - Acute respiratory failure with hypercapnia Is this a current diagnosis for this admission?: Yes Plan: failed weaning trial;continue daily trials (2) Lung cancer Qualifiers: Laterality: unspecified laterality Lung location: unspecified part of lung Qualified Code(s): C34.90 - Malignant neoplasm of unspecified part of unspecified bronchus or lung Is this a current diagnosis for this admission?: Yes Plan: As per oncology (3) Thrombocytopenia Is this a current diagnosis for this admission?: Yes Plan: Platelet count 19,000 as per oncology (4) COPD (chronic obstructive pulmonary disease) Qualifiers: COPD type: emphysema Emphysema type: unspecified Qualified Code(s): J43.9 - Emphysema, unspecified Is this a current diagnosis for this admission?: Yes Plan: LABA+NENO+LAMA (5) Chronic hypoxemic respiratory failure Is this a current diagnosis for this admission?: Yes Plan: Advanced COPD wears oxygen at home will continue supplemental oxygen as needed - Time Total Critical Time (Minutes): 40
[2017-06-15] MEDS: LEVOFLOXACIN 750 MG/D5W RTU 750 MG/150 ML RTUPB IV SCH (21:47)
[2017-06-16] MEDS: NORMAL SALINE 1000 ML 1,000 ML IV PRN (00:31)
[2017-06-16] MEDS: PROPOFOL 100 ML IV PRN ×2 (00:31→14:35)
[2017-06-16] MEDS: IPRATROPIUM/ALBUTEROL 0.5-2.5 MG/3 ML AMPUL NEB SCH ×4 (02:48→20:11)
[2017-06-16 04:37] LABS: HEMATOCRIT 31.4 % (36.0-47.0); HEMOGLOBIN 9.9 g/dL (12.0-15.5); RED BLOOD COUNT 3.99 10^6/uL (3.72-5.28)
[2017-06-16 04:38] LABS: MEAN CORPUSCULAR HEMOGLOBIN 24.8 pg (27.0-33.4); MEAN CORPUSCULAR HGB CONC 31.5 g/dL (32.0-36.0); MEAN CORPUSCULAR VOLUME 79 fl (80-97); PLATELET COUNT 192 10^3/uL (150-450); RED CELL DISTRIBUTION WIDTH 19.5 % (11.5-14.0)
[2017-06-16 04:47] LABS: ANION GAP 5 (5-19); BLOOD UREA NITROGEN 26 mg/dL (7-20); CALCIUM 8.5 mg/dL (8.4-10.2); CARBON DIOXIDE 28 mmol/L (22-30); CHLORIDE 112 mmol/L (98-107); GLUCOSE 121 mg/dL (75-110); POTASSIUM 4.7 mmol/L (3.6-5.0); SODIUM 144.5 mmol/L (137-145); TRIGLYCERIDES 52 mg/dL (<150)
[2017-06-16 05:08] LABS: ABSOLUTE LYMPHOCYTES# (MANUAL) 0.3 10^3/uL (0.5-4.7); ABSOLUTE MONOCYTES # (MANUAL) 0.5 10^3/uL (0.1-1.4); ABSOLUTE NEUTROPHILS# (MANUAL) 7.2 10^3/uL (1.7-8.2); BASOPHILS % (MANUAL) 0 % (0-2); EOSINOPHILS % (MANUAL) 0 % (0-6); HYPOCHROMASIA 1+; LYMPHOCYTES % (MANUAL) 4 % (13-45); MONOCYTES % (MANUAL) 6 % (3-13); SEGMENTED NEUTROPHILS % (MAN) 90 % (42-78); TOTAL CELLS COUNTED 100; TOXIC GRANULATION SLIGHT
[2017-06-16 05:09] LABS: ANISOCYTOSIS 2+; OVALOCYTES 1+; PLATELET COMMENT ADEQUATE; POIKILOCYTOSIS 1+; SCHISTOCYTES SLIGHT; TARGET CELLS SLIGHT
[2017-06-16] MEDS: METHYLPREDNISOLONE INJ 125 MG/2 ML SDV IV SCH ×2 (06:01→21:06)
[2017-06-16 06:03] LABS: ARTERIAL BLOOD BASE EXCESS 0.6 mmol/L; ARTERIAL BLOOD FIO2 35%; ARTERIAL BLOOD H2CO3 1.73 mmol/L (1.05-1.35); ARTERIAL BLOOD HCO3 27.8 mmol/L (20-26); ARTERIAL BLOOD O2 SATURATION 96.3 % (94-98); ARTERIAL BLOOD PCO2 57.5 mmHg (35-45); ARTERIAL BLOOD PO2 93.3 mmHg (80-100); ARTERIAL BLOOD TOTAL CO2 29.5 mmol/L (21-25)
--- NOTE | 2017-06-16 07:42 | RADIOLOGY REPORT (SQ) ---
EXAM DESCRIPTION: CHEST SINGLE VIEW CLINICAL HISTORY: 61 years Female, resp failure/pna/ITP/lung cancer COMPARISON: 4.7.18 NUMBER OF VIEWS/TECHNIQUE: 1/AP LIMITATIONS: None. FINDINGS: Moderate left basilar opacity-effusion, mild/moderate mixed interstitial and airspace opacity, normal cardiac silhouette, right jugular central line tip at the cavoatrial junction, likely adequate enteric tube obscured at its tip, adequate appearing endotracheal tube tip is 2.8 cm from the bella. No pneumothorax. No acute bone defect. IMPRESSION: No significant change.
[2017-06-16] MEDS: RINGERS SOLUTION,LACTATED 1,000 ML IV PRN ×2 (09:53→17:48)
[2017-06-16] MEDS: ENOXAPARIN SODIUM INJ 40 MG/0.4 ML DISP.SYRIN SUBCUT SCH (09:54)
[2017-06-16] MEDS: SENNOSIDES/DOCUSATE 8.6-50 MG 1 EACH TABLET PO SCH (10:54)
[2017-06-16] MEDS: BISACODYL 10 MG SUPP.RECT PR PRN (10:55)
[2017-06-16] MEDS: PANTOPRAZOLE SODIUM 40 MG VIAL IV SCH (10:55)
--- NOTE | 2017-06-16 11:51 | PDOC PROGRESS REPORT ---
Subjective Progress Note for:: 06/16/17 Subjective:: intubated and sedated on vent, overnight no adverse events. Was on PS trial most of day yesterday, versed now weaned off. Close to goal rate on tube feeding. Reason For Visit: ACUTE RESPIRATORY FAILURE Physical Exam Vital Signs: Temp Pulse Resp BP Pulse Ox 98.4 F 89 19 103/76 95 06/16/17 00:00 06/16/17 08:25 06/16/17 10:30 06/16/17 10:27 06/16/17 10:30 Intake & Output 06/15/17 06/16/17 06/17/17 06:59 06:59 06:59 Intake Total 3936 2989 Output Total 1340 965 135 Balance 2596 2023 -135 Weight 52.5 kg 56.1 kg General appearance: PRESENT: no acute distress, thin, well-developed, well- nourished Head exam: PRESENT: atraumatic, normocephalic Eye exam: PRESENT: conjunctiva pink, PERRLA. ABSENT: scleral icterus Mouth exam: PRESENT: moist Respiratory exam: PRESENT: rales, unlabored. ABSENT: rhonchi, wheezes Cardiovascular exam: PRESENT: RRR. ABSENT: systolic murmur Pulses: PRESENT: normal radial pulses, normal dorsalis pedis pul GI/Abdominal exam: PRESENT: normal bowel sounds, soft. ABSENT: distended, firm , tenderness Rectal exam: PRESENT: deferred Gentrourinary exam: PRESENT: indwelling catheter - yellow urine Extremities exam: ABSENT: pedal edema Musculoskeletal exam: PRESENT: normal inspection Neurological exam: PRESENT: other - grimaces and tries to open eyes to voice Psychiatric exam: PRESENT: other - cannot assess Skin exam: PRESENT: dry, intact, warm Results Laboratory Results: 06/16/17 04:05 06/16/17 04:05 06/15/17 06/15/17 06/16/17 16:30 16:30 04:05 WBC 10.6 H 8.0 RBC 4.34 3.99 Hgb 10.8 L 9.9 L Hct 33.9 L 31.4 L MCV 78 L 79 L MCH 24.8 L 24.8 L MCHC 31.8 L 31.5 L RDW 19.5 H 19.5 H Plt Count 153 192 Seg Neutrophils % Not Reportable Lymphocytes % Not Reportable Monocytes % Not Reportable Eosinophils % Not Reportable Basophils % Not Reportable Absolute Neutrophils Not Reportable Absolute Lymphocytes Not Reportable Absolute Monocytes Not Reportable Absolute Eosinophils Not Reportable Absolute Basophils Not Reportable Carbonic Acid HCO3/H2CO3 Ratio ABG pH ABG pCO2 ABG pO2 ABG HCO3 ABG O2 Saturation ABG Base Excess FiO2 Sodium Potassium Chloride Carbon Dioxide Anion Gap BUN Creatinine 0.48 L Est GFR ( Amer) > 60 Est GFR (Non-Af Amer) > 60 Glucose Calcium Magnesium Triglycerides 06/16/17 06/16/17 04:05 05:50 WBC RBC Hgb Hct MCV MCH MCHC RDW Plt Count Seg Neutrophils % Lymphocytes % Monocytes % Eosinophils % Basophils % Absolute Neutrophils Absolute Lymphocytes Absolute Monocytes Absolute Eosinophils Absolute Basophils Carbonic Acid 1.73 H HCO3/H2CO3 Ratio 16:1 ABG pH 7.30 L ABG pCO2 57.5 H ABG pO2 93.3 ABG HCO3 27.8 H ABG O2 Saturation 96.3 ABG Base Excess 0.6 FiO2 35% Sodium 144.5 Potassium 4.7 Chloride 112 H Carbon Dioxide 28 Anion Gap 5 BUN 26 H Creatinine 0.51 L Est GFR ( Amer) > 60 Est GFR (Non-Af Amer) > 60 Glucose 121 H Calcium 8.5 Magnesium 2.0 Triglycerides 52 06/13/17 08:00 Catheterized Urine Urine Culture - Final NO GROWTH 2 DAYS 06/13/17 06/13/17 06/13/17 09:57 09:57 17:47 Creatine Kinase 115 85 CK-MB (CK-2) 5.04 H Troponin I 0.517 06/13/17 06/14/17 06/14/17 17:47 01:43 01:43 Creatine Kinase 72 CK-MB (CK-2) 4.61 H 3.26 Troponin I 0.332 0.235 Impressions: Chest/Abdomen CTA 06/12/17 18:09 IMPRESSION: No emboli visualized in the main pulmonary arteries or the segmental branches. The multiple new subcentimeter pulmonary nodules most notable in the left upper and right lower lobes.Similar hypodense 1.5 x 2.3 cm AP window enlarged lymph node. Chest X-Ray 06/16/17 06:00 IMPRESSION: No significant change. Assessment & Plan - Diagnosis (1) Acute respiratory failure Qualifiers: Respiratory failure complication: hypoxia and hypercapnia Qualified Code(s) : J96.01 - Acute respiratory failure with hypoxia; J96.02 - Acute respiratory failure with hypercapnia; J96.02 - Acute respiratory failure with hypercapnia; J96.02 - Acute respiratory failure with hypercapnia Is this a current diagnosis for this admission?: Yes Plan: COPD with exacerbation and strep pneumo PNA, improving, will cont to wean vent as she will tolerate. O2 improved from yesterday with increase in FiO2. CO2 slightly elevated, may need rate or TV increase. Will defer to Dr. Cabrales. (2) Lung cancer Qualifiers: Laterality: unspecified laterality Lung location: unspecified part of lung Qualified Code(s): C34.90 - Malignant neoplasm of unspecified part of unspecified bronchus or lung Is this a current diagnosis for this admission?: Yes Plan: She is being followed by the oncologist. She is on an immunologic agent, Keytruda, for her lung cancer. Subcentimeter scattered nodules may be inflammatory versus infectious versus worsening cancer. She will have close outpatient oncology follow-up. (3) Thrombocytopenia Is this a current diagnosis for this admission?: Yes Plan: Improved. I spoke with the oncologist yesterday who determined that it would be safe to start Lovenox and so she is now on DVT prophylaxis. Will monitor platelets. (4) Anemia Qualifiers: Anemia type: other cause Other causes of anemia: acute posthemorrhagic Qualified Code(s): D62 - Acute posthemorrhagic anemia Is this a current diagnosis for this admission?: Yes Plan: Stable, no active bleeding, will monitor (5) COPD exacerbation Is this a current diagnosis for this admission?: Yes Plan: Patient is improving. Will titrate down her steroids starting today. She is not wheezing. Air movement is good. (6) Tobacco abuse Is this a current diagnosis for this admission?: Yes Plan: Tobacco cessation counseling once she is stable off the ventilator (7) Non-STEMI (non-ST elevated myocardial infarction) Is this a current diagnosis for this admission?: Yes Plan: On admission patient had elevated troponin which has trended down 2. Cardiology consulted. Her tachycardia is improved. Echocardiogram ordered by the squeegee operator is still pending. It appears she has underlying coronary disease. Will work on optimizing medical therapy once she is off the vent. - Time Time Spent with patient: 25-34 minutes Total Critical Time (Minutes): 20 - Inpatient Certification Based on my medical assessment, after consideration of the patient's comorbidities, presenting symptoms, or acuity I expect that the services needed warrant INPATIENT care.: Yes I certify that my determination is in accordance with my understanding of Medicare's requirements for reasonable and necessary INPATIENT services [42 CFR 412.3e].: Yes Medical Necessity: Need For IV Fluids, Need For Continuous Telemetry Monitoring , Risk of Complication if Not Cared For in Hospital, Risk of Diagnosis Which Will Require Inpatient Eval/Care/Monitoring, Other - Intubated
[2017-06-16] MEDS: BENZONATATE 100 MG CAPSULE PO SCH ×2 (14:24→21:06)
--- NOTE | 2017-06-16 16:25 | PDOC PROGRESS REPORT ---
Subjective Progress Note for:: 06/16/17 Subjective:: again failed trial of ps-cpap Reason For Visit: ACUTE RESPIRATORY FAILURE Physical Exam Vital Signs: Temp Pulse Resp BP Pulse Ox 98.4 F 89 12 96/65 L 93 06/16/17 00:00 06/16/17 08:25 06/16/17 08:25 06/16/17 05:27 06/16/17 08:25 Intake & Output 06/15/17 06/16/17 06/17/17 06:59 06:59 06:59 Intake Total 3936 2989 Output Total 1340 965 60 Balance 2596 2023 Weight 52.5 kg 56.1 kg General appearance: PRESENT: no acute distress, disheveled, thin. ABSENT: cooperative Head exam: PRESENT: atraumatic, normocephalic Eye exam: PRESENT: conjunctiva pale. ABSENT: EOMI, nystagmus, periorbital swelling, scleral icterus Mouth exam: PRESENT: dry mucosa, neck supple, tongue midline, other - ET tube Neck exam: ABSENT: carotid bruit, JVD, lymphadenopathy, thyromegaly, tracheal deviation, tracheostomy Respiratory exam: PRESENT: decreased breath sounds, prolonged expiratory phas, rales, rhonchi, symmetrical, unlabored. ABSENT: stridor, tachypnea Cardiovascular exam: PRESENT: RRR, +S1, +S2, tachycardia Pulses: PRESENT: normal radial pulses GI/Abdominal exam: PRESENT: diminished bowel sounds, soft Extremities exam: ABSENT: clubbing, joint swelling Musculoskeletal exam: ABSENT: deformity, dislocation Neurological exam: ABSENT: awake, oriented to person Skin exam: PRESENT: dry, warm Results Laboratory Results: 06/16/17 04:05 06/16/17 04:05 06/15/17 06/15/17 06/16/17 16:30 16:30 04:05 WBC 10.6 H 8.0 RBC 4.34 3.99 Hgb 10.8 L 9.9 L Hct 33.9 L 31.4 L MCV 78 L 79 L MCH 24.8 L 24.8 L MCHC 31.8 L 31.5 L RDW 19.5 H 19.5 H Plt Count 153 192 Seg Neutrophils % Not Reportable Lymphocytes % Not Reportable Monocytes % Not Reportable Eosinophils % Not Reportable Basophils % Not Reportable Absolute Neutrophils Not Reportable Absolute Lymphocytes Not Reportable Absolute Monocytes Not Reportable Absolute Eosinophils Not Reportable Absolute Basophils Not Reportable Carbonic Acid HCO3/H2CO3 Ratio ABG pH ABG pCO2 ABG pO2 ABG HCO3 ABG O2 Saturation ABG Base Excess FiO2 Sodium Potassium Chloride Carbon Dioxide Anion Gap BUN Creatinine 0.48 L Est GFR ( Amer) > 60 Est GFR (Non-Af Amer) > 60 Glucose Calcium Magnesium Triglycerides 06/16/17 06/16/17 04:05 05:50 WBC RBC Hgb Hct MCV MCH MCHC RDW Plt Count Seg Neutrophils % Lymphocytes % Monocytes % Eosinophils % Basophils % Absolute Neutrophils Absolute Lymphocytes Absolute Monocytes Absolute Eosinophils Absolute Basophils Carbonic Acid 1.73 H HCO3/H2CO3 Ratio 16:1 ABG pH 7.30 L ABG pCO2 57.5 H ABG pO2 93.3 ABG HCO3 27.8 H ABG O2 Saturation 96.3 ABG Base Excess 0.6 FiO2 35% Sodium 144.5 Potassium 4.7 Chloride 112 H Carbon Dioxide 28 Anion Gap 5 BUN 26 H Creatinine 0.51 L Est GFR ( Amer) > 60 Est GFR (Non-Af Amer) > 60 Glucose 121 H Calcium 8.5 Magnesium 2.0 Triglycerides 52 06/13/17 08:00 Catheterized Urine Urine Culture - Final NO GROWTH 2 DAYS 06/13/17 06/13/17 06/13/17 09:57 09:57 17:47 Creatine Kinase 115 85 CK-MB (CK-2) 5.04 H Troponin I 0.517 06/13/17 06/14/17 06/14/17 17:47 01:43 01:43 Creatine Kinase 72 CK-MB (CK-2) 4.61 H 3.26 Troponin I 0.332 0.235 Impressions: Chest/Abdomen CTA 06/12/17 18:09 IMPRESSION: No emboli visualized in the main pulmonary arteries or the segmental branches. The multiple new subcentimeter pulmonary nodules most notable in the left upper and right lower lobes.Similar hypodense 1.5 x 2.3 cm AP window enlarged lymph node. Chest X-Ray 06/16/17 06:00 IMPRESSION: No significant change. Assessment & Plan - Diagnosis (1) Acute respiratory failure Qualifiers: Respiratory failure complication: hypoxia and hypercapnia Qualified Code(s) : J96.01 - Acute respiratory failure with hypoxia; J96.02 - Acute respiratory failure with hypercapnia; J96.02 - Acute respiratory failure with hypercapnia; J96.02 - Acute respiratory failure with hypercapnia Is this a current diagnosis for this admission?: Yes Plan: improving (2) Lung cancer Qualifiers: Laterality: unspecified laterality Lung location: unspecified part of lung Qualified Code(s): C34.90 - Malignant neoplasm of unspecified part of unspecified bronchus or lung Is this a current diagnosis for this admission?: Yes Plan: As per oncology (3) Thrombocytopenia Is this a current diagnosis for this admission?: Yes Plan: improved (4) COPD (chronic obstructive pulmonary disease) Qualifiers: COPD type: emphysema Emphysema type: unspecified Qualified Code(s): J43.9 - Emphysema, unspecified Is this a current diagnosis for this admission?: Yes Plan: LABA+NENO+LAMA (5) Chronic hypoxemic respiratory failure Is this a current diagnosis for this admission?: Yes - Time Total Critical Time (Minutes): 40
[2017-06-16] MEDS: LEVOFLOXACIN 750 MG/D5W RTU 750 MG/150 ML RTUPB IV SCH (21:07)
[2017-06-17] MEDS: PROPOFOL 100 ML IV PRN ×2 (01:07→05:14)
[2017-06-17] MEDS: IPRATROPIUM/ALBUTEROL 0.5-2.5 MG/3 ML AMPUL NEB SCH ×4 (02:51→20:36)
[2017-06-17 04:54] LABS: HEMATOCRIT 33.8 % (36.0-47.0); HEMOGLOBIN 10.6 g/dL (12.0-15.5); MEAN CORPUSCULAR HEMOGLOBIN 24.8 pg (27.0-33.4); MEAN CORPUSCULAR HGB CONC 31.4 g/dL (32.0-36.0); MEAN CORPUSCULAR VOLUME 79 fl (80-97); PLATELET COUNT 233 10^3/uL (150-450); RED BLOOD COUNT 4.29 10^6/uL (3.72-5.28); RED CELL DISTRIBUTION WIDTH 19.8 % (11.5-14.0); WHITE BLOOD COUNT 6.5 10^3/uL (4.0-10.5)
[2017-06-17 05:07] LABS: ALANINE AMINOTRANSFERASE 26 U/L (9-52); ALBUMIN 2.6 g/dL (3.5-5.0); ALKALINE PHOSPHATASE 43 U/L (38-126); ASPARTATE AMINO TRANSFERASE 15 U/L (14-36); BLOOD UREA NITROGEN 25 mg/dL (7-20); CALCIUM 8.5 mg/dL (8.4-10.2); GLUCOSE 122 mg/dL (75-110); POTASSIUM 4.7 mmol/L (3.6-5.0); TOTAL PROTEIN 4.6 g/dL (6.3-8.2)
[2017-06-17 05:13] LABS: CARBON DIOXIDE 34 mmol/L (22-30); CHLORIDE 107 mmol/L (98-107); SODIUM 141.6 mmol/L (137-145)
[2017-06-17] MEDS: BENZONATATE 100 MG CAPSULE PO SCH ×3 (05:13→21:14)
[2017-06-17] MEDS: RINGERS SOLUTION,LACTATED 1,000 ML IV PRN ×2 (05:16→21:21)
[2017-06-17 05:17] LABS: BILIRUBIN,TOTAL < 0.1 mg/dL (0.2-1.3)
[2017-06-17 05:26] LABS: ANION GAP 2 (5-19)
[2017-06-17 05:36] LABS: ABSOLUTE LYMPHOCYTES# (MANUAL) 0.5 10^3/uL (0.5-4.7); ABSOLUTE MONOCYTES # (MANUAL) 0.5 10^3/uL (0.1-1.4); ABSOLUTE NEUTROPHILS# (MANUAL) 5.5 10^3/uL (1.7-8.2); BASOPHILS % (MANUAL) 0 % (0-2); EOSINOPHILS % (MANUAL) 0 % (0-6); LYMPHOCYTES % (MANUAL) 5 % (13-45); MONOCYTES % (MANUAL) 8 % (3-13); SEGMENTED NEUTROPHILS % (MAN) 85 % (42-78); TOTAL CELLS COUNTED 100
[2017-06-17 05:37] LABS: ANISOCYTOSIS 2+; HYPOCHROMASIA 2+; OVALOCYTES 1+; POIKILOCYTOSIS 1+; TEAR DROP CELLS SLIGHT; TOXIC VACUOLATION PRESENT
[2017-06-17 05:39] LABS: PLATELET COMMENT ADEQUATE
[2017-06-17 05:41] LABS: ARTERIAL BLOOD BASE EXCESS 5.1 mmol/L; ARTERIAL BLOOD H2CO3 1.69 mmol/L (1.05-1.35); ARTERIAL BLOOD HCO3 31.5 mmol/L (20-26); ARTERIAL BLOOD O2 SATURATION 95.1 % (94-98); ARTERIAL BLOOD PCO2 56.2 mmHg (35-45); ARTERIAL BLOOD PH 7.37 (7.35-7.45); ARTERIAL BLOOD TOTAL CO2 33.3 mmol/L (21-25)
[2017-06-17 05:42] LABS: ARTERIAL BLOOD FIO2 35%
--- NOTE | 2017-06-17 07:21 | RADIOLOGY REPORT (SQ) ---
EXAM DESCRIPTION: CHEST SINGLE VIEW COMPLETED DATE/TIME: 06/17/2017 5:38 am REASON FOR STUDY: pna/copd/lung cancer COMPARISON: CT chest 04/03/2017, 05/03/2017, 06/12/2017 Chest films 04/03/2017, 06/12/2017, 06/13/2017, 06/15/2017, 06/16/2017 EXAM PARAMETERS: NUMBER OF VIEWS: One view. TECHNIQUE: Single frontal radiographic view of the chest acquired. RADIATION DOSE: NA LIMITATIONS: None. FINDINGS: LUNGS AND PLEURA: Volume loss and consolidation in the right upper lobe is present, simila r compared to 06/16/2017, progressive compared to chest film 04/03/2017. Enlarged airspaces are present from underlying obstructive disease. Both bases, there is consolidati on left greater than right with trace pleural fluid. This similar compared to 06/16/2017 and new nils red to 04/03/2017. No pneumothorax. MEDIASTINUM AND HILAR STRUCTURES: No masses. Contour normal. HEART AND VASCULAR STRUCTURES: Normal cardiac silhouette size BONES: No acute findings. HARDWARE: Endotracheal tube tip 3 cm above the bella. Nasogastric tube tip and side port in the sto mach. Right jugular permanent central line tip in the superior vena cava OTHER: No other significant finding. IMPRESSION: No change from 06/16/2017 with left retrocardiac consolidation, trace bilateral pleural fl uid and consolidation in the right upper lobe. TECHNICAL DOCUMENTATION: JOB ID: [id number] [employer] All Rights Reserved Reading location - IP/workstation name: [email or web address]
--- NOTE | 2017-06-17 08:17 | PDOC PROGRESS REPORT ---
Subjective Progress Note for:: 06/17/17 Subjective:: Patient remains on vent, but is awake today and is able to nod her head appropriately to Y-N questions. She is anxious to get the ET tube out. She denies pain. ROS: not able to obtain due to ET tube. Reason For Visit: ACUTE RESPIRATORY FAILURE Physical Exam Vital Signs: Temp Pulse Resp BP Pulse Ox 99.0 F 97 16 95/68 L 96 06/16/17 19:44 06/17/17 07:59 06/17/17 07:59 06/17/17 05:29 06/17/17 07:59 Intake & Output 06/16/17 06/17/17 06/18/17 06:59 06:59 06:59 Intake Total 2989 3197 Output Total 965 1730 Balance 2023 1467 Weight 56.1 kg 58 kg General appearance: PRESENT: no acute distress, thin Head exam: PRESENT: normocephalic Mouth exam: PRESENT: moist Respiratory exam: PRESENT: clear to auscultation esdras, unlabored Cardiovascular exam: PRESENT: RRR. ABSENT: systolic murmur GI/Abdominal exam: PRESENT: soft. ABSENT: tenderness Extremities exam: PRESENT: other - TEDs in place.. ABSENT: pedal edema Neurological exam: PRESENT: awake Skin exam: PRESENT: normal color Results Laboratory Results: 06/17/17 04:23 06/17/17 04:23 06/17/17 06/17/17 06/17/17 04:23 04:23 05:30 WBC 6.5 RBC 4.29 Hgb 10.6 L Hct 33.8 L MCV 79 L MCH 24.8 L MCHC 31.4 L RDW 19.8 H Plt Count 233 Seg Neutrophils % Not Reportable Lymphocytes % Not Reportable Monocytes % Not Reportable Eosinophils % Not Reportable Basophils % Not Reportable Absolute Neutrophils Not Reportable Absolute Lymphocytes Not Reportable Absolute Monocytes Not Reportable Absolute Eosinophils Not Reportable Absolute Basophils Not Reportable Carbonic Acid 1.69 H HCO3/H2CO3 Ratio 18:1 ABG pH 7.37 ABG pCO2 56.2 H ABG pO2 79.0 L ABG HCO3 31.5 H ABG O2 Saturation 95.1 ABG Base Excess 5.1 FiO2 35% Sodium 141.6 Potassium 4.7 Chloride 107 Carbon Dioxide 34 H Anion Gap 2 L BUN 25 H Creatinine 0.47 L Est GFR ( Amer) > 60 Est GFR (Non-Af Amer) > 60 Glucose 122 H Calcium 8.5 Magnesium 1.8 Total Bilirubin < 0.1 L AST 15 ALT 26 Alkaline Phosphatase 43 Total Protein 4.6 L Albumin 2.6 L 06/13/17 06/13/17 06/13/17 09:57 09:57 17:47 Creatine Kinase 115 85 CK-MB (CK-2) 5.04 H Troponin I 0.517 06/13/17 06/14/17 06/14/17 17:47 01:43 01:43 Creatine Kinase 72 CK-MB (CK-2) 4.61 H 3.26 Troponin I 0.332 0.235 Impressions: Chest/Abdomen CTA 06/12/17 18:09 IMPRESSION: No emboli visualized in the main pulmonary arteries or the segmental branches. The multiple new subcentimeter pulmonary nodules most notable in the left upper and right lower lobes.Similar hypodense 1.5 x 2.3 cm AP window enlarged lymph node. Chest X-Ray 06/17/17 06:00 IMPRESSION: No change from 06/16/2017 with left retrocardiac consolidation, trace bilateral pleural fluid and consolidation in the right upper lobe. Assessment & Plan - Diagnosis (1) Lung cancer Qualifiers: Laterality: unspecified laterality Lung location: unspecified part of lung Qualified Code(s): C34.90 - Malignant neoplasm of unspecified part of unspecified bronchus or lung Is this a current diagnosis for this admission?: Yes Plan: No active treatment. Consider further treatment as outpatient. (2) Acute ITP Is this a current diagnosis for this admission?: Yes Plan: On Nplate. Next dose due in 7 days. (3) Anemia Qualifiers: Anemia type: other cause Other causes of anemia: acute posthemorrhagic Qualified Code(s): D62 - Acute posthemorrhagic anemia Is this a current diagnosis for this admission?: Yes Plan: Currently stable. No indication for transfusion currently. (4) Pneumonia Is this a current diagnosis for this admission?: Yes Plan: Per Hospitalist and Pulmonary. Hopefully, patient will be extubated today.
[2017-06-17] MEDS: SENNOSIDES/DOCUSATE 8.6-50 MG 1 EACH TABLET PO SCH (10:32)
[2017-06-17] MEDS: METHYLPREDNISOLONE INJ 125 MG/2 ML SDV IV SCH ×2 (10:32→21:13)
[2017-06-17] MEDS: ENOXAPARIN SODIUM INJ 40 MG/0.4 ML DISP.SYRIN SUBCUT SCH (10:32)
[2017-06-17 13:42] LABS: ARTERIAL BLOOD BASE EXCESS 2.8 mmol/L; ARTERIAL BLOOD H2CO3 1.79 mmol/L (1.05-1.35); ARTERIAL BLOOD HCO3 30.2 mmol/L (20-26); ARTERIAL BLOOD O2 SATURATION 98.3 % (94-98); ARTERIAL BLOOD PCO2 59.5 mmHg (35-45); ARTERIAL BLOOD PH 7.32 (7.35-7.45); ARTERIAL BLOOD PO2 128.5 mmHg (80-100); ARTERIAL BLOOD TOTAL CO2 32.1 mmol/L (21-25)
[2017-06-17 13:51] LABS: ARTERIAL BLOOD FIO2 30%
--- NOTE | 2017-06-17 14:13 | PDOC PROGRESS REPORT ---
Subjective Progress Note for:: 06/17/17 Subjective:: Successful trial of ps-cpap Reason For Visit: ACUTE RESPIRATORY FAILURE Physical Exam Vital Signs: Temp Pulse Resp BP Pulse Ox 98.2 F 102 H 18 99/70 L 97 06/17/17 08:00 06/17/17 08:00 06/17/17 08:00 06/17/17 08:00 06/17/17 08:00 Intake & Output 06/16/17 06/17/17 06/18/17 06:59 06:59 06:59 Intake Total 2989 3197 Output Total 965 1730 100 Balance 4 1467 -100 Weight 56.1 kg 58 kg General appearance: PRESENT: no acute distress, disheveled, thin Head exam: PRESENT: atraumatic, normocephalic Eye exam: PRESENT: conjunctiva pale, EOMI. ABSENT: nystagmus, periorbital swelling, scleral icterus Mouth exam: PRESENT: dry mucosa, neck supple, tongue midline, other - ET tube in place Neck exam: ABSENT: carotid bruit, JVD, lymphadenopathy, thyromegaly, tracheal deviation, tracheostomy Respiratory exam: PRESENT: decreased breath sounds, prolonged expiratory phas, rales, rhonchi, symmetrical, unlabored. ABSENT: retraction, stridor, tachypnea Cardiovascular exam: PRESENT: RRR, +S1, +S2, tachycardia Pulses: PRESENT: normal radial pulses GI/Abdominal exam: PRESENT: diminished bowel sounds, soft Extremities exam: ABSENT: calf tenderness, clubbing, joint swelling Musculoskeletal exam: ABSENT: deformity, dislocation Neurological exam: PRESENT: awake, oriented to person, oriented to place Skin exam: PRESENT: dry, warm Results Laboratory Results: 06/17/17 04:23 06/17/17 04:23 06/17/17 06/17/17 06/17/17 04:23 04:23 05:30 WBC 6.5 RBC 4.29 Hgb 10.6 L Hct 33.8 L MCV 79 L MCH 24.8 L MCHC 31.4 L RDW 19.8 H Plt Count 233 Seg Neutrophils % Not Reportable Lymphocytes % Not Reportable Monocytes % Not Reportable Eosinophils % Not Reportable Basophils % Not Reportable Absolute Neutrophils Not Reportable Absolute Lymphocytes Not Reportable Absolute Monocytes Not Reportable Absolute Eosinophils Not Reportable Absolute Basophils Not Reportable Carbonic Acid 1.69 H HCO3/H2CO3 Ratio 18:1 ABG pH 7.37 ABG pCO2 56.2 H ABG pO2 79.0 L ABG HCO3 31.5 H ABG O2 Saturation 95.1 ABG Base Excess 5.1 FiO2 35% Sodium 141.6 Potassium 4.7 Chloride 107 Carbon Dioxide 34 H Anion Gap 2 L BUN 25 H Creatinine 0.47 L Est GFR ( Amer) > 60 Est GFR (Non-Af Amer) > 60 Glucose 122 H Calcium 8.5 Magnesium 1.8 Total Bilirubin < 0.1 L AST 15 ALT 26 Alkaline Phosphatase 43 Total Protein 4.6 L Albumin 2.6 L 06/13/17 06/13/17 06/13/17 09:57 09:57 17:47 Creatine Kinase 115 85 CK-MB (CK-2) 5.04 H Troponin I 0.517 06/13/17 06/14/17 06/14/17 17:47 01:43 01:43 Creatine Kinase 72 CK-MB (CK-2) 4.61 H 3.26 Troponin I 0.332 0.235 Impressions: Chest/Abdomen CTA 06/12/17 18:09 IMPRESSION: No emboli visualized in the main pulmonary arteries or the segmental branches. The multiple new subcentimeter pulmonary nodules most notable in the left upper and right lower lobes.Similar hypodense 1.5 x 2.3 cm AP window enlarged lymph node. Chest X-Ray 06/17/17 06:00 IMPRESSION: No change from 06/16/2017 with left retrocardiac consolidation, trace bilateral pleural fluid and consolidation in the right upper lobe. Assessment & Plan - Diagnosis (1) Acute respiratory failure Qualifiers: Respiratory failure complication: hypoxia and hypercapnia Qualified Code(s) : J96.01 - Acute respiratory failure with hypoxia; J96.02 - Acute respiratory failure with hypercapnia; J96.02 - Acute respiratory failure with hypercapnia; J96.02 - Acute respiratory failure with hypercapnia Is this a current diagnosis for this admission?: Yes Plan: Respiratory rate, minute volume, FiO2, airway pressures in mental status suggest patient can be extubated successfully will proceed with extubation (2) Lung cancer Qualifiers: Laterality: unspecified laterality Lung location: unspecified part of lung Qualified Code(s): C34.90 - Malignant neoplasm of unspecified part of unspecified bronchus or lung Is this a current diagnosis for this admission?: Yes Plan: As per oncology (3) Thrombocytopenia Is this a current diagnosis for this admission?: Yes Plan: improved (4) COPD (chronic obstructive pulmonary disease) Qualifiers: COPD type: emphysema Emphysema type: unspecified Qualified Code(s): J43.9 - Emphysema, unspecified Is this a current diagnosis for this admission?: Yes Plan: LABA+NENO+LAMA (5) Chronic hypoxemic respiratory failure Is this a current diagnosis for this admission?: Yes Plan: Advanced COPD wears oxygen at home will continue supplemental oxygen as needed - Time Total Critical Time (Minutes): 55
[2017-06-17] MEDS: ACETAMINOPHEN 325 MG TABLET PO PRN (14:42)
--- NOTE | 2017-06-17 18:44 | PDOC PROGRESS REPORT ---
Subjective Progress Note for:: 06/17/17 Subjective:: Intubated and sedated, did well on PS trail yesterday. No significant adverse events overnight. Reason For Visit: ACUTE RESPIRATORY FAILURE Physical Exam Vital Signs: Temp Pulse Resp BP Pulse Ox 98.8 F 93 14 137/94 H 100 06/17/17 16:00 06/17/17 16:00 06/17/17 18:00 06/17/17 17:28 06/17/17 18:00 Intake & Output 06/16/17 06/17/17 06/18/17 06:59 06:59 06:59 Intake Total 2989 3197 1048 Output Total 965 1730 1010 Balance 4 1467 38 Weight 56.1 kg 58 kg General appearance: PRESENT: no acute distress, thin Head exam: PRESENT: atraumatic, normocephalic Eye exam: PRESENT: conjunctiva pink. ABSENT: scleral icterus Ear exam: PRESENT: normal external ear exam Mouth exam: PRESENT: moist Neck exam: PRESENT: lymphadenopathy Respiratory exam: PRESENT: clear to auscultation esdras, unlabored. ABSENT: rales , rhonchi, wheezes Cardiovascular exam: PRESENT: RRR. ABSENT: systolic murmur Pulses: PRESENT: normal radial pulses GI/Abdominal exam: PRESENT: firm, normal bowel sounds, soft. ABSENT: distended , tenderness Gentrourinary exam: PRESENT: indwelling catheter, other - Clear yellow urine in Lopez bag Extremities exam: PRESENT: pedal edema Musculoskeletal exam: PRESENT: normal inspection Neurological exam: PRESENT: awake, other - Able to follow simple commands Psychiatric exam: ABSENT: agitated Skin exam: PRESENT: dry, intact, warm Results Laboratory Results: 06/17/17 04:23 06/17/17 04:23 06/17/17 06/17/17 06/17/17 04:23 04:23 05:30 WBC 6.5 RBC 4.29 Hgb 10.6 L Hct 33.8 L MCV 79 L MCH 24.8 L MCHC 31.4 L RDW 19.8 H Plt Count 233 Seg Neutrophils % Not Reportable Lymphocytes % Not Reportable Monocytes % Not Reportable Eosinophils % Not Reportable Basophils % Not Reportable Absolute Neutrophils Not Reportable Absolute Lymphocytes Not Reportable Absolute Monocytes Not Reportable Absolute Eosinophils Not Reportable Absolute Basophils Not Reportable Carbonic Acid 1.69 H HCO3/H2CO3 Ratio 18:1 ABG pH 7.37 ABG pCO2 56.2 H ABG pO2 79.0 L ABG HCO3 31.5 H ABG O2 Saturation 95.1 ABG Base Excess 5.1 FiO2 35% Sodium 141.6 Potassium 4.7 Chloride 107 Carbon Dioxide 34 H Anion Gap 2 L BUN 25 H Creatinine 0.47 L Est GFR ( Amer) > 60 Est GFR (Non-Af Amer) > 60 Glucose 122 H Calcium 8.5 Magnesium 1.8 Total Bilirubin < 0.1 L AST 15 ALT 26 Alkaline Phosphatase 43 Total Protein 4.6 L Albumin 2.6 L 06/17/17 13:30 WBC RBC Hgb Hct MCV MCH MCHC RDW Plt Count Seg Neutrophils % Lymphocytes % Monocytes % Eosinophils % Basophils % Absolute Neutrophils Absolute Lymphocytes Absolute Monocytes Absolute Eosinophils Absolute Basophils Carbonic Acid 1.79 H HCO3/H2CO3 Ratio 16:1 ABG pH 7.32 L ABG pCO2 59.5 H ABG pO2 128.5 H ABG HCO3 30.2 H ABG O2 Saturation 98.3 H ABG Base Excess 2.8 FiO2 30% Sodium Potassium Chloride Carbon Dioxide Anion Gap BUN Creatinine Est GFR ( Amer) Est GFR (Non-Af Amer) Glucose Calcium Magnesium Total Bilirubin AST ALT Alkaline Phosphatase Total Protein Albumin 06/13/17 08:00 Tracheal Aspirate Gram Stain - Final 06/13/17 08:00 Tracheal Aspirate Sputum Culture - Final Streptococcus Pneumoniae Normal Kinsey 06/13/17 06/13/17 06/13/17 09:57 09:57 17:47 Creatine Kinase 115 85 CK-MB (CK-2) 5.04 H Troponin I 0.517 06/13/17 06/14/17 06/14/17 17:47 01:43 01:43 Creatine Kinase 72 CK-MB (CK-2) 4.61 H 3.26 Troponin I 0.332 0.235 Impressions: Chest/Abdomen CTA 06/12/17 18:09 IMPRESSION: No emboli visualized in the main pulmonary arteries or the segmental branches. The multiple new subcentimeter pulmonary nodules most notable in the left upper and right lower lobes.Similar hypodense 1.5 x 2.3 cm AP window enlarged lymph node. Chest X-Ray 06/17/17 06:00 IMPRESSION: No change from 06/16/2017 with left retrocardiac consolidation, trace bilateral pleural fluid and consolidation in the right upper lobe. Assessment & Plan - Diagnosis (1) Acute respiratory failure Qualifiers: Respiratory failure complication: hypoxia and hypercapnia Qualified Code(s) : J96.01 - Acute respiratory failure with hypoxia; J96.02 - Acute respiratory failure with hypercapnia; J96.02 - Acute respiratory failure with hypercapnia; J96.02 - Acute respiratory failure with hypercapnia Is this a current diagnosis for this admission?: Yes Plan: Secondary to streptococcal pneumoniae pneumonia. Continue Levaquin. Patient is working towards extubation today. (2) Lung cancer Qualifiers: Laterality: unspecified laterality Lung location: unspecified part of lung Qualified Code(s): C34.90 - Malignant neoplasm of unspecified part of unspecified bronchus or lung Is this a current diagnosis for this admission?: Yes Plan: She is being treated by Dr. Chan who is following her here. She is on keytruda. She will need close follow-up after she recovers from this hospitalization. (3) Thrombocytopenia Is this a current diagnosis for this admission?: Yes Plan: Thrombocytopenia possibly secondary to her immunologic agent for lung cancer. Her platelets are normal today. (4) Anemia Qualifiers: Anemia type: other cause Other causes of anemia: acute posthemorrhagic Qualified Code(s): D62 - Acute posthemorrhagic anemia Is this a current diagnosis for this admission?: Yes Plan: Stable. No active bleeding evidence. Continue to monitor. (5) COPD exacerbation Is this a current diagnosis for this admission?: Yes Plan: Improving. Continue current care. (6) Tobacco abuse Is this a current diagnosis for this admission?: Yes Plan: Will need tobacco cessation counseling once she is improved. (7) Non-STEMI (non-ST elevated myocardial infarction) Is this a current diagnosis for this admission?: Yes Plan: Troponin trended down. Probably related to respiratory distress setting of coronary disease and cardiology consulted. - Time Time Spent with patient: 25-34 minutes Medications reviewed and adjusted accordingly: Yes - Inpatient Certification Based on my medical assessment, after consideration of the patient's comorbidities, presenting symptoms, or acuity I expect that the services needed warrant INPATIENT care.: Yes I certify that my determination is in accordance with my understanding of Medicare's requirements for reasonable and necessary INPATIENT services [42 CFR 412.3e].: Yes Medical Necessity: Need Close Monitoring Due to Risk of Patient Decompensation, Need for IV Antibiotics, Risk of Complication if Not Cared For in Hospital
--- NOTE | 2017-06-17 18:53 | XCELERA REPORT ---
[address] [address] Transthoracic Echocardiogram Report Name: MERRILL BLAKE Age: 61 yrs Gender: Female : 1955 Patient Status: Inpatient Patient Location: ICU^610^A Study Date: 06/17/2017 11:11 AM Height: 63 in Weight: 111 lb BSA: 1.5 m2 Procedure: A complete two-dimensional transthoracic echocardiogram was performed (2D, M-mode, spectral and color flow Doppler). The study was technically adequate with some images being suboptimal in quality. Reason For Study: NSTEMI Ordering Physician: DENISHA NICOLE Performed By: Silvia Brown Interpretation Summary LV EF is 45% Left ventricular systolic function is mildly reduced. The left ventricle is grossly normal size. Doppler measurements suggest pseudonormalized left ventricular relaxation, which is associated with grade II/IV or mild to moderate diastolic dysfunction There is apical wall hypokinesis There is distal anterior wall hypokinesis The right ventricular systolic function is normal. The right atrium is normal in size Borderline left atrial enlargement. There is a mild amount of mitral regurgitation There is no mitral valve stenosis. There is a mild amount of aortic regurgitation There is no aortic valve stenosis There is a mild amount of tricuspid regurgitation There is mild pulmonary hypertension by echo Right ventricular systolic pressure is estimated to be elevated at 30- 40mmHg. The aortic root is not well visualized but is probably normal size. The inferior vena cava appeared normal and decreased > 50% with respiration (RAP 5-10 mmHg) There is no pericardial effusion. MMode/2D Measurements & Calculations RVDd: 2.6 cm LVIDd: 4.8 cm FS: 23.1 % Ao root diam: 2.8 cm IVSd: 0.80 cm LVIDs: 3.7 cm EDV(Teich): 105.6 ml LVPWd: 0.76 cm ESV(Teich): 56.7 ml Ao root area: 6.2 cm2 EF(Teich): 46.3 % LA dimension: 3.5 cm Doppler Measurements & Calculations MV E max iker: MV P1/2t max iker: Ao V2 max: LV V1 max P.5 cm/sec 72.5 cm/sec 116.3 cm/sec 3.2 mmHg MV A max iker: MV P1/2t: 36.6 msec Ao max PG: LV V1 max: 60.5 cm/sec 5.4 mmHg 89.8 cm/sec MV E/A: 1.2 MVA(P1/2t): 6.0 cm2 MV dec slope: 580.8 cm/sec2 MV dec time: 0.13 sec PA V2 max: TR max iker: 74.0 cm/sec 278.7 cm/sec PA max PG: TR max P.1 mmHg 2.2 mmHg Left Ventricle The left ventricle is grossly normal size. Left ventricular systolic function is mildly reduced. LV EF is 45%. Doppler measurements suggest pseudonormalized left ventricular relaxation, which is associated with grade II/IV or mild to moderate diastolic dysfunction. There is apical wall hypokinesis. There is distal anterior wall hypokinesis. Right Ventricle The right ventricle is grossly normal size. There is normal right ventricular wall thickness. The right ventricular systolic function is normal. Atria The right atrium is normal in size. Borderline left atrial enlargement. Mitral Valve The mitral valve is grossly normal. There is no mitral valve stenosis. There is a mild amount of mitral regurgitation. Aortic Valve The aortic valve is grossly normal. There is no aortic valve stenosis. There is a mild amount of aortic regurgitation. Tricuspid Valve The tricuspid valve is not well visualized, but is grossly normal. There is no tricuspid stenosis. There is a mild amount of tricuspid regurgitation. There is mild pulmonary hypertension by echo. Right ventricular systolic pressure is estimated to be elevated at 30-40mmHg. Pulmonic Valve The pulmonic valve is not well visualized. Great Vessels The aortic root is not well visualized but is probably normal size. The inferior vena cava appeared normal and decreased > 50% with respiration (RAP 5-10 mmHg). Effusions There is no pericardial effusion. : DENISHA NICOLE > Denisha Nicole
[2017-06-17] MEDS: FENTANYL 50 MCG/HR PATCH.TD72 TD SCH (21:10)
[2017-06-17] MEDS: LEVOFLOXACIN 750 MG/D5W RTU 750 MG/150 ML RTUPB IV SCH (21:14)
[2017-06-18] MEDS: IPRATROPIUM/ALBUTEROL 0.5-2.5 MG/3 ML AMPUL NEB SCH ×4 (01:39→20:47)
[2017-06-18 05:00] LABS: HEMATOCRIT 37.7 % (36.0-47.0); HEMOGLOBIN 11.8 g/dL (12.0-15.5); MEAN CORPUSCULAR HEMOGLOBIN 24.6 pg (27.0-33.4); MEAN CORPUSCULAR HGB CONC 31.4 g/dL (32.0-36.0); MEAN CORPUSCULAR VOLUME 78 fl (80-97); PLATELET COUNT 268 10^3/uL (150-450); RED BLOOD COUNT 4.82 10^6/uL (3.72-5.28); RED CELL DISTRIBUTION WIDTH 20.5 % (11.5-14.0); WHITE BLOOD COUNT 6.5 10^3/uL (4.0-10.5)
[2017-06-18 05:16] LABS: BLOOD UREA NITROGEN 19 mg/dL (7-20); CALCIUM 8.4 mg/dL (8.4-10.2); CHLORIDE 101 mmol/L (98-107); GLUCOSE 107 mg/dL (75-110); PHOSPHORUS 4.3 mg/dL (2.5-4.5); POTASSIUM 4.9 mmol/L (3.6-5.0)
[2017-06-18 05:18] LABS: ARTERIAL BLOOD BASE EXCESS 6.2 mmol/L; ARTERIAL BLOOD H2CO3 1.76 mmol/L (1.05-1.35); ARTERIAL BLOOD O2 SATURATION 98.5 % (94-98); ARTERIAL BLOOD PCO2 58.4 mmHg (35-45); ARTERIAL BLOOD PH 7.37 (7.35-7.45); ARTERIAL BLOOD PO2 132.7 mmHg (80-100); ARTERIAL BLOOD TOTAL CO2 34.8 mmol/L (21-25)
[2017-06-18 05:19] LABS: ARTERIAL BLOOD FIO2 40%
[2017-06-18 05:20] LABS: ABSOLUTE LYMPHOCYTES# (MANUAL) 0.4 10^3/uL (0.5-4.7); ABSOLUTE MONOCYTES # (MANUAL) 0.5 10^3/uL (0.1-1.4); ABSOLUTE NEUTROPHILS# (MANUAL) 5.7 10^3/uL (1.7-8.2); BASOPHILS % (MANUAL) 0 % (0-2); EOSINOPHILS % (MANUAL) 0 % (0-6); LYMPHOCYTES % (MANUAL) 6 % (13-45); MONOCYTES % (MANUAL) 7 % (3-13); SEGMENTED NEUTROPHILS % (MAN) 87 % (42-78); TOTAL CELLS COUNTED 100
[2017-06-18 05:21] LABS: PLATELET COMMENT ADEQUATE
[2017-06-18 05:22] LABS: CARBON DIOXIDE 39 mmol/L (22-30); SODIUM 140.4 mmol/L (137-145)
[2017-06-18 05:24] LABS: ANISOCYTOSIS 2+; HYPOCHROMASIA SLIGHT; POIKILOCYTOSIS SLIGHT; POLYCHROMASIA SLIGHT; TARGET CELLS SLIGHT
[2017-06-18 05:33] LABS: ANION GAP 3 (5-19)
--- NOTE | 2017-06-18 06:26 | RADIOLOGY REPORT (SQ) ---
EXAM DESCRIPTION: CHEST SINGLE VIEW CLINICAL HISTORY: 61 years Female, pna/copd/resp fail COMPARISON: 4.9.18 NUMBER OF VIEWS/TECHNIQUE: 1/AP LIMITATIONS: None. FINDINGS: Moderate interstitial markings, moderate bilateral layered effusion/basilar opacity. Normal cardiac silhouette. Right jugular central line tip at the cavoatrial junction. Interval extubation. No pneumothorax. No acute bone defect. IMPRESSION: Interval extubation. Else, no significant change.
[2017-06-18] MEDS: BENZONATATE 100 MG CAPSULE PO SCH ×3 (07:37→21:05)
--- NOTE | 2017-06-18 07:41 | PDOC PROGRESS REPORT ---
Subjective Progress Note for:: 06/18/17 Subjective:: Patient is now extubated. She is on [place] and states that she wants to get "off this floor." She would like to have B[place] mask off and could not sleep last night due to this. ROS: She denies breathing difficulties. She denies any pain. She has had gas, but no BMs. Reason For Visit: ACUTE RESPIRATORY FAILURE Physical Exam Vital Signs: Temp Pulse Resp BP Pulse Ox 98.4 F 86 11 L 108/86 H 100 06/18/17 00:00 06/18/17 01:39 06/18/17 06:30 06/18/17 06:29 06/18/17 06:30 Intake & Output 06/17/17 06/18/17 06/19/17 06:59 06:59 06:59 Intake Total 3197 2833 Output Total 1730 2360 Balance 1467 473 Weight 58 kg 57.3 kg General appearance: PRESENT: no acute distress, thin Head exam: PRESENT: atraumatic Mouth exam: PRESENT: dry mucosa Respiratory exam: PRESENT: clear to auscultation esdras Cardiovascular exam: PRESENT: RRR, tachycardia GI/Abdominal exam: PRESENT: normal bowel sounds, soft. ABSENT: tenderness Extremities exam: ABSENT: pedal edema Neurological exam: PRESENT: alert, awake Psychiatric exam: PRESENT: appropriate affect Results Laboratory Results: 06/18/17 04:34 06/18/17 04:34 06/17/17 06/18/17 06/18/17 13:30 04:34 04:34 WBC 6.5 RBC 4.82 Hgb 11.8 L Hct 37.7 MCV 78 L MCH 24.6 L MCHC 31.4 L RDW 20.5 H Plt Count 268 Seg Neutrophils % Not Reportable Lymphocytes % Not Reportable Monocytes % Not Reportable Eosinophils % Not Reportable Basophils % Not Reportable Absolute Neutrophils Not Reportable Absolute Lymphocytes Not Reportable Absolute Monocytes Not Reportable Absolute Eosinophils Not Reportable Absolute Basophils Not Reportable Carbonic Acid 1.79 H HCO3/H2CO3 Ratio 16:1 ABG pH 7.32 L ABG pCO2 59.5 H ABG pO2 128.5 H ABG HCO3 30.2 H ABG O2 Saturation 98.3 H ABG Base Excess 2.8 FiO2 30% Sodium 140.4 Potassium 4.9 Chloride 101 Carbon Dioxide 39 H Anion Gap 3 L BUN 19 Creatinine 0.42 L Est GFR ( Amer) > 60 Est GFR (Non-Af Amer) > 60 Glucose 107 Calcium 8.4 Phosphorus 4.3 06/18/17 05:05 WBC RBC Hgb Hct MCV MCH MCHC RDW Plt Count Seg Neutrophils % Lymphocytes % Monocytes % Eosinophils % Basophils % Absolute Neutrophils Absolute Lymphocytes Absolute Monocytes Absolute Eosinophils Absolute Basophils Carbonic Acid 1.76 H HCO3/H2CO3 Ratio 18:1 ABG pH 7.37 ABG pCO2 58.4 H ABG pO2 132.7 H ABG HCO3 33.0 H ABG O2 Saturation 98.5 H ABG Base Excess 6.2 FiO2 40% Sodium Potassium Chloride Carbon Dioxide Anion Gap BUN Creatinine Est GFR ( Amer) Est GFR (Non-Af Amer) Glucose Calcium Phosphorus 06/12/17 22:00 Blood Blood Culture - Final NO GROWTH IN 5 DAYS 06/13/17 08:00 Tracheal Aspirate Gram Stain - Final 06/13/17 08:00 Tracheal Aspirate Sputum Culture - Final Streptococcus Pneumoniae Normal Kinsey 06/13/17 06/13/17 06/13/17 09:57 09:57 17:47 Creatine Kinase 115 85 CK-MB (CK-2) 5.04 H Troponin I 0.517 06/13/17 06/14/17 06/14/17 17:47 01:43 01:43 Creatine Kinase 72 CK-MB (CK-2) 4.61 H 3.26 Troponin I 0.332 0.235 Impressions: Chest/Abdomen CTA 06/12/17 18:09 IMPRESSION: No emboli visualized in the main pulmonary arteries or the segmental branches. The multiple new subcentimeter pulmonary nodules most notable in the left upper and right lower lobes.Similar hypodense 1.5 x 2.3 cm AP window enlarged lymph node. Chest X-Ray 06/18/17 06:00 IMPRESSION: Interval extubation. Else, no significant change. Assessment & Plan - Diagnosis (1) Lung cancer Qualifiers: Laterality: unspecified laterality Lung location: unspecified part of lung Qualified Code(s): C34.90 - Malignant neoplasm of unspecified part of unspecified bronchus or lung Is this a current diagnosis for this admission?: Yes Plan: No active treatment currently. Would be nice to determine if her CT changes are inflammatory or due to cancer. Unsure if this will be possible. (2) Acute ITP Is this a current diagnosis for this admission?: Yes Plan: She is doing much better with this. Her next dose of Nplate is due this coming Saturday. Ok for DVT prophylaxis as long as PLT >50 (3) Anemia Qualifiers: Anemia type: other cause Other causes of anemia: acute posthemorrhagic Qualified Code(s): D62 - Acute posthemorrhagic anemia Is this a current diagnosis for this admission?: Yes (4) Pneumonia Is this a current diagnosis for this admission?: Yes Plan: Followed by Dr. Cabrales. She is now off the vent. - Plan Summary Plan Summary: I will be away for a few days. Dr. Zelaya will be covering. Please feel free to contact him with questions.
--- NOTE | 2017-06-18 09:13 | PDOC PROGRESS REPORT ---
Subjective Progress Note for:: 06/17/17 Subjective:: Patient has made progress. She is noted to be more stable. Currently off vasopressors. She is more alert. Plans to extubate later today or tomorrow. Patient remains intubated, sedated, patient however looks comfortable and in acute distress. Telemetry strips shows patient in sinus rhythm. Medications reviewed. Reason For Visit: ACUTE RESPIRATORY FAILURE Physical Exam Vital Signs: Temp Pulse Resp BP Pulse Ox 98.8 F 86 15 112/84 99 06/17/17 20:00 06/17/17 18:00 06/17/17 18:00 06/17/17 18:00 06/17/17 18:00 Intake & Output 06/16/17 06/17/17 06/18/17 06:59 06:59 06:59 Intake Total 2989 3197 1048 Output Total 965 1730 1360 Balance 2023 1467 -312 Weight 56.1 kg 58 kg Exam: GENERAL: well-nourished and in no acute distress. Patient is intubated. Patient alert responds to verbal commands. Orientation cannot be checked HEAD: Atraumatic, normocephalic. EYES: Pupils equal round and reactive to light, extraocular movements could not be checked, sclera anicteric, conjunctiva are normal. ENT: TMs normal, nares patent, oropharynx clear without exudates. Moist mucous membranes. No oral ulcerations or bleeding gums noted NECK: supple without lymphadenopathy or JVD. Trachea is central. No cervical or axillary lymphadenopathy noted. Carotids are 2+ LUNGS: Breath sounds mostly clear to auscultation patient is noted to have bibasal crackles at the extreme bases CHEST: Palpation of the chest wall shows no significant chest wall tenderness or abnormalities. 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 ABDOMEN: Soft, no significant tenderness appreciated, normoactive bowel sounds. No guarding, no rebound. No rigidity noted . No masses appreciated. EXTREMITIES: Pedal pulses are 1-2+, no calf tenderness noted, 1+ pedal edema noted. No clubbing or cyanosis. NEUROLOGICAL: The patient cannot participate in the full neurological exam but no facial asymmetry noted. Extremities slightly hypotonic. Patient able to move all 4 extremities on command. PSYCH: This cannot be evaluated. Patient cannot participate. SKIN: No significant ecchymosis, rash, or signs of pruritus noted. MUSCULOSKELETAL EXAM: No significant joint swelling noted. Patient cannot participate in musculoskeletal exam Results Laboratory Results: 06/17/17 04:23 06/17/17 04:23 06/17/17 06/17/17 06/17/17 04:23 04:23 05:30 WBC 6.5 RBC 4.29 Hgb 10.6 L Hct 33.8 L MCV 79 L MCH 24.8 L MCHC 31.4 L RDW 19.8 H Plt Count 233 Seg Neutrophils % Not Reportable Lymphocytes % Not Reportable Monocytes % Not Reportable Eosinophils % Not Reportable Basophils % Not Reportable Absolute Neutrophils Not Reportable Absolute Lymphocytes Not Reportable Absolute Monocytes Not Reportable Absolute Eosinophils Not Reportable Absolute Basophils Not Reportable Carbonic Acid 1.69 H HCO3/H2CO3 Ratio 18:1 ABG pH 7.37 ABG pCO2 56.2 H ABG pO2 79.0 L ABG HCO3 31.5 H ABG O2 Saturation 95.1 ABG Base Excess 5.1 FiO2 35% Sodium 141.6 Potassium 4.7 Chloride 107 Carbon Dioxide 34 H Anion Gap 2 L BUN 25 H Creatinine 0.47 L Est GFR ( Amer) > 60 Est GFR (Non-Af Amer) > 60 Glucose 122 H Calcium 8.5 Magnesium 1.8 Total Bilirubin < 0.1 L AST 15 ALT 26 Alkaline Phosphatase 43 Total Protein 4.6 L Albumin 2.6 L 06/17/17 13:30 WBC RBC Hgb Hct MCV MCH MCHC RDW Plt Count Seg Neutrophils % Lymphocytes % Monocytes % Eosinophils % Basophils % Absolute Neutrophils Absolute Lymphocytes Absolute Monocytes Absolute Eosinophils Absolute Basophils Carbonic Acid 1.79 H HCO3/H2CO3 Ratio 16:1 ABG pH 7.32 L ABG pCO2 59.5 H ABG pO2 128.5 H ABG HCO3 30.2 H ABG O2 Saturation 98.3 H ABG Base Excess 2.8 FiO2 30% Sodium Potassium Chloride Carbon Dioxide Anion Gap BUN Creatinine Est GFR ( Amer) Est GFR (Non-Af Amer) Glucose Calcium Magnesium Total Bilirubin AST ALT Alkaline Phosphatase Total Protein Albumin 06/13/17 08:00 Tracheal Aspirate Gram Stain - Final 06/13/17 08:00 Tracheal Aspirate Sputum Culture - Final Streptococcus Pneumoniae Normal Kinsey 06/13/17 06/13/17 06/13/17 09:57 09:57 17:47 Creatine Kinase 115 85 CK-MB (CK-2) 5.04 H Troponin I 0.517 06/13/17 06/14/17 06/14/17 17:47 01:43 01:43 Creatine Kinase 72 CK-MB (CK-2) 4.61 H 3.26 Troponin I 0.332 0.235 EKG Comments: Telemetry shows sinus rhythm without any sustained tachycardia or bradycardia. Impressions: Chest/Abdomen CTA 06/12/17 18:09 IMPRESSION: No emboli visualized in the main pulmonary arteries or the segmental branches. The multiple new subcentimeter pulmonary nodules most notable in the left upper and right lower lobes.Similar hypodense 1.5 x 2.3 cm AP window enlarged lymph node. Chest X-Ray 06/17/17 06:00 IMPRESSION: No change from 06/16/2017 with left retrocardiac consolidation, trace bilateral pleural fluid and consolidation in the right upper lobe. Assessment & Plan - Diagnosis (1) Non-STEMI (non-ST elevated myocardial infarction) Is this a current diagnosis for this admission?: Yes (2) Elevated troponin I level Is this a current diagnosis for this admission?: Yes (3) Respiratory failure Qualifiers: Chronicity: acute on chronic Respiratory failure complication: hypoxia Qualified Code(s): J96.21 - Acute and chronic respiratory failure with hypoxia Is this a current diagnosis for this admission?: Yes (4) COPD (chronic obstructive pulmonary disease) Qualifiers: COPD type: emphysema Emphysema type: unspecified Qualified Code(s): J43.9 - Emphysema, unspecified Is this a current diagnosis for this admission?: Yes (5) Lung cancer Qualifiers: Laterality: unspecified laterality Lung location: unspecified part of lung Qualified Code(s): C34.90 - Malignant neoplasm of unspecified part of unspecified bronchus or lung Is this a current diagnosis for this admission?: Yes (6) Thrombocytopenia Is this a current diagnosis for this admission?: Yes - Notes Notes: Non-STEMI: 2D echocardiogram results reviewed. It shows apical and distal anterior wall hypokinesia. Patient has significant comorbid diagnosis therefore would recommend conservative management with antiplatelets if no contraindication, statins, beta-king, EMERITA inhibitor/angiotensin receptor blockers. Currently do not seem to be having any ongoing ischemia. Elevated troponin I: [place] to be related to non-STEMI. Respiratory failure: Multifactorial. Continue with ventilatory support and oxygen supplementation. COPD: Currently being adequately managed with credit charge authorizer on board. Lung cancer: Patient being followed by oncologist. Thrombocytopenia: Currently stable. Nursing Administrator oncologist following the patient. - Time Time with patient: Greater than 35 minutes - Patient has numerous multiple and severe medical issues. Will continue to follow patient. Patient remains full code. Patient's daughter is the surrogate decision-maker. Medications reviewed and adjusted accordingly: Yes
--- NOTE | 2017-06-18 09:40 | PDOC PROGRESS REPORT ---
Subjective Progress Note for:: 06/18/17 Subjective:: Extubated. Patient currently on oxygen supplementation. She is noted to be more stable. Currently off all vasopressors. She is more alert. Telemetry strips shows patient in sinus rhythm. 2D echocardiogram results reviewed. It showed apical and distal anterior wall hypokinesia. Medications reviewed. Reason For Visit: ACUTE RESPIRATORY FAILURE Physical Exam Vital Signs: Temp Pulse Resp BP Pulse Ox 98.4 F 99 19 108/86 H 100 06/18/17 00:00 06/18/17 08:00 06/18/17 08:00 06/18/17 06:29 06/18/17 08:00 Intake & Output 06/17/17 06/18/17 06/19/17 06:59 06:59 06:59 Intake Total 3197 2833 Output Total 1730 2360 Balance 1467 473 Weight 58 kg 57.3 kg Exam: GENERAL: well-nourished and in no acute distress. Alert and oriented x2 HEAD: Atraumatic, normocephalic. EYES: Pupils equal round and reactive to light, extraocular movements intact, sclera anicteric, conjunctiva are normal. ENT: TMs normal, nares patent, oropharynx clear without exudates. Moist mucous membranes. No oral ulcerations or bleeding gums noted NECK: supple without lymphadenopathy. Trachea is central. No cervical or axillary lymphadenopathy noted. Carotids are 2+, JVD WNL LUNGS: Respiration seems nonlabored, no significant accessory muscle action noted. Few bibasilar fine crackles and few scattered wheezes rales or rhonchi noted. No significant dullness noted on percussion. CHEST: Palpation of the chest wall shows no significant chest wall tenderness. No other significant abnormalities noted. 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 ABDOMEN: Soft, no significant tenderness appreciated, normoactive bowel sounds. No guarding, no rebound. No rigidity noted . No masses appreciated. EXTREMITIES: Pedal pulses are 1-2+, no calf tenderness noted. No clubbing or cyanosis. negative pedal edema noted NEUROLOGICAL: Focused neurological exam showed no significant neurologic deficit. Normal speech, no focal weakness appreciated. PSYCH: Normal mood, normal affect. Judgment and insight not checked today. SKIN: No significant ecchymosis, skin is noted to be warm. MUSCULOSKELETAL EXAM: No significant acute joint swelling noted. Results Laboratory Results: 06/18/17 04:34 06/18/17 04:34 06/17/17 06/18/17 06/18/17 13:30 04:34 04:34 WBC 6.5 RBC 4.82 Hgb 11.8 L Hct 37.7 MCV 78 L MCH 24.6 L MCHC 31.4 L RDW 20.5 H Plt Count 268 Seg Neutrophils % Not Reportable Lymphocytes % Not Reportable Monocytes % Not Reportable Eosinophils % Not Reportable Basophils % Not Reportable Absolute Neutrophils Not Reportable Absolute Lymphocytes Not Reportable Absolute Monocytes Not Reportable Absolute Eosinophils Not Reportable Absolute Basophils Not Reportable Carbonic Acid 1.79 H HCO3/H2CO3 Ratio 16:1 ABG pH 7.32 L ABG pCO2 59.5 H ABG pO2 128.5 H ABG HCO3 30.2 H ABG O2 Saturation 98.3 H ABG Base Excess 2.8 FiO2 30% Sodium 140.4 Potassium 4.9 Chloride 101 Carbon Dioxide 39 H Anion Gap 3 L BUN 19 Creatinine 0.42 L Est GFR ( Amer) > 60 Est GFR (Non-Af Amer) > 60 Glucose 107 Calcium 8.4 Phosphorus 4.3 06/18/17 05:05 WBC RBC Hgb Hct MCV MCH MCHC RDW Plt Count Seg Neutrophils % Lymphocytes % Monocytes % Eosinophils % Basophils % Absolute Neutrophils Absolute Lymphocytes Absolute Monocytes Absolute Eosinophils Absolute Basophils Carbonic Acid 1.76 H HCO3/H2CO3 Ratio 18:1 ABG pH 7.37 ABG pCO2 58.4 H ABG pO2 132.7 H ABG HCO3 33.0 H ABG O2 Saturation 98.5 H ABG Base Excess 6.2 FiO2 40% Sodium Potassium Chloride Carbon Dioxide Anion Gap BUN Creatinine Est GFR ( Amer) Est GFR (Non-Af Amer) Glucose Calcium Phosphorus 06/12/17 22:00 Blood Blood Culture - Final NO GROWTH IN 5 DAYS 06/13/17 08:00 Tracheal Aspirate Gram Stain - Final 06/13/17 08:00 Tracheal Aspirate Sputum Culture - Final Streptococcus Pneumoniae Normal Kinsey 06/13/17 06/13/17 06/13/17 09:57 09:57 17:47 Creatine Kinase 115 85 CK-MB (CK-2) 5.04 H Troponin I 0.517 06/13/17 06/14/17 06/14/17 17:47 01:43 01:43 Creatine Kinase 72 CK-MB (CK-2) 4.61 H 3.26 Troponin I 0.332 0.235 EKG Comments: Telemetry shows sinus rhythm without any sustained tachycardia or bradycardia. Occasional APCs and VPCs are noted. Impressions: Chest/Abdomen CTA 06/12/17 18:09 IMPRESSION: No emboli visualized in the main pulmonary arteries or the segmental branches. The multiple new subcentimeter pulmonary nodules most notable in the left upper and right lower lobes.Similar hypodense 1.5 x 2.3 cm AP window enlarged lymph node. Chest X-Ray 06/18/17 06:00 IMPRESSION: Interval extubation. Else, no significant change. Assessment & Plan - Diagnosis (1) Non-STEMI (non-ST elevated myocardial infarction) Is this a current diagnosis for this admission?: Yes (2) Elevated troponin I level Is this a current diagnosis for this admission?: Yes (3) Respiratory failure Qualifiers: Chronicity: acute on chronic Respiratory failure complication: hypoxia Qualified Code(s): J96.21 - Acute and chronic respiratory failure with hypoxia Is this a current diagnosis for this admission?: Yes (4) COPD (chronic obstructive pulmonary disease) Qualifiers: COPD type: emphysema Emphysema type: unspecified Qualified Code(s): J43.9 - Emphysema, unspecified Is this a current diagnosis for this admission?: Yes (5) Lung cancer Qualifiers: Laterality: unspecified laterality Lung location: unspecified part of lung Qualified Code(s): C34.90 - Malignant neoplasm of unspecified part of unspecified bronchus or lung Is this a current diagnosis for this admission?: Yes (6) Thrombocytopenia Is this a current diagnosis for this admission?: Yes - Notes Notes: Patient has progressed well. Due to significant comorbid diagnosis, my inclination would be to maximize medical therapy for underlying presumed CAD. Will discuss with oncologist. Non-STEMI: 2D echocardiogram results reviewed. It shows apical and distal anterior wall hypokinesia. Patient has significant comorbid diagnosis therefore would recommend conservative management with antiplatelets if no contraindication, statins, beta-king, EMERITA inhibitor/angiotensin receptor blockers. Currently do not seem to be having any ongoing ischemia. Elevated troponin I: [place] to be related to non-STEMI. Respiratory failure: Multifactorial. Continue with ventilatory support and oxygen supplementation. COPD: Currently being adequately managed with color checker roving or yarn on board. Lung cancer: Patient being followed by oncologist. Thrombocytopenia: Currently stable. Panel Saw Operator oncologist following the patient. - Time Time with patient: Greater than 35 minutes - More than 50% of the time spent coordinating care, discussing management plans with involved caregivers. Management plans discussed with involved personnels. Medical decision making was of moderate to high complexity, patient's has multiple comorbidities. Patient's daughter is the surrogate decision-maker Medications reviewed and adjusted accordingly: Yes
[2017-06-18] MEDS: ENOXAPARIN SODIUM INJ 40 MG/0.4 ML DISP.SYRIN SUBCUT SCH (09:47)
[2017-06-18] MEDS: SENNOSIDES/DOCUSATE 8.6-50 MG 1 EACH TABLET PO SCH (09:48)
[2017-06-18] MEDS: METHYLPREDNISOLONE INJ 125 MG/2 ML SDV IV SCH ×2 (09:49→21:05)
[2017-06-18] MEDS: LORAZEPAM 1 MG TABLET PO PRN ×2 (11:06→21:04)
[2017-06-18] MEDS: OXYCODONE HCL IR 5 MG TABLET PO PRN ×2 (17:14→21:05)
--- NOTE | 2017-06-18 18:29 | PDOC PROGRESS REPORT ---
Subjective Progress Note for:: 06/18/17 Subjective:: Doing better today. Does not like how BiPAP mask fits on face - causes discomfort. Otherwise doing much better from respiratory standpoint. Denies fevers, chills, CP. Minimal pain. Will transfer out of ICU today.. Reason For Visit: ACUTE RESPIRATORY FAILURE Physical Exam Vital Signs: Temp Pulse Resp BP Pulse Ox 98.8 F 85 19 123/82 96 06/18/17 16:00 06/18/17 16:00 06/18/17 18:00 06/18/17 17:29 06/18/17 18:00 Intake & Output 06/17/17 06/18/17 06/19/17 06:59 06:59 06:59 Intake Total 3197 2833 10 Output Total 1730 2360 625 Balance 1467 473 -615 Weight 58 kg 57.3 kg General appearance: PRESENT: no acute distress, thin, other - BiPAP in place Head exam: PRESENT: normocephalic Mouth exam: PRESENT: moist Respiratory exam: PRESENT: rhonchi, unlabored. ABSENT: tachypnea Cardiovascular exam: PRESENT: +S1, +S2. ABSENT: systolic murmur, tachycardia GI/Abdominal exam: PRESENT: soft. ABSENT: tenderness Extremities exam: PRESENT: pedal edema Musculoskeletal exam: PRESENT: full ROM Neurological exam: PRESENT: alert, awake, CN II-XII grossly intact Psychiatric exam: PRESENT: appropriate affect Results Laboratory Results: 06/18/17 04:34 06/18/17 04:34 06/18/17 06/18/17 06/18/17 04:34 04:34 05:05 WBC 6.5 RBC 4.82 Hgb 11.8 L Hct 37.7 MCV 78 L MCH 24.6 L MCHC 31.4 L RDW 20.5 H Plt Count 268 Seg Neutrophils % Not Reportable Lymphocytes % Not Reportable Monocytes % Not Reportable Eosinophils % Not Reportable Basophils % Not Reportable Absolute Neutrophils Not Reportable Absolute Lymphocytes Not Reportable Absolute Monocytes Not Reportable Absolute Eosinophils Not Reportable Absolute Basophils Not Reportable Carbonic Acid 1.76 H HCO3/H2CO3 Ratio 18:1 ABG pH 7.37 ABG pCO2 58.4 H ABG pO2 132.7 H ABG HCO3 33.0 H ABG O2 Saturation 98.5 H ABG Base Excess 6.2 FiO2 40% Sodium 140.4 Potassium 4.9 Chloride 101 Carbon Dioxide 39 H Anion Gap 3 L BUN 19 Creatinine 0.42 L Est GFR ( Amer) > 60 Est GFR (Non-Af Amer) > 60 Glucose 107 Calcium 8.4 Phosphorus 4.3 06/12/17 22:00 Blood Blood Culture - Final NO GROWTH IN 5 DAYS 06/13/17 06/13/17 06/13/17 09:57 09:57 17:47 Creatine Kinase 115 85 CK-MB (CK-2) 5.04 H Troponin I 0.517 06/13/17 06/14/17 06/14/17 17:47 01:43 01:43 Creatine Kinase 72 CK-MB (CK-2) 4.61 H 3.26 Troponin I 0.332 0.235 Impressions: Chest/Abdomen CTA 06/12/17 18:09 IMPRESSION: No emboli visualized in the main pulmonary arteries or the segmental branches. The multiple new subcentimeter pulmonary nodules most notable in the left upper and right lower lobes.Similar hypodense 1.5 x 2.3 cm AP window enlarged lymph node. Chest X-Ray 06/18/17 06:00 IMPRESSION: Interval extubation. Else, no significant change. Assessment & Plan - Diagnosis (1) Acute respiratory failure Qualifiers: Respiratory failure complication: hypoxia and hypercapnia Qualified Code(s) : J96.01 - Acute respiratory failure with hypoxia; J96.02 - Acute respiratory failure with hypercapnia; J96.02 - Acute respiratory failure with hypercapnia; J96.02 - Acute respiratory failure with hypercapnia Is this a current diagnosis for this admission?: Yes Plan: Secondary to streptococcal pneumoniae pneumonia (sputum culture). Extubated on , on BiPAP today - Blood cultures NGTD - Continue Levaquin --> transition to orals on 06/19 - On IV Methylpred --> transition to orals on 06/19 - Wean off BiPAP as tolerated, goal O2 sat >88% - Tessalon perles PRN - Ordered Oxycodone 5mg q4 hours PRN pain and Ativan 1mg PO q4 hours anxiety -Transfer to IMCU today (2) Lung cancer Qualifiers: Laterality: unspecified laterality Lung location: unspecified part of lung Qualified Code(s): C34.90 - Malignant neoplasm of unspecified part of unspecified bronchus or lung Is this a current diagnosis for this admission?: Yes Plan: No active treatment currently - Can obtained re-staging CT scans prior to discharge when clinically improved - D/w Dr. Garcia (3) Sepsis Qualifiers: Sepsis type: sepsis due to unspecified organism Qualified Code(s): A41.9 - Sepsis, unspecified organism Is this a current diagnosis for this admission?: Yes Plan: Improved/resolved. See above (4) Thrombocytopenia Is this a current diagnosis for this admission?: Yes Plan: Improved on Nplate, was 268K on 06/18 ; next due on Saturday - Continue Lovenix if PLT >50 - Dr Garcia following - Time Time Spent with patient: 15-24 minutes Anticipated discharge: Home with Homehealth Within: within 48 hours
[2017-06-18] MEDS: LEVOFLOXACIN 750 MG/D5W RTU 750 MG/150 ML RTUPB IV SCH (21:05)
[2017-06-19] MEDS: IPRATROPIUM/ALBUTEROL 0.5-2.5 MG/3 ML AMPUL NEB SCH ×4 (01:33→20:17)
[2017-06-19 06:03] LABS: HEMATOCRIT 38.5 % (36.0-47.0); MEAN CORPUSCULAR HEMOGLOBIN 24.5 pg (27.0-33.4); MEAN CORPUSCULAR HGB CONC 31.2 g/dL (32.0-36.0); MEAN CORPUSCULAR VOLUME 79 fl (80-97); PLATELET COUNT 266 10^3/uL (150-450); WHITE BLOOD COUNT 6.3 10^3/uL (4.0-10.5)
[2017-06-19] MEDS: OXYCODONE HCL IR 5 MG TABLET PO PRN (06:14)
[2017-06-19] MEDS: BENZONATATE 100 MG CAPSULE PO SCH ×3 (06:15→21:20)
[2017-06-19 06:21] LABS: ARTERIAL BLOOD BASE EXCESS 7.5 mmol/L; ARTERIAL BLOOD H2CO3 1.78 mmol/L (1.05-1.35); ARTERIAL BLOOD HCO3 34.3 mmol/L (20-26); ARTERIAL BLOOD O2 SATURATION 95.7 % (94-98); ARTERIAL BLOOD PCO2 59.2 mmHg (35-45); ARTERIAL BLOOD PH 7.38 (7.35-7.45); ARTERIAL BLOOD PO2 82.2 mmHg (80-100); ARTERIAL BLOOD TOTAL CO2 36.1 mmol/L (21-25)
[2017-06-19 06:28] LABS: ABSOLUTE LYMPHOCYTES# (MANUAL) 0.7 10^3/uL (0.5-4.7); ABSOLUTE MONOCYTES # (MANUAL) 0.4 10^3/uL (0.1-1.4); ABSOLUTE NEUTROPHILS# (MANUAL) 5.2 10^3/uL (1.7-8.2); BASOPHILS % (MANUAL) 0 % (0-2); EOSINOPHILS % (MANUAL) 0 % (0-6); LYMPHOCYTES % (MANUAL) 10 % (13-45); MONOCYTES % (MANUAL) 7 % (3-13); SEGMENTED NEUTROPHILS % (MAN) 82 % (42-78); TOTAL CELLS COUNTED 100
[2017-06-19 06:30] LABS: ALANINE AMINOTRANSFERASE 21 U/L (9-52); ALBUMIN 2.8 g/dL (3.5-5.0); ALKALINE PHOSPHATASE 46 U/L (38-126); ANISOCYTOSIS 2+; ASPARTATE AMINO TRANSFERASE 27 U/L (14-36); BILIRUBIN,DIRECT 0.2 mg/dL (0.0-0.4); BILIRUBIN,TOTAL 0.2 mg/dL (0.2-1.3); BLOOD UREA NITROGEN 23 mg/dL (7-20); CALCIUM 8.6 mg/dL (8.4-10.2); GLUCOSE 106 mg/dL (75-110); HYPERSEGMENTED NEUTROPHILS PRESENT; OVALOCYTES SLIGHT; PLATELET COMMENT ADEQUATE; POIKILOCYTOSIS SLIGHT; POTASSIUM 4.7 mmol/L (3.6-5.0); TARGET CELLS SLIGHT
--- NOTE | 2017-06-19 06:33 | RADIOLOGY REPORT (SQ) ---
EXAM DESCRIPTION: CHEST SINGLE VIEW CLINICAL HISTORY: 61 years Female, pna/copd/lung cancer COMPARISON: 4.. NUMBER OF VIEWS/TECHNIQUE: 1/AP LIMITATIONS: None. FINDINGS: Mixed small airspace and moderate interstitial markings, small bibasilar opacity-effusion, normal cardiac silhouette, right jugular central line tip at the cavoatrial junction. No pneumothorax. No acute bone defect. IMPRESSION: No significant change.
[2017-06-19 06:35] LABS: ARTERIAL BLOOD FIO2 30
[2017-06-19 06:35] LABS: CARBON DIOXIDE 39 mmol/L (22-30); CHLORIDE 97 mmol/L (98-107); SODIUM 139.9 mmol/L (137-145)
[2017-06-19 06:38] LABS: ANION GAP 4 (5-19)
[2017-06-19] MEDS: SENNOSIDES/DOCUSATE 8.6-50 MG 1 EACH TABLET PO SCH (09:56)
[2017-06-19] MEDS: PREDNISONE 20 MG TABLET PO SCH ×2 (09:56→21:20)
[2017-06-19] MEDS: LORAZEPAM 1 MG TABLET PO PRN ×2 (09:56→15:56)
[2017-06-19] MEDS: ENOXAPARIN SODIUM INJ 40 MG/0.4 ML DISP.SYRIN SUBCUT SCH (09:56)
--- NOTE | 2017-06-19 14:08 | PDOC PROGRESS REPORT ---
Subjective Progress Note for:: 06/19/17 Subjective:: Feels slowly continued to improve. Does not like BiPAP --causes discomfort-- but she wore it overnight. Also using during the day as needed. No chest pain or shortness of breath or palpitations. Denies fever or chills. Reason For Visit: ACUTE RESPIRATORY FAILURE Physical Exam Vital Signs: Temp Pulse Resp BP Pulse Ox 98.1 F 74 12 98/65 L 92 06/19/17 12:00 06/19/17 12:00 06/19/17 12:00 06/19/17 12:00 06/19/17 12:00 Intake & Output 06/18/17 06/19/17 06/20/17 06:59 06:59 06:59 Intake Total 2833 874 Output Total 4665 5289 285 Balance 862 -186 375 Weight 57.3 kg 55.5 kg GEN: NAD, well-developed, well-nourished CV: RRR, NL S1S2 LUNGS: Diffuse rhonchi bilaterally ABDOMEN Soft, NT, +BS EXTERMITIES: No e/c/c NEURO: Alert, oriented 3, no acute weakness Results Laboratory Results: 06/19/17 05:33 06/19/17 05:33 06/19/17 06/19/17 06/19/17 05:33 05:33 06:05 WBC 6.3 RBC 4.90 Hgb 12.0 Hct 38.5 MCV 79 L MCH 24.5 L MCHC 31.2 L RDW 20.0 H Plt Count 266 Seg Neutrophils % Not Reportable Lymphocytes % Not Reportable Monocytes % Not Reportable Eosinophils % Not Reportable Basophils % Not Reportable Absolute Neutrophils Not Reportable Absolute Lymphocytes Not Reportable Absolute Monocytes Not Reportable Absolute Eosinophils Not Reportable Absolute Basophils Not Reportable Carbonic Acid 1.78 H HCO3/H2CO3 Ratio 19:1 ABG pH 7.38 ABG pCO2 59.2 H ABG pO2 82.2 ABG HCO3 34.3 H ABG O2 Saturation 95.7 ABG Base Excess 7.5 FiO2 30 Sodium 139.9 Potassium 4.7 Chloride 97 L Carbon Dioxide 39 H Anion Gap 4 L BUN 23 H Creatinine 0.47 L Est GFR ( Amer) > 60 Est GFR (Non-Af Amer) > 60 Glucose 106 Calcium 8.6 Magnesium 1.8 Total Bilirubin 0.2 AST 27 ALT 21 Alkaline Phosphatase 46 Total Protein 5.0 L Albumin 2.8 L 06/13/17 06/13/17 06/13/17 09:57 09:57 17:47 Creatine Kinase 115 85 CK-MB (CK-2) 5.04 H Troponin I 0.517 06/13/17 06/14/17 06/14/17 17:47 01:43 01:43 Creatine Kinase 72 CK-MB (CK-2) 4.61 H 3.26 Troponin I 0.332 0.235 Impressions: Chest/Abdomen CTA 06/12/17 18:09 IMPRESSION: No emboli visualized in the main pulmonary arteries or the segmental branches. The multiple new subcentimeter pulmonary nodules most notable in the left upper and right lower lobes.Similar hypodense 1.5 x 2.3 cm AP window enlarged lymph node. Chest X-Ray 06/19/17 06:00 IMPRESSION: No significant change. Assessment & Plan - Plan Summary Plan Summary: (1) Acute respiratory failure Qualifiers: Respiratory failure complication: hypoxia and hypercapnia Qualified Code(s) : J96.01 - Acute respiratory failure with hypoxia; J96.02 - Acute respiratory failure with hypercapnia; J96.02 - Acute respiratory failure with hypercapnia; J96.02 - Acute respiratory failure with hypercapnia Is this a current diagnosis for this admission?: Yes Plan: Secondary to streptococcal pneumoniae pneumonia (sputum culture). Extubated on , on BiPAP today - Blood cultures NGTD - Continue Levaquin --now on oral -Continue prednisone. Will increase to 40 mg twice daily from 20 twice daily and still with significant pulmonary findings. - Wean off BiPAP as tolerated, goal O2 sat >88% - Tessalon perles PRN -Continue oxycodone 5mg q4 hours PRN pain and Ativan 1mg PO q4 hours anxiety (2) Lung cancer Qualifiers: Laterality: unspecified laterality Lung location: unspecified part of lung Qualified Code(s): C34.90 - Malignant neoplasm of unspecified part of unspecified bronchus or lung Is this a current diagnosis for this admission?: Yes Plan: No active treatment currently - Can obtained re-staging CT scans prior to discharge when clinically improved - Dr. Garcia aware (3) Sepsis Qualifiers: Sepsis type: sepsis due to unspecified organism Qualified Code(s): A41.9 - Sepsis, unspecified organism Is this a current diagnosis for this admission?: Yes Plan: Improved/resolved. See above (4) Thrombocytopenia Is this a current diagnosis for this admission?: Yes Plan: Improved on Nplate, was 268K on 06/18 ; next due on Saturday - Continue Lovenix if PLT >50 - Dr Garcia following
[2017-06-19] MEDS: LEVOFLOXACIN 750 MG TABLET PO SCH (21:20)
[2017-06-20] MEDS: IPRATROPIUM/ALBUTEROL 0.5-2.5 MG/3 ML AMPUL NEB SCH ×4 (01:26→20:38)
[2017-06-20] MEDS: OXYCODONE HCL IR 5 MG TABLET PO PRN ×2 (05:15→21:56)
[2017-06-20] MEDS: BENZONATATE 100 MG CAPSULE PO SCH ×3 (05:15→21:56)
[2017-06-20 06:31] LABS: ARTERIAL BLOOD BASE EXCESS 9.7 mmol/L; ARTERIAL BLOOD H2CO3 1.83 mmol/L (1.05-1.35); ARTERIAL BLOOD HCO3 36.6 mmol/L (20-26); ARTERIAL BLOOD O2 SATURATION 96.7 % (94-98); ARTERIAL BLOOD PCO2 60.7 mmHg (35-45); ARTERIAL BLOOD PO2 90.8 mmHg (80-100); ARTERIAL BLOOD TOTAL CO2 38.5 mmol/L (21-25)
[2017-06-20 06:33] LABS: ARTERIAL BLOOD FIO2 4L
[2017-06-20 06:42] LABS: HEMATOCRIT 38.1 % (36.0-47.0); HEMOGLOBIN 11.8 g/dL (12.0-15.5); MEAN CORPUSCULAR HEMOGLOBIN 24.5 pg (27.0-33.4); MEAN CORPUSCULAR HGB CONC 30.9 g/dL (32.0-36.0); MEAN CORPUSCULAR VOLUME 79 fl (80-97); PLATELET COUNT 305 10^3/uL (150-450); WHITE BLOOD COUNT 6.2 10^3/uL (4.0-10.5)
[2017-06-20 07:15] LABS: ALANINE AMINOTRANSFERASE 32 U/L (9-52); ALBUMIN 2.7 g/dL (3.5-5.0); ALKALINE PHOSPHATASE 50 U/L (38-126); ASPARTATE AMINO TRANSFERASE 20 U/L (14-36); BILIRUBIN,DIRECT 0.1 mg/dL (0.0-0.4); BILIRUBIN,TOTAL 0.2 mg/dL (0.2-1.3); BLOOD UREA NITROGEN 17 mg/dL (7-20); CALCIUM 8.6 mg/dL (8.4-10.2); CARBON DIOXIDE 39 mmol/L (22-30); CHLORIDE 97 mmol/L (98-107); GLUCOSE 99 mg/dL (75-110); POTASSIUM 4.7 mmol/L (3.6-5.0); SODIUM 139.7 mmol/L (137-145); TOTAL PROTEIN 4.6 g/dL (6.3-8.2)
[2017-06-20 07:26] LABS: ANION GAP 4 (5-19)
[2017-06-20 07:52] LABS: ABSOLUTE LYMPHOCYTES# (MANUAL) 0.7 10^3/uL (0.5-4.7); ABSOLUTE MONOCYTES # (MANUAL) 0.5 10^3/uL (0.1-1.4); ABSOLUTE NEUTROPHILS# (MANUAL) 4.9 10^3/uL (1.7-8.2); BASOPHILS % (MANUAL) 0 % (0-2); EOSINOPHILS % (MANUAL) 1 % (0-6); LYMPHOCYTES % (MANUAL) 12 % (13-45); METAMYELOCYTES % (MANUAL) 1 % (0); MONOCYTES % (MANUAL) 8 % (3-13); SEGMENTED NEUTROPHILS % (MAN) 77 % (42-78); TOTAL CELLS COUNTED 100
[2017-06-20 07:53] LABS: OVALOCYTES SLIGHT; POIKILOCYTOSIS SLIGHT; TOXIC GRANULATION SLIGHT
[2017-06-20 07:54] LABS: PLATELET COMMENT ADEQUATE
[2017-06-20 07:56] LABS: MYELOCYTES % (MANUAL) 1 % (0)
--- NOTE | 2017-06-20 08:24 | PDOC PROGRESS REPORT ---
Subjective Progress Note for:: 06/20/17 Subjective:: Feeling a little better this am Reason For Visit: ACUTE RESPIRATORY FAILURE Physical Exam Vital Signs: Temp Pulse Resp BP Pulse Ox 97.6 F 108 H 18 110/87 H 100 06/20/17 03:16 06/20/17 03:16 06/20/17 03:16 06/20/17 03:16 06/20/17 03:16 Intake & Output 06/19/17 06/20/17 06/21/17 06:59 06:59 06:59 Intake Total 874 420 Output Total 1400 1950 Balance -526 -1530 Weight 55.5 kg 54.6 kg General appearance: PRESENT: no acute distress, well-developed, well-nourished Head exam: PRESENT: atraumatic, normocephalic Eye exam: PRESENT: conjunctiva pink, EOMI, PERRLA. ABSENT: scleral icterus Ear exam: PRESENT: normal external ear exam Mouth exam: PRESENT: moist, tongue midline Neck exam: ABSENT: carotid bruit, JVD, lymphadenopathy, thyromegaly Respiratory exam: PRESENT: clear to auscultation esdras. ABSENT: rales, rhonchi, wheezes Cardiovascular exam: PRESENT: RRR. ABSENT: diastolic murmur, rubs, systolic murmur Pulses: PRESENT: normal dorsalis pedis pul Vascular exam: PRESENT: normal capillary refill GI/Abdominal exam: PRESENT: normal bowel sounds, soft. ABSENT: distended, guarding, mass, organolmegaly, rebound, tenderness Rectal exam: PRESENT: deferred Extremities exam: PRESENT: full ROM. ABSENT: calf tenderness, clubbing, pedal edema Neurological exam: PRESENT: alert, awake, oriented to person, oriented to place , oriented to time, oriented to situation, CN II-XII grossly intact. ABSENT: motor sensory deficit Psychiatric exam: PRESENT: appropriate affect, normal mood. ABSENT: homicidal ideation, suicidal ideation Skin exam: PRESENT: dry, intact, warm. ABSENT: cyanosis, rash Results Laboratory Results: 06/20/17 06:20 06/20/17 06:20 06/20/17 06/20/17 06/20/17 06:14 06:20 06:20 WBC 6.2 RBC 4.80 Hgb 11.8 L Hct 38.1 MCV 79 L MCH 24.5 L MCHC 30.9 L RDW 20.0 H Plt Count 305 Seg Neutrophils % Not Reportable Lymphocytes % Not Reportable Monocytes % Not Reportable Eosinophils % Not Reportable Basophils % Not Reportable Absolute Neutrophils Not Reportable Absolute Lymphocytes Not Reportable Absolute Monocytes Not Reportable Absolute Eosinophils Not Reportable Absolute Basophils Not Reportable Carbonic Acid 1.83 H HCO3/H2CO3 Ratio 20:1 ABG pH 7.40 ABG pCO2 60.7 H ABG pO2 90.8 ABG HCO3 36.6 H ABG O2 Saturation 96.7 ABG Base Excess 9.7 FiO2 4L Sodium 139.7 Potassium 4.7 Chloride 97 L Carbon Dioxide 39 H Anion Gap 4 L BUN 17 Creatinine 0.43 L Est GFR ( Amer) > 60 Est GFR (Non-Af Amer) > 60 Glucose 99 Calcium 8.6 Magnesium 1.7 Total Bilirubin 0.2 AST 20 ALT 32 Alkaline Phosphatase 50 Total Protein 4.6 L Albumin 2.7 L 06/13/17 06/13/17 06/13/17 09:57 09:57 17:47 Creatine Kinase 115 85 CK-MB (CK-2) 5.04 H Troponin I 0.517 06/13/17 06/14/17 06/14/17 17:47 01:43 01:43 Creatine Kinase 72 CK-MB (CK-2) 4.61 H 3.26 Troponin I 0.332 0.235 Impressions: Chest/Abdomen CTA 06/12/17 18:09 IMPRESSION: No emboli visualized in the main pulmonary arteries or the segmental branches. The multiple new subcentimeter pulmonary nodules most notable in the left upper and right lower lobes.Similar hypodense 1.5 x 2.3 cm AP window enlarged lymph node. Chest X-Ray 06/19/17 06:00 IMPRESSION: No significant change. Assessment & Plan - Diagnosis (1) Lung cancer Qualifiers: Laterality: unspecified laterality Lung location: unspecified part of lung Qualified Code(s): C34.90 - Malignant neoplasm of unspecified part of unspecified bronchus or lung Is this a current diagnosis for this admission?: Yes Plan: Would hold on any imaging for now, she just had CT chest done 06/12/17 indicating some new pulm nodules but given other medical issues ongoing, she wouldn't be candidate for any intervention now. Will image as outpt. (2) Thrombocytopenia Is this a current diagnosis for this admission?: Yes Plan: Plt ct stable today, con't NPLATE weekly. She needs to have this medication on schedule, if she misses even 1 dose she drops precipitiously.
--- NOTE | 2017-06-20 09:04 | RADIOLOGY REPORT (SQ) ---
EXAM DESCRIPTION: CHEST SINGLE VIEW COMPLETED DATE/TIME: 06/20/2017 8:53 am REASON FOR STUDY: pna/copd/lung cancer COMPARISON: CTA chest 06/12/2017 Multiple chest films since 06/12/2017, most recently 06/19/2017 EXAM PARAMETERS: NUMBER OF VIEWS: One view. TECHNIQUE: Single frontal radiographic view of the chest acquired. RADIATION DOSE: NA LIMITATIONS: None. FINDINGS: LUNGS AND PLEURA: There is trace persistent airspace disease or fluid along the left later al costophrenic sulcus. Otherwise, the appearance of the lungs is similar compared to previous exams, with chronic opacities in the bilateral upper lobes and lateral right lung base. Underlying obstructive disease. No pneumo thorax. MEDIASTINUM AND HILAR STRUCTURES: No masses. Contour normal. HEART AND VASCULAR STRUCTURES: Heart normal in size. Normal vasculature. BONES: Osteoporotic HARDWARE: Right permanent central line tip superior vena cava OTHER: No other significant finding. IMPRESSION: Trace persistent airspace disease or fluid along the left lateral costophrenic sulcus. TECHNICAL DOCUMENTATION: JOB ID: [id number] [employer]- All Rights Reserved Reading location - IP/workstation name: [facility]
[2017-06-20] MEDS: PREDNISONE 20 MG TABLET PO SCH ×2 (10:54→21:57)
[2017-06-20] MEDS: ENOXAPARIN SODIUM INJ 40 MG/0.4 ML DISP.SYRIN SUBCUT SCH (10:54)
[2017-06-20] MEDS: SENNOSIDES/DOCUSATE 8.6-50 MG 1 EACH TABLET PO SCH (10:55)
--- NOTE | 2017-06-20 11:59 | PDOC PROGRESS REPORT ---
Subjective Progress Note for:: 06/20/17 Subjective:: Extubated. Patient currently on oxygen supplementation. She is noted to be more stable. Currently off all vasopressors. She is more alert. Telemetry strips shows patient in sinus rhythm. 2D echocardiogram results reviewed. It showed apical and distal anterior wall hypokinesia. Medications reviewed. Reason For Visit: ACUTE RESPIRATORY FAILURE Physical Exam Vital Signs: Temp Pulse Resp BP Pulse Ox 97.6 F 84 16 110/87 H 96 06/20/17 03:16 06/20/17 08:47 06/20/17 08:47 06/20/17 03:16 06/20/17 08:47 Intake & Output 06/19/17 06/20/17 06/21/17 06:59 06:59 06:59 Intake Total 874 420 Output Total 1400 1950 Balance -526 -1530 Weight 55.5 kg 54.6 kg Exam: GENERAL: well-nourished and in no acute distress. Alert and oriented x2 HEAD: Atraumatic, normocephalic. EYES: Pupils equal round and reactive to light, extraocular movements intact, sclera anicteric, conjunctiva are normal. ENT: TMs normal, nares patent, oropharynx clear without exudates. Moist mucous membranes. No oral ulcerations or bleeding gums noted NECK: supple without lymphadenopathy. Trachea is central. No cervical or axillary lymphadenopathy noted. Carotids are 2+, JVD WNL LUNGS: Respiration seems nonlabored, no significant accessory muscle action noted. Bilateral scattered wheezes rales or rhonchi noted. No significant dullness noted on percussion. CHEST: Palpation of the chest wall shows no significant chest wall tenderness. No other significant abnormalities noted. 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 ABDOMEN: Soft, no significant tenderness appreciated, normoactive bowel sounds. No guarding, no rebound. No rigidity noted . No masses appreciated. EXTREMITIES: Pedal pulses are 1-2+, no calf tenderness noted. No clubbing or cyanosis. Trace pedal edema noted NEUROLOGICAL: Focused neurological exam showed no significant neurologic deficit. Normal speech, no focal weakness appreciated. Generalized weakness noted. PSYCH: Normal mood, normal affect. Judgment and insight not checked. SKIN: No significant ecchymosis, skin is noted to be warm. MUSCULOSKELETAL EXAM: No significant acute joint swelling noted. Results Laboratory Results: 06/20/17 06:20 06/20/17 06:20 06/20/17 06/20/17 06/20/17 06:14 06:20 06:20 WBC 6.2 RBC 4.80 Hgb 11.8 L Hct 38.1 MCV 79 L MCH 24.5 L MCHC 30.9 L RDW 20.0 H Plt Count 305 Seg Neutrophils % Not Reportable Lymphocytes % Not Reportable Monocytes % Not Reportable Eosinophils % Not Reportable Basophils % Not Reportable Absolute Neutrophils Not Reportable Absolute Lymphocytes Not Reportable Absolute Monocytes Not Reportable Absolute Eosinophils Not Reportable Absolute Basophils Not Reportable Carbonic Acid 1.83 H HCO3/H2CO3 Ratio 20:1 ABG pH 7.40 ABG pCO2 60.7 H ABG pO2 90.8 ABG HCO3 36.6 H ABG O2 Saturation 96.7 ABG Base Excess 9.7 FiO2 4L Sodium 139.7 Potassium 4.7 Chloride 97 L Carbon Dioxide 39 H Anion Gap 4 L BUN 17 Creatinine 0.43 L Est GFR ( Amer) > 60 Est GFR (Non-Af Amer) > 60 Glucose 99 Calcium 8.6 Magnesium 1.7 Total Bilirubin 0.2 AST 20 ALT 32 Alkaline Phosphatase 50 Total Protein 4.6 L Albumin 2.7 L 06/13/17 06/13/17 06/13/17 09:57 09:57 17:47 Creatine Kinase 115 85 CK-MB (CK-2) 5.04 H Troponin I 0.517 06/13/17 06/14/17 06/14/17 17:47 01:43 01:43 Creatine Kinase 72 CK-MB (CK-2) 4.61 H 3.26 Troponin I 0.332 0.235 EKG Comments: Telemetry shows sinus rhythm without any sustained tachycardia or bradycardia. Impressions: Chest/Abdomen CTA 06/12/17 18:09 IMPRESSION: No emboli visualized in the main pulmonary arteries or the segmental branches. The multiple new subcentimeter pulmonary nodules most notable in the left upper and right lower lobes.Similar hypodense 1.5 x 2.3 cm AP window enlarged lymph node. Chest X-Ray 06/20/17 06:00 IMPRESSION: Trace persistent airspace disease or fluid along the left lateral costophrenic sulcus. Assessment & Plan - Diagnosis (1) Non-STEMI (non-ST elevated myocardial infarction) Is this a current diagnosis for this admission?: Yes (2) Elevated troponin I level Is this a current diagnosis for this admission?: Yes (3) Respiratory failure Qualifiers: Chronicity: acute on chronic Respiratory failure complication: hypoxia Qualified Code(s): J96.21 - Acute and chronic respiratory failure with hypoxia Is this a current diagnosis for this admission?: Yes (4) COPD (chronic obstructive pulmonary disease) Qualifiers: COPD type: emphysema Emphysema type: unspecified Qualified Code(s): J43.9 - Emphysema, unspecified Is this a current diagnosis for this admission?: Yes (5) Lung cancer Qualifiers: Laterality: unspecified laterality Lung location: unspecified part of lung Qualified Code(s): C34.90 - Malignant neoplasm of unspecified part of unspecified bronchus or lung Is this a current diagnosis for this admission?: Yes (6) Thrombocytopenia Is this a current diagnosis for this admission?: Yes - Notes Notes: Patient noted to have improvement in her overall status clinically. Continue current management plans. Cardiac status stable without any angina or angina equivalent symptoms. Patient continues to show slow gradual improvement. Her respiratory status is significantly improved. Chest x-ray still shows significant pulmonary findings. Non-STEMI: 2D echocardiogram results reviewed. It shows apical and distal anterior wall hypokinesia. Patient has significant comorbid diagnosis therefore would recommend conservative management with antiplatelets if no contraindication, statins, beta-king, EMERITA inhibitor/angiotensin receptor blockers. Currently do not seem to be having any ongoing ischemia. Elevated troponin I: [place] to be related to non-STEMI. Related to supply demand mismatch and metabolic reasons rather than acute coronary syndrome Respiratory failure: Multifactorial. Continue with bronchodilator therapy, oxygen supplementation and intermittent noninvasive ventilatory support. COPD: Currently being adequately managed with senior network architect on board. Lung cancer: Patient being followed by oncologist. Thrombocytopenia: Currently stable. Entry Level Account Executive oncologist following the patient. - Time Time with patient: 15-25 minutes - CODE STATUS was discussed, patient remains full code. Surrogate decision-maker unchanged. Multiple medical problems were addressed. More than 50% of the time spent coordinating care, discussing management plans with involved caregivers. Management plans discussed with involved personnels. Medical decision making was of moderate to high complexity , patient's has multiple comorbidities. Medications reviewed and adjusted accordingly: Yes
[2017-06-20] MEDS: LORAZEPAM 1 MG TABLET PO PRN (15:37)
--- NOTE | 2017-06-20 17:59 | PDOC PROGRESS REPORT ---
Subjective Progress Note for:: 06/20/17 Subjective:: Feels continues to slowly improve. Used overnight. Also using during the day as needed. No chest pain or shortness of breath or palpitations. Denies fever or chills. Feels weak and would like to go to rehab. Reason For Visit: ACUTE RESPIRATORY FAILURE Physical Exam Vital Signs: Temp Pulse Resp BP Pulse Ox 97.6 F 80 16 110/77 97 06/20/17 12:12 06/20/17 14:12 06/20/17 14:12 06/20/17 12:12 06/20/17 16:10 Intake & Output 06/19/17 06/20/17 06/21/17 06:59 06:59 06:59 Intake Total 874 420 Output Total 1400 1950 Balance -526 -1530 Weight 55.5 kg 54.6 kg GEN: NAD, well-developed, well-nourished CV: RRR, NL S1S2 LUNGS: Diffuse rhonchi bilaterally ABDOMEN Soft, NT, +BS EXTERMITIES: No e/c/c NEURO: Alert, oriented 3, generalized weakness Results Laboratory Results: 06/20/17 06:20 06/20/17 06:20 06/20/17 06/20/17 06/20/17 06:14 06:20 06:20 WBC 6.2 RBC 4.80 Hgb 11.8 L Hct 38.1 MCV 79 L MCH 24.5 L MCHC 30.9 L RDW 20.0 H Plt Count 305 Seg Neutrophils % Not Reportable Lymphocytes % Not Reportable Monocytes % Not Reportable Eosinophils % Not Reportable Basophils % Not Reportable Absolute Neutrophils Not Reportable Absolute Lymphocytes Not Reportable Absolute Monocytes Not Reportable Absolute Eosinophils Not Reportable Absolute Basophils Not Reportable Carbonic Acid 1.83 H HCO3/H2CO3 Ratio 20:1 ABG pH 7.40 ABG pCO2 60.7 H ABG pO2 90.8 ABG HCO3 36.6 H ABG O2 Saturation 96.7 ABG Base Excess 9.7 FiO2 4L Sodium 139.7 Potassium 4.7 Chloride 97 L Carbon Dioxide 39 H Anion Gap 4 L BUN 17 Creatinine 0.43 L Est GFR ( Amer) > 60 Est GFR (Non-Af Amer) > 60 Glucose 99 Calcium 8.6 Magnesium 1.7 Total Bilirubin 0.2 AST 20 ALT 32 Alkaline Phosphatase 50 Total Protein 4.6 L Albumin 2.7 L 06/13/17 06/13/17 06/13/17 09:57 09:57 17:47 Creatine Kinase 115 85 CK-MB (CK-2) 5.04 H Troponin I 0.517 06/13/17 06/14/17 06/14/17 17:47 01:43 01:43 Creatine Kinase 72 CK-MB (CK-2) 4.61 H 3.26 Troponin I 0.332 0.235 Impressions: Chest/Abdomen CTA 06/12/17 18:09 IMPRESSION: No emboli visualized in the main pulmonary arteries or the segmental branches. The multiple new subcentimeter pulmonary nodules most notable in the left upper and right lower lobes.Similar hypodense 1.5 x 2.3 cm AP window enlarged lymph node. Chest X-Ray 06/20/17 06:00 IMPRESSION: Trace persistent airspace disease or fluid along the left lateral costophrenic sulcus. Assessment & Plan - Plan Summary Plan Summary: (1) Acute respiratory failure Qualifiers: Respiratory failure complication: hypoxia and hypercapnia Qualified Code(s) : J96.01 - Acute respiratory failure with hypoxia; J96.02 - Acute respiratory failure with hypercapnia; J96.02 - Acute respiratory failure with hypercapnia; J96.02 - Acute respiratory failure with hypercapnia Is this a current diagnosis for this admission?: Yes Plan: Secondary to streptococcal pneumoniae pneumonia (sputum culture). Extubated on , on BiPAP today - Blood cultures NGTD - Continue Levaquin --now on oral -Continue prednisone. Will increase to 40 mg twice daily from 20 twice daily and still with significant pulmonary findings. - Wean off BiPAP as tolerated, goal O2 sat >88% - Tessalon perles PRN -Continue oxycodone 5mg q4 hours PRN pain and Ativan 1mg PO q4 hours anxiety (2) Lung cancer Qualifiers: Laterality: unspecified laterality Lung location: unspecified part of lung Qualified Code(s): C34.90 - Malignant neoplasm of unspecified part of unspecified bronchus or lung Is this a current diagnosis for this admission?: Yes Plan: No active treatment currently -Staging CT as outpatient oncology. (3) Sepsis Qualifiers: Sepsis type: sepsis due to unspecified organism Qualified Code(s): A41.9 - Sepsis, unspecified organism Is this a current diagnosis for this admission?: Yes Plan: Improved/resolved. See above (4) Thrombocytopenia Is this a current diagnosis for this admission?: Yes Plan: Improved on Nplate, was 268K on 06/18 ; next due on Saturday -- Per Oncology, she needs to have this medication on schedule, if she misses even 1 dose she drops precipitiously. - Continue Lovenix if PLT >50 -Oncology service following PT/OT, discharge planer consult for senior care facility placement with rehab.
[2017-06-20] MEDS: FENTANYL 50 MCG/HR PATCH.TD72 TD SCH (21:57)
[2017-06-20] MEDS: LEVOFLOXACIN 750 MG TABLET PO SCH (21:58)
[2017-06-21] MEDS: IPRATROPIUM/ALBUTEROL 0.5-2.5 MG/3 ML AMPUL NEB SCH ×4 (02:15→20:17)
[2017-06-21] MEDS: BENZONATATE 100 MG CAPSULE PO SCH ×3 (06:21→22:18)
[2017-06-21] MEDS: OXYCODONE HCL IR 5 MG TABLET PO PRN (06:21)
[2017-06-21 06:25] LABS: HEMATOCRIT 38.9 % (36.0-47.0); HEMOGLOBIN 12.1 g/dL (12.0-15.5); MEAN CORPUSCULAR HEMOGLOBIN 24.5 pg (27.0-33.4); MEAN CORPUSCULAR VOLUME 79 fl (80-97); PLATELET COUNT 317 10^3/uL (150-450); RED BLOOD COUNT 4.91 10^6/uL (3.72-5.28); RED CELL DISTRIBUTION WIDTH 19.5 % (11.5-14.0); WHITE BLOOD COUNT 5.5 10^3/uL (4.0-10.5)
[2017-06-21 07:15] LABS: BASOPHILS % (MANUAL) 0 % (0-2); EOSINOPHILS % (MANUAL) 0 % (0-6)
[2017-06-21 07:16] LABS: ABSOLUTE LYMPHOCYTES# (MANUAL) 0.9 10^3/uL (0.5-4.7); ABSOLUTE MONOCYTES # (MANUAL) 0.4 10^3/uL (0.1-1.4); ABSOLUTE NEUTROPHILS# (MANUAL) 4.1 10^3/uL (1.7-8.2); LYMPHOCYTES % (MANUAL) 14 % (13-45); MONOCYTES % (MANUAL) 8 % (3-13); SEGMENTED NEUTROPHILS % (MAN) 75 % (42-78); TOTAL CELLS COUNTED 100
[2017-06-21 07:24] LABS: ANISOCYTOSIS 2+; OVALOCYTES 1+; PLATELET COMMENT ADEQUATE; PLATELET LARGE PRESENT; POIKILOCYTOSIS SLIGHT; SCHISTOCYTES 1+; TEAR DROP CELLS SLIGHT; TOXIC GRANULATION 1+
[2017-06-21] MEDS: ENOXAPARIN SODIUM INJ 40 MG/0.4 ML DISP.SYRIN SUBCUT SCH (10:38)
[2017-06-21] MEDS: SENNOSIDES/DOCUSATE 8.6-50 MG 1 EACH TABLET PO SCH (10:38)
[2017-06-21] MEDS: PREDNISONE 20 MG TABLET PO SCH ×2 (10:45→22:18)
--- NOTE | 2017-06-21 11:55 | PDOC PROGRESS REPORT ---
Subjective Progress Note for:: 06/18/17 Subjective:: 24 hours status post extubation requiring assistance with BiPAP Reason For Visit: ACUTE RESPIRATORY FAILURE Physical Exam Vital Signs: Temp Pulse Resp BP Pulse Ox 97.6 F 86 16 110/77 98 06/20/17 12:12 06/20/17 12:12 06/20/17 12:12 06/20/17 12:12 06/20/17 12:12 Intake & Output 06/19/17 06/20/17 06/21/17 06:59 06:59 06:59 Intake Total 874 420 Output Total 1400 1950 Balance -526 -1530 Weight 55.5 kg 54.6 kg General appearance: PRESENT: no acute distress, disheveled, thin. ABSENT: cooperative Head exam: PRESENT: atraumatic, normocephalic Eye exam: PRESENT: conjunctiva pale, EOMI. ABSENT: nystagmus, periorbital swelling, scleral icterus Mouth exam: PRESENT: dry mucosa, neck supple, tongue midline Neck exam: ABSENT: carotid bruit, JVD, lymphadenopathy, thyromegaly, tracheal deviation, tracheostomy Respiratory exam: PRESENT: decreased breath sounds, prolonged expiratory phas, rales, symmetrical, wheezes. ABSENT: retraction, rhonchi, tachypnea Cardiovascular exam: PRESENT: RRR, +S1, +S2, tachycardia Pulses: PRESENT: normal radial pulses GI/Abdominal exam: PRESENT: diminished bowel sounds, soft Extremities exam: ABSENT: calf tenderness, clubbing, joint swelling Musculoskeletal exam: ABSENT: deformity, dislocation Neurological exam: PRESENT: awake, oriented to person Psychiatric exam: PRESENT: flat affect Skin exam: PRESENT: dry, warm Results Laboratory Results: 06/20/17 06:20 06/20/17 06:20 06/20/17 06/20/17 06/20/17 06:14 06:20 06:20 WBC 6.2 RBC 4.80 Hgb 11.8 L Hct 38.1 MCV 79 L MCH 24.5 L MCHC 30.9 L RDW 20.0 H Plt Count 305 Seg Neutrophils % Not Reportable Lymphocytes % Not Reportable Monocytes % Not Reportable Eosinophils % Not Reportable Basophils % Not Reportable Absolute Neutrophils Not Reportable Absolute Lymphocytes Not Reportable Absolute Monocytes Not Reportable Absolute Eosinophils Not Reportable Absolute Basophils Not Reportable Carbonic Acid 1.83 H HCO3/H2CO3 Ratio 20:1 ABG pH 7.40 ABG pCO2 60.7 H ABG pO2 90.8 ABG HCO3 36.6 H ABG O2 Saturation 96.7 ABG Base Excess 9.7 FiO2 4L Sodium 139.7 Potassium 4.7 Chloride 97 L Carbon Dioxide 39 H Anion Gap 4 L BUN 17 Creatinine 0.43 L Est GFR ( Amer) > 60 Est GFR (Non-Af Amer) > 60 Glucose 99 Calcium 8.6 Magnesium 1.7 Total Bilirubin 0.2 AST 20 ALT 32 Alkaline Phosphatase 50 Total Protein 4.6 L Albumin 2.7 L 06/13/17 06/13/17 06/13/17 09:57 09:57 17:47 Creatine Kinase 115 85 CK-MB (CK-2) 5.04 H Troponin I 0.517 06/13/17 06/14/17 06/14/17 17:47 01:43 01:43 Creatine Kinase 72 CK-MB (CK-2) 4.61 H 3.26 Troponin I 0.332 0.235 Impressions: Chest/Abdomen CTA 06/12/17 18:09 IMPRESSION: No emboli visualized in the main pulmonary arteries or the segmental branches. The multiple new subcentimeter pulmonary nodules most notable in the left upper and right lower lobes.Similar hypodense 1.5 x 2.3 cm AP window enlarged lymph node. Chest X-Ray 06/20/17 06:00 IMPRESSION: Trace persistent airspace disease or fluid along the left lateral costophrenic sulcus. Assessment & Plan - Diagnosis (1) Acute respiratory failure Qualifiers: Respiratory failure complication: hypoxia and hypercapnia Qualified Code(s) : J96.01 - Acute respiratory failure with hypoxia; J96.02 - Acute respiratory failure with hypercapnia; J96.02 - Acute respiratory failure with hypercapnia; J96.02 - Acute respiratory failure with hypercapnia Is this a current diagnosis for this admission?: Yes Plan: 24 hours status post extubation still requiring BiPAP moderate sized leak will request small mask for patient's use (2) Lung cancer Qualifiers: Laterality: unspecified laterality Lung location: unspecified part of lung Qualified Code(s): C34.90 - Malignant neoplasm of unspecified part of unspecified bronchus or lung Is this a current diagnosis for this admission?: Yes Plan: As per oncology (3) Thrombocytopenia Is this a current diagnosis for this admission?: Yes Plan: improved (4) COPD (chronic obstructive pulmonary disease) Qualifiers: COPD type: emphysema Emphysema type: unspecified Qualified Code(s): J43.9 - Emphysema, unspecified Is this a current diagnosis for this admission?: Yes Plan: LABA+NENO+LAMA (5) Chronic hypoxemic respiratory failure Is this a current diagnosis for this admission?: Yes Plan: Improving - Time Total Critical Time (Minutes): 40
--- NOTE | 2017-06-21 11:58 | PDOC PROGRESS REPORT ---
Subjective Progress Note for:: 06/19/17 Subjective:: continues to require assistance with BiPAP Reason For Visit: ACUTE RESPIRATORY FAILURE Physical Exam Vital Signs: Temp Pulse Resp BP Pulse Ox 97.6 F 86 16 110/77 98 06/20/17 12:12 06/20/17 12:12 06/20/17 12:12 06/20/17 12:12 06/20/17 12:12 Intake & Output 06/19/17 06/20/17 06/21/17 06:59 06:59 06:59 Intake Total 874 420 Output Total 1400 1950 Balance -526 -1530 Weight 55.5 kg 54.6 kg General appearance: PRESENT: no acute distress, cooperative, disheveled, thin Head exam: PRESENT: atraumatic, normocephalic Eye exam: PRESENT: conjunctiva pale, EOMI. ABSENT: nystagmus, periorbital swelling, scleral icterus Mouth exam: PRESENT: dry mucosa, neck supple, tongue midline Teeth exam: PRESENT: edentulous Neck exam: ABSENT: carotid bruit, JVD, lymphadenopathy, thyromegaly, tracheal deviation, tracheostomy Respiratory exam: PRESENT: decreased breath sounds, prolonged expiratory phas, rales, rhonchi, symmetrical, unlabored, wheezes. ABSENT: retraction, stridor, tachypnea Cardiovascular exam: PRESENT: RRR, +S1, +S2, tachycardia Pulses: PRESENT: normal radial pulses GI/Abdominal exam: PRESENT: diminished bowel sounds, soft Extremities exam: ABSENT: clubbing, joint swelling, pedal edema Musculoskeletal exam: ABSENT: deformity, dislocation Neurological exam: PRESENT: awake, oriented to person, oriented to place, oriented to time Psychiatric exam: PRESENT: flat affect Skin exam: PRESENT: dry, warm Results Laboratory Results: 06/20/17 06:20 06/20/17 06:20 06/20/17 06/20/17 06/20/17 06:14 06:20 06:20 WBC 6.2 RBC 4.80 Hgb 11.8 L Hct 38.1 MCV 79 L MCH 24.5 L MCHC 30.9 L RDW 20.0 H Plt Count 305 Seg Neutrophils % Not Reportable Lymphocytes % Not Reportable Monocytes % Not Reportable Eosinophils % Not Reportable Basophils % Not Reportable Absolute Neutrophils Not Reportable Absolute Lymphocytes Not Reportable Absolute Monocytes Not Reportable Absolute Eosinophils Not Reportable Absolute Basophils Not Reportable Carbonic Acid 1.83 H HCO3/H2CO3 Ratio 20:1 ABG pH 7.40 ABG pCO2 60.7 H ABG pO2 90.8 ABG HCO3 36.6 H ABG O2 Saturation 96.7 ABG Base Excess 9.7 FiO2 4L Sodium 139.7 Potassium 4.7 Chloride 97 L Carbon Dioxide 39 H Anion Gap 4 L BUN 17 Creatinine 0.43 L Est GFR ( Amer) > 60 Est GFR (Non-Af Amer) > 60 Glucose 99 Calcium 8.6 Magnesium 1.7 Total Bilirubin 0.2 AST 20 ALT 32 Alkaline Phosphatase 50 Total Protein 4.6 L Albumin 2.7 L 06/13/17 06/13/17 06/13/17 09:57 09:57 17:47 Creatine Kinase 115 85 CK-MB (CK-2) 5.04 H Troponin I 0.517 06/13/17 06/14/17 06/14/17 17:47 01:43 01:43 Creatine Kinase 72 CK-MB (CK-2) 4.61 H 3.26 Troponin I 0.332 0.235 Impressions: Chest/Abdomen CTA 06/12/17 18:09 IMPRESSION: No emboli visualized in the main pulmonary arteries or the segmental branches. The multiple new subcentimeter pulmonary nodules most notable in the left upper and right lower lobes.Similar hypodense 1.5 x 2.3 cm AP window enlarged lymph node. Chest X-Ray 06/20/17 06:00 IMPRESSION: Trace persistent airspace disease or fluid along the left lateral costophrenic sulcus. Assessment & Plan - Diagnosis (1) Acute respiratory failure Qualifiers: Respiratory failure complication: hypoxia and hypercapnia Qualified Code(s) : J96.01 - Acute respiratory failure with hypoxia; J96.02 - Acute respiratory failure with hypercapnia; J96.02 - Acute respiratory failure with hypercapnia; J96.02 - Acute respiratory failure with hypercapnia Is this a current diagnosis for this admission?: Yes Plan: Less dependent but still requires some support with BiPAP (2) Lung cancer Qualifiers: Laterality: unspecified laterality Lung location: unspecified part of lung Qualified Code(s): C34.90 - Malignant neoplasm of unspecified part of unspecified bronchus or lung Is this a current diagnosis for this admission?: Yes Plan: As per oncology (3) Thrombocytopenia Is this a current diagnosis for this admission?: Yes Plan: Resolved (4) COPD (chronic obstructive pulmonary disease) Qualifiers: COPD type: emphysema Emphysema type: unspecified Qualified Code(s): J43.9 - Emphysema, unspecified Is this a current diagnosis for this admission?: Yes Plan: LABA+NENO+LAMA (5) Chronic hypoxemic respiratory failure Is this a current diagnosis for this admission?: Yes Plan: Improving - Time Total Critical Time (Minutes): 35
--- NOTE | 2017-06-21 12:02 | PDOC PROGRESS REPORT ---
Subjective Progress Note for:: 06/20/17 Subjective:: Doing well no use of BiPAP over the last 20 hours Reason For Visit: ACUTE RESPIRATORY FAILURE Physical Exam Vital Signs: Temp Pulse Resp BP Pulse Ox 97.6 F 86 16 110/77 98 06/20/17 12:12 06/20/17 12:12 06/20/17 12:12 06/20/17 12:12 06/20/17 12:12 Intake & Output 06/19/17 06/20/17 06/21/17 06:59 06:59 06:59 Intake Total 874 420 Output Total 1400 1950 Balance -526 1530 Weight 55.5 kg 54.6 kg General appearance: PRESENT: no acute distress, cooperative, disheveled, thin Head exam: PRESENT: atraumatic, normocephalic Eye exam: PRESENT: conjunctiva pale, EOMI. ABSENT: nystagmus, periorbital swelling, scleral icterus Mouth exam: PRESENT: dry mucosa, neck supple, tongue midline Teeth exam: PRESENT: edentulous Neck exam: ABSENT: carotid bruit, JVD, lymphadenopathy, thyromegaly, tracheal deviation, tracheostomy Respiratory exam: PRESENT: decreased breath sounds, prolonged expiratory phas, rales, rhonchi, symmetrical, unlabored, wheezes. ABSENT: retraction, stridor, tachypnea Cardiovascular exam: PRESENT: RRR, +S1, +S2 Pulses: PRESENT: normal radial pulses GI/Abdominal exam: PRESENT: diminished bowel sounds, soft Extremities exam: ABSENT: calf tenderness, clubbing, joint swelling Musculoskeletal exam: ABSENT: deformity, dislocation Neurological exam: PRESENT: alert, awake Psychiatric exam: PRESENT: flat affect Skin exam: PRESENT: dry, warm Results Laboratory Results: 06/20/17 06:20 06/20/17 06:20 06/20/17 06/20/17 06/20/17 06:14 06:20 06:20 WBC 6.2 RBC 4.80 Hgb 11.8 L Hct 38.1 MCV 79 L MCH 24.5 L MCHC 30.9 L RDW 20.0 H Plt Count 305 Seg Neutrophils % Not Reportable Lymphocytes % Not Reportable Monocytes % Not Reportable Eosinophils % Not Reportable Basophils % Not Reportable Absolute Neutrophils Not Reportable Absolute Lymphocytes Not Reportable Absolute Monocytes Not Reportable Absolute Eosinophils Not Reportable Absolute Basophils Not Reportable Carbonic Acid 1.83 H HCO3/H2CO3 Ratio 20:1 ABG pH 7.40 ABG pCO2 60.7 H ABG pO2 90.8 ABG HCO3 36.6 H ABG O2 Saturation 96.7 ABG Base Excess 9.7 FiO2 4L Sodium 139.7 Potassium 4.7 Chloride 97 L Carbon Dioxide 39 H Anion Gap 4 L BUN 17 Creatinine 0.43 L Est GFR ( Amer) > 60 Est GFR (Non-Af Amer) > 60 Glucose 99 Calcium 8.6 Magnesium 1.7 Total Bilirubin 0.2 AST 20 ALT 32 Alkaline Phosphatase 50 Total Protein 4.6 L Albumin 2.7 L 06/13/17 06/13/17 06/13/17 09:57 09:57 17:47 Creatine Kinase 115 85 CK-MB (CK-2) 5.04 H Troponin I 0.517 06/13/17 06/14/17 06/14/17 17:47 01:43 01:43 Creatine Kinase 72 CK-MB (CK-2) 4.61 H 3.26 Troponin I 0.332 0.235 Impressions: Chest/Abdomen CTA 06/12/17 18:09 IMPRESSION: No emboli visualized in the main pulmonary arteries or the segmental branches. The multiple new subcentimeter pulmonary nodules most notable in the left upper and right lower lobes.Similar hypodense 1.5 x 2.3 cm AP window enlarged lymph node. Chest X-Ray 06/20/17 06:00 IMPRESSION: Trace persistent airspace disease or fluid along the left lateral costophrenic sulcus. Assessment & Plan - Diagnosis (1) Acute respiratory failure Qualifiers: Respiratory failure complication: hypoxia and hypercapnia Qualified Code(s) : J96.01 - Acute respiratory failure with hypoxia; J96.02 - Acute respiratory failure with hypercapnia; J96.02 - Acute respiratory failure with hypercapnia; J96.02 - Acute respiratory failure with hypercapnia Is this a current diagnosis for this admission?: Yes Plan: Continues to improve (2) Lung cancer Qualifiers: Laterality: unspecified laterality Lung location: unspecified part of lung Qualified Code(s): C34.90 - Malignant neoplasm of unspecified part of unspecified bronchus or lung Is this a current diagnosis for this admission?: Yes Plan: As per oncology (3) Thrombocytopenia Is this a current diagnosis for this admission?: Yes Plan: Resolved (4) COPD (chronic obstructive pulmonary disease) Qualifiers: COPD type: emphysema Emphysema type: unspecified Qualified Code(s): J43.9 - Emphysema, unspecified Is this a current diagnosis for this admission?: Yes Plan: LABA+NENO+LAMA (5) Chronic hypoxemic respiratory failure Is this a current diagnosis for this admission?: Yes Plan: Improving
--- NOTE | 2017-06-21 12:04 | PDOC PROGRESS REPORT ---
Subjective Progress Note for:: 06/21/17 Subjective:: Sitting in chair without complaints Reason For Visit: ACUTE RESPIRATORY FAILURE Physical Exam Vital Signs: Temp Pulse Resp BP Pulse Ox 97.8 F 82 18 108/75 98 06/21/17 07:14 06/21/17 08:15 06/21/17 08:15 06/21/17 07:14 06/21/17 08:15 Intake & Output 06/20/17 06/21/17 06/22/17 06:59 06:59 06:59 Intake Total 420 1002 Output Total 1950 2800 Balance -1530 -1798 Weight 54.6 kg 53.6 kg General appearance: PRESENT: no acute distress, cooperative, disheveled, thin Head exam: PRESENT: atraumatic, normocephalic Eye exam: PRESENT: conjunctiva pale, EOMI. ABSENT: nystagmus, periorbital swelling, scleral icterus Mouth exam: PRESENT: dry mucosa, neck supple, tongue midline Teeth exam: PRESENT: edentulous Neck exam: ABSENT: carotid bruit, JVD, lymphadenopathy, thyromegaly, tracheal deviation, tracheostomy Respiratory exam: PRESENT: decreased breath sounds, prolonged expiratory phas, rhonchi, symmetrical, unlabored, wheezes. ABSENT: rales, retraction, stridor, tachypnea Cardiovascular exam: PRESENT: irregular rhythm, +S1, +S2 Pulses: PRESENT: normal radial pulses GI/Abdominal exam: PRESENT: diminished bowel sounds, soft Extremities exam: ABSENT: clubbing, joint swelling Musculoskeletal exam: ABSENT: deformity, dislocation Neurological exam: PRESENT: alert, awake Psychiatric exam: PRESENT: normal mood Skin exam: PRESENT: dry, warm Results Laboratory Results: 06/21/17 05:48 06/20/17 06:20 06/21/17 05:48 WBC 5.5 RBC 4.91 Hgb 12.1 Hct 38.9 MCV 79 L MCH 24.5 L MCHC 31.0 L RDW 19.5 H Plt Count 317 Seg Neutrophils % Not Reportable Lymphocytes % Not Reportable Monocytes % Not Reportable Eosinophils % Not Reportable Basophils % Not Reportable Absolute Neutrophils Not Reportable Absolute Lymphocytes Not Reportable Absolute Monocytes Not Reportable Absolute Eosinophils Not Reportable Absolute Basophils Not Reportable 06/13/17 06/13/17 06/13/17 09:57 09:57 17:47 Creatine Kinase 115 85 CK-MB (CK-2) 5.04 H Troponin I 0.517 06/13/17 06/14/17 06/14/17 17:47 01:43 01:43 Creatine Kinase 72 CK-MB (CK-2) 4.61 H 3.26 Troponin I 0.332 0.235 Impressions: Chest/Abdomen CTA 06/12/17 18:09 IMPRESSION: No emboli visualized in the main pulmonary arteries or the segmental branches. The multiple new subcentimeter pulmonary nodules most notable in the left upper and right lower lobes.Similar hypodense 1.5 x 2.3 cm AP window enlarged lymph node. Chest X-Ray 06/20/17 06:00 IMPRESSION: Trace persistent airspace disease or fluid along the left lateral costophrenic sulcus. Assessment & Plan - Diagnosis (1) Acute respiratory failure Qualifiers: Respiratory failure complication: hypoxia and hypercapnia Qualified Code(s) : J96.01 - Acute respiratory failure with hypoxia; J96.02 - Acute respiratory failure with hypercapnia; J96.02 - Acute respiratory failure with hypercapnia; J96.02 - Acute respiratory failure with hypercapnia Is this a current diagnosis for this admission?: Yes Plan: Continues to improve;Returning to baseline (2) Lung cancer Qualifiers: Laterality: unspecified laterality Lung location: unspecified part of lung Qualified Code(s): C34.90 - Malignant neoplasm of unspecified part of unspecified bronchus or lung Is this a current diagnosis for this admission?: Yes Plan: As per oncology (3) Thrombocytopenia Is this a current diagnosis for this admission?: Yes Plan: Resolved (4) COPD (chronic obstructive pulmonary disease) Qualifiers: COPD type: emphysema Emphysema type: unspecified Qualified Code(s): J43.9 - Emphysema, unspecified Is this a current diagnosis for this admission?: Yes Plan: LABA+NENO+LAMA (5) Chronic hypoxemic respiratory failure Is this a current diagnosis for this admission?: Yes Plan: Unchanged
--- NOTE | 2017-06-21 17:38 | PDOC PROGRESS REPORT ---
Subjective Progress Note for:: 06/21/17 Subjective:: Feels continues to improve. Used BiPAP overnight. Also using during the day as needed. No chest pain or shortness of breath or palpitations. Denies fever or chills. Feels weak and would like to go to rehab. Reason For Visit: ACUTE RESPIRATORY FAILURE Physical Exam Vital Signs: Temp Pulse Resp BP Pulse Ox 97.5 F 87 17 107/72 95 06/21/17 12:23 06/21/17 14:28 06/21/17 14:28 06/21/17 12:23 06/21/17 16:59 Intake & Output 06/20/17 06/21/17 06/22/17 06:59 06:59 06:59 Intake Total 420 1002 300 Output Total 1950 2800 600 Balance -1530 -7738 -300 Weight 54.6 kg 53.6 kg GEN: NAD, well-developed, well-nourished CV: RRR, NL S1S2 LUNGS: Diffuse rhonchi bilaterally ABDOMEN Soft, NT, +BS EXTERMITIES: No e/c/c NEURO: Alert, oriented 3, generalized weakness Results Laboratory Results: 06/21/17 05:48 06/20/17 06:20 06/21/17 05:48 WBC 5.5 RBC 4.91 Hgb 12.1 Hct 38.9 MCV 79 L MCH 24.5 L MCHC 31.0 L RDW 19.5 H Plt Count 317 Seg Neutrophils % Not Reportable Lymphocytes % Not Reportable Monocytes % Not Reportable Eosinophils % Not Reportable Basophils % Not Reportable Absolute Neutrophils Not Reportable Absolute Lymphocytes Not Reportable Absolute Monocytes Not Reportable Absolute Eosinophils Not Reportable Absolute Basophils Not Reportable 06/13/17 06/13/17 06/13/17 09:57 09:57 17:47 Creatine Kinase 115 85 CK-MB (CK-2) 5.04 H Troponin I 0.517 06/13/17 06/14/17 06/14/17 17:47 01:43 01:43 Creatine Kinase 72 CK-MB (CK-2) 4.61 H 3.26 Troponin I 0.332 0.235 Impressions: Chest/Abdomen CTA 06/12/17 18:09 IMPRESSION: No emboli visualized in the main pulmonary arteries or the segmental branches. The multiple new subcentimeter pulmonary nodules most notable in the left upper and right lower lobes.Similar hypodense 1.5 x 2.3 cm AP window enlarged lymph node. Chest X-Ray 06/20/17 06:00 IMPRESSION: Trace persistent airspace disease or fluid along the left lateral costophrenic sulcus. Assessment & Plan - Plan Summary Plan Summary: (1) Acute respiratory failure Qualifiers: Respiratory failure complication: hypoxia and hypercapnia Qualified Code(s) : J96.01 - Acute respiratory failure with hypoxia; J96.02 - Acute respiratory failure with hypercapnia; J96.02 - Acute respiratory failure with hypercapnia; J96.02 - Acute respiratory failure with hypercapnia Is this a current diagnosis for this admission?: Yes Plan: Secondary to streptococcal pneumoniae pneumonia (sputum culture). Extubated on , on BiPAP today - Blood cultures NG x 5 days - Continue Levaquin --now on oral --to complete 7 days course of antibiotics -Continue prednisone. Will decrease to 20 mg twice daily as improvement. - Wean off BiPAP as tolerated, goal O2 sat >88% - Tessalon perles PRN -Continue oxycodone 5mg q4 hours PRN pain and Ativan 1mg PO q4 hours anxiety (2) Lung cancer Qualifiers: Laterality: unspecified laterality Lung location: unspecified part of lung Qualified Code(s): C34.90 - Malignant neoplasm of unspecified part of unspecified bronchus or lung Is this a current diagnosis for this admission?: Yes Plan: No active treatment currently -Staging CT as outpatient oncology. (3) Sepsis Qualifiers: Sepsis type: sepsis due to unspecified organism Qualified Code(s): A41.9 - Sepsis, unspecified organism Is this a current diagnosis for this admission?: Yes Plan: Improved/resolved. See above (4) Thrombocytopenia Is this a current diagnosis for this admission?: Yes Plan: Improved on Nplate, was 268K on 06/18 ; next due on Saturday -- Per Oncology, she needs to have this medication on schedule, if she misses even 1 dose she drops precipitiously. - Continue Lovenix if PLT >50 -Oncology service following PT/OT, discharge planer consult for [facility] facility placement with rehab.
[2017-06-21] MEDS: LEVOFLOXACIN 750 MG TABLET PO SCH (22:18)
[2017-06-22] MEDS: IPRATROPIUM/ALBUTEROL 0.5-2.5 MG/3 ML AMPUL NEB SCH ×4 (01:51→19:54)
[2017-06-22] MEDS: ACETAMINOPHEN 325 MG TABLET PO PRN (06:10)
[2017-06-22] MEDS: BENZONATATE 100 MG CAPSULE PO SCH ×3 (06:10→21:36)
[2017-06-22] MEDS: ENOXAPARIN SODIUM INJ 40 MG/0.4 ML DISP.SYRIN SUBCUT SCH (09:29)
[2017-06-22] MEDS: PREDNISONE 20 MG TABLET PO SCH ×2 (09:29→21:36)
[2017-06-22] MEDS: SENNOSIDES/DOCUSATE 8.6-50 MG 1 EACH TABLET PO SCH (09:29)
--- NOTE | 2017-06-22 12:44 | PDOC PROGRESS REPORT ---
Subjective Progress Note for:: 06/22/17 Subjective:: Feels she is slowly getting better. Refused BiPAP overnight. No chest pain or shortness of breath or palpitations. Denies fever or chills. Feels weak and awaiting rehab placement. Reason For Visit: ACUTE RESPIRATORY FAILURE Physical Exam Vital Signs: Temp Pulse Resp BP Pulse Ox 97.9 F 79 18 105/69 96 06/22/17 07:48 06/22/17 08:56 06/22/17 08:56 06/22/17 07:48 06/22/17 08:56 Intake & Output 06/21/17 06/22/17 06/23/17 06:59 06:59 06:59 Intake Total 1002 610 Output Total 2800 2600 Balance -1797 Weight 53.6 kg 52 kg GEN: NAD, well-developed, well-nourished CV: RRR, NL S1S2 LUNGS: Diffuse rhonchi bilaterally ABDOMEN Soft, NT, +BS EXTERMITIES: No e/c/c NEURO: Alert, oriented 3, generalized weakness Results Laboratory Results: 06/21/17 05:48 06/20/17 06:20 06/13/17 06/13/17 06/13/17 09:57 09:57 17:47 Creatine Kinase 115 85 CK-MB (CK-2) 5.04 H Troponin I 0.517 06/13/17 06/14/17 06/14/17 17:47 01:43 01:43 Creatine Kinase 72 CK-MB (CK-2) 4.61 H 3.26 Troponin I 0.332 0.235 Impressions: Chest/Abdomen CTA 06/12/17 18:09 IMPRESSION: No emboli visualized in the main pulmonary arteries or the segmental branches. The multiple new subcentimeter pulmonary nodules most notable in the left upper and right lower lobes.Similar hypodense 1.5 x 2.3 cm AP window enlarged lymph node. Chest X-Ray 06/20/17 06:00 IMPRESSION: Trace persistent airspace disease or fluid along the left lateral costophrenic sulcus. Assessment & Plan - Plan Summary Plan Summary: (1) Acute respiratory failure Qualifiers: Respiratory failure complication: hypoxia and hypercapnia Qualified Code(s) : J96.01 - Acute respiratory failure with hypoxia; J96.02 - Acute respiratory failure with hypercapnia; J96.02 - Acute respiratory failure with hypercapnia; J96.02 - Acute respiratory failure with hypercapnia Is this a current diagnosis for this admission?: Yes Plan: Secondary to streptococcal pneumoniae pneumonia (sputum culture). Extubated on - Blood cultures NG x 5 days - Continue Levaquin --now on oral --to complete 7 days course of antibiotics -- stop date today 06/22 -Continue prednisone. Will decrease to 20 mg twice daily as improvement. - Wean off BiPAP as tolerated, goal O2 sat >88% - Tessalon perles PRN -Continue oxycodone 5mg q4 hours PRN pain and Ativan 1mg PO q4 hours anxiety (2) Lung cancer Qualifiers: Laterality: unspecified laterality Lung location: unspecified part of lung Qualified Code(s): C34.90 - Malignant neoplasm of unspecified part of unspecified bronchus or lung Is this a current diagnosis for this admission?: Yes Plan: No active treatment currently -Staging CT as outpatient per oncology. (3) Sepsis Qualifiers: Sepsis type: sepsis due to unspecified organism Qualified Code(s): A41.9 - Sepsis, unspecified organism Is this a current diagnosis for this admission?: Yes Plan: Improved/resolved. See above (4) Thrombocytopenia Is this a current diagnosis for this admission?: Yes Plan: Improved on Nplate, was 268K on 06/18 ; next due on Saturday -- Per Oncology, she needs to have this medication on schedule, if she misses even 1 dose she drops precipitiously. - Continue Lovenix if PLT >50 -Oncology service following PT/OT, discharge planer working on [facility] facility placement for rehab.
[2017-06-22] MEDS: BISACODYL 10 MG SUPP.RECT PR PRN (14:36)
--- NOTE | 2017-06-22 15:17 | PDOC PROGRESS REPORT ---
Subjective Progress Note for:: 06/19/17 Subjective:: Extubated. Patient currently on oxygen supplementation. She is noted to be more stable. Currently off all vasopressors. She is more alert. Telemetry strips shows patient in sinus rhythm. 2D echocardiogram results reviewed. It showed apical and distal anterior wall hypokinesia. Medications reviewed. Reason For Visit: ACUTE RESPIRATORY FAILURE Physical Exam Vital Signs: Temp Pulse Resp BP Pulse Ox 98.6 F 92 11 L 115/87 H 99 06/19/17 16:00 06/19/17 16:00 06/19/17 17:30 06/19/17 16:14 06/19/17 17:30 Intake & Output 06/18/17 06/19/17 06/20/17 06:59 06:59 06:59 Intake Total 2833 874 10 Output Total 2360 1400 750 Balance 473 -526 -740 Weight 57.3 kg 55.5 kg Exam: GENERAL: well-nourished and in no acute distress. Alert and oriented x2 HEAD: Atraumatic, normocephalic. EYES: Pupils equal round and reactive to light, extraocular movements intact, sclera anicteric, conjunctiva are normal. ENT: TMs normal, nares patent, oropharynx clear without exudates. Moist mucous membranes. No oral ulcerations or bleeding gums noted NECK: supple without lymphadenopathy. Trachea is central. No cervical or axillary lymphadenopathy noted. Carotids are 2+, JVD WNL LUNGS: Respiration seems nonlabored, no significant accessory muscle action noted. Few bibasilar crackles and few scattered wheezes rales or rhonchi noted. No significant dullness noted on percussion. CHEST: Palpation of the chest wall shows no significant chest wall tenderness. No other significant abnormalities noted. 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 ABDOMEN: Soft, no significant tenderness appreciated, normoactive bowel sounds. No guarding, no rebound. No rigidity noted . No masses appreciated. EXTREMITIES: Pedal pulses are 1-2+, no calf tenderness noted. No clubbing or cyanosis. negative pedal edema noted NEUROLOGICAL: Focused neurological exam showed no significant neurologic deficit. Normal speech, no focal weakness appreciated. PSYCH: Normal mood, normal affect. Judgment and insight not checked today. SKIN: No significant ecchymosis, skin is noted to be warm. MUSCULOSKELETAL EXAM: No significant acute joint swelling noted. Results Laboratory Results: 06/19/17 05:33 06/19/17 05:33 06/19/17 06/19/17 06/19/17 05:33 05:33 06:05 WBC 6.3 RBC 4.90 Hgb 12.0 Hct 38.5 MCV 79 L MCH 24.5 L MCHC 31.2 L RDW 20.0 H Plt Count 266 Seg Neutrophils % Not Reportable Lymphocytes % Not Reportable Monocytes % Not Reportable Eosinophils % Not Reportable Basophils % Not Reportable Absolute Neutrophils Not Reportable Absolute Lymphocytes Not Reportable Absolute Monocytes Not Reportable Absolute Eosinophils Not Reportable Absolute Basophils Not Reportable Carbonic Acid 1.78 H HCO3/H2CO3 Ratio 19:1 ABG pH 7.38 ABG pCO2 59.2 H ABG pO2 82.2 ABG HCO3 34.3 H ABG O2 Saturation 95.7 ABG Base Excess 7.5 FiO2 30 Sodium 139.9 Potassium 4.7 Chloride 97 L Carbon Dioxide 39 H Anion Gap 4 L BUN 23 H Creatinine 0.47 L Est GFR ( Amer) > 60 Est GFR (Non-Af Amer) > 60 Glucose 106 Calcium 8.6 Magnesium 1.8 Total Bilirubin 0.2 AST 27 ALT 21 Alkaline Phosphatase 46 Total Protein 5.0 L Albumin 2.8 L 06/13/17 06/13/17 06/13/17 09:57 09:57 17:47 Creatine Kinase 115 85 CK-MB (CK-2) 5.04 H Troponin I 0.517 06/13/17 06/14/17 06/14/17 17:47 01:43 01:43 Creatine Kinase 72 CK-MB (CK-2) 4.61 H 3.26 Troponin I 0.332 0.235 EKG Comments: Telemetry strip shows sinus rhythm without any sustained tachycardia or bradycardia. Impressions: Chest/Abdomen CTA 06/12/17 18:09 IMPRESSION: No emboli visualized in the main pulmonary arteries or the segmental branches. The multiple new subcentimeter pulmonary nodules most notable in the left upper and right lower lobes.Similar hypodense 1.5 x 2.3 cm AP window enlarged lymph node. Chest X-Ray 06/19/17 06:00 IMPRESSION: No significant change. Assessment & Plan - Diagnosis (1) Non-STEMI (non-ST elevated myocardial infarction) Is this a current diagnosis for this admission?: Yes (2) Elevated troponin I level Is this a current diagnosis for this admission?: Yes (3) Respiratory failure Qualifiers: Chronicity: acute on chronic Respiratory failure complication: hypoxia Qualified Code(s): J96.21 - Acute and chronic respiratory failure with hypoxia Is this a current diagnosis for this admission?: Yes (4) COPD (chronic obstructive pulmonary disease) Qualifiers: COPD type: emphysema Emphysema type: unspecified Qualified Code(s): J43.9 - Emphysema, unspecified Is this a current diagnosis for this admission?: Yes (5) Lung cancer Qualifiers: Laterality: unspecified laterality Lung location: unspecified part of lung Qualified Code(s): C34.90 - Malignant neoplasm of unspecified part of unspecified bronchus or lung Is this a current diagnosis for this admission?: Yes (6) Thrombocytopenia Is this a current diagnosis for this admission?: Yes - Notes Notes: Patient continues to show slow gradual improvement. Her respiratory status is significantly improved. Chest x-ray still shows significant pulmonary findings. Non-STEMI: 2D echocardiogram results reviewed. It shows apical and distal anterior wall hypokinesia. Patient has significant comorbid diagnosis therefore would recommend conservative management with antiplatelets if no contraindication, statins, beta-king, EMERITA inhibitor/angiotensin receptor blockers. Currently do not seem to be having any ongoing ischemia. Elevated troponin I: [place] to be related to non-STEMI. Respiratory failure: Multifactorial. Continue with bronchodilator therapy, oxygen supplementation and intermittent noninvasive ventilatory support. COPD: Currently being adequately managed with manager real estate on board. Lung cancer: Patient being followed by oncologist. Thrombocytopenia: Currently stable. Organ Assembler oncologist following the patient. - Time Time with patient: 15-25 minutes - CODE STATUS was discussed, patient remains full code. Surrogate decision-maker unchanged. Multiple medical problems were addressed. More than 50% of the time spent coordinating care, discussing management plans with involved caregivers. Management plans discussed with involved personnels. Medical decision making was of moderate to high complexity , patient's has multiple comorbidities. Medications reviewed and adjusted accordingly: Yes
--- NOTE | 2017-06-22 15:21 | PDOC PROGRESS REPORT ---
Subjective Progress Note for:: 06/21/17 Subjective:: Patient currently on oxygen supplementation. She is noted to be more stable. Patient noted to be alert oriented 3 today. In good spirits overall. Telemetry strips shows patient in sinus rhythm. It showed apical and distal anterior wall hypokinesia. Medications reviewed. Reason For Visit: ACUTE RESPIRATORY FAILURE Physical Exam Vital Signs: Temp Pulse Resp BP Pulse Ox 97.5 F 87 17 107/72 95 06/21/17 12:23 06/21/17 14:28 06/21/17 14:28 06/21/17 12:23 06/21/17 16:59 Intake & Output 06/20/17 06/21/17 06/22/17 06:59 06:59 06:59 Intake Total 420 1002 600 Output Total 1950 2800 1000 Balance -1530 -2548 -400 Weight 54.6 kg 53.6 kg Exam: GENERAL: well-nourished and in no acute distress. Alert and oriented x3 HEAD: Atraumatic, normocephalic. EYES: Pupils equal round and reactive to light, extraocular movements intact, sclera anicteric, conjunctiva are normal. ENT: TMs normal, nares patent, oropharynx clear without exudates. Moist mucous membranes. No oral ulcerations or bleeding gums noted NECK: supple without lymphadenopathy. Trachea is central. No cervical or axillary lymphadenopathy noted. Carotids are 2+, JVD WNL LUNGS: Respiration seems nonlabored, no significant accessory muscle action noted. Few bibasilar coarse crackles noted. No wheezes rales or rhonchi noted. No significant dullness noted on percussion. CHEST: Palpation of the chest wall shows no significant chest wall tenderness. No other significant abnormalities noted. 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 ABDOMEN: Soft, no significant tenderness appreciated, normoactive bowel sounds. No guarding, no rebound. No rigidity noted . No masses appreciated. EXTREMITIES: Pedal pulses are 1-2+, no calf tenderness noted. No clubbing or cyanosis. negative pedal edema noted NEUROLOGICAL: Focused neurological exam showed no significant neurologic deficit. Normal speech, no focal weakness appreciated. PSYCH: Normal mood, normal affect. Judgment and insight within normal limits. SKIN: No significant ecchymosis, skin is noted to be warm. MUSCULOSKELETAL EXAM: No significant acute joint swelling noted. Results Laboratory Results: 06/21/17 05:48 06/20/17 06:20 06/21/17 05:48 WBC 5.5 RBC 4.91 Hgb 12.1 Hct 38.9 MCV 79 L MCH 24.5 L MCHC 31.0 L RDW 19.5 H Plt Count 317 Seg Neutrophils % Not Reportable Lymphocytes % Not Reportable Monocytes % Not Reportable Eosinophils % Not Reportable Basophils % Not Reportable Absolute Neutrophils Not Reportable Absolute Lymphocytes Not Reportable Absolute Monocytes Not Reportable Absolute Eosinophils Not Reportable Absolute Basophils Not Reportable 06/13/17 06/13/17 06/13/17 09:57 09:57 17:47 Creatine Kinase 115 85 CK-MB (CK-2) 5.04 H Troponin I 0.517 06/13/17 06/14/17 06/14/17 17:47 01:43 01:43 Creatine Kinase 72 CK-MB (CK-2) 4.61 H 3.26 Troponin I 0.332 0.235 EKG Comments: Showed sinus rhythm without any sustained tachycardia or bradycardia. Impressions: Chest/Abdomen CTA 06/12/17 18:09 IMPRESSION: No emboli visualized in the main pulmonary arteries or the segmental branches. The multiple new subcentimeter pulmonary nodules most notable in the left upper and right lower lobes.Similar hypodense 1.5 x 2.3 cm AP window enlarged lymph node. Chest X-Ray 06/20/17 06:00 IMPRESSION: Trace persistent airspace disease or fluid along the left lateral costophrenic sulcus. Assessment & Plan - Diagnosis (1) Non-STEMI (non-ST elevated myocardial infarction) Is this a current diagnosis for this admission?: Yes (2) Elevated troponin I level Is this a current diagnosis for this admission?: Yes (3) Respiratory failure Qualifiers: Chronicity: acute on chronic Respiratory failure complication: hypoxia Qualified Code(s): J96.21 - Acute and chronic respiratory failure with hypoxia Is this a current diagnosis for this admission?: Yes (4) COPD (chronic obstructive pulmonary disease) Qualifiers: COPD type: emphysema Emphysema type: unspecified Qualified Code(s): J43.9 - Emphysema, unspecified Is this a current diagnosis for this admission?: Yes (5) Lung cancer Qualifiers: Laterality: unspecified laterality Lung location: unspecified part of lung Qualified Code(s): C34.90 - Malignant neoplasm of unspecified part of unspecified bronchus or lung Is this a current diagnosis for this admission?: Yes (6) Thrombocytopenia Is this a current diagnosis for this admission?: Yes - Notes Notes: Now with significant improvement. Her respiratory status is significantly improved. Patient doing reasonably well on current medical management. No angina or angina equivalent symptoms are noted. Non-STEMI: 2D echocardiogram results reviewed. It shows apical and distal anterior wall hypokinesia. Patient has significant comorbid diagnosis therefore would recommend conservative management with antiplatelets if no contraindication, statins, beta-king, EMERITA inhibitor/angiotensin receptor blockers. Currently do not seem to be having any ongoing ischemia. Elevated troponin I: [place] to be related to non-STEMI. Respiratory failure: Multifactorial. Continue with bronchodilator therapy, oxygen supplementation and intermittent noninvasive ventilatory support. COPD: Currently being adequately managed with professor in family studies on board. Lung cancer: Patient being followed by oncologist. Thrombocytopenia: Resolved. Almond Sorter oncologist following the patient. - Time Time with patient: 15-25 minutes - CODE STATUS was discussed, patient remains full code. Surrogate decision-maker unchanged. Multiple medical problems were addressed. More than 50% of the time spent coordinating care, discussing management plans with involved caregivers. Management plans discussed with involved personnels. Medical decision making was of moderate to high complexity , patient's has multiple comorbidities. Medications reviewed and adjusted accordingly: Yes
[2017-06-23] MEDS: IPRATROPIUM/ALBUTEROL 0.5-2.5 MG/3 ML AMPUL NEB SCH ×4 (02:47→19:53)
[2017-06-23 06:20] LABS: HEMATOCRIT 39.5 % (36.0-47.0); HEMOGLOBIN 12.3 g/dL (12.0-15.5); MEAN CORPUSCULAR HEMOGLOBIN 24.7 pg (27.0-33.4); MEAN CORPUSCULAR HGB CONC 31.1 g/dL (32.0-36.0); MEAN CORPUSCULAR VOLUME 80 fl (80-97); RED BLOOD COUNT 4.96 10^6/uL (3.72-5.28); RED CELL DISTRIBUTION WIDTH 20.6 % (11.5-14.0); WHITE BLOOD COUNT 6.2 10^3/uL (4.0-10.5)
[2017-06-23] MEDS: BENZONATATE 100 MG CAPSULE PO SCH ×3 (06:37→23:01)
[2017-06-23 06:41] LABS: BLOOD UREA NITROGEN 12 mg/dL (7-20); CALCIUM 9.2 mg/dL (8.4-10.2); GLUCOSE 107 mg/dL (75-110); POTASSIUM 5.4 mmol/L (3.6-5.0)
[2017-06-23 06:48] LABS: CARBON DIOXIDE 38 mmol/L (22-30); CHLORIDE 99 mmol/L (98-107); SODIUM 141.3 mmol/L (137-145)
[2017-06-23 06:56] LABS: ABSOLUTE LYMPHOCYTES# (MANUAL) 0.4 10^3/uL (0.5-4.7); ABSOLUTE MONOCYTES # (MANUAL) 0.6 10^3/uL (0.1-1.4); ABSOLUTE NEUTROPHILS# (MANUAL) 5.2 10^3/uL (1.7-8.2); BASOPHILS % (MANUAL) 0 % (0-2); EOSINOPHILS % (MANUAL) 0 % (0-6); LYMPHOCYTES % (MANUAL) 7 % (13-45); MONOCYTES % (MANUAL) 9 % (3-13); SEGMENTED NEUTROPHILS % (MAN) 84 % (42-78); TOTAL CELLS COUNTED 100
[2017-06-23 07:00] LABS: ANISOCYTOSIS 2+; HYPOCHROMASIA 1+; OVALOCYTES 1+; PLATELET CLUMPS PRESENT; PLATELET COMMENT ADEQUATE; PLATELET COUNT 324 10^3/uL (150-450); POIKILOCYTOSIS 1+; TOXIC GRANULATION 1+; TOXIC VACUOLATION PRESENT
[2017-06-23 07:01] LABS: ANION GAP 4 (5-19)
[2017-06-23] MEDS: PREDNISONE 20 MG TABLET PO SCH ×2 (09:54→23:02)
[2017-06-23] MEDS: ENOXAPARIN SODIUM INJ 40 MG/0.4 ML DISP.SYRIN SUBCUT SCH (09:54)
[2017-06-23] MEDS: SENNOSIDES/DOCUSATE 8.6-50 MG 1 EACH TABLET PO SCH (09:54)
--- NOTE | 2017-06-23 11:09 | PDOC PROGRESS REPORT ---
Subjective Progress Note for:: 06/23/17 Subjective:: Patient currently on oxygen supplementation. She is noted to be more stable. Patient noted to be alert oriented 3 today. In good spirits overall. Patient however has not ambulated much. She still has a Lopez catheter in. I am told by her that she does not feel comfortable to be going home and is awaiting to get a bed in the rehab facility. Telemetry strips shows patient in sinus rhythm. It showed apical and distal anterior wall hypokinesia. I am told patient has been refusing noninvasive positive pressure ventilation at night. Medications reviewed. Reason For Visit: ACUTE RESPIRATORY FAILURE Physical Exam Vital Signs: Temp Pulse Resp BP Pulse Ox 97.9 F 79 18 102/60 96 06/23/17 07:59 06/23/17 08:02 06/23/17 08:02 06/23/17 07:59 06/23/17 08:02 Intake & Output 06/22/17 06/23/17 06/24/17 06:59 06:59 06:59 Intake Total 610 715 Output Total 2600 2100 Balance -1989 Weight 52 kg 51 kg Exam: GENERAL: well-nourished and in no acute distress. Alert and oriented x3 HEAD: Atraumatic, normocephalic. EYES: Pupils equal round and reactive to light, extraocular movements intact, sclera anicteric, conjunctiva are normal. ENT: TMs normal, nares patent, oropharynx clear without exudates. Moist mucous membranes. No oral ulcerations or bleeding gums noted NECK: supple without lymphadenopathy. Trachea is central. No cervical or axillary lymphadenopathy noted. Carotids are 2+, JVD WNL LUNGS: Respiration seems nonlabored, no significant accessory muscle action noted. Few bibasilar coarse crackles are noted. No wheezes rales or rhonchi noted. No significant dullness noted on percussion. CHEST: Palpation of the chest wall shows no significant chest wall tenderness. No other significant abnormalities noted. 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 ABDOMEN: Soft, no significant tenderness appreciated, normoactive bowel sounds. No guarding, no rebound. No rigidity noted . No masses appreciated. EXTREMITIES: Pedal pulses are 1-2+, no calf tenderness noted. No clubbing or cyanosis. negative pedal edema noted NEUROLOGICAL: Focused neurological exam showed no significant neurologic deficit. Normal speech, no focal weakness appreciated. PSYCH: Normal mood, normal affect. Judgment and insight within normal limits. SKIN: No significant ecchymosis, skin is noted to be warm. MUSCULOSKELETAL EXAM: No significant acute joint swelling noted. Results Laboratory Results: 06/23/17 05:31 06/23/17 05:31 06/23/17 06/23/17 05:31 05:31 WBC 6.2 RBC 4.96 Hgb 12.3 Hct 39.5 MCV 80 MCH 24.7 L MCHC 31.1 L RDW 20.6 H Plt Count 324 Seg Neutrophils % Not Reportable Lymphocytes % Not Reportable Monocytes % Not Reportable Eosinophils % Not Reportable Basophils % Not Reportable Absolute Neutrophils Not Reportable Absolute Lymphocytes Not Reportable Absolute Monocytes Not Reportable Absolute Eosinophils Not Reportable Absolute Basophils Not Reportable Sodium 141.3 Potassium 5.4 H Chloride 99 Carbon Dioxide 38 H Anion Gap 4 L BUN 12 Creatinine 0.44 L Est GFR ( Amer) > 60 Est GFR (Non-Af Amer) > 60 Glucose 107 Calcium 9.2 06/13/17 06/13/17 06/13/17 09:57 09:57 17:47 Creatine Kinase 115 85 CK-MB (CK-2) 5.04 H Troponin I 0.517 06/13/17 06/14/17 06/14/17 17:47 01:43 01:43 Creatine Kinase 72 CK-MB (CK-2) 4.61 H 3.26 Troponin I 0.332 0.235 EKG Comments: Telemetry shows sinus rhythm without any sustained tachycardia or bradycardia. Impressions: Chest/Abdomen CTA 06/12/17 18:09 IMPRESSION: No emboli visualized in the main pulmonary arteries or the segmental branches. The multiple new subcentimeter pulmonary nodules most notable in the left upper and right lower lobes.Similar hypodense 1.5 x 2.3 cm AP window enlarged lymph node. Chest X-Ray 06/20/17 06:00 IMPRESSION: Trace persistent airspace disease or fluid along the left lateral costophrenic sulcus. Assessment & Plan - Diagnosis (1) Non-STEMI (non-ST elevated myocardial infarction) Is this a current diagnosis for this admission?: Yes (2) Elevated troponin I level Is this a current diagnosis for this admission?: Yes (3) Respiratory failure Qualifiers: Chronicity: acute on chronic Respiratory failure complication: hypoxia Qualified Code(s): J96.21 - Acute and chronic respiratory failure with hypoxia Is this a current diagnosis for this admission?: Yes (4) COPD (chronic obstructive pulmonary disease) Qualifiers: COPD type: emphysema Emphysema type: unspecified Qualified Code(s): J43.9 - Emphysema, unspecified Is this a current diagnosis for this admission?: Yes (5) Lung cancer Qualifiers: Laterality: unspecified laterality Lung location: unspecified part of lung Qualified Code(s): C34.90 - Malignant neoplasm of unspecified part of unspecified bronchus or lung Is this a current diagnosis for this admission?: Yes (6) Thrombocytopenia Is this a current diagnosis for this admission?: Yes - Notes Notes: Patient cardiac status has significantly improved. Currently does not seem to be in CHF. There is no evidence of ongoing angina or angina equivalent symptoms. We will repeat an EKG in the morning to look for any evolving changes since patient did rule in for non-STEMI. Patient just needs some physical activity and physical therapy. Patient doing reasonably well on current medical management. No angina or angina equivalent symptoms are noted. Non-STEMI: 2D echocardiogram results reviewed. It shows apical and distal anterior wall hypokinesia. Patient has significant comorbid diagnosis therefore would recommend conservative management with antiplatelets if no contraindication, statins, beta-king, EMERITA inhibitor/angiotensin receptor blockers. Currently do not seem to be having any ongoing ischemia. Elevated troponin I: [place] to be related to non-STEMI. Respiratory failure: Multifactorial. Continue with bronchodilator therapy, oxygen supplementation and intermittent noninvasive ventilatory support. COPD: Currently being adequately managed with certified midwife on board. Lung cancer: Patient being followed by oncologist. Thrombocytopenia: Resolved. Production Clerk oncologist following the patient. - Time Time with patient: 15-25 minutes - More than 50% of the time spent coordinating care, discussing management plans with involved caregivers. Management plans discussed with involved personnels. Medical decision making was of moderate to high complexity, patient's has multiple comorbidities. Medications reviewed and adjusted accordingly: Yes
--- NOTE | 2017-06-23 11:48 | PDOC PROGRESS REPORT ---
Subjective Progress Note for:: 06/23/17 Subjective:: Patient is feeling well she has no complaints Alert and awake Reason For Visit: ACUTE RESPIRATORY FAILURE Physical Exam Vital Signs: Temp Pulse Resp BP Pulse Ox 97.9 F 79 18 102/60 96 06/23/17 07:59 06/23/17 08:02 06/23/17 08:02 06/23/17 07:59 06/23/17 08:02 Intake & Output 06/22/17 06/23/17 06/24/17 00:59 00:59 00:59 Intake Total 970 370 355 Output Total 2900 2300 1000 Balance -1930 -1930 -645 Weight 53.6 kg 52 kg 51 kg General appearance: PRESENT: thin, other - Looks chronically ill Head exam: PRESENT: atraumatic, normocephalic Eye exam: PRESENT: conjunctival injection Neck exam: ABSENT: carotid bruit, JVD, lymphadenopathy, thyromegaly Respiratory exam: PRESENT: clear to auscultation esdras. ABSENT: rales, rhonchi, wheezes Cardiovascular exam: PRESENT: RRR. ABSENT: diastolic murmur, rubs, systolic murmur Pulses: PRESENT: normal dorsalis pedis pul GI/Abdominal exam: PRESENT: normal bowel sounds, soft. ABSENT: distended, guarding, mass, organolmegaly, rebound, tenderness Neurological exam: PRESENT: alert, awake, oriented to person, oriented to place , oriented to time, oriented to situation, CN II-XII grossly intact. ABSENT: motor sensory deficit Psychiatric exam: PRESENT: appropriate affect, normal mood Results Laboratory Results: 06/23/17 05:31 06/23/17 05:31 06/23/17 06/23/17 05:31 05:31 WBC 6.2 RBC 4.96 Hgb 12.3 Hct 39.5 MCV 80 MCH 24.7 L MCHC 31.1 L RDW 20.6 H Plt Count 324 Seg Neutrophils % Not Reportable Lymphocytes % Not Reportable Monocytes % Not Reportable Eosinophils % Not Reportable Basophils % Not Reportable Absolute Neutrophils Not Reportable Absolute Lymphocytes Not Reportable Absolute Monocytes Not Reportable Absolute Eosinophils Not Reportable Absolute Basophils Not Reportable Sodium 141.3 Potassium 5.4 H Chloride 99 Carbon Dioxide 38 H Anion Gap 4 L BUN 12 Creatinine 0.44 L Est GFR ( Amer) > 60 Est GFR (Non-Af Amer) > 60 Glucose 107 Calcium 9.2 06/13/17 06/13/17 06/13/17 09:57 09:57 17:47 Creatine Kinase 115 85 CK-MB (CK-2) 5.04 H Troponin I 0.517 06/13/17 06/14/17 06/14/17 17:47 01:43 01:43 Creatine Kinase 72 CK-MB (CK-2) 4.61 H 3.26 Troponin I 0.332 0.235 Impressions: Chest/Abdomen CTA 06/12/17 18:09 IMPRESSION: No emboli visualized in the main pulmonary arteries or the segmental branches. The multiple new subcentimeter pulmonary nodules most notable in the left upper and right lower lobes.Similar hypodense 1.5 x 2.3 cm AP window enlarged lymph node. Chest X-Ray 06/20/17 06:00 IMPRESSION: Trace persistent airspace disease or fluid along the left lateral costophrenic sulcus. Assessment & Plan - Diagnosis (1) Lung cancer Qualifiers: Laterality: unspecified laterality Lung location: unspecified part of lung Qualified Code(s): C34.90 - Malignant neoplasm of unspecified part of unspecified bronchus or lung Is this a current diagnosis for this admission?: Yes (2) Non-STEMI (non-ST elevated myocardial infarction) Is this a current diagnosis for this admission?: Yes (3) Respiratory failure Qualifiers: Chronicity: acute on chronic Respiratory failure complication: hypoxia Qualified Code(s): J96.21 - Acute and chronic respiratory failure with hypoxia Is this a current diagnosis for this admission?: Yes (4) Sepsis Qualifiers: Sepsis type: sepsis due to unspecified organism Qualified Code(s): A41.9 - Sepsis, unspecified organism Is this a current diagnosis for this admission?: Yes (5) Thrombocytopenia Is this a current diagnosis for this admission?: Yes - Time Time Spent with patient: Patient's condition has improved She is now extremely stable She is awaiting transfer to short-term rehab when a bed is available We will discontinue Lopez catheter Discontinue telemetry Patient may be transferred to medical unit Patient likely will be discharged in a.m. if a bed in rehab is available Time Spent with patient: 25-34 minutes
[2017-06-23] MEDS ORDERED: FAMOTIDINE 20 MG TABLET PO ONE (16:45)
[2017-06-24] MEDS: IPRATROPIUM/ALBUTEROL 0.5-2.5 MG/3 ML AMPUL NEB SCH ×4 (02:14→20:47)
[2017-06-24] MEDS: BENZONATATE 100 MG CAPSULE PO SCH ×3 (06:04→22:12)
--- NOTE | 2017-06-24 08:19 | EKG REPORT ---
SEVERITY:- BORDERLINE ECG - SINUS RHYTHM PROBABLE LEFT ATRIAL ABNORMALITY BORDERLINE T ABNORMALITIES, ANT-LAT LEADS : Confirmed by: Denisha Seth 24-Jun-2017 08:18:27
[2017-06-24] MEDS: SENNOSIDES/DOCUSATE 8.6-50 MG 1 EACH TABLET PO SCH (09:51)
[2017-06-24] MEDS: PREDNISONE 20 MG TABLET PO SCH ×2 (09:51→22:12)
[2017-06-24] MEDS: FAMOTIDINE 20 MG TABLET PO SCH (09:51)
[2017-06-24] MEDS: ENOXAPARIN SODIUM INJ 40 MG/0.4 ML DISP.SYRIN SUBCUT SCH (09:51)
--- NOTE | 2017-06-24 11:56 | PDOC PROGRESS REPORT ---
Subjective Progress Note for:: 06/24/17 Subjective:: Sitting,Feeling better Reason For Visit: ACUTE RESPIRATORY FAILURE Physical Exam Vital Signs: Temp Pulse Resp BP Pulse Ox 97.4 F 80 18 103/73 100 06/24/17 08:05 06/24/17 08:05 06/24/17 08:05 06/24/17 08:05 06/24/17 08:05 Intake & Output 06/23/17 06/24/17 06/25/17 06:59 06:59 06:59 Intake Total 715 1333 Output Total 2100 1000 Balance -1385 333 Weight 51 kg 50.2 kg General appearance: PRESENT: no acute distress, cooperative, disheveled, thin Head exam: PRESENT: atraumatic, normocephalic Eye exam: PRESENT: conjunctiva pale, EOMI. ABSENT: nystagmus, periorbital swelling, scleral icterus Mouth exam: PRESENT: moist, neck supple, tongue midline Neck exam: ABSENT: carotid bruit, JVD, lymphadenopathy, thyromegaly, tracheal deviation - [id number], tracheostomy Respiratory exam: PRESENT: decreased breath sounds, prolonged expiratory phas, rhonchi, symmetrical, unlabored, wheezes. ABSENT: rales, retraction, stridor, tachypnea Cardiovascular exam: PRESENT: RRR, +S1, +S2 Pulses: PRESENT: normal radial pulses GI/Abdominal exam: PRESENT: diminished bowel sounds, soft Extremities exam: PRESENT: full ROM. ABSENT: calf tenderness, clubbing, joint swelling Musculoskeletal exam: PRESENT: full ROM. ABSENT: deformity, dislocation Neurological exam: PRESENT: alert, awake Psychiatric exam: PRESENT: normal mood Skin exam: PRESENT: dry, warm Results Laboratory Results: 06/23/17 05:31 06/23/17 05:31 06/13/17 06/13/17 06/13/17 09:57 09:57 17:47 Creatine Kinase 115 85 CK-MB (CK-2) 5.04 H Troponin I 0.517 06/13/17 06/14/17 06/14/17 17:47 01:43 01:43 Creatine Kinase 72 CK-MB (CK-2) 4.61 H 3.26 Troponin I 0.332 0.235 Impressions: Chest/Abdomen CTA 06/12/17 18:09 IMPRESSION: No emboli visualized in the main pulmonary arteries or the segmental branches. The multiple new subcentimeter pulmonary nodules most notable in the left upper and right lower lobes.Similar hypodense 1.5 x 2.3 cm AP window enlarged lymph node. Chest X-Ray 06/20/17 06:00 IMPRESSION: Trace persistent airspace disease or fluid along the left lateral costophrenic sulcus. Assessment & Plan - Diagnosis (1) Acute respiratory failure Qualifiers: Respiratory failure complication: hypoxia and hypercapnia Qualified Code(s) : J96.01 - Acute respiratory failure with hypoxia; J96.02 - Acute respiratory failure with hypercapnia; J96.02 - Acute respiratory failure with hypercapnia; J96.02 - Acute respiratory failure with hypercapnia Is this a current diagnosis for this admission?: Yes Plan: Returning to baseline (2) Lung cancer Qualifiers: Laterality: unspecified laterality Lung location: unspecified part of lung Qualified Code(s): C34.90 - Malignant neoplasm of unspecified part of unspecified bronchus or lung Is this a current diagnosis for this admission?: Yes Plan: As per oncology (3) Thrombocytopenia Is this a current diagnosis for this admission?: Yes Plan: Resolved (4) COPD (chronic obstructive pulmonary disease) Qualifiers: COPD type: emphysema Emphysema type: unspecified Qualified Code(s): J43.9 - Emphysema, unspecified Is this a current diagnosis for this admission?: Yes Plan: LABA+NENO+LAMA (5) Chronic hypoxemic respiratory failure Is this a current diagnosis for this admission?: Yes Plan: Unchanged
--- NOTE | 2017-06-24 13:13 | PDOC PROGRESS REPORT ---
Subjective Progress Note for:: 06/24/17 Subjective:: Patient has no specific complaints this morning He does still get dyspneic with minor ambulation She has no fever no chills no chest pains Reason For Visit: ACUTE RESPIRATORY FAILURE Physical Exam Vital Signs: Temp Pulse Resp BP Pulse Ox 97.4 F 74 16 103/73 100 06/24/17 08:05 06/24/17 08:47 06/24/17 08:47 06/24/17 08:05 06/24/17 08:47 Intake & Output 06/23/17 06/24/17 06/25/17 00:59 00:59 00:59 Intake Total 370 1466 222 Output Total 2300 1999 Balance -1930 -534 222 Weight 52 kg 51 kg 50.2 kg General appearance: PRESENT: thin, other - Looks chronically ill Head exam: PRESENT: atraumatic, normocephalic Eye exam: PRESENT: conjunctival injection Neck exam: ABSENT: carotid bruit, JVD, lymphadenopathy, thyromegaly Respiratory exam: PRESENT: clear to auscultation esdras. ABSENT: rales, rhonchi, wheezes Cardiovascular exam: PRESENT: RRR. ABSENT: diastolic murmur, rubs, systolic murmur Pulses: PRESENT: normal dorsalis pedis pul GI/Abdominal exam: PRESENT: normal bowel sounds, soft. ABSENT: distended, guarding, mass, organolmegaly, rebound, tenderness Neurological exam: PRESENT: alert, awake, oriented to person, oriented to place , oriented to time, oriented to situation, CN II-XII grossly intact. ABSENT: motor sensory deficit Psychiatric exam: PRESENT: appropriate affect, normal mood Results Laboratory Results: 06/23/17 05:31 06/23/17 05:31 06/13/17 06/13/17 06/13/17 09:57 09:57 17:47 Creatine Kinase 115 85 CK-MB (CK-2) 5.04 H Troponin I 0.517 06/13/17 06/14/17 06/14/17 17:47 01:43 01:43 Creatine Kinase 72 CK-MB (CK-2) 4.61 H 3.26 Troponin I 0.332 0.235 Impressions: Chest/Abdomen CTA 06/12/17 18:09 IMPRESSION: No emboli visualized in the main pulmonary arteries or the segmental branches. The multiple new subcentimeter pulmonary nodules most notable in the left upper and right lower lobes.Similar hypodense 1.5 x 2.3 cm AP window enlarged lymph node. Chest X-Ray 06/20/17 06:00 IMPRESSION: Trace persistent airspace disease or fluid along the left lateral costophrenic sulcus. Assessment & Plan - Diagnosis (1) Lung cancer Qualifiers: Laterality: unspecified laterality Lung location: unspecified part of lung Qualified Code(s): C34.90 - Malignant neoplasm of unspecified part of unspecified bronchus or lung Is this a current diagnosis for this admission?: Yes (2) Non-STEMI (non-ST elevated myocardial infarction) Is this a current diagnosis for this admission?: Yes (3) Respiratory failure Qualifiers: Chronicity: acute on chronic Respiratory failure complication: hypoxia Qualified Code(s): J96.21 - Acute and chronic respiratory failure with hypoxia Is this a current diagnosis for this admission?: Yes (4) Sepsis Qualifiers: Sepsis type: sepsis due to unspecified organism Qualified Code(s): A41.9 - Sepsis, unspecified organism Is this a current diagnosis for this admission?: Yes (5) Thrombocytopenia Is this a current diagnosis for this admission?: Yes - Time Time Spent with patient: We will continue present management Patient is awaiting bed in half-way facility for short-term rehab Time Spent with patient: 25-34 minutes
[2017-06-25] MEDS: IPRATROPIUM/ALBUTEROL 0.5-2.5 MG/3 ML AMPUL NEB SCH ×4 (02:23→19:57)
[2017-06-25] MEDS: BENZONATATE 100 MG CAPSULE PO SCH ×3 (05:42→21:34)
[2017-06-25 06:41] LABS: ANION GAP 6 (5-19); BLOOD UREA NITROGEN 15 mg/dL (7-20); CALCIUM 9.2 mg/dL (8.4-10.2); CARBON DIOXIDE 39 mmol/L (22-30); CHLORIDE 98 mmol/L (98-107); GLUCOSE 105 mg/dL (75-110); POTASSIUM 4.9 mmol/L (3.6-5.0); SODIUM 142.9 mmol/L (137-145)
--- NOTE | 2017-06-25 08:22 | PDOC PROGRESS REPORT ---
Subjective Progress Note for:: 06/25/17 Subjective:: Patient feeling well. Is anxious to transfer to rehab. No bleeding. Some baseline dyspnea continues. She is worried about similar episode in the future and how they can be prevented. Reason For Visit: ACUTE RESPIRATORY FAILURE Physical Exam Vital Signs: Temp Pulse Resp BP Pulse Ox 98.1 F 91 12 97/66 L 100 06/25/17 04:18 06/25/17 04:18 06/25/17 04:18 06/25/17 04:18 06/25/17 04:18 Intake & Output 06/24/17 06/25/17 06/26/17 06:59 06:59 06:59 Intake Total 1333 1080 Output Total 1000 1550 Balance 333 -470 Weight 50.2 kg 51.3 kg General appearance: PRESENT: no acute distress, thin Exam: 61 year old female, sitting up in bed. Respiratory exam: PRESENT: other - Coarse upper airway noise throughout. Cardiovascular exam: PRESENT: RRR Neurological exam: PRESENT: alert, awake Psychiatric exam: PRESENT: appropriate affect Skin exam: PRESENT: normal color Results Laboratory Results: 06/23/17 05:31 06/25/17 06:03 06/25/17 06:03 Sodium 142.9 Potassium 4.9 Chloride 98 Carbon Dioxide 39 H Anion Gap 6 BUN 15 Creatinine 0.50 L Est GFR ( Amer) > 60 Est GFR (Non-Af Amer) > 60 Glucose 105 Calcium 9.2 06/13/17 06/13/17 06/13/17 09:57 09:57 17:47 Creatine Kinase 115 85 CK-MB (CK-2) 5.04 H Troponin I 0.517 06/13/17 06/14/17 06/14/17 17:47 01:43 01:43 Creatine Kinase 72 CK-MB (CK-2) 4.61 H 3.26 Troponin I 0.332 0.235 Impressions: Chest/Abdomen CTA 06/12/17 18:09 IMPRESSION: No emboli visualized in the main pulmonary arteries or the segmental branches. The multiple new subcentimeter pulmonary nodules most notable in the left upper and right lower lobes.Similar hypodense 1.5 x 2.3 cm AP window enlarged lymph node. Chest X-Ray 06/20/17 06:00 IMPRESSION: Trace persistent airspace disease or fluid along the left lateral costophrenic sulcus. Assessment & Plan - Diagnosis (1) Lung cancer Qualifiers: Laterality: unspecified laterality Lung location: unspecified part of lung Qualified Code(s): C34.90 - Malignant neoplasm of unspecified part of unspecified bronchus or lung Is this a current diagnosis for this admission?: Yes Plan: No active treatment currently. Will plan on restaging CT as outpatient. (2) Acute ITP Is this a current diagnosis for this admission?: Yes Plan: Currently well controlled. I will order Nplate 1 mcg/kg sc x 1 dose today. I will arrange for her next dose in my office in 2 weeks. (3) Anemia Qualifiers: Anemia type: other cause Other causes of anemia: acute posthemorrhagic Qualified Code(s): D62 - Acute posthemorrhagic anemia Is this a current diagnosis for this admission?: Yes Plan: Currently resolved and stable. (4) Pneumonia Is this a current diagnosis for this admission?: Yes
[2017-06-25] MEDS: FAMOTIDINE 20 MG TABLET PO SCH (09:38)
[2017-06-25] MEDS: PREDNISONE 20 MG TABLET PO SCH ×2 (09:38→21:33)
[2017-06-25] MEDS: ENOXAPARIN SODIUM INJ 40 MG/0.4 ML DISP.SYRIN SUBCUT SCH (09:39)
[2017-06-25] MEDS: SENNOSIDES/DOCUSATE 8.6-50 MG 1 EACH TABLET PO SCH (09:39)
[2017-06-25] MEDS ORDERED: ROMIPLOSTIM SUBCUT ONE (11:00)
[2017-06-25] MEDS ORDERED: DISPOSABLE SUBCUT ONE (11:00)
--- NOTE | 2017-06-25 16:32 | PDOC PROGRESS REPORT ---
Subjective Progress Note for:: 06/25/17 Subjective:: Patient has no specific complaints this morning He does still get dyspneic with minor ambulation She has no fever no chills no chest pains Reason For Visit: ACUTE RESPIRATORY FAILURE Physical Exam Vital Signs: Temp Pulse Resp BP Pulse Ox 98.0 F 100 16 95/70 L 100 06/25/17 16:12 06/25/17 16:12 06/25/17 16:12 06/25/17 16:12 06/25/17 16:12 Intake & Output 06/24/17 06/25/17 06/26/17 00:59 00:59 00:59 Intake Total 1466 1302 Output Total 1999 1550 Balance -534 -248 Weight 51 kg 50.2 kg 51.3 kg General appearance: PRESENT: no acute distress, cooperative, thin Head exam: PRESENT: atraumatic, normocephalic Neck exam: ABSENT: carotid bruit, JVD, lymphadenopathy, thyromegaly Respiratory exam: PRESENT: clear to auscultation esdras. ABSENT: rales, rhonchi, wheezes GI/Abdominal exam: PRESENT: normal bowel sounds, soft. ABSENT: distended, guarding, mass, organolmegaly, rebound, tenderness Neurological exam: PRESENT: alert, awake, oriented to person, oriented to place , oriented to time, oriented to situation, CN II-XII grossly intact. ABSENT: motor sensory deficit Results Laboratory Results: 06/23/17 05:31 06/25/17 06:03 06/25/17 06:03 Sodium 142.9 Potassium 4.9 Chloride 98 Carbon Dioxide 39 H Anion Gap 6 BUN 15 Creatinine 0.50 L Est GFR ( Amer) > 60 Est GFR (Non-Af Amer) > 60 Glucose 105 Calcium 9.2 06/13/17 06/13/17 06/13/17 09:57 09:57 17:47 Creatine Kinase 115 85 CK-MB (CK-2) 5.04 H Troponin I 0.517 06/13/17 06/14/17 06/14/17 17:47 01:43 01:43 Creatine Kinase 72 CK-MB (CK-2) 4.61 H 3.26 Troponin I 0.332 0.235 Impressions: Chest/Abdomen CTA 06/12/17 18:09 IMPRESSION: No emboli visualized in the main pulmonary arteries or the segmental branches. The multiple new subcentimeter pulmonary nodules most notable in the left upper and right lower lobes.Similar hypodense 1.5 x 2.3 cm AP window enlarged lymph node. Chest X-Ray 06/20/17 06:00 IMPRESSION: Trace persistent airspace disease or fluid along the left lateral costophrenic sulcus. Assessment & Plan - Diagnosis (1) Lung cancer Qualifiers: Laterality: unspecified laterality Lung location: unspecified part of lung Qualified Code(s): C34.90 - Malignant neoplasm of unspecified part of unspecified bronchus or lung Is this a current diagnosis for this admission?: Yes (2) Non-STEMI (non-ST elevated myocardial infarction) Is this a current diagnosis for this admission?: Yes (3) Respiratory failure Qualifiers: Chronicity: acute on chronic Respiratory failure complication: hypoxia Qualified Code(s): J96.21 - Acute and chronic respiratory failure with hypoxia Is this a current diagnosis for this admission?: Yes (4) Sepsis Qualifiers: Sepsis type: sepsis due to unspecified organism Qualified Code(s): A41.9 - Sepsis, unspecified organism Is this a current diagnosis for this admission?: Yes (5) Thrombocytopenia Is this a current diagnosis for this admission?: Yes - Time Time Spent with patient: Continue present management Patient is awaiting transfer to rehab
[2017-06-25] MEDS ORDERED: FENTANYL 12 MCG/HR PATCH.TD72 TD ONE (22:00)
[2017-06-26] MEDS: IPRATROPIUM/ALBUTEROL 0.5-2.5 MG/3 ML AMPUL NEB SCH ×4 (01:50→19:53)
[2017-06-26] MEDS: BENZONATATE 100 MG CAPSULE PO SCH ×3 (06:45→22:50)
[2017-06-26] MEDS: FAMOTIDINE 20 MG TABLET PO SCH (09:55)
[2017-06-26] MEDS: SENNOSIDES/DOCUSATE 8.6-50 MG 1 EACH TABLET PO SCH (09:56)
[2017-06-26] MEDS: PREDNISONE 20 MG TABLET PO SCH ×2 (09:56→22:50)
[2017-06-26] MEDS: ENOXAPARIN SODIUM INJ 40 MG/0.4 ML DISP.SYRIN SUBCUT SCH (09:57)
--- NOTE | 2017-06-26 18:41 | PDOC PROGRESS REPORT ---
Subjective Progress Note for:: 06/26/17 Subjective:: No complaints patient's condition is unchanged Reason For Visit: ACUTE RESPIRATORY FAILURE Physical Exam Vital Signs: Temp Pulse Resp BP Pulse Ox 97.5 F 99 16 105/71 96 06/26/17 16:13 06/26/17 16:13 06/26/17 16:13 06/26/17 16:13 06/26/17 16:13 Intake & Output 06/25/17 06/26/17 06/27/17 00:59 00:59 00:59 Intake Total 1302 1313 1095 Output Total 1550 Balance -248 1313 1095 Weight 50.2 kg 51.3 kg 46.9 kg General appearance: PRESENT: no acute distress, cooperative, thin Head exam: PRESENT: atraumatic, normocephalic Neck exam: ABSENT: carotid bruit, JVD, lymphadenopathy, thyromegaly Respiratory exam: PRESENT: clear to auscultation esdras. ABSENT: rales, rhonchi, wheezes GI/Abdominal exam: PRESENT: normal bowel sounds, soft. ABSENT: distended, guarding, mass, organolmegaly, rebound, tenderness Neurological exam: PRESENT: alert, awake, oriented to person, oriented to place , oriented to time, oriented to situation, CN II-XII grossly intact. ABSENT: motor sensory deficit Results Laboratory Results: 06/23/17 05:31 06/25/17 06:03 06/13/17 06/13/17 06/13/17 09:57 09:57 17:47 Creatine Kinase 115 85 CK-MB (CK-2) 5.04 H Troponin I 0.517 06/13/17 06/14/17 06/14/17 17:47 01:43 01:43 Creatine Kinase 72 CK-MB (CK-2) 4.61 H 3.26 Troponin I 0.332 0.235 Impressions: Chest/Abdomen CTA 06/12/17 18:09 IMPRESSION: No emboli visualized in the main pulmonary arteries or the segmental branches. The multiple new subcentimeter pulmonary nodules most notable in the left upper and right lower lobes.Similar hypodense 1.5 x 2.3 cm AP window enlarged lymph node. Chest X-Ray 06/20/17 06:00 IMPRESSION: Trace persistent airspace disease or fluid along the left lateral costophrenic sulcus. Assessment & Plan - Diagnosis (1) Lung cancer Qualifiers: Laterality: unspecified laterality Lung location: unspecified part of lung Qualified Code(s): C34.90 - Malignant neoplasm of unspecified part of unspecified bronchus or lung Is this a current diagnosis for this admission?: Yes (2) Non-STEMI (non-ST elevated myocardial infarction) Is this a current diagnosis for this admission?: Yes (3) Respiratory failure Qualifiers: Chronicity: acute on chronic Respiratory failure complication: hypoxia Qualified Code(s): J96.21 - Acute and chronic respiratory failure with hypoxia Is this a current diagnosis for this admission?: Yes (4) Sepsis Qualifiers: Sepsis type: sepsis due to unspecified organism Qualified Code(s): A41.9 - Sepsis, unspecified organism Is this a current diagnosis for this admission?: Yes (5) Thrombocytopenia Is this a current diagnosis for this admission?: Yes - Time Time Spent with patient: continue present management awaiting bed in short term rehab
[2017-06-27] MEDS: IPRATROPIUM/ALBUTEROL 0.5-2.5 MG/3 ML AMPUL NEB SCH ×4 (01:48→20:39)
[2017-06-27] MEDS: BENZONATATE 100 MG CAPSULE PO SCH ×3 (06:57→22:06)
[2017-06-27] MEDS: PREDNISONE 20 MG TABLET PO SCH ×2 (09:26→22:06)
[2017-06-27] MEDS: FAMOTIDINE 20 MG TABLET PO SCH (09:26)
[2017-06-27] MEDS: SENNOSIDES/DOCUSATE 8.6-50 MG 1 EACH TABLET PO SCH (09:26)
[2017-06-27] MEDS: ENOXAPARIN SODIUM INJ 40 MG/0.4 ML DISP.SYRIN SUBCUT SCH (09:27)
[2017-06-27] MEDS: ACETAMINOPHEN 325 MG TABLET PO PRN ×2 (13:56→22:06)
--- NOTE | 2017-06-27 21:33 | PDOC PROGRESS REPORT ---
Subjective Progress Note for:: 06/27/17 Subjective:: Feeling better Reason For Visit: ACUTE RESPIRATORY FAILURE Physical Exam Vital Signs: Temp Pulse Resp BP Pulse Ox 97.1 F 99 20 101/76 99 06/27/17 19:25 06/27/17 19:25 06/27/17 19:25 06/27/17 19:25 06/27/17 19:25 Intake & Output 06/26/17 06/27/17 06/28/17 06:59 06:59 06:59 Intake Total 1313 1495 969 Balance 1313 1495 969 Weight 46.9 kg 46 kg General appearance: PRESENT: no acute distress, cooperative, disheveled, thin Head exam: PRESENT: atraumatic, normocephalic Eye exam: PRESENT: conjunctiva pale, EOMI. ABSENT: nystagmus, periorbital swelling, scleral icterus Mouth exam: PRESENT: moist, neck supple, tongue midline Neck exam: ABSENT: carotid bruit, JVD, lymphadenopathy, thyromegaly, tracheal deviation, tracheostomy Respiratory exam: PRESENT: decreased breath sounds, prolonged expiratory phas, rhonchi, symmetrical, unlabored, wheezes. ABSENT: retraction, tachypnea Cardiovascular exam: PRESENT: RRR, +S1, +S2. ABSENT: tachycardia Pulses: PRESENT: normal radial pulses GI/Abdominal exam: PRESENT: diminished bowel sounds, soft Extremities exam: ABSENT: calf tenderness, clubbing, joint swelling Musculoskeletal exam: ABSENT: deformity, dislocation Neurological exam: PRESENT: alert, awake Psychiatric exam: PRESENT: normal mood Skin exam: PRESENT: dry, warm Results Laboratory Results: 06/23/17 05:31 06/25/17 06:03 06/13/17 06/13/17 06/13/17 09:57 09:57 17:47 Creatine Kinase 115 85 CK-MB (CK-2) 5.04 H Troponin I 0.517 06/13/17 06/14/17 06/14/17 17:47 01:43 01:43 Creatine Kinase 72 CK-MB (CK-2) 4.61 H 3.26 Troponin I 0.332 0.235 Impressions: Chest/Abdomen CTA 06/12/17 18:09 IMPRESSION: No emboli visualized in the main pulmonary arteries or the segmental branches. The multiple new subcentimeter pulmonary nodules most notable in the left upper and right lower lobes.Similar hypodense 1.5 x 2.3 cm AP window enlarged lymph node. Chest X-Ray 06/20/17 06:00 IMPRESSION: Trace persistent airspace disease or fluid along the left lateral costophrenic sulcus. Assessment & Plan - Diagnosis (1) Acute respiratory failure Qualifiers: Respiratory failure complication: hypoxia and hypercapnia Qualified Code(s) : J96.01 - Acute respiratory failure with hypoxia; J96.02 - Acute respiratory failure with hypercapnia; J96.02 - Acute respiratory failure with hypercapnia; J96.02 - Acute respiratory failure with hypercapnia Is this a current diagnosis for this admission?: Yes Plan: at baseline (2) Lung cancer Qualifiers: Laterality: unspecified laterality Lung location: unspecified part of lung Qualified Code(s): C34.90 - Malignant neoplasm of unspecified part of unspecified bronchus or lung Is this a current diagnosis for this admission?: Yes Plan: As per oncology (3) Thrombocytopenia Is this a current diagnosis for this admission?: Yes Plan: Resolved (4) COPD (chronic obstructive pulmonary disease) Qualifiers: COPD type: emphysema Emphysema type: unspecified Qualified Code(s): J43.9 - Emphysema, unspecified Is this a current diagnosis for this admission?: Yes Plan: LABA+NENO+LAMA (5) Chronic hypoxemic respiratory failure Is this a current diagnosis for this admission?: Yes Plan: Unchanged
--- NOTE | 2017-06-27 21:35 | PDOC PROGRESS REPORT ---
Subjective Progress Note for:: 06/25/17 Subjective:: ready to leave but i am weak Reason For Visit: ACUTE RESPIRATORY FAILURE Physical Exam Vital Signs: Temp Pulse Resp BP Pulse Ox 97.6 F 99 18 112/72 98 06/26/17 11:40 06/26/17 14:23 06/26/17 14:23 06/26/17 11:40 06/26/17 14:23 Intake & Output 06/25/17 06/26/17 06/27/17 06:59 06:59 06:59 Intake Total 1080 1313 Output Total 1550 Balance -470 1313 Weight 51.3 kg 46.9 kg General appearance: PRESENT: no acute distress, cooperative, disheveled, thin Head exam: PRESENT: atraumatic, normocephalic Eye exam: PRESENT: conjunctiva pale, EOMI. ABSENT: nystagmus, periorbital swelling, scleral icterus Mouth exam: PRESENT: moist, neck supple, tongue midline Neck exam: ABSENT: carotid bruit, JVD, lymphadenopathy, thyromegaly, tracheal deviation, tracheostomy Respiratory exam: PRESENT: decreased breath sounds, prolonged expiratory phas, rales, rhonchi, symmetrical, unlabored, wheezes. ABSENT: retraction, stridor, tachypnea Cardiovascular exam: PRESENT: RRR, +S1, +S2 Pulses: PRESENT: normal radial pulses GI/Abdominal exam: PRESENT: diminished bowel sounds, soft Extremities exam: ABSENT: calf tenderness, clubbing, joint swelling Musculoskeletal exam: PRESENT: ambulatory. ABSENT: deformity, dislocation Neurological exam: PRESENT: alert, awake Psychiatric exam: PRESENT: normal mood Skin exam: PRESENT: dry, warm Results Laboratory Results: 06/23/17 05:31 06/25/17 06:03 06/13/17 06/13/17 06/13/17 09:57 09:57 17:47 Creatine Kinase 115 85 CK-MB (CK-2) 5.04 H Troponin I 0.517 06/13/17 06/14/17 06/14/17 17:47 01:43 01:43 Creatine Kinase 72 CK-MB (CK-2) 4.61 H 3.26 Troponin I 0.332 0.235 Impressions: Chest/Abdomen CTA 06/12/17 18:09 IMPRESSION: No emboli visualized in the main pulmonary arteries or the segmental branches. The multiple new subcentimeter pulmonary nodules most notable in the left upper and right lower lobes.Similar hypodense 1.5 x 2.3 cm AP window enlarged lymph node. Chest X-Ray 06/20/17 06:00 IMPRESSION: Trace persistent airspace disease or fluid along the left lateral costophrenic sulcus. Assessment & Plan - Diagnosis (1) Acute respiratory failure Qualifiers: Respiratory failure complication: hypoxia and hypercapnia Qualified Code(s) : J96.01 - Acute respiratory failure with hypoxia; J96.02 - Acute respiratory failure with hypercapnia; J96.02 - Acute respiratory failure with hypercapnia; J96.02 - Acute respiratory failure with hypercapnia Is this a current diagnosis for this admission?: Yes Plan: at baseline (2) Lung cancer Qualifiers: Laterality: unspecified laterality Lung location: unspecified part of lung Qualified Code(s): C34.90 - Malignant neoplasm of unspecified part of unspecified bronchus or lung Is this a current diagnosis for this admission?: Yes Plan: As per oncology (3) Thrombocytopenia Is this a current diagnosis for this admission?: Yes (4) COPD (chronic obstructive pulmonary disease) Qualifiers: COPD type: emphysema Emphysema type: unspecified Qualified Code(s): J43.9 - Emphysema, unspecified Is this a current diagnosis for this admission?: Yes Plan: LABA+NENO+LAMA (5) Chronic hypoxemic respiratory failure Is this a current diagnosis for this admission?: Yes Plan: Unchanged
--- NOTE | 2017-06-27 21:37 | PDOC PROGRESS REPORT ---
Subjective Progress Note for:: 06/26/17 Subjective:: ready to leave but i am weak Reason For Visit: ACUTE RESPIRATORY FAILURE Physical Exam Vital Signs: Temp Pulse Resp BP Pulse Ox 97.6 F 99 18 112/72 98 06/26/17 11:40 06/26/17 14:23 06/26/17 14:23 06/26/17 11:40 06/26/17 14:23 Intake & Output 06/25/17 06/26/17 06/27/17 06:59 06:59 06:59 Intake Total 1080 1313 Output Total 1550 Balance -470 1313 Weight 51.3 kg 46.9 kg General appearance: PRESENT: no acute distress, cooperative, disheveled, thin Head exam: PRESENT: atraumatic, normocephalic Eye exam: PRESENT: conjunctiva pale, EOMI. ABSENT: nystagmus, periorbital swelling, scleral icterus Mouth exam: PRESENT: moist, neck supple, tongue midline Neck exam: ABSENT: carotid bruit, JVD, lymphadenopathy, thyromegaly, tracheal deviation Respiratory exam: PRESENT: decreased breath sounds, prolonged expiratory phas, rales, rhonchi, symmetrical, unlabored, wheezes. ABSENT: retraction, stridor, tachypnea Cardiovascular exam: PRESENT: RRR, +S1, +S2. ABSENT: tachycardia Pulses: PRESENT: normal radial pulses GI/Abdominal exam: PRESENT: diminished bowel sounds, soft Extremities exam: ABSENT: calf tenderness, clubbing, joint swelling Musculoskeletal exam: ABSENT: deformity, dislocation Neurological exam: PRESENT: alert, awake Psychiatric exam: PRESENT: normal mood Skin exam: PRESENT: dry, warm Results Laboratory Results: 06/23/17 05:31 06/25/17 06:03 06/13/17 06/13/17 06/13/17 09:57 09:57 17:47 Creatine Kinase 115 85 CK-MB (CK-2) 5.04 H Troponin I 0.517 06/13/17 06/14/17 06/14/17 17:47 01:43 01:43 Creatine Kinase 72 CK-MB (CK-2) 4.61 H 3.26 Troponin I 0.332 0.235 Impressions: Chest/Abdomen CTA 06/12/17 18:09 IMPRESSION: No emboli visualized in the main pulmonary arteries or the segmental branches. The multiple new subcentimeter pulmonary nodules most notable in the left upper and right lower lobes.Similar hypodense 1.5 x 2.3 cm AP window enlarged lymph node. Chest X-Ray 06/20/17 06:00 IMPRESSION: Trace persistent airspace disease or fluid along the left lateral costophrenic sulcus. Assessment & Plan - Diagnosis (1) Acute respiratory failure Qualifiers: Respiratory failure complication: hypoxia and hypercapnia Qualified Code(s) : J96.01 - Acute respiratory failure with hypoxia; J96.02 - Acute respiratory failure with hypercapnia; J96.02 - Acute respiratory failure with hypercapnia; J96.02 - Acute respiratory failure with hypercapnia Is this a current diagnosis for this admission?: Yes (2) Lung cancer Qualifiers: Laterality: unspecified laterality Lung location: unspecified part of lung Qualified Code(s): C34.90 - Malignant neoplasm of unspecified part of unspecified bronchus or lung Is this a current diagnosis for this admission?: Yes Plan: As per oncology (3) Thrombocytopenia Is this a current diagnosis for this admission?: Yes (4) COPD (chronic obstructive pulmonary disease) Qualifiers: COPD type: emphysema Emphysema type: unspecified Qualified Code(s): J43.9 - Emphysema, unspecified Is this a current diagnosis for this admission?: Yes Plan: LABA+NENO+LAMA (5) Chronic hypoxemic respiratory failure Is this a current diagnosis for this admission?: Yes Plan: Unchanged
[2017-06-28] MEDS: IPRATROPIUM/ALBUTEROL 0.5-2.5 MG/3 ML AMPUL NEB SCH ×4 (01:52→21:07)
[2017-06-28] MEDS: BENZONATATE 100 MG CAPSULE PO SCH ×3 (07:22→21:24)
[2017-06-28 09:23] LABS: ABSOLUTE LYMPHOCYTES (AUTO) 0.6 10^3/uL (0.5-4.7); ABSOLUTE MONOCYTES (AUTO) 0.5 10^3/uL (0.1-1.4); ABSOLUTE NEUT (AUTO) 7.6 10^3/uL (1.7-8.2); BASOPHILS % (AUTO) 0.1 % (0-2); EOSINOPHILS % (AUTO) 0.1 % (0-6); HEMATOCRIT 41.4 % (36.0-47.0); HEMOGLOBIN 12.8 g/dL (12.0-15.5); LYMPHOCYTES % (AUTO) 6.9 % (13-45); MEAN CORPUSCULAR HEMOGLOBIN 25.2 pg (27.0-33.4); MEAN CORPUSCULAR HGB CONC 30.9 g/dL (32.0-36.0); MEAN CORPUSCULAR VOLUME 82 fl (80-97); MONOCYTES % (AUTO) 5.3 % (3-13); PLATELET COUNT 252 10^3/uL (150-450); RED BLOOD COUNT 5.07 10^6/uL (3.72-5.28); RED CELL DISTRIBUTION WIDTH 22.4 % (11.5-14.0); SEGMENTED NEUTROPHILS % (AUTO) 87.6 % (42-78); TOTAL CELLS COUNTED % (AUTO) 100 %; WHITE BLOOD COUNT 8.7 10^3/uL (4.0-10.5)
[2017-06-28 09:41] LABS: ANION GAP 11 (5-19); BLOOD UREA NITROGEN 16 mg/dL (7-20); CALCIUM 9.5 mg/dL (8.4-10.2); CARBON DIOXIDE 31 mmol/L (22-30); CHLORIDE 100 mmol/L (98-107); GLUCOSE 130 mg/dL (75-110); POTASSIUM 4.6 mmol/L (3.6-5.0); SODIUM 141.8 mmol/L (137-145)
[2017-06-28] MEDS: ENOXAPARIN SODIUM INJ 40 MG/0.4 ML DISP.SYRIN SUBCUT SCH (11:05)
[2017-06-28] MEDS: FAMOTIDINE 20 MG TABLET PO SCH (11:09)
[2017-06-28] MEDS: SENNOSIDES/DOCUSATE 8.6-50 MG 1 EACH TABLET PO SCH (11:11)
[2017-06-28] MEDS: PREDNISONE 20 MG TABLET PO SCH ×2 (11:12→21:24)
[2017-06-28] MEDS: FENTANYL 12 MCG/HR PATCH.TD72 TD SCH (11:14)
--- NOTE | 2017-06-28 17:49 | PDOC PROGRESS REPORT ---
Subjective Progress Note for:: 06/28/17 Subjective:: No clinical change patient still does not have intubated rehab She has no complaints Reason For Visit: ACUTE RESPIRATORY FAILURE Physical Exam Vital Signs: Temp Pulse Resp BP Pulse Ox 98.7 F 93 15 104/66 100 06/28/17 15:59 06/28/17 15:59 06/28/17 15:59 06/28/17 15:59 06/28/17 15:59 Intake & Output 06/27/17 06/28/17 06/29/17 00:59 00:59 00:59 Intake Total 1495 1369 600 Balance 1495 1369 600 Weight 46.9 kg 46 kg 45.9 kg Alert and awake pupils Pupils are PERRLA extraocular motor intact nonicteric Neck supple Heart regular rhythm Lungs are clear Abdomen soft nontender Results Laboratory Results: 06/28/17 09:01 06/28/17 09:01 06/28/17 06/28/17 09:01 09:01 WBC 8.7 RBC 5.07 Hgb 12.8 Hct 41.4 MCV 82 MCH 25.2 L MCHC 30.9 L RDW 22.4 H Plt Count 252 Seg Neutrophils % 87.6 H Lymphocytes % 6.9 L Monocytes % 5.3 Eosinophils % 0.1 Basophils % 0.1 Absolute Neutrophils 7.6 Absolute Lymphocytes 0.6 Absolute Monocytes 0.5 Absolute Eosinophils 0.0 Absolute Basophils 0.0 Sodium 141.8 Potassium 4.6 Chloride 100 Carbon Dioxide 31 H Anion Gap 11 BUN 16 Creatinine 0.49 L Est GFR ( Amer) > 60 Est GFR (Non-Af Amer) > 60 Glucose 130 H Calcium 9.5 06/13/17 06/13/17 06/13/17 09:57 09:57 17:47 Creatine Kinase 115 85 CK-MB (CK-2) 5.04 H Troponin I 0.517 06/13/17 06/14/17 06/14/17 17:47 01:43 01:43 Creatine Kinase 72 CK-MB (CK-2) 4.61 H 3.26 Troponin I 0.332 0.235 Impressions: Chest/Abdomen CTA 06/12/17 18:09 IMPRESSION: No emboli visualized in the main pulmonary arteries or the segmental branches. The multiple new subcentimeter pulmonary nodules most notable in the left upper and right lower lobes.Similar hypodense 1.5 x 2.3 cm AP window enlarged lymph node. Chest X-Ray 06/20/17 06:00 IMPRESSION: Trace persistent airspace disease or fluid along the left lateral costophrenic sulcus. Assessment & Plan - Diagnosis (1) Lung cancer Qualifiers: Laterality: unspecified laterality Lung location: unspecified part of lung Qualified Code(s): C34.90 - Malignant neoplasm of unspecified part of unspecified bronchus or lung Is this a current diagnosis for this admission?: Yes (2) Non-STEMI (non-ST elevated myocardial infarction) Is this a current diagnosis for this admission?: Yes (3) Respiratory failure Qualifiers: Chronicity: acute on chronic Respiratory failure complication: hypoxia Qualified Code(s): J96.21 - Acute and chronic respiratory failure with hypoxia Is this a current diagnosis for this admission?: Yes (4) Sepsis Qualifiers: Sepsis type: sepsis due to unspecified organism Qualified Code(s): A41.9 - Sepsis, unspecified organism Is this a current diagnosis for this admission?: Yes (5) Thrombocytopenia Is this a current diagnosis for this admission?: Yes - Time Time Spent with patient: Continue present management We will discuss tomorrow with patient and his daughter the possibility of going home with home health and home PT Time Spent with patient: 15-24 minutes
[2017-06-28] MEDS: ACETAMINOPHEN 325 MG TABLET PO PRN (18:23)
[2017-06-29] MEDS: IPRATROPIUM/ALBUTEROL 0.5-2.5 MG/3 ML AMPUL NEB SCH ×2 (02:16→08:17)
[2017-06-29] MEDS: BENZONATATE 100 MG CAPSULE PO SCH (05:40)
[2017-06-29] MEDS: SENNOSIDES/DOCUSATE 8.6-50 MG 1 EACH TABLET PO SCH (09:52)
[2017-06-29] MEDS: PREDNISONE 20 MG TABLET PO SCH (09:52)
[2017-06-29] MEDS: FAMOTIDINE 20 MG TABLET PO SCH (09:52)
[2017-06-29] MEDS: ENOXAPARIN SODIUM INJ 40 MG/0.4 ML DISP.SYRIN SUBCUT SCH (09:55)
[2017-06-29] MEDS ORDERED: (PENDING PHARMACY ID) (Oxycodone Hcl/Acetaminophen [Percocet 10-325 Mg Tablet] 1 TAB) PO PRN (10:40)
[2017-06-29] MEDS ORDERED: ALBUTEROL SULFATE HFA (90 MCG/PUFF) 8 GM MDI (1 MDI/ER DISP) IH PRN (10:40)
[2017-06-29] MEDS ORDERED: IPRATROPIUM/ALBUTEROL 0.5-2.5 MG/3 ML AMPUL NEB PRN (10:43)
--- NOTE | 2017-06-29 11:16 | RADIOLOGY REPORT (SQ) ---
EXAM DESCRIPTION: CHEST SINGLE VIEW COMPLETED DATE/TIME: 06/29/2017 11:07 am REASON FOR STUDY: SOB COMPARISON: 06/20/2017 NUMBER OF VIEWS: One view. TECHNIQUE: Single frontal radiographic view of the chest acquired. LIMITATIONS: None. FINDINGS: LUNGS AND PLEURA: No opacities, masses or pneumothorax. No pleural effusion. Attenuated bl ood vessels and flattened dee-diaphragms. Scarring upper lobes. MEDIASTINUM AND HILAR STRUCTURES: No masses. Contour normal. HEART AND VASCULAR STRUCTURES: Heart normal in size. Normal vasculature. BONES: No acute findings. HARDWARE: Stable. OTHER: No other significant finding. IMPRESSION: COPD WITH SCARRING IN THE UPPER LOBES. NO ACUTE RADIOGRAPHIC FINDING IN THE CHEST. TECHNICAL DOCUMENTATION: JOB ID: [id number] [email or web address] All Rights Reserved Reading location - IP/workstation name: [email or web address]
[2017-06-29] MEDS ORDERED: ALBUTEROL SULFATE HFA (90 MCG/PUFF) 200 PUFF/8.5 GM MDI IH PRN (11:18)
[2017-06-29] MEDS ORDERED: LEVOTHYROXINE SODIUM 0.15 MG TABLET PO ONE (12:00)
[2017-06-29] MEDS: OXYCODONE-ACETAMINOPHEN 5-325 MG TABLET PO PRN (12:20)
[2017-06-29] MEDS: BUPROPION HCL 100 MG TABLET PO SCH ×2 (13:36→21:14)
--- NOTE | 2017-06-29 14:18 | PDOC PROGRESS REPORT ---
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 Chemotherapy was discontinued and patient was treated successfully with Nplate . Patient presented to the ED on 06/13/2017 severe respiratory distress She was diagnosed of acute on chronic respiratory failure secondary to COPD and pneumonia was intubated mechanically ventilated Strep pneumonia was diagnosed Pneumonia was present time of admission Patient was treated with Levaquin IV steroids and nebs She improved She was extubated on 06/17/2017 successfully Platelet count was extremely low on admission 19 Hematology consult was obtained Patient was successfully treated with Nplate and platelet count increased; it is now in normal range Troponins were elevated and patient was diagnosed of an acute non-STEMI Echocardiogram showed a depressed left ventricular function with an EF of 45% and grade 2/4 diastolic dysfunction Patient's course has been uncomplicated since her transfer to medical unit She has been extremely debilitated weak Mentation is excellent O2 sat is 100% on 2 L nasal cannula Patient is awaiting transfer to rehab Reason For Visit: ACUTE RESPIRATORY FAILURE Physical Exam Vital Signs: Temp Pulse Resp BP Pulse Ox 97.5 F 85 18 101/73 100 06/29/17 08:24 06/29/17 08:24 06/29/17 08:24 06/29/17 08:24 06/29/17 08:24 Intake & Output 06/28/17 06/29/17 06/30/17 00:59 00:59 00:59 Intake Total 1369 1224 Balance 1369 1224 Weight 46 kg 45.9 kg 45.9 kg Results Laboratory Results: 06/28/17 09:01 06/28/17 09:01 06/13/17 06/13/17 06/13/17 09:57 09:57 17:47 Creatine Kinase 115 85 CK-MB (CK-2) 5.04 H Troponin I 0.517 06/13/17 06/14/17 06/14/17 17:47 01:43 01:43 Creatine Kinase 72 CK-MB (CK-2) 4.61 H 3.26 Troponin I 0.332 0.235 Impressions: Chest/Abdomen CTA 06/12/17 18:09 IMPRESSION: No emboli visualized in the main pulmonary arteries or the segmental branches. The multiple new subcentimeter pulmonary nodules most notable in the left upper and right lower lobes.Similar hypodense 1.5 x 2.3 cm AP window enlarged lymph node. Chest X-Ray 06/29/17 10:48 IMPRESSION: COPD WITH SCARRING IN THE UPPER LOBES. NO ACUTE RADIOGRAPHIC FINDING IN THE CHEST. Assessment & Plan - Diagnosis (1) Lung cancer Qualifiers: Laterality: unspecified laterality Lung location: unspecified part of lung Qualified Code(s): C34.90 - Malignant neoplasm of unspecified part of unspecified bronchus or lung Is this a current diagnosis for this admission?: Yes Plan: Chemotherapy has been on hold Management as per oncology Patient to be referred to oncology after discharge (2) Non-STEMI (non-ST elevated myocardial infarction) Is this a current diagnosis for this admission?: Yes Plan: Patient was found not to be a candidate for intervention We will reevaluate medical management Add beta blockers EMERITA and Lipitor (3) Respiratory failure Qualifiers: Chronicity: acute on chronic Respiratory failure complication: hypoxia Qualified Code(s): J96.21 - Acute and chronic respiratory failure with hypoxia Is this a current diagnosis for this admission?: Yes Plan: Continue nasal O2 and present meds Patient is clinically very stable (4) Sepsis Qualifiers: Sepsis type: sepsis due to unspecified organism Qualified Code(s): A41.9 - Sepsis, unspecified organism Is this a current diagnosis for this admission?: Yes Plan: Secondary to pneumococcal pneumonia-treated with Levaquin Has resolved (5) Thrombocytopenia Is this a current diagnosis for this admission?: Yes Plan: Secondary to ITP resolved Management as per hematology Again patient to be referred to Dr. Owens at discharge - Time Time Spent with patient: 35 or more minutes
[2017-06-29] MEDS: CARVEDILOL 3.125 MG TABLET PO SCH (21:12)
[2017-06-29] MEDS: ATORVASTATIN CALCIUM 10 MG TABLET PO SCH (21:14)
[2017-06-30] MEDS: BUPROPION HCL 100 MG TABLET PO SCH ×3 (06:07→21:15)
[2017-06-30] MEDS: LANSOPRAZOLE 15 MG TAB.RAP.DR PO SCH (06:07)
[2017-06-30] MEDS: LEVOTHYROXINE SODIUM 0.15 MG TABLET PO SCH (06:07)
[2017-06-30] MEDS: OXYCODONE HCL IR 5 MG TABLET PO PRN ×2 (06:38→18:23)
[2017-06-30] MEDS ORDERED: (PENDING PHARMACY ID) (Fluticasone/Vilanterol [Breo Ellipta 100-25 Mcg Inh] 1 EACH) IH SCH (10:00)
[2017-06-30] MEDS: ENOXAPARIN SODIUM INJ 40 MG/0.4 ML DISP.SYRIN SUBCUT SCH (10:18)
[2017-06-30] MEDS: PREDNISONE 20 MG TABLET PO SCH (10:18)
[2017-06-30] MEDS: FAMOTIDINE 20 MG TABLET PO SCH (10:20)
[2017-06-30] MEDS: ASPIRIN 81 MG TABLET, ENT COATED PO SCH (10:21)
[2017-06-30] MEDS: CARVEDILOL 3.125 MG TABLET PO SCH ×2 (10:21→21:14)
[2017-06-30] MEDS: SENNOSIDES/DOCUSATE 8.6-50 MG 1 EACH TABLET PO SCH (10:21)
[2017-06-30] MEDS: LISINOPRIL 5 MG TABLET PO SCH (10:21)
[2017-06-30] MEDS: ACETAMINOPHEN 325 MG TABLET PO PRN (11:13)
[2017-06-30] MEDS: ATORVASTATIN CALCIUM 10 MG TABLET PO SCH (21:14)
[2017-06-30] MEDS: OXYCODONE-ACETAMINOPHEN 5-325 MG TABLET PO PRN (22:28)
[2017-07-01] MEDS: BUPROPION HCL 100 MG TABLET PO SCH ×3 (05:31→21:19)
[2017-07-01] MEDS: LANSOPRAZOLE 15 MG TAB.RAP.DR PO SCH (05:31)
[2017-07-01] MEDS: LEVOTHYROXINE SODIUM 0.15 MG TABLET PO SCH (05:31)
[2017-07-01] MEDS: OXYCODONE-ACETAMINOPHEN 5-325 MG TABLET PO PRN ×2 (08:16→12:53)
[2017-07-01] MEDS: OXYCODONE HCL IR 5 MG TABLET PO PRN ×2 (08:18→12:52)
[2017-07-01] MEDS: CARVEDILOL 3.125 MG TABLET PO SCH ×2 (11:46→21:20)
[2017-07-01] MEDS: ASPIRIN 81 MG TABLET, ENT COATED PO SCH (11:47)
[2017-07-01] MEDS: PREDNISONE 20 MG TABLET PO SCH (11:47)
[2017-07-01] MEDS: LISINOPRIL 5 MG TABLET PO SCH (11:47)
[2017-07-01] MEDS: SENNOSIDES/DOCUSATE 8.6-50 MG 1 EACH TABLET PO SCH (11:48)
[2017-07-01] MEDS: FAMOTIDINE 20 MG TABLET PO SCH (11:48)
[2017-07-01] MEDS: FENTANYL 12 MCG/HR PATCH.TD72 TD SCH (11:48)
[2017-07-01] MEDS: ENOXAPARIN SODIUM INJ 40 MG/0.4 ML DISP.SYRIN SUBCUT SCH (11:49)
[2017-07-01] MEDS ORDERED: KETOROLAC TROMETHAMINE INJ/PF 30 MG/1 ML SDV IM ONE (13:30)
--- NOTE | 2017-07-01 13:57 | PROGRESS NOTE E ---
Progress Note NAME: MERRILL BLAKE : 1955 AGE: 61Y DATE: 06/30/2017 ROOM: 336 SUBJECTIVE: The patient is currently sitting up in bed. Upon my entering the room, I knocked and was told to enter. However, the patient's daughter sighed, rolled her eyes, and would not engage in my visit. I did enquire if there was an issue. However, I was avoided all together. The patient denies any specific complaint other than left side pain which has been effectively managed at this time with oxy. Her blood pressures have been in an acceptable range, and the patient has not voiced any other concerns at this time. REVIEW OF SYSTEMS: The rest of the review of systems is negative. MEDICATIONS: Medications have been reviewed. OBJECTIVE: GENERAL: The patient is a 61-year-old female who is awake, alert. She is oriented to person, time, place, situation. She is verbal, conversational. Does not appear to be in any acute distress. VITAL SIGNS: Temperature is 97.7, pulse 72, respirations 16, blood pressure is 102/67, oxygen saturation is 98% on 2 liters nasal cannula. SKIN: Warm and dry. No rash. She is not diaphoretic. HEENT: Pupils, equal, round, and reactive to light and accommodation. Conjunctivae are pink. No evidence of JVP. CARDIOVASCULAR: Heart is regular rate and rhythm without rubs. CHEST: Chest is diminished, symmetrical, unlabored. ABDOMEN: Soft, nontender, nondistended. BACK: No CVA tenderness or sacral edema. EXTREMITIES: No clubbing, cyanosis, edema. PSYCHIATRIC: Appropriate affect, pleasant mood. DIAGNOSTICS: Lab values are as follows: Hematology panel on 06/28/2017: WBC is 8.7, hemoglobin is 12.8, hematocrit is 41.4, platelet count is 252,000. Chemistry obtained on 06/28/2017: Sodium is 141, potassium 4.6, and chloride 111. BUN is 16 and creatinine is 4.9. Glucose is 130. Calcium is 9.5. IMPRESSION AND PLAN: 1. RIGHT UPPER LOBE LUNG CANCER. The patient's chemotherapy has been put on hold. Further management is per Oncology. I do appreciate Dr. Owens input on this. 2. NON-STEMI. The patient does not appear to be a candidate for intervention. She has been seen by Cardiology and has been evaluated for medical management. Continue a beta king, EMERITA, and Lipitor, follow. 3. ACUTE ON CHRONIC HYPOXEMIC RESPIRATORY FAILURE. Continue supplemental O2 as well as home medication. 4. PNEUMONIA. The patient has been effectively treated and received Levaquin. 5. SEPSIS SECONDARY TO PNEUMONIA. This has resolved. 6. ACUTE THROMBOCYTOPENIA. This was due to the patient's medications. It was not idiopathic. Management is per Hematology. I do appreciate Dr. Owens input on this. CODE STATUS: The patient is a full code. DISPOSITION: Depending on the patient's symptomatology and diagnostic findings, we will re-evaluate in the a.m. The patient can be downgraded to a medical bed as she is clinically stable. TIME SPENT: On this follow up, including assessment and plan, physical examination, patient education, review of records is 25 minutes. DICTATING PHYSICIAN: MALIKA DIEGO NP [id number] [id number] PHY#: [id number] ID: [id number] JOB#: [id number] ACCT: [id number] cc: > MTDD
[2017-07-01] MEDS: ATORVASTATIN CALCIUM 10 MG TABLET PO SCH (21:19)
[2017-07-01] MEDS: LIDOCAINE 5% (700 MG) TRANSDERMAL ADH..PATCH TP SCH (21:22)
[2017-07-02] MEDS: BUPROPION HCL 100 MG TABLET PO SCH ×3 (05:18→22:59)
[2017-07-02] MEDS: LANSOPRAZOLE 15 MG TAB.RAP.DR PO SCH (05:18)
[2017-07-02] MEDS: LEVOTHYROXINE SODIUM 0.15 MG TABLET PO SCH (05:18)
[2017-07-02] MEDS: OXYCODONE HCL IR 5 MG TABLET PO PRN ×2 (09:57→20:15)
[2017-07-02] MEDS: OXYCODONE-ACETAMINOPHEN 5-325 MG TABLET PO PRN ×2 (09:57→20:16)
[2017-07-02] MEDS: FAMOTIDINE 20 MG TABLET PO SCH (10:15)
[2017-07-02] MEDS: SENNOSIDES/DOCUSATE 8.6-50 MG 1 EACH TABLET PO SCH (10:16)
[2017-07-02] MEDS: PREDNISONE 20 MG TABLET PO SCH (10:16)
[2017-07-02] MEDS: CARVEDILOL 3.125 MG TABLET PO SCH (10:16)
[2017-07-02] MEDS: LISINOPRIL 5 MG TABLET PO SCH (10:16)
[2017-07-02] MEDS: ENOXAPARIN SODIUM INJ 40 MG/0.4 ML DISP.SYRIN SUBCUT SCH (10:17)
[2017-07-02] MEDS: ASPIRIN 81 MG TABLET, ENT COATED PO SCH (10:17)
--- NOTE | 2017-07-02 14:05 | RADIOLOGY REPORT (SQ) ---
EXAM DESCRIPTION: NM WHOLE BODY BONE SCAN COMPLETED DATE/TIME: 07/02/2017 1:46 pm REASON FOR STUDY: metastatic ca - lung cancer COMPARISON: CT chest 06/12/2017 Whole-body bone scan 07/18/2010 RADIONUCLIDE AND DOSE: 21.7 millicuries Tc99m MDP. The route of agent administration: Intravenous. ADDITIONAL DRUGS AND DOSES: None. TECHNIQUE: Routine delayed images at 3 hours post radionuclide injection acquired of the bony skelet on including anterior and posterior whole-body projections and additional focused images as needed. LIMITATIONS: None. FINDINGS: There is bandlike increased uptake at the T8 level likely from acute or subacute compressi on deformity. There is mild increased uptake at the T4 and T5 level likely from subacute or chronic compression def ormities. Mild increased uptake in the medial tibial plateau from probable osteoarthritis Activity is seen in a a right pelvic kidney and left kidney in the renal fossa IMPRESSION: Bandlike increased uptake at T8 likely from subacute or acute compression deformity Increased uptake at T4 and T5 likely from chronic compression deformities COMMENT: Quality measure 147: Current bone scan is compared with any available plain radiographs, p rior bone scans, and CT/MRI. TECHNICAL DOCUMENTATION: JOB ID: [id number] [employer]- All Rights Reserved Reading location - IP/workstation name: [email or web address]
--- NOTE | 2017-07-02 14:46 | PDOC PROGRESS REPORT ---
Subjective Progress Note for:: 07/02/17 Subjective:: Patient denies any new symptoms to me. She is currently awaiting rehab placement and she is aware of the current hold up. Is scheduled for a bone scan today for unclear indications. Reason For Visit: ACUTE RESPIRATORY FAILURE Physical Exam Vital Signs: Temp Pulse Resp BP Pulse Ox 97.4 F 82 13 105/68 99 07/02/17 11:37 07/02/17 11:37 07/02/17 11:37 07/02/17 11:37 07/02/17 11:37 Intake & Output 07/01/17 07/02/17 07/03/17 06:59 06:59 06:59 Intake Total 1902 918 785 Balance 1902 918 785 Weight 46.3 kg 45.1 kg General appearance: PRESENT: no acute distress, thin Head exam: PRESENT: atraumatic Neck exam: ABSENT: carotid bruit, JVD, lymphadenopathy, thyromegaly Respiratory exam: PRESENT: clear to auscultation esdras. ABSENT: rales, rhonchi, wheezes Cardiovascular exam: PRESENT: RRR. ABSENT: diastolic murmur, rubs, systolic murmur Pulses: PRESENT: normal dorsalis pedis pul Extremities exam: PRESENT: full ROM. ABSENT: calf tenderness, clubbing, pedal edema Musculoskeletal exam: PRESENT: ambulatory Neurological exam: PRESENT: alert, awake, oriented to person, oriented to place , oriented to time, oriented to situation, CN II-XII grossly intact. ABSENT: motor sensory deficit Results Laboratory Results: 06/28/17 09:01 06/28/17 09:01 06/13/17 06/13/17 06/13/17 09:57 09:57 17:47 Creatine Kinase 115 85 CK-MB (CK-2) 5.04 H Troponin I 0.517 06/13/17 06/14/17 06/14/17 17:47 01:43 01:43 Creatine Kinase 72 CK-MB (CK-2) 4.61 H 3.26 Troponin I 0.332 0.235 Impressions: Chest/Abdomen CTA 06/12/17 18:09 IMPRESSION: No emboli visualized in the main pulmonary arteries or the segmental branches. The multiple new subcentimeter pulmonary nodules most notable in the left upper and right lower lobes.Similar hypodense 1.5 x 2.3 cm AP window enlarged lymph node. Chest X-Ray 06/29/17 10:48 IMPRESSION: COPD WITH SCARRING IN THE UPPER LOBES. NO ACUTE RADIOGRAPHIC FINDING IN THE CHEST. Body Scan Nuclear Medicine 07/02/17 08:00 IMPRESSION: Bandlike increased uptake at T8 likely from subacute or acute compression deformity Increased uptake at T4 and T5 likely from chronic compression deformities Assessment & Plan - Time Time Spent with patient: 15-24 minutes Medications reviewed and adjusted accordingly: Yes Anticipated discharge: SNF Within: when bed available - Inpatient Certification Medical Necessity: Other - Awaiting [facility] placement - Plan Summary Plan Summary: Right upper lobe lung cancer. Apparently patient's chemotherapy has been on hold. She has been seen by oncology 2. Acute non-STEMI apparently for medical management. Continue beta blockers, EMERITA inhibitor and statin 3. Acute on chronic hypoxemic respiratory failure appears to be at baseline. 4. Community-acquired pneumonia with antibiotic completed 5. Sepsis secondary to above resolved 6. Thrombocytopenia likely iatrogenic. Further management per hematology
--- NOTE | 2017-07-02 19:50 | PDOC PROGRESS REPORT ---
Subjective Progress Note for:: 06/28/17 Subjective:: ready to leave but i am weak Reason For Visit: ACUTE RESPIRATORY FAILURE Physical Exam Vital Signs: Temp Pulse Resp BP Pulse Ox 97.6 F 73 16 106/81 100 07/01/17 07:54 07/01/17 07:54 07/01/17 07:54 07/01/17 07:54 07/01/17 07:54 Intake & Output 06/30/17 07/01/17 07/02/17 06:59 06:59 06:59 Intake Total 1353 1902 Balance 1353 1902 Weight 46.9 kg 46.3 kg General appearance: PRESENT: no acute distress, cooperative, disheveled, thin Head exam: PRESENT: atraumatic, normocephalic Eye exam: PRESENT: conjunctiva pale, EOMI. ABSENT: nystagmus, periorbital swelling, scleral icterus Mouth exam: PRESENT: moist, neck supple, tongue midline Neck exam: ABSENT: carotid bruit, JVD, lymphadenopathy, thyromegaly, tracheal deviation, tracheostomy Respiratory exam: PRESENT: decreased breath sounds, prolonged expiratory phas, rhonchi, unlabored. ABSENT: retraction, stridor, tachypnea Cardiovascular exam: PRESENT: RRR, +S1, +S2 Pulses: PRESENT: normal radial pulses GI/Abdominal exam: PRESENT: diminished bowel sounds, soft Extremities exam: ABSENT: calf tenderness, clubbing, full ROM, joint swelling Musculoskeletal exam: PRESENT: ambulatory. ABSENT: deformity, dislocation, full ROM Neurological exam: PRESENT: alert, awake Psychiatric exam: PRESENT: normal mood Skin exam: PRESENT: dry, warm Results Laboratory Results: 06/28/17 09:01 06/28/17 09:01 06/13/17 06/13/17 06/13/17 09:57 09:57 17:47 Creatine Kinase 115 85 CK-MB (CK-2) 5.04 H Troponin I 0.517 06/13/17 06/14/17 06/14/17 17:47 01:43 01:43 Creatine Kinase 72 CK-MB (CK-2) 4.61 H 3.26 Troponin I 0.332 0.235 Impressions: Chest/Abdomen CTA 06/12/17 18:09 IMPRESSION: No emboli visualized in the main pulmonary arteries or the segmental branches. The multiple new subcentimeter pulmonary nodules most notable in the left upper and right lower lobes.Similar hypodense 1.5 x 2.3 cm AP window enlarged lymph node. Chest X-Ray 06/29/17 10:48 IMPRESSION: COPD WITH SCARRING IN THE UPPER LOBES. NO ACUTE RADIOGRAPHIC FINDING IN THE CHEST. Assessment & Plan - Diagnosis (1) Acute respiratory failure Qualifiers: Respiratory failure complication: hypoxia and hypercapnia Qualified Code(s) : J96.01 - Acute respiratory failure with hypoxia; J96.02 - Acute respiratory failure with hypercapnia; J96.02 - Acute respiratory failure with hypercapnia; J96.02 - Acute respiratory failure with hypercapnia Is this a current diagnosis for this admission?: Yes Plan: at baseline (2) Lung cancer Qualifiers: Laterality: unspecified laterality Lung location: unspecified part of lung Qualified Code(s): C34.90 - Malignant neoplasm of unspecified part of unspecified bronchus or lung Is this a current diagnosis for this admission?: Yes Plan: As per oncology (3) Thrombocytopenia Is this a current diagnosis for this admission?: No (4) COPD (chronic obstructive pulmonary disease) Qualifiers: COPD type: emphysema Emphysema type: unspecified Qualified Code(s): J43.9 - Emphysema, unspecified Is this a current diagnosis for this admission?: Yes Plan: LABA+NENO+LAMA (5) Chronic hypoxemic respiratory failure Is this a current diagnosis for this admission?: Yes Plan: Unchanged
--- NOTE | 2017-07-02 19:52 | PDOC PROGRESS REPORT ---
Subjective Progress Note for:: 07/01/17 Subjective:: Awaiting placement Reason For Visit: ACUTE RESPIRATORY FAILURE Physical Exam Vital Signs: Temp Pulse Resp BP Pulse Ox 97.6 F 73 16 106/81 100 07/01/17 07:54 07/01/17 07:54 07/01/17 07:54 07/01/17 07:54 07/01/17 07:54 Intake & Output 06/30/17 07/01/17 07/02/17 06:59 06:59 06:59 Intake Total 1353 1902 Balance 1353 1902 Weight 46.9 kg 46.3 kg General appearance: PRESENT: no acute distress, cooperative, disheveled, thin Head exam: PRESENT: atraumatic, normocephalic Eye exam: PRESENT: conjunctiva pale, EOMI. ABSENT: nystagmus, periorbital swelling, scleral icterus Mouth exam: PRESENT: moist, neck supple, tongue midline Teeth exam: PRESENT: edentulous Neck exam: ABSENT: carotid bruit, JVD, lymphadenopathy, thyromegaly, tracheal deviation, tracheostomy Respiratory exam: PRESENT: decreased breath sounds, prolonged expiratory phas, rales, rhonchi, symmetrical, unlabored. ABSENT: retraction, stridor, tachypnea Cardiovascular exam: PRESENT: RRR, +S1, +S2 Pulses: PRESENT: normal radial pulses GI/Abdominal exam: PRESENT: diminished bowel sounds, soft Extremities exam: PRESENT: full ROM. ABSENT: calf tenderness, clubbing, joint swelling Musculoskeletal exam: PRESENT: ambulatory, full ROM. ABSENT: deformity, dislocation Neurological exam: PRESENT: alert, awake Psychiatric exam: PRESENT: normal mood Skin exam: PRESENT: dry, warm Results Laboratory Results: 06/28/17 09:01 06/28/17 09:01 06/13/17 06/13/17 06/13/17 09:57 09:57 17:47 Creatine Kinase 115 85 CK-MB (CK-2) 5.04 H Troponin I 0.517 06/13/17 06/14/17 06/14/17 17:47 01:43 01:43 Creatine Kinase 72 CK-MB (CK-2) 4.61 H 3.26 Troponin I 0.332 0.235 Impressions: Chest/Abdomen CTA 06/12/17 18:09 IMPRESSION: No emboli visualized in the main pulmonary arteries or the segmental branches. The multiple new subcentimeter pulmonary nodules most notable in the left upper and right lower lobes.Similar hypodense 1.5 x 2.3 cm AP window enlarged lymph node. Chest X-Ray 06/29/17 10:48 IMPRESSION: COPD WITH SCARRING IN THE UPPER LOBES. NO ACUTE RADIOGRAPHIC FINDING IN THE CHEST. Assessment & Plan - Diagnosis (1) Acute respiratory failure Qualifiers: Respiratory failure complication: hypoxia and hypercapnia Qualified Code(s) : J96.01 - Acute respiratory failure with hypoxia; J96.02 - Acute respiratory failure with hypercapnia; J96.02 - Acute respiratory failure with hypercapnia; J96.02 - Acute respiratory failure with hypercapnia Is this a current diagnosis for this admission?: Yes Plan: at baseline (2) Lung cancer Qualifiers: Laterality: unspecified laterality Lung location: unspecified part of lung Qualified Code(s): C34.90 - Malignant neoplasm of unspecified part of unspecified bronchus or lung Is this a current diagnosis for this admission?: Yes Plan: As per oncology (3) Thrombocytopenia Is this a current diagnosis for this admission?: No (4) COPD (chronic obstructive pulmonary disease) Qualifiers: COPD type: emphysema Emphysema type: unspecified Qualified Code(s): J43.9 - Emphysema, unspecified Is this a current diagnosis for this admission?: Yes Plan: LABA+NENO+LAMA (5) Chronic hypoxemic respiratory failure Is this a current diagnosis for this admission?: Yes
[2017-07-02] MEDS: ATORVASTATIN CALCIUM 10 MG TABLET PO SCH (22:59)
[2017-07-02] MEDS: LIDOCAINE 5% (700 MG) TRANSDERMAL ADH..PATCH TP SCH (22:59)
[2017-07-03] MEDS: CARVEDILOL 3.125 MG TABLET PO SCH ×3 (01:51→21:44)
[2017-07-03] MEDS: LANSOPRAZOLE 15 MG TAB.RAP.DR PO SCH (06:38)
[2017-07-03] MEDS: LEVOTHYROXINE SODIUM 0.15 MG TABLET PO SCH (06:38)
[2017-07-03] MEDS: BUPROPION HCL 100 MG TABLET PO SCH ×3 (06:38→21:43)
[2017-07-03] MEDS: OXYCODONE-ACETAMINOPHEN 5-325 MG TABLET PO PRN ×2 (06:47→20:57)
[2017-07-03] MEDS: OXYCODONE HCL IR 5 MG TABLET PO PRN ×2 (06:48→20:57)
[2017-07-03] MEDS: FAMOTIDINE 20 MG TABLET PO SCH (11:33)
[2017-07-03] MEDS: ENOXAPARIN SODIUM INJ 40 MG/0.4 ML DISP.SYRIN SUBCUT SCH (11:33)
[2017-07-03] MEDS: SENNOSIDES/DOCUSATE 8.6-50 MG 1 EACH TABLET PO SCH (11:33)
[2017-07-03] MEDS: ASPIRIN 81 MG TABLET, ENT COATED PO SCH (11:34)
[2017-07-03] MEDS: LISINOPRIL 5 MG TABLET PO SCH (11:34)
[2017-07-03] MEDS: PREDNISONE 20 MG TABLET PO SCH (11:36)
[2017-07-03] MEDS ORDERED: ONDANSETRON 4 MG TAB.RAPDIS ONE (12:45)
--- NOTE | 2017-07-03 15:44 | PDOC PROGRESS REPORT ---
Subjective Progress Note for:: 07/03/17 Subjective:: Awaiting placement Reason For Visit: ACUTE RESPIRATORY FAILURE Physical Exam Vital Signs: Temp Pulse Resp BP Pulse Ox 98.0 F 87 18 104/71 97 07/03/17 08:19 07/03/17 08:19 07/03/17 08:19 07/03/17 08:19 07/03/17 08:19 Intake & Output 07/02/17 07/03/17 07/04/17 06:59 06:59 06:59 Intake Total 918 1185 Balance 918 1185 Weight 45.1 kg 45.7 kg General appearance: PRESENT: no acute distress, cooperative, disheveled, thin Head exam: PRESENT: atraumatic, normocephalic Eye exam: PRESENT: conjunctiva pale, EOMI. ABSENT: nystagmus, periorbital swelling, scleral icterus Mouth exam: PRESENT: dry mucosa, neck supple, tongue midline Neck exam: ABSENT: carotid bruit, JVD, lymphadenopathy, thyromegaly, tracheal deviation, tracheostomy Respiratory exam: PRESENT: decreased breath sounds, prolonged expiratory phas, rhonchi, symmetrical, unlabored. ABSENT: retraction, stridor, tachypnea Cardiovascular exam: PRESENT: RRR, +S1, +S2 Pulses: PRESENT: normal radial pulses GI/Abdominal exam: PRESENT: diminished bowel sounds, soft. ABSENT: rebound Extremities exam: PRESENT: full ROM. ABSENT: calf tenderness, clubbing, joint swelling Musculoskeletal exam: PRESENT: ambulatory, full ROM. ABSENT: deformity, dislocation Neurological exam: PRESENT: alert, awake Psychiatric exam: PRESENT: normal mood Skin exam: PRESENT: dry, warm Results Laboratory Results: 06/28/17 09:01 06/28/17 09:01 06/13/17 06/13/17 06/13/17 09:57 09:57 17:47 Creatine Kinase 115 85 CK-MB (CK-2) 5.04 H Troponin I 0.517 06/13/17 06/14/17 06/14/17 17:47 01:43 01:43 Creatine Kinase 72 CK-MB (CK-2) 4.61 H 3.26 Troponin I 0.332 0.235 Impressions: Chest/Abdomen CTA 06/12/17 18:09 IMPRESSION: No emboli visualized in the main pulmonary arteries or the segmental branches. The multiple new subcentimeter pulmonary nodules most notable in the left upper and right lower lobes.Similar hypodense 1.5 x 2.3 cm AP window enlarged lymph node. Chest X-Ray 06/29/17 10:48 IMPRESSION: COPD WITH SCARRING IN THE UPPER LOBES. NO ACUTE RADIOGRAPHIC FINDING IN THE CHEST. Body Scan Nuclear Medicine 07/02/17 08:00 IMPRESSION: Bandlike increased uptake at T8 likely from subacute or acute compression deformity Increased uptake at T4 and T5 likely from chronic compression deformities Assessment & Plan - Diagnosis (1) Acute respiratory failure Qualifiers: Respiratory failure complication: hypoxia and hypercapnia Qualified Code(s) : J96.01 - Acute respiratory failure with hypoxia; J96.02 - Acute respiratory failure with hypercapnia; J96.02 - Acute respiratory failure with hypercapnia; J96.02 - Acute respiratory failure with hypercapnia Is this a current diagnosis for this admission?: Yes Plan: at baseline (2) Lung cancer Qualifiers: Laterality: unspecified laterality Lung location: unspecified part of lung Qualified Code(s): C34.90 - Malignant neoplasm of unspecified part of unspecified bronchus or lung Is this a current diagnosis for this admission?: Yes Plan: As per oncology (3) Thrombocytopenia Is this a current diagnosis for this admission?: No (4) COPD (chronic obstructive pulmonary disease) Qualifiers: COPD type: emphysema Emphysema type: unspecified Qualified Code(s): J43.9 - Emphysema, unspecified Is this a current diagnosis for this admission?: Yes Plan: LABA+NENO+LAMA (5) Chronic hypoxemic respiratory failure Is this a current diagnosis for this admission?: Yes Plan: The above patient has failed BiPAP. This patient would benefit from noninvasive mechanical ventilation via the trilogy AVAPS/AE and faster responding AVAPS rates. The trilogy is able to provide a target tidal volume and also adjusting the EPAP pressures to maintain a patent airway as well as an oral backup rate this machine will help improve PaCO2 levels. The severity of the patient's condition will lead to future hospitalizations and readmissions as well as life-threatening situations without the use of this device trilogy home vent needed for hypercapnic respiratory failure. [facility] to follow for trilogy set up. - Plan Summary Plan Summary: We will follow patient peripherally please call if I can be of further assistance thank you very much for allowing me see Ms. Thorne help participate in her care
--- NOTE | 2017-07-03 16:58 | PDOC PROGRESS REPORT ---
Subjective Progress Note for:: 07/03/17 Subjective:: Patient denies any new symptoms to me. She is currently awaiting rehab placement and she is aware of the current hold up. Reason For Visit: ACUTE RESPIRATORY FAILURE Physical Exam Vital Signs: Temp Pulse Resp BP Pulse Ox 98.5 F 92 16 91/71 L 97 07/03/17 16:02 07/03/17 16:02 07/03/17 16:02 07/03/17 16:02 07/03/17 16:02 Intake & Output 07/02/17 07/03/17 07/04/17 06:59 06:59 06:59 Intake Total 918 1185 360 Balance 918 1185 360 Weight 45.1 kg 45.7 kg General appearance: PRESENT: thin Head exam: PRESENT: atraumatic Eye exam: PRESENT: conjunctiva pink, EOMI, PERRLA. ABSENT: scleral icterus Ear exam: PRESENT: normal external ear exam Neck exam: ABSENT: carotid bruit, JVD, lymphadenopathy, thyromegaly GI/Abdominal exam: PRESENT: normal bowel sounds, soft. ABSENT: distended, guarding, mass, organolmegaly, rebound, tenderness Rectal exam: PRESENT: deferred Extremities exam: PRESENT: full ROM. ABSENT: calf tenderness, clubbing, pedal edema Musculoskeletal exam: PRESENT: ambulatory Results Laboratory Results: 06/28/17 09:01 06/28/17 09:01 06/13/17 06/13/17 06/13/17 09:57 09:57 17:47 Creatine Kinase 115 85 CK-MB (CK-2) 5.04 H Troponin I 0.517 06/13/17 06/14/17 06/14/17 17:47 01:43 01:43 Creatine Kinase 72 CK-MB (CK-2) 4.61 H 3.26 Troponin I 0.332 0.235 Impressions: Chest/Abdomen CTA 06/12/17 18:09 IMPRESSION: No emboli visualized in the main pulmonary arteries or the segmental branches. The multiple new subcentimeter pulmonary nodules most notable in the left upper and right lower lobes.Similar hypodense 1.5 x 2.3 cm AP window enlarged lymph node. Chest X-Ray 06/29/17 10:48 IMPRESSION: COPD WITH SCARRING IN THE UPPER LOBES. NO ACUTE RADIOGRAPHIC FINDING IN THE CHEST. Body Scan Nuclear Medicine 07/02/17 08:00 IMPRESSION: Bandlike increased uptake at T8 likely from subacute or acute compression deformity Increased uptake at T4 and T5 likely from chronic compression deformities Assessment & Plan - Time Time Spent with patient: Less than 15 minutes Medications reviewed and adjusted accordingly: Yes Anticipated discharge: SNF Within: when bed available - Inpatient Certification Based on my medical assessment, after consideration of the patient's comorbidities, presenting symptoms, or acuity I expect that the services needed warrant INPATIENT care.: Yes Medical Necessity: Significant Comorbidiites Make Outpatient Treatment Too Risky - Plan Summary Plan Summary: 1. Right upper lobe lung cancer. Resume chemotherapy when Oncology advises 2. Acute non-STEMI apparently for medical management. Continue beta blockers, EMERITA inhibitor and statin 3. Acute on chronic hypoxemic respiratory failure appears to be at baseline. s/p mech ventilation 4. Community-acquired pneumonia with antibiotic completed 5. Sepsis secondary to above resolved 6. Thrombocytopenia -resolved
[2017-07-03] MEDS: ONDANSETRON 4 MG TAB.RAPDIS PO PRN (20:56)
[2017-07-03] MEDS: LIDOCAINE 5% (700 MG) TRANSDERMAL ADH..PATCH TP SCH (21:43)
[2017-07-03] MEDS: ATORVASTATIN CALCIUM 10 MG TABLET PO SCH (21:43)
[2017-07-04] MEDS: LANSOPRAZOLE 15 MG TAB.RAP.DR PO SCH (06:42)
[2017-07-04] MEDS: LEVOTHYROXINE SODIUM 0.15 MG TABLET PO SCH (06:42)
[2017-07-04] MEDS: BUPROPION HCL 100 MG TABLET PO SCH ×3 (06:42→21:13)
[2017-07-04] MEDS: OXYCODONE-ACETAMINOPHEN 5-325 MG TABLET PO PRN ×3 (08:52→21:14)
[2017-07-04] MEDS: PREDNISONE 20 MG TABLET PO SCH (08:53)
[2017-07-04] MEDS: LISINOPRIL 5 MG TABLET PO SCH (08:54)
[2017-07-04] MEDS: CARVEDILOL 3.125 MG TABLET PO SCH ×2 (08:55→23:46)
[2017-07-04] MEDS: ASPIRIN 81 MG TABLET, ENT COATED PO SCH (08:56)
[2017-07-04] MEDS: FAMOTIDINE 20 MG TABLET PO SCH (08:56)
[2017-07-04] MEDS: OXYCODONE HCL IR 5 MG TABLET PO PRN ×3 (08:57→21:13)
[2017-07-04] MEDS: SENNOSIDES/DOCUSATE 8.6-50 MG 1 EACH TABLET PO SCH (08:58)
[2017-07-04] MEDS: FENTANYL 12 MCG/HR PATCH.TD72 TD SCH (08:59)
[2017-07-04] MEDS: ENOXAPARIN SODIUM INJ 40 MG/0.4 ML DISP.SYRIN SUBCUT SCH (09:01)
--- NOTE | 2017-07-04 14:49 | PDOC PROGRESS REPORT ---
Subjective Progress Note for:: 07/04/17 Subjective:: Patient denies any new symptoms to me. She is currently awaiting rehab placement and she is aware of the current hold up. Appears she is thinking of going home instead if Rehab not possible Reason For Visit: ACUTE RESPIRATORY FAILURE Physical Exam Vital Signs: Temp Pulse Resp BP Pulse Ox 97.8 F 73 18 109/73 96 07/04/17 11:53 07/04/17 11:53 07/04/17 11:53 07/04/17 11:53 07/04/17 11:53 Intake & Output 07/03/17 07/04/17 07/05/17 06:59 06:59 06:59 Intake Total 1185 1310 702 Balance 1185 1310 702 Weight 45.7 kg 45.2 kg General appearance: PRESENT: no acute distress, thin Head exam: PRESENT: atraumatic, normocephalic Eye exam: PRESENT: conjunctiva pink, EOMI, PERRLA. ABSENT: scleral icterus Ear exam: PRESENT: normal external ear exam Mouth exam: PRESENT: moist, tongue midline Neck exam: ABSENT: carotid bruit, JVD, lymphadenopathy, thyromegaly Respiratory exam: PRESENT: clear to auscultation esdras. ABSENT: rales, rhonchi, wheezes Cardiovascular exam: PRESENT: RRR. ABSENT: diastolic murmur, rubs, systolic murmur Pulses: PRESENT: normal dorsalis pedis pul Vascular exam: PRESENT: normal capillary refill GI/Abdominal exam: PRESENT: normal bowel sounds, soft. ABSENT: distended, guarding, mass, organolmegaly, rebound, tenderness Rectal exam: PRESENT: deferred Extremities exam: PRESENT: full ROM. ABSENT: calf tenderness, clubbing, pedal edema Neurological exam: PRESENT: alert, awake, oriented to person, oriented to place , oriented to time, oriented to situation, CN II-XII grossly intact. ABSENT: motor sensory deficit Psychiatric exam: PRESENT: appropriate affect, normal mood. ABSENT: homicidal ideation, suicidal ideation Skin exam: PRESENT: dry, intact, warm. ABSENT: cyanosis, rash Results Laboratory Results: 06/28/17 09:01 06/28/17 09:01 06/13/17 06/13/17 06/13/17 09:57 09:57 17:47 Creatine Kinase 115 85 CK-MB (CK-2) 5.04 H Troponin I 0.517 06/13/17 06/14/17 06/14/17 17:47 01:43 01:43 Creatine Kinase 72 CK-MB (CK-2) 4.61 H 3.26 Troponin I 0.332 0.235 Impressions: Chest/Abdomen CTA 06/12/17 18:09 IMPRESSION: No emboli visualized in the main pulmonary arteries or the segmental branches. The multiple new subcentimeter pulmonary nodules most notable in the left upper and right lower lobes.Similar hypodense 1.5 x 2.3 cm AP window enlarged lymph node. Chest X-Ray 06/29/17 10:48 IMPRESSION: COPD WITH SCARRING IN THE UPPER LOBES. NO ACUTE RADIOGRAPHIC FINDING IN THE CHEST. Body Scan Nuclear Medicine 07/02/17 08:00 IMPRESSION: Bandlike increased uptake at T8 likely from subacute or acute compression deformity Increased uptake at T4 and T5 likely from chronic compression deformities Assessment & Plan - Time Time Spent with patient: Less than 15 minutes Medications reviewed and adjusted accordingly: Yes Anticipated discharge: Home Within: within 24 hours - Plan Summary Plan Summary: 1. Right upper lobe lung cancer. Resume chemotherapy when discharged 2. Acute non-STEMI apparently for medical management. Continue beta blockers, EMERITA inhibitor and statin 3. Acute on chronic hypoxemic respiratory failure appears to be at baseline. s/p mech ventilation 4. Community-acquired pneumonia with antibiotic completed 5. Sepsis secondary to above resolved 6. Thrombocytopenia -resolved Check labs in am 7. Possible dc in am
[2017-07-04] MEDS: KETOROLAC TROMETHAMINE 10 MG TABLET PO PRN (17:00)
[2017-07-04] MEDS: LIDOCAINE 5% (700 MG) TRANSDERMAL ADH..PATCH TP SCH (21:13)
[2017-07-04] MEDS: ATORVASTATIN CALCIUM 10 MG TABLET PO SCH (21:13)
[2017-07-05] MEDS: LANSOPRAZOLE 15 MG TAB.RAP.DR PO SCH (05:38)
[2017-07-05] MEDS: BUPROPION HCL 100 MG TABLET PO SCH (05:38)
[2017-07-05] MEDS: LEVOTHYROXINE SODIUM 0.15 MG TABLET PO SCH (05:38)
[2017-07-05] MEDS: OXYCODONE HCL IR 5 MG TABLET PO PRN ×2 (05:47→09:21)
[2017-07-05] MEDS: OXYCODONE-ACETAMINOPHEN 5-325 MG TABLET PO PRN ×2 (05:48→09:20)
[2017-07-05 07:01] LABS: ANION GAP 10 (5-19); BLOOD UREA NITROGEN 23 mg/dL (7-20); CARBON DIOXIDE 30 mmol/L (22-30); CHLORIDE 102 mmol/L (98-107); GLUCOSE 80 mg/dL (75-110); SODIUM 141.5 mmol/L (137-145)
[2017-07-05 07:10] LABS: HEMATOCRIT 40.6 % (36.0-47.0); HEMOGLOBIN 12.9 g/dL (12.0-15.5); MEAN CORPUSCULAR HEMOGLOBIN 25.7 pg (27.0-33.4); MEAN CORPUSCULAR HGB CONC 31.8 g/dL (32.0-36.0); MEAN CORPUSCULAR VOLUME 81 fl (80-97); PLATELET COUNT 244 10^3/uL (150-450); RED BLOOD COUNT 5.04 10^6/uL (3.72-5.28); RED CELL DISTRIBUTION WIDTH 24.6 % (11.5-14.0)
--- NOTE | 2017-07-05 07:51 | PDOC PROGRESS REPORT ---
Subjective Progress Note for:: 07/05/17 Subjective:: Patient complains of chronic back pain which is worse today. She is still awaiting rehab bed, but now believes it has been worked out for her to go home with home PT. She is excited about this and anxious to go home. Reason For Visit: ACUTE RESPIRATORY FAILURE Physical Exam Vital Signs: Temp Pulse Resp BP Pulse Ox 97.7 F 81 18 93/64 L 98 07/05/17 04:01 07/05/17 04:01 07/05/17 04:01 07/05/17 04:01 07/05/17 04:01 Intake & Output 07/04/17 07/05/17 07/06/17 06:59 06:59 06:59 Intake Total 1310 1182 Balance 1310 1182 Weight 45.2 kg 44.8 kg General appearance: PRESENT: no acute distress Exam: Thin, 61 year old female. Respiratory exam: PRESENT: unlabored Extremities exam: ABSENT: pedal edema Neurological exam: PRESENT: alert, awake, oriented to person, oriented to place , oriented to time, oriented to situation Psychiatric exam: PRESENT: appropriate affect Skin exam: PRESENT: normal color Results Laboratory Results: 07/05/17 06:35 07/05/17 06:35 Sodium 141.5 Potassium 5.0 Chloride 102 Carbon Dioxide 30 Anion Gap 10 BUN 23 H Creatinine 0.61 Est GFR ( Amer) > 60 Est GFR (Non-Af Amer) > 60 Glucose 80 Calcium 9.0 06/13/17 06/13/17 06/13/17 09:57 09:57 17:47 Creatine Kinase 115 85 CK-MB (CK-2) 5.04 H Troponin I 0.517 06/13/17 06/14/17 06/14/17 17:47 01:43 01:43 Creatine Kinase 72 CK-MB (CK-2) 4.61 H 3.26 Troponin I 0.332 0.235 Impressions: Chest/Abdomen CTA 06/12/17 18:09 IMPRESSION: No emboli visualized in the main pulmonary arteries or the segmental branches. The multiple new subcentimeter pulmonary nodules most notable in the left upper and right lower lobes.Similar hypodense 1.5 x 2.3 cm AP window enlarged lymph node. Chest X-Ray 06/29/17 10:48 IMPRESSION: COPD WITH SCARRING IN THE UPPER LOBES. NO ACUTE RADIOGRAPHIC FINDING IN THE CHEST. Body Scan Nuclear Medicine 07/02/17 08:00 IMPRESSION: Bandlike increased uptake at T8 likely from subacute or acute compression deformity Increased uptake at T4 and T5 likely from chronic compression deformities Assessment & Plan - Diagnosis (1) Lung cancer Qualifiers: Laterality: unspecified laterality Lung location: unspecified part of lung Qualified Code(s): C34.90 - Malignant neoplasm of unspecified part of unspecified bronchus or lung Is this a current diagnosis for this admission?: Yes Plan: Further treatment to be determined. She will follow-up with me. (2) Acute ITP Is this a current diagnosis for this admission?: Yes Plan: Currently stable on Nplate. Her next dose will be due on 07/08/2017. I will order if she is still here in the hospital. Otherwise, she will come to my office on Saturday for this injection. (3) Anemia Qualifiers: Anemia type: other cause Other causes of anemia: acute posthemorrhagic Qualified Code(s): D62 - Acute posthemorrhagic anemia Is this a current diagnosis for this admission?: Yes Plan: Now resolved. (4) Pneumonia Is this a current diagnosis for this admission?: Yes - Plan Summary Plan Summary: Hopefully, patient will be discharged today.
[2017-07-05 08:35] VITALS: BP 102/65
[2017-07-05] MEDS: SENNOSIDES/DOCUSATE 8.6-50 MG 1 EACH TABLET PO SCH (09:20)
[2017-07-05] MEDS: ONDANSETRON 4 MG TAB.RAPDIS PO PRN (09:20)
[2017-07-05] MEDS: FAMOTIDINE 20 MG TABLET PO SCH (09:20)
[2017-07-05] MEDS: ASPIRIN 81 MG TABLET, ENT COATED PO SCH (09:21)
[2017-07-05] MEDS: PREDNISONE 20 MG TABLET PO SCH (09:21)
[2017-07-05] MEDS: CARVEDILOL 3.125 MG TABLET PO SCH (09:21)
[2017-07-05] MEDS: KETOROLAC TROMETHAMINE 10 MG TABLET PO PRN (09:21)
[2017-07-05] MEDS: ENOXAPARIN SODIUM INJ 40 MG/0.4 ML DISP.SYRIN SUBCUT SCH (09:21)
[2017-07-05] MEDS: LISINOPRIL 5 MG TABLET PO SCH (09:22)
--- NOTE | 2017-07-05 10:26 | PDOC PROGRESS REPORT ---
Subjective Progress Note for:: 07/04/17 Reason For Visit: ACUTE RESPIRATORY FAILURE Physical Exam Vital Signs: Temp Pulse Resp BP Pulse Ox 97.8 F 82 14 102/65 99 07/05/17 07:24 07/05/17 07:24 07/05/17 07:24 07/05/17 07:24 07/05/17 07:24 Intake & Output 07/04/17 07/05/17 07/06/17 06:59 06:59 06:59 Intake Total 1310 1182 Balance 1310 1182 Weight 45.2 kg 44.8 kg Results Laboratory Results: 07/05/17 06:35 07/05/17 06:35 07/05/17 07/05/17 06:35 06:35 WBC 7.0 RBC 5.04 Hgb 12.9 Hct 40.6 MCV 81 MCH 25.7 L MCHC 31.8 L RDW 24.6 H Plt Count 244 Sodium 141.5 Potassium 5.0 Chloride 102 Carbon Dioxide 30 Anion Gap 10 BUN 23 H Creatinine 0.61 Est GFR ( Amer) > 60 Est GFR (Non-Af Amer) > 60 Glucose 80 Calcium 9.0 06/13/17 06/13/17 06/13/17 09:57 09:57 17:47 Creatine Kinase 115 85 CK-MB (CK-2) 5.04 H Troponin I 0.517 06/13/17 06/14/17 06/14/17 17:47 01:43 01:43 Creatine Kinase 72 CK-MB (CK-2) 4.61 H 3.26 Troponin I 0.332 0.235 Impressions: Chest/Abdomen CTA 06/12/17 18:09 IMPRESSION: No emboli visualized in the main pulmonary arteries or the segmental branches. The multiple new subcentimeter pulmonary nodules most notable in the left upper and right lower lobes.Similar hypodense 1.5 x 2.3 cm AP window enlarged lymph node. Chest X-Ray 06/29/17 10:48 IMPRESSION: COPD WITH SCARRING IN THE UPPER LOBES. NO ACUTE RADIOGRAPHIC FINDING IN THE CHEST. Body Scan Nuclear Medicine 07/02/17 08:00 IMPRESSION: Bandlike increased uptake at T8 likely from subacute or acute compression deformity Increased uptake at T4 and T5 likely from chronic compression deformities Assessment & Plan - Diagnosis (1) Acute respiratory failure Qualifiers: Respiratory failure complication: hypoxia and hypercapnia Qualified Code(s) : J96.01 - Acute respiratory failure with hypoxia; J96.02 - Acute respiratory failure with hypercapnia; J96.02 - Acute respiratory failure with hypercapnia; J96.02 - Acute respiratory failure with hypercapnia Is this a current diagnosis for this admission?: Yes (2) Lung cancer Qualifiers: Laterality: unspecified laterality Lung location: unspecified part of lung Qualified Code(s): C34.90 - Malignant neoplasm of unspecified part of unspecified bronchus or lung Is this a current diagnosis for this admission?: Yes (3) Thrombocytopenia Is this a current diagnosis for this admission?: No (4) COPD (chronic obstructive pulmonary disease) Qualifiers: COPD type: emphysema Emphysema type: unspecified Qualified Code(s): J43.9 - Emphysema, unspecified Is this a current diagnosis for this admission?: Yes (5) Chronic hypoxemic respiratory failure Is this a current diagnosis for this admission?: Yes
--- NOTE | 2017-07-05 10:47 | PDOC DISCHARGE SUMMARY ---
General - Admit/Disc Date/PCP Admission Date/Primary Care Provider: 06/12/17 21:04 Discharge Date: 07/05/17 - Discharge Diagnosis (1) Acute respiratory failure Is this a current diagnosis for this admission?: Yes (2) Lung cancer Is this a current diagnosis for this admission?: Yes (3) Non-STEMI (non-ST elevated myocardial infarction) Is this a current diagnosis for this admission?: Yes (4) Sepsis Is this a current diagnosis for this admission?: Yes (5) Thrombocytopenia Is this a current diagnosis for this admission?: No (6) Anemia Is this a current diagnosis for this admission?: Yes (7) COPD exacerbation Is this a current diagnosis for this admission?: Yes (8) Chronic hypoxemic respiratory failure Is this a current diagnosis for this admission?: Yes (9) Depression Is this a current diagnosis for this admission?: Yes (10) Diastolic dysfunction without heart failure Is this a current diagnosis for this admission?: Yes (11) Thrombocytopenia Is this a current diagnosis for this admission?: Yes (12) Tobacco abuse Is this a current diagnosis for this admission?: Yes - Additional Information Resuscitation Status: Full Code Discharge Diet: As Tolerated, Regular Discharge Activity: Activity As Tolerated, Bedrest, Slowly Increase Activity Prescriptions: Atorvastatin Calcium [Lipitor 10 mg Tablet] 10 mg PO QHS #30 tablet Lidocaine [Lidoderm 5% (700 mg) Transdermal Patch] 1 patch TP QHS #30 adh..patch Fentanyl [Duragesic 12 Mcg/Hr Transdermal Patch] 1 each TD Q3DAYS #10 patch.td72 Oxycodone HCl [Oxy-Ir 5 mg Tablet] 5 mg PO Q4HP PRN #14 tablet PRN Reason: Oxycodone HCl/Acetaminophen [Percocet 5-325 mg Tablet] 1 tab PO Q4HP PRN #20 tablet PRN Reason: Ketorolac Tromethamine [Toradol 10 mg Tablet] 10 mg PO Q6HP PRN #20 tablet PRN Reason: Ondansetron [Zofran Odt 4 mg Tablet] 4 mg PO Q6HP PRN #14 tab.rapdis PRN Reason: Carvedilol [Coreg 3.125 mg Tablet] 3.125 mg PO Q12 #30 tablet Lisinopril [Prinivil 5 mg Tablet] 5 mg PO DAILY #30 tablet Home Medications: Bupropion HCl [Bupropion HCl Sr] 150 mg PO Q12 04/18/17 Levothyroxine Sodium [Synthroid] 150 mcg PO Q6AM 04/18/17 Omeprazole 20 mg PO DAILY 04/18/17 Albuterol Sulfate [Ventolin Hfa] 2 puff IH Q4HP PRN 06/13/17 Aspirin [Aspirin EC] 81 mg PO DAILY 06/13/17 Fluticasone/Vilanterol [Breo Ellipta 100-25 Mcg INH] 1 each IH DAILY 06/13/17 Ipratropium/Albuterol Sulfate [Iprat-Albut 0.5-3(2.5) mg/3 ml] 1 vial NEB Q6H Atorvastatin Calcium [Lipitor 10 mg Tablet] 10 mg PO QHS #30 tablet 07/05/17 Carvedilol [Coreg 3.125 mg Tablet] 3.125 mg PO Q12 #30 tablet 07/05/17 Fentanyl [Duragesic 12 Mcg/Hr Transdermal Patch] 1 each TD Q3DAYS #10 patch.td72 07/05/17 Ketorolac Tromethamine [Toradol 10 mg Tablet] 10 mg PO Q6HP PRN #20 tablet 07/05 Lidocaine [Lidoderm 5% (700 mg) Transdermal Patch] 1 patch TP QHS #30 adh..patch 07/05/17 Lisinopril [Prinivil 5 mg Tablet] 5 mg PO DAILY #30 tablet 07/05/17 Ondansetron [Zofran Odt 4 mg Tablet] 4 mg PO Q6HP PRN #14 tab.rapdis 07/05/17 Oxycodone HCl [Oxy-Ir 5 mg Tablet] 5 mg PO Q4HP PRN #14 tablet 07/05/17 Oxycodone HCl/Acetaminophen [Percocet 5-325 mg Tablet] 1 tab PO Q4HP PRN #20 tablet 07/05/17 History of Present Illness Patient complains of: MERRILL BLAKE is a 61 year old female patient presented with chief complaint of shortness of breath and chest pain. Since patient is intubated and on mechanical ventilator she is not source of history. Brief history is obtained from the ER attending note. Her Dr. Gabriel patient presented to emergency department with chief complaint of right -sided chest pain and shortness of breath. She is initially evaluated with CT scan of the chest to rule out PE and resulted is reported as negative for PE but she has scattered new nodules bilaterally. Of note patient is a known case of lung cancer. While she is in ER patient's condition is deteriorated she desaturates and her respiratory rate was around 45 at this point patient emergently intubated and put on mechanical ventilation and transferred to ICU. History of Present Illness: MERRILL BLAKE is a 61 year old female Hospital Course Hospital Course: This patient was admitted with difficulty breathing and chest pain. She was intubated and monitored in the intensive care unit. She has a history of underlying lung cancer and she was found to be pretty thrombocytopenic on initial presentation. Patient was seen by the oncologist as well as the analytical research program manager. She actually did relatively well and was successfully extubated and her respiratory status has been relatively stable. Her platelet count has also come up after initially being treated with Romiplostim and has remained stable. Was also found to have an acute non-ST elevation [place] which was thought to be likely a demand ischemia. She was seen by Dr. Seth and conservative management was recommended due to her multiple comorbidities. She continued to progress and has been relatively stable in hospital. Hospitalization was prolonged really because she was awaiting transfer to acute rehabilitation however this has been technically difficult due to insurance patient decided to go home with home health services. She has been medically stable with no interventions been done. She is to follow-up with her primary care physician as well as hospital ward clerk and oncologist as advised. Physical Exam Vital Signs: Temp Pulse Resp BP Pulse Ox 97.8 F 82 14 102/65 99 07/05/17 07:24 07/05/17 07:24 07/05/17 07:24 07/05/17 07:24 07/05/17 07:24 Intake & Output 07/04/17 07/05/17 07/06/17 06:59 06:59 06:59 Intake Total 1310 1182 Balance 1310 1182 Weight 45.2 kg 44.8 kg General appearance: PRESENT: no acute distress, thin Head exam: PRESENT: atraumatic, normocephalic Eye exam: PRESENT: conjunctiva pink, EOMI, PERRLA. ABSENT: scleral icterus Ear exam: PRESENT: normal external ear exam Mouth exam: PRESENT: moist, tongue midline Neck exam: ABSENT: carotid bruit, JVD, lymphadenopathy, thyromegaly Respiratory exam: PRESENT: clear to auscultation esdras. ABSENT: rales, rhonchi, wheezes Cardiovascular exam: PRESENT: RRR. ABSENT: diastolic murmur, rubs, systolic murmur Pulses: PRESENT: normal dorsalis pedis pul Vascular exam: PRESENT: normal capillary refill GI/Abdominal exam: PRESENT: normal bowel sounds, soft. ABSENT: distended, guarding, mass, organolmegaly, rebound, tenderness Rectal exam: PRESENT: deferred Extremities exam: PRESENT: full ROM. ABSENT: calf tenderness, clubbing, pedal edema Neurological exam: PRESENT: alert, awake, oriented to person, oriented to place , oriented to time, oriented to situation, CN II-XII grossly intact. ABSENT: motor sensory deficit Psychiatric exam: PRESENT: appropriate affect, normal mood. ABSENT: homicidal ideation, suicidal ideation Skin exam: PRESENT: dry, intact, warm. ABSENT: cyanosis, rash Results Laboratory Results: 07/05/17 06:35 07/05/17 06:35 07/05/17 07/05/17 06:35 06:35 WBC 7.0 RBC 5.04 Hgb 12.9 Hct 40.6 MCV 81 MCH 25.7 L MCHC 31.8 L RDW 24.6 H Plt Count 244 Sodium 141.5 Potassium 5.0 Chloride 102 Carbon Dioxide 30 Anion Gap 10 BUN 23 H Creatinine 0.61 Est GFR ( Amer) > 60 Est GFR (Non-Af Amer) > 60 Glucose 80 Calcium 9.0 06/13/17 06/13/17 06/13/17 09:57 09:57 17:47 Creatine Kinase 115 85 CK-MB (CK-2) 5.04 H Troponin I 0.517 06/13/17 06/14/17 06/14/17 17:47 01:43 01:43 Creatine Kinase 72 CK-MB (CK-2) 4.61 H 3.26 Troponin I 0.332 0.235 Impressions: Chest/Abdomen CTA 06/12/17 18:09 IMPRESSION: No emboli visualized in the main pulmonary arteries or the segmental branches. The multiple new subcentimeter pulmonary nodules most notable in the left upper and right lower lobes.Similar hypodense 1.5 x 2.3 cm AP window enlarged lymph node. Chest X-Ray 04/21/18 10:48 IMPRESSION: COPD WITH SCARRING IN THE UPPER LOBES. NO ACUTE RADIOGRAPHIC FINDING IN THE CHEST. Body Scan Nuclear Medicine 07/02/17 08:00 IMPRESSION: Bandlike increased uptake at T8 likely from subacute or acute compression deformity Increased uptake at T4 and T5 likely from chronic compression deformities Qualifiers - * PATIENT BEING DISCHARGED WITH ANY OF THE FOLLOWING DIAGNOSIS: No, NJ NJ Pt being discharged on Aspirin therapy?: Yes NJ Pt being discharged on Statins?: Yes NJ Pt discharged ACEI/ARBS?: Yes HF Pt being discharged on ACEI for LVEF less than 40%?: No Reason(s) for not prescribing ACEI:: Not indicated Plan Time Spent: Greater than 30 Minutes
== END 2017-07-05 11:45 | disposition home health service (06) | DRG 870 ==
LOC: ER 16:24 → EH 21:04 → ICU 06-13 02:38 → 3S 06-19 17:57 → 2N 07-02 14:52
PROVIDERS: ADMIT Internal Medicine; ATTEND Internal Medicine
PROC: 5A1955Z Respiratory Ventilation, Greater than 96 Consecutive Hours (ICD-10-PCS; principal; 2017-06-12)
PROC: 0BH17EZ Insertion of Endotracheal Airway into Trachea, Via Natural or Artificial Opening (ICD-10-PCS; 2017-06-12)
PROC: 30233N1 Transfusion of Nonautologous Red Blood Cells into Peripheral Vein, Percutaneous Approach (ICD-10-PCS; 2017-06-14)
DX: A41.9 Sepsis, unspecified organism (principal); J96.21 Acute and chronic respiratory failure with hypoxia; J13 Pneumonia due to Streptococcus pneumoniae; I21.A1 Myocardial infarction type 2; C34.90 Malignant neoplasm of unspecified part of unspecified bronchus or lung; D69.3 Immune thrombocytopenic purpura; F32.9 Major depressive disorder, single episode, unspecified; D69.59 Other secondary thrombocytopenia; D50.0 Iron deficiency anemia secondary to blood loss (chronic); E87.5 Hyperkalemia; J43.9 Emphysema, unspecified; E03.9 Hypothyroidism, unspecified; Z87.891 Personal history of nicotine dependence; Z99.81 Dependence on supplemental oxygen; Z78.1 Physical restraint status
CPT/HCPCS: 36415; 36430; 36600; 71045; 71275; 78306; 80048; 80053; 82550; 82553; 82565; 82803; 83735; 83880; 84100; 84478; 84484; 85025; 85027; 85610; 85730; 86850; 86900; 86901; 86920; 87040; 87070; 87077; 87086; 87205; 93005; 93010; 93306; 94002; 94003; 94640; 94660; 96361; 96374; 96375; 99291; 99292; A9561; G8978-GP; G8979-GP; G8987-GO; G8988-GO; J0330; J0696; J1650; J1885; J1956; J2250; J2704; J2796; J2920; J2930; J3010; J3490; J7030; J7040; J7060; J7120; J7512; J7620; P9016; Q9969; S0119; S0164

== ENCOUNTER 2017-07-08 11:35 | Inpatient (IN) | payer MEDICARE, MEDICAID ==
[2017-07-08] MEDS ORDERED: NORMAL SALINE 1000 ML 1,000 ML IV ONE ×4 (11:53→18:00)
--- NOTE | 2017-07-08 11:59 | ER Document Report ---
ED Medical Screen (RME) - General Chief Complaint: Nausea/Vomiting Stated Complaint: VOMITING Time Seen by Provider: 07/08/17 11:53 Notes: Patient was just discharged from this hospital on 07/05/2017. Patient was hospitalized with acute respiratory failure and was placed in the ICU on mechanical ventilation. She has a history of lung cancer. No treatments for this since January. Please see discharge note for further details. She presents today with severe left lateral and left upper abdominal pain that radiates to her back. She is noticed to be hypotensive in triage. Septic workup with fluids have been started. Patient also states that she has been vomiting. Her fentanyl patch was removed in triage. TRAVEL OUTSIDE OF THE [place] IN LAST 30 DAYS: No - Related Data Allergies/Adverse Reactions: No Known Allergies Allergy (Verified 07/08/17 11:54) Past Medical History - Social History Chew tobacco use (# tins/day): No Frequency of alcohol use: None Drug Abuse: None - Past Medical History Cardiac Medical History: Denies: Hx Coronary Artery Disease, Hx Heart Attack Comment Only: Hx Hypertension - HX OF LBP Pulmonary Medical History: Reports: Hx Bronchitis, Hx COPD Denies: Hx Asthma, Hx Pneumonia Neurological Medical History: Denies: Hx Cerebrovascular Accident, Hx Seizures Endocrine Medical History: Reports: Hx Hypothyroidism Renal/ Medical History: Denies: Hx Peritoneal Dialysis Malignancy Medical History: Reports: Hx Lung Cancer - Current GI Medical History: Reports: Hx Ulcer - YRS AGO,. Denies: Hx Hepatitis, Hx Hiatal Hernia Musculoskeltal Medical History: Denies Hx Arthritis Psychiatric Medical History: Reports: Hx Depression Infectious Medical History: Denies: Hx Hepatitis Past Surgical History: Reports: Hx Abdominal Surgery - hernia repair, Hx Herniorrhaphy, Hx Orthopedic Surgery - back, Other - Lung biopsy. Denies: Hx Hysterectomy, Hx Mastectomy, Hx Open Heart Surgery, Hx Pacemaker - Immunizations Hx Diphtheria, Pertussis, Tetanus Vaccination: No History of Influenza Vaccine for 12/2016 - 05/2017 Season: Yes Influenza Administration Date for 12/2016 - 05/2017 Season: 01/09/17
--- NOTE | 2017-07-08 12:38 | ER Document Report ---
ED General - General Chief Complaint: Nausea/Vomiting Stated Complaint: VOMITING Time Seen by Provider: 07/08/17 11:53 Mode of Arrival: Wheelchair Information source: Patient, Relative, [facility] Records Cannot obtain history due to: Unstable vital signs Notes: 61-year-old female who was recently in the hospital for 3 and half weeks with acute renal failure lung CA who was discharged a few days prior was doing well up until last night when she started having vomiting and left flank pain presents with complaints of generalized weakness and pain. She denies any fevers or chills admits to nonstop nausea and vomiting TRAVEL OUTSIDE OF THE [place] IN LAST 30 DAYS: No - HPI Onset: Yesterday Onset/Duration: Sudden Quality of pain: Sharp Severity: Severe Pain Level: 2 Associated symptoms: Nausea, Vomiting, Weakness Exacerbated by: Food Relieved by: Denies Similar symptoms previously: Yes Recently seen / treated by doctor: Yes - Related Data Allergies/Adverse Reactions: No Known Allergies Allergy (Verified 07/08/17 11:54) Past Medical History - Social History Smoking Status: Current Every Day Smoker Cigarette use (# per day): Yes Chew tobacco use (# tins/day): No Smoking Education Provided: No Frequency of alcohol use: None Drug Abuse: None Family History: Reviewed & Not Pertinent, Hypertension Patient has suicidal ideation: No Patient has homicidal ideation: No - Past Medical History Cardiac Medical History: Denies: Hx Coronary Artery Disease, Hx Heart Attack Comment Only: Hx Hypertension - HX OF LBP Pulmonary Medical History: Reports: Hx Bronchitis, Hx COPD Denies: Hx Asthma, Hx Pneumonia Neurological Medical History: Denies: Hx Cerebrovascular Accident, Hx Seizures Endocrine Medical History: Reports: Hx Hypothyroidism Renal/ Medical History: Denies: Hx Peritoneal Dialysis Malignancy Medical History: Reports: Hx Lung Cancer - Current GI Medical History: Reports: Hx Ulcer - YRS AGO,. Denies: Hx Hepatitis, Hx Hiatal Hernia Musculoskeltal Medical History: Denies Hx Arthritis Psychiatric Medical History: Reports: Hx Depression Infectious Medical History: Denies: Hx Hepatitis Past Surgical History: Reports: Hx Abdominal Surgery - hernia repair, Hx Herniorrhaphy, Hx Orthopedic Surgery - back, Other - Lung biopsy. Denies: Hx Hysterectomy, Hx Mastectomy, Hx Open Heart Surgery, Hx Pacemaker - Immunizations Hx Diphtheria, Pertussis, Tetanus Vaccination: No Review of Systems - Review of Systems Notes: REVIEW OF SYSTEMS: CONSTITUTIONAL : Denies fever, chills, or sweats. Admits to recent illness EENT: Denies eye, ear, throat, or mouth pain or symptoms. Denies nasal or sinus congestion or discharge. Denies throat, tongue, or mouth swelling or difficulty swallowing. CARDIOVASCULAR: Denies chest pain. Denies palpitations or racing or irregular heart beat. Denies ankle edema. RESPIRATORY: Denies cough, cold, or chest congestion. Denies shortness of breath, difficulty breathing, or wheezing. GASTROINTESTINAL: Admits to left flank pain nausea vomiting GENITOURINARY: Denies difficulty urinating, painful urination, burning, frequency, blood in urine, or discharge. FEMALE GENITOURINARY: Denies vaginal bleeding, heavy or abnormal periods, irregular periods. Denies vaginal discharge or odor. MUSCULOSKELETAL: Denies back or neck pain or stiffness. Denies joint pain or swelling. SKIN: Denies rash, lesions or sores. HEMATOLOGIC : Denies easy bruising or bleeding. LYMPHATIC: Denies swollen, enlarged glands. NEUROLOGICAL: Denies confusion or altered mental status. Denies passing out or loss of consciousness. Denies dizziness or lightheadedness. Denies headache. Denies weakness or paralysis or loss of use of either side. Denies problems with gait or speech. Denies sensory loss, numbness, or tingling. Denies seizures. PSYCHIATRIC: Denies anxiety or stress. Denies depression, suicidal ideation, or homicidal ideation. ALL OTHER SYSTEMS REVIEWED AND NEGATIVE. PHYSICAL EXAMINATION: GENERAL: Ill-appearing cachectic female significantly hypotensive HEAD: Atraumatic, normocephalic. EYES: Pupils equal round and reactive to light, extraocular movements intact, conjunctiva are normal. ENT: Nares patent, oropharynx clear without exudates. Moist mucous membranes. NECK: Normal range of motion, supple without lymphadenopathy LUNGS: Breath sounds clear to auscultation bilaterally and equal. No wheezes rales or rhonchi. HEART: Regular rate and rhythm without murmurs ABDOMEN: Soft, nontender, nondistended abdomen. No guarding, no rebound. No masses appreciated. Female : deferred Musculoskeletal: Normal range of motion, no pitting or edema. No cyanosis. NEUROLOGICAL: Cranial nerves grossly intact. Normal speech, normal gait. Normal sensory, motor exams PSYCH: Normal mood, normal affect. SKIN: Warm, Dry, normal turgor, no rashes or lesions noted. Dictation was performed using [employer] voice recognition software Physical Exam - Vital signs Vitals: BP 62/40 L 07/08/17 12:15 Course - Re-evaluation Re-evalutation: 07/08/17 12:36 Patient noted to be significantly hypotensive upon arrival, fentanyl patch was removed in triage Daughter is insistent patient be given further pain control, I have explained that her blood pressure 60s over 40s and she is at high risk for cardiac arrest and hypoperfusion if any further narcotics are given to her 07/08/17 18:40 Patient is noted to have acute renal failure, low platelets, probable sepsis, she is given IV fluids for her severe hypotension and the blood pressure did improve. She will be admitted to the hospitalist service 07/08/17 18:41 Patient is noted to be in hyperkalemia, I believe this is as a result of the renal failure - Vital Signs Vital signs: Temp Pulse Resp BP Pulse Ox 19 85/61 L 100 07/08/17 15:51 07/08/17 17:01 07/08/17 17:00 - Laboratory Result Diagrams: 07/08/17 13:03 07/08/17 13:03 Laboratory results interpreted by me: 07/08/17 07/08/17 07/08/17 13:03 13:03 13:03 WBC 13.4 H MCH 26.0 L MCHC 31.5 L RDW 24.1 H Plt Count 12 L* Band Neutrophils % 20 H Lymphocytes % (Manual) 4 L Abs Neuts (Manual) 11.9 H VBG pH 7.25 L Sodium 135.9 L Potassium 5.9 H BUN 45 H Creatinine 1.83 H Est GFR ( Amer) 34 L Est GFR (Non-Af Amer) 28 L POC Glucose Calcium 8.2 L Total Protein 4.7 L Albumin 2.7 L Urine Protein 07/08/17 07/08/17 14:13 14:41 WBC MCH MCHC RDW Plt Count Band Neutrophils % Lymphocytes % (Manual) Abs Neuts (Manual) VBG pH Sodium Potassium BUN Creatinine Est GFR ( Amer) Est GFR (Non-Af Amer) POC Glucose 47 L Calcium Total Protein Albumin Urine Protein 30 H - Diagnostic Test Radiology reviewed: Image reviewed, Reports reviewed Critical Care Note - Critical Care Note Total time excluding time spent on procedures (mins): 67 Comments: 67 minutes of critical care time spent in direct contact evaluating and reevaluating the patient, treating symptoms, reviewing labs and studies and speaking with family and consultants excluding any procedures Discharge - Discharge Clinical Impression: History of lung cancer, Thrombocytopenia, Hyperkalemia Nausea & vomiting Qualifiers: Vomiting Intractability: intractable Hypotension Qualifiers: Hypotension type: unspecified hypotension type Qualified Code(s): I95.9 - Hypotension, unspecified Condition: Critical Disposition: ADMITTED INPATIENT Admitting Provider: Hospitalist Unit Admitted: ICU
--- NOTE | 2017-07-08 13:01 | RADIOLOGY REPORT (SQ) ---
EXAM DESCRIPTION: CHEST SINGLE VIEW COMPLETED DATE/TIME: 07/08/2017 12:51 pm REASON FOR STUDY: left lateral cp/lung ca COMPARISON: 06/29/2017 EXAM PARAMETERS: NUMBER OF VIEWS: One view. TECHNIQUE: Single frontal radiographic view of the chest acquired. RADIATION DOSE: NA LIMITATIONS: None. FINDINGS: LUNGS AND PLEURA: There is scarring in the upper lobes. No acute infiltrate or effusion i s seen. No acute mass is seen. MEDIASTINUM AND HILAR STRUCTURES: No masses. Contour normal. HEART AND VASCULAR STRUCTURES: Heart normal in size. Normal vasculature. BONES: No acute findings. HARDWARE: An injection port is present on the right. OTHER: No other significant finding. IMPRESSION: There is no acute cardiopulmonary disease. TECHNICAL DOCUMENTATION: JOB ID: [id number] [employer]- All Rights Reserved Reading location - IP/workstation name: [email or web address]
--- NOTE | 2017-07-08 13:13 | EKG REPORT ---
SEVERITY:- ABNORMAL ECG - SINUS RHYTHM ABNORMAL T, CONSIDER ISCHEMIA, ANT-LAT LEADS : Confirmed by: Denisha Seth 08-Jul-2017 13:12:30
[2017-07-08 13:25] LABS: VENOUS BLOOD BASE EXCESS -5.4 mmol/L; VENOUS BLOOD HCO3 22.1 mmol/L (20-32); VENOUS BLOOD PCO2 51.3 mmHg (35-63); VENOUS BLOOD PH 7.25 (7.30-7.42)
[2017-07-08 13:30] LABS: HEMATOCRIT 37.9 % (36.0-47.0); MEAN CORPUSCULAR HGB CONC 31.5 g/dL (32.0-36.0); MEAN CORPUSCULAR VOLUME 82 fl (80-97); RED BLOOD COUNT 4.61 10^6/uL (3.72-5.28); RED CELL DISTRIBUTION WIDTH 24.1 % (11.5-14.0); WHITE BLOOD COUNT 13.4 10^3/uL (4.0-10.5)
[2017-07-08 13:44] LABS: ALANINE AMINOTRANSFERASE 32 U/L (9-52); ALBUMIN 2.7 g/dL (3.5-5.0); ALKALINE PHOSPHATASE 50 U/L (38-126); ANION GAP 11 (5-19); ASPARTATE AMINO TRANSFERASE 26 U/L (14-36); BILIRUBIN,DIRECT 0.3 mg/dL (0.0-0.4); BILIRUBIN,TOTAL 0.3 mg/dL (0.2-1.3); BLOOD UREA NITROGEN 45 mg/dL (7-20); CALCIUM 8.2 mg/dL (8.4-10.2); CARBON DIOXIDE 22 mmol/L (22-30); CHLORIDE 103 mmol/L (98-107); GLUCOSE 98 mg/dL (75-110); POTASSIUM 5.9 mmol/L (3.6-5.0); SODIUM 135.9 mmol/L (137-145); TOTAL PROTEIN 4.7 g/dL (6.3-8.2)
[2017-07-08] MEDS ORDERED: SODIUM BICARBONATE 8.4% INJ 10 MEQ/10 ML DISP.SYRIN IV ONE (13:57)
[2017-07-08] MEDS ORDERED: DEXTROSE 50%-WATER 25 GM/50 ML DISP.SYRIN IV ONE ×2 (13:57→15:00)
[2017-07-08] MEDS ORDERED: INSULIN REG, HUMAN 100 UNIT/ML 3 ML VIAL (PYX) IV ONE (13:57)
[2017-07-08] MEDS ORDERED: ALBUTEROL SULFATE 0.083% NEB 2.5 MG/3 ML AMPUL NEB ONE (13:58)
[2017-07-08 14:18] LABS: PLATELET COUNT 12 10^3/uL (150-450)
[2017-07-08 14:25] LABS: ABSOLUTE LYMPHOCYTES# (MANUAL) 0.5 10^3/uL (0.5-4.7); ABSOLUTE MONOCYTES # (MANUAL) 0.9 10^3/uL (0.1-1.4); ABSOLUTE NEUTROPHILS# (MANUAL) 11.9 10^3/uL (1.7-8.2); ANISOCYTOSIS 2+; BAND NEUTROPHILS % (MANUAL) 20 % (3-5); BASOPHILS % (MANUAL) 0 % (0-2); EOSINOPHILS % (MANUAL) 0 % (0-6); HYPOCHROMASIA SLIGHT; LYMPHOCYTES % (MANUAL) 4 % (13-45); MONOCYTES % (MANUAL) 7 % (3-13); OVALOCYTES 2+; PLATELET COMMENT DECREASED; POIKILOCYTOSIS 2+; SEGMENTED NEUTROPHILS % (MAN) 69 % (42-78); TOTAL CELLS COUNTED 100; TOXIC GRANULATION 1+
[2017-07-08 14:33] LABS: AMORPHOUS SEDIMENT,URINE 1+ /HPF; APPEARANCE,URINE SLIGHTLY-CLOUDY; BILIRUBIN,URINE NEGATIVE (NEGATIVE); COLOR,URINE AMBER; GLUCOSE, URINE NEGATIVE (NEGATIVE); KETONES,URINE NEGATIVE (NEGATIVE); LEUKOCYTE ESTERASE,URINE NEGATIVE (NEGATIVE); NITRITE,URINE NEGATIVE (NEGATIVE); PROTEIN,URINE 30 mg/dL (NEGATIVE); URINE SPECIFIC GRAVITY 1.013; UROBILINOGEN,URINE NEGATIVE mg/dL (<2.0)
[2017-07-08 15:24] LABS: INTERNATIONAL RATION (INR) 0.86; PROTHROMBIN TIME 12.2 SEC (11.4-15.4)
[2017-07-08] MEDS ORDERED: NORMAL SALINE 250 ML IV PRN ×2 (15:31)
[2017-07-08] MEDS ORDERED: OXYCODONE-ACETAMINOPHEN 5-325 MG TABLET PO PRN (15:33)
[2017-07-08] MEDS ORDERED: ONDANSETRON HCL INJ/PF 4 MG/2 ML SDV IV PRN (15:53)
[2017-07-08] MEDS ORDERED: VANCOMYCIN HCL 0 MG in DEXTROSE 5%-WATER 250 ML IV NR (16:00)
--- NOTE | 2017-07-08 16:10 | RADIOLOGY REPORT (SQ) ---
EXAM DESCRIPTION: CT ABD/PELVIS NO ORAL OR IV COMPLETED DATE/TIME: 07/08/2017 2:33 pm REASON FOR STUDY: left flank pain COMPARISON: CT abdomen pelvis 02/14/2017 CT chest 05/03/2017, 06/12/2017 TECHNIQUE: CT scan of the abdomen and pelvis performed without intravenous or oral contrast. Images reviewed with lung, soft tissue, and bone windows. Reconstructed coronal and sagittal MPR images revi ewed. All images stored on PACS. All CT scanners at this facility use dose modulation, iterative reconstruction, and/or weight based d osing when appropriate to reduce radiation dose to as low as reasonably achievable (ALARA). [facility]: Dose Right [facility]: CareDose [facility]: Dose Right [facility]: Teradose 4D [facility]: Smart ChemistDirect RADIATION DOSE: CT Rad equipment meets quality standard of care and radiation dose reduction techniq ues were employed. CTDIvol: 5.1 mGy. DLP: 231 mGy-cm.mGy. LIMITATIONS: No oral or IV contrast. Slender patient. FINDINGS: LOWER CHEST: Advanced obstructive lung disease at both bases. NON-CONTRASTED LIVER, SPLEEN, ADRENALS: Evaluation limited by lack of IV contrast. No identified sign ificant masses. PANCREAS: No masses. No peripancreatic inflammatory changes. GALLBLADDER: Single stone in the gallbladder without definite gallbladder wall thickening or perichol ecystic fluid. RIGHT KIDNEY AND URETER: No suspicious masses. Assessment limited by lack of IV contrast. No signif icant calcifications. No hydronephrosis or hydroureter. LEFT KIDNEY AND URETER: No suspicious masses. Assessment limited by lack of IV contrast. No signifi cant calcifications. No hydronephrosis or hydroureter. AORTA AND RETROPERITONEUM: No aneurysm. No retroperitoneal masses or adenopathy. BOWEL AND PERITONEAL CAVITY: There is a large amount of stool in the ascending colon, moderate stool throughout the remainder the colon. Nondilated small bowel loops. No gross free intraperitoneal air or fluid. APPENDIX: Not identified PELVIS, BLADDER, AND ABDOMINAL WALL:Lopez catheter decompresses the bladder. Normal size female pelv ic organs. Pelvic colon diverticuli without CT signs of acute diverticulitis. BONES: Osteoporosis with multiple stable lower thoracic and lumbar vertebral body endplate compressio ns OTHER: No other significant finding. IMPRESSION: No CT evidence of obstructive urinary stones Large amount of stool in the colon Single stone in the gallbladder without CT signs of acute cholecystitis COMMENT: Quality ID # [id number]: Final reports with documentation of one or more dose reduction techniques (e.g., Automated exposure control, adjustment of the mA and/or kV according to patient size, use of iterative reconstruction technique) TECHNICAL DOCUMENTATION: JOB ID: [id number]- All Rights Reserved Reading location - IP/workstation name: [email or web address] [id number]
[2017-07-08] MEDS ORDERED: METHYLPREDNISOLONE INJ 125 MG/2 ML SDV IV ONE (16:30)
--- NOTE | 2017-07-08 16:48 | PDOC H&P ---
History of Present Illness Admission Date/PCP: 07/08/17 15:47 Patient complains of: Intractable nausea and vomiting History of Present Illness: MERRILL BLAKE is a 61 year old female discharged from this institution 3 days ago following a prolonged stay for respiratory failure. She has underlying stage IV non-small cell lung cancer originally diagnosed in 2014 subsequently on multiple different agents. 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 She has been getting Nplate and was scheduled for a dose today but was unable to make it because of her current illness. She reports having some right-sided flank pain for a few days. Yesterday she started having some nausea, today she started throwing up and has been unable to keep anything down today. She denies fevers or chills. She denies hematemesis. She denies a change in her cough or breathing. She denies chest pain or leg swelling. Past Medical History Cardiac Medical History: Denies: Coronary Artery Disease, Myocardial Infarction Comment Only: Hypertension - HX OF LBP Pulmonary Medical History: Reports: Bronchitis, Chronic Obstructive Pulmonary Disease (COPD) Denies: Asthma, Pneumonia Neurological Medical History: Denies: Seizures Endocrine Medical History: Reports: Hypothyroidism Malignancy Medical History: Reports: Lung Cancer - Stage IV non-small cell originally diagnosed in 2014. Chemotherapy on hold GI Medical History: Denies: Hepatitis, Hiatal Hernia Musculoskeltal Medical History: Denies: Arthritis Psychiatric Medical History: Reports: Depression Hematology: Reports: Anemia Denies: Sickle Cell Disease Past Surgical History Past Surgical History: Reports: Herniorrhaphy, Orthopedic Surgery - back, Other - Lung biopsy Denies: Amputation, Hysterectomy, Mastectomy, Pacemaker Social History Information Source: Patient, [facility] Records Smoking Status: Current Every Day Smoker Frequency of Alcohol Use: None Hx Recreational Drug Use: No Drugs: None Hx Prescription Drug Abuse: No - Advance Directive Resuscitation Status: Full Code Family History Family History: Reviewed & Not Pertinent, Hypertension Parental Family History Reviewed: Yes Children Family History Reviewed: No Sibling(s) Family History Reviewed.: No Medication/Allergy Home Medications: Bupropion HCl [Bupropion HCl Sr] 150 mg PO Q12 04/18/17 Levothyroxine Sodium [Synthroid] 150 mcg PO Q6AM 04/18/17 Omeprazole 20 mg PO DAILY 04/18/17 Albuterol Sulfate [Ventolin Hfa] 2 puff IH Q4HP PRN 04/05/18 Aspirin [Aspirin EC] 81 mg PO DAILY 06/13/17 Fluticasone/Vilanterol [Breo Ellipta 100-25 Mcg INH] 1 each IH DAILY 06/13/17 Ipratropium/Albuterol Sulfate [Iprat-Albut 0.5-3(2.5) mg/3 ml] 1 vial NEB Q6H Atorvastatin Calcium [Lipitor 10 mg Tablet] 10 mg PO QHS #30 tablet 07/05/17 Carvedilol [Coreg 3.125 mg Tablet] 3.125 mg PO Q12 #30 tablet 07/05/17 Fentanyl [Duragesic 12 Mcg/Hr Transdermal Patch] 1 each TD Q3DAYS #10 patch.td72 07/05/17 Ketorolac Tromethamine [Toradol 10 mg Tablet] 10 mg PO Q6HP PRN #20 tablet 07/05 Lidocaine [Lidoderm 5% (700 mg) Transdermal Patch] 1 patch TP QHS #30 adh..patch 07/05/17 Lisinopril [Prinivil 5 mg Tablet] 5 mg PO DAILY #30 tablet 07/05/17 Ondansetron [Zofran Odt 4 mg Tablet] 4 mg PO Q6HP PRN #14 tab.rapdis 07/05/17 Oxycodone HCl [Oxy-Ir 5 mg Tablet] 5 mg PO Q4HP PRN #14 tablet 07/05/17 Oxycodone HCl/Acetaminophen [Percocet 5-325 mg Tablet] 1 tab PO Q4HP PRN #20 tablet 07/05/17 Allergies/Adverse Reactions: No Known Allergies Allergy (Verified 07/08/17 11:54) Review of Systems All systems: reviewed and no additional remarkable complaints except as stated Physical Exam Vital Signs: Temp Pulse Resp BP Pulse Ox 23 H 76/48 L 98 07/08/17 15:00 07/08/17 14:56 07/08/17 15:00 General appearance: PRESENT: no acute distress, cooperative, other - Cachectic Respiratory exam: PRESENT: clear to auscultation esdras, decreased breath sounds, prolonged expiratory phas Cardiovascular exam: PRESENT: RRR GI/Abdominal exam: PRESENT: soft Neurological exam: PRESENT: alert, CN II-XII grossly intact Psychiatric exam: PRESENT: appropriate affect Skin exam: PRESENT: warm. ABSENT: normal color Results Impressions: Chest X-Ray 07/08/17 11:56 IMPRESSION: There is no acute cardiopulmonary disease. Abdomen/Pelvis CT 07/08/17 13:44 IMPRESSION: No CT evidence of obstructive urinary stones Large amount of stool in the colon Single stone in the gallbladder without CT signs of acute cholecystitis Assessment & Plan - Diagnosis (1) Obstipation Is this a current diagnosis for this admission?: Yes Plan: By CT. Hospital does not have Relistor, so we will try an enema. Likely narcotic related. Will need a more aggressive bowel program (2) Non-small cell carcinoma of left lung, stage 4 Is this a current diagnosis for this admission?: Yes Plan: Therapy currently on hold because of her ITP. Very poor prognosis. She is very clear on her CODE STATUS. (3) Nausea & vomiting Qualifiers: Vomiting Intractability: intractable Is this a current diagnosis for this admission?: Yes Plan: Probably due to obstipation (4) Acute ITP Is this a current diagnosis for this admission?: Yes Plan: Acutely I will transfuse her pack of platelets, start her on Solu-Medrol. I discussed the case with oncology/hematology who will order Nplate which has previously been effective (5) COPD exacerbation Is this a current diagnosis for this admission?: Yes Plan: Treatment with steroids, nebulizers, empiric antibiotics. We may de-escalate rapidly if she stabilizes (6) Tobacco abuse Is this a current diagnosis for this admission?: Yes (7) Malignant cachexia Is this a current diagnosis for this admission?: Yes
[2017-07-08] MEDS ORDERED: FENTANYL 12 MCG/HR PATCH.TD72 TD ONE (17:30)
[2017-07-08] MEDS: NORMAL SALINE 1000 ML 1,000 ML IV PRN (18:03)
[2017-07-08] MEDS: CEFEPIME 1 GM/D5W RTU 1 GM/50 ML RTUPB IV SCH (20:20)
[2017-07-08] MEDS ORDERED: DISPOSABLE SUBCUT ONE (20:30)
[2017-07-08] MEDS ORDERED: ROMIPLOSTIM SUBCUT ONE (20:30)
[2017-07-08] MEDS ORDERED: NOREPINEPHRINE BITARTRATE INJ/PF 4 MG/4 ML SDV IV ONE (21:17)
[2017-07-08] MEDS: DEXTROSE 5%-WATER 250 ML with NOREPINEPHRINE BITARTRATE 4 MG IV PRN ×2 (21:28)
[2017-07-08] MEDS: POLYETHYLENE GLYCOL 3350 POWDER 17 GM/1 PACKET PO SCH (21:34)
[2017-07-08] MEDS: BUPROPION HCL 100 MG TABLET PO SCH (21:34)
[2017-07-08] MEDS: METHYLPREDNISOLONE INJ 40 MG/1 ML SDV IV SCH (21:35)
[2017-07-08] MEDS ORDERED: PHYTONADIONE INJ 10 MG/1 ML AMPULE SUBCUT ONE (22:00)
[2017-07-08] MEDS ORDERED: PANTOPRAZOLE SODIUM 40 MG VIAL IV SCH (22:00)
[2017-07-08] MEDS ORDERED: WATER IV SCH (22:00)
[2017-07-08] MEDS ORDERED: CEFEPIME 1 GM/D5W RTU 1 GM/50 ML RTUPB IV SCH (22:00)
[2017-07-08] MEDS ORDERED: VANCOMYCIN HCL IV SCH (22:00)
[2017-07-08] MEDS ORDERED: DEXTROSE 5% IV SCH (22:00)
[2017-07-08] MEDS: NORMAL SALINE 100 ML with PANTOPRAZOLE SODIUM 80 MG IV PRN ×2 (22:28)
[2017-07-08] MEDS ORDERED: LIDOCAINE 5% (700 MG) TRANSDERMAL ADH..PATCH ONE (22:34)
[2017-07-08] MEDS: LIDOCAINE 5% (700 MG) TRANSDERMAL ADH..PATCH TP SCH (22:35)
[2017-07-09] MEDS: NORMAL SALINE 1000 ML 1,000 ML IV PRN ×3 (00:08→20:23)
[2017-07-09] MEDS: PROMETHAZINE HCL INJ 25 MG/1 ML VIAL IV PRN ×3 (04:16→21:44)
[2017-07-09 04:19] LABS: HEMATOCRIT 36.6 % (36.0-47.0); HEMOGLOBIN 11.3 g/dL (12.0-15.5); MEAN CORPUSCULAR HEMOGLOBIN 25.6 pg (27.0-33.4); MEAN CORPUSCULAR HGB CONC 30.9 g/dL (32.0-36.0); MEAN CORPUSCULAR VOLUME 83 fl (80-97); RED BLOOD COUNT 4.42 10^6/uL (3.72-5.28); RED CELL DISTRIBUTION WIDTH 25.1 % (11.5-14.0); WHITE BLOOD COUNT 12.2 10^3/uL (4.0-10.5)
[2017-07-09 04:25] LABS: PLATELET COUNT 28 10^3/uL (150-450)
[2017-07-09 04:33] LABS: ALBUMIN 2.7 g/dL (3.5-5.0); ANION GAP 11 (5-19); BLOOD UREA NITROGEN 29 mg/dL (7-20); CALCIUM 7.3 mg/dL (8.4-10.2); CARBON DIOXIDE 20 mmol/L (22-30); CHLORIDE 113 mmol/L (98-107); GLUCOSE 124 mg/dL (75-110); PHOSPHORUS 4.6 mg/dL (2.5-4.5); POTASSIUM 5.5 mmol/L (3.6-5.0); SODIUM 144.2 mmol/L (137-145)
[2017-07-09 04:48] LABS: ABSOLUTE LYMPHOCYTES# (MANUAL) 0.1 10^3/uL (0.5-4.7); ABSOLUTE MONOCYTES # (MANUAL) 0.7 10^3/uL (0.1-1.4); ABSOLUTE NEUTROPHILS# (MANUAL) 11.3 10^3/uL (1.7-8.2); BAND NEUTROPHILS % (MANUAL) 10 % (3-5); BASOPHILS % (MANUAL) 0 % (0-2); EOSINOPHILS % (MANUAL) 0 % (0-6); LYMPHOCYTES % (MANUAL) 1 % (13-45); MONOCYTES % (MANUAL) 6 % (3-13); SEGMENTED NEUTROPHILS % (MAN) 83 % (42-78); TOTAL CELLS COUNTED 100
[2017-07-09 05:10] LABS: ANISOCYTOSIS 3+; BURR CELLS 1+; HOWELL-JOLLY BODIES PRESENT; HYPERSEGMENTED NEUTROPHILS PRESENT; OVALOCYTES SLIGHT; POIKILOCYTOSIS 1+; SCHISTOCYTES SLIGHT; TOXIC GRANULATION 1+; TOXIC VACUOLATION PRESENT
[2017-07-09 05:11] LABS: PLATELET COMMENT DECREASED; PLATELET GIANT PRESENT; PLATELET LARGE PRESENT
[2017-07-09] MEDS: METHYLPREDNISOLONE INJ 40 MG/1 ML SDV IV SCH ×3 (05:11→21:32)
[2017-07-09] MEDS: LEVOTHYROXINE SODIUM 0.15 MG TABLET PO SCH (05:12)
[2017-07-09] MEDS: BUPROPION HCL 100 MG TABLET PO SCH ×3 (05:12→21:32)
[2017-07-09] MEDS ORDERED: NOREPINEPHRINE BITARTRATE INJ/PF 4 MG/4 ML SDV IV ONE (05:49)
[2017-07-09] MEDS: DEXTROSE 5%-WATER 250 ML with NOREPINEPHRINE BITARTRATE 4 MG IV PRN ×2 (06:35)
[2017-07-09] MEDS: NORMAL SALINE 100 ML with PANTOPRAZOLE SODIUM 80 MG IV PRN ×6 (06:36→20:22)
--- NOTE | 2017-07-09 08:14 | PDOC CONSULTATION ---
Consultation Consult Date: 07/09/17 Consult reason:: Hematology/Oncoogy consultation was requested for patient with lung cancer and thrombocytopenia. History of Present Illness Admission Date/PCP: 07/08/17 15:47 History of Present Illness: MERRILL BLAKE is a 61 year old female who is very well known to me with a history of lung cancer. She was originally diagnosed with Stage IV non-small cell lung cancer in September 2014. However, she has not required any treatment since Jan 2017 when her nivolumab was stopped due to ITP. She has only been on immunotherapy (nivolumab) since Oct 2015 and has not been on any chemo in the past year. Since Jan 2017, she has had several episodes (at least 5) of acute weakness, dyspnea, severe thrombocytopenia, and sepsis-like symptoms. She was intubated for this last visit and was discharged from this hospital less than 1 week ago. Although these episodes have been treated as acute infections, they may also be allergic-type immune responses. She has been receiving Nplate 1 mcg/kg SC every 2 weeks for her ITP. She was due yesterday and this was given after she was admitted to the hospital. Her platelet count just before her prior admission was over 300 the day before the episode and dropped to <20 within 24 hours. It usually rebounds quite quickly. Today, she states that she is feeling fine now. She did not have acute dyspnea with this episode. She simply felt very weak, went to go lie down, and then ended up in the emergency room. She has some abdominal pain today and has not had a BM for a few days. Past Medical History Cardiac Medical History: Denies: Coronary Artery Disease, Myocardial Infarction Comment Only: Hypertension - HX OF LBP Pulmonary Medical History: Reports: Bronchitis, Chronic Obstructive Pulmonary Disease (COPD) Denies: Asthma, Pneumonia Neurological Medical History: Denies: Seizures Endocrine Medical History: Reports: Hypothyroidism Malignancy Medical History: Reports: Lung Cancer - Current GI Medical History: Denies: Hepatitis, Hiatal Hernia Musculoskeltal Medical History: Denies: Arthritis Psychiatric Medical History: Reports: Depression Hematology: Reports: Anemia, Other - ITP Denies: Sickle Cell Disease Past Surgical History Past Surgical History: Reports: Herniorrhaphy, Orthopedic Surgery - back, Other - Lung biopsy Denies: Amputation, Hysterectomy, Mastectomy, Pacemaker Social History Smoking Status: Former Smoker Frequency of Alcohol Use: None Hx Recreational Drug Use: No Drugs: None Hx Prescription Drug Abuse: No - Advance Directive Resuscitation Status: Full Code Family History Family History: Reviewed & Not Pertinent, Hypertension Parental Family History Reviewed: Yes Children Family History Reviewed: Yes Sibling(s) Family History Reviewed.: Yes Medication/Allergy Home Medications: Albuterol Sulfate [Ventolin Hfa] 2 puff IH Q4HP PRN 07/08/17 Atorvastatin Calcium [Lipitor 10 mg Tablet] 10 mg PO QHS 07/08/17 Bupropion HCl [Bupropion HCl Sr] 150 mg PO Q12 07/08/17 Carvedilol [Coreg 3.125 mg Tablet] 3.125 mg PO Q12 07/08/17 Fentanyl [Duragesic 12 Mcg/Hr Transdermal Patch] 1 each TD Q3D 07/08/17 Fluticasone/Vilanterol [Breo Ellipta 100-25 Mcg INH] 1 puff IH DAILY 07/08/17 Ipratropium/Albuterol Sulfate [Duoneb 3 ml Ampul] 3 ml NEB Q6 07/08/17 Ketorolac Tromethamine [Toradol 10 mg Tablet] 10 mg PO Q6HP PRN 07/08/17 Levothyroxine Sodium [Synthroid 0.15 mg Tablet] 0.15 mg PO Q6AM 07/08/17 Lidocaine [Lidoderm 5% (700 mg) Transdermal Patch] 1 patch TP QHS 07/08/17 Lisinopril [Prinivil 5 mg Tablet] 5 mg PO DAILY 07/08/17 Omeprazole 20 mg PO DAILY 07/08/17 Ondansetron [Zofran Odt 4 mg Tablet] 4 mg PO Q6HP PRN 07/08/17 Oxycodone HCl [Oxy-Ir 5 mg Tablet] 5 mg PO Q4HP PRN 07/08/17 Oxycodone HCl/Acetaminophen [Percocet 5-325 mg Tablet] 1 tab PO Q4HP PRN Allergies/Adverse Reactions: No Known Allergies Allergy (Verified 07/08/17 11:54) Review of Systems Constitutional: ABSENT: fever(s), headache(s) Eyes: ABSENT: visual disturbances Ears: ABSENT: hearing changes Nose, Mouth, and Throat: ABSENT: sore throat Cardiovascular: ABSENT: chest pain Respiratory: ABSENT: dyspnea Gastrointestinal: PRESENT: constipation Genitourinary: ABSENT: dysuria Musculoskeletal: PRESENT: muscle weakness Integumentary: ABSENT: rash Neurological: ABSENT: memory loss Psychiatric: PRESENT: depression. ABSENT: anxiety Hematologic/Lymphatic: ABSENT: easy bleeding Physical Exam Vital Signs: Temp Pulse Resp BP Pulse Ox 99.3 F 93 26 H 108/80 100 07/09/17 06:13 07/08/17 20:00 07/09/17 06:13 07/09/17 06:13 07/09/17 06:13 Intake & Output 07/08/17 07/09/17 07/10/17 06:59 06:59 06:59 Intake Total 3605 Output Total 1275 Balance 2330 Weight 49.9 kg General appearance: PRESENT: no acute distress, thin Exam: 61 year old female. Head exam: PRESENT: atraumatic Eye exam: PRESENT: PERRLA Mouth exam: PRESENT: moist, tongue midline Teeth exam: PRESENT: edentulous Neck exam: ABSENT: lymphadenopathy, tenderness Respiratory exam: PRESENT: clear to auscultation esdras, unlabored Cardiovascular exam: PRESENT: RRR GI/Abdominal exam: PRESENT: soft, tenderness Extremities exam: ABSENT: pedal edema Neurological exam: PRESENT: alert, awake, oriented to person, oriented to place , oriented to time, oriented to situation Psychiatric exam: PRESENT: appropriate affect Focused psych exam: ABSENT: flight of ideas, pressured speech Skin exam: PRESENT: other - Pale and escobedo, no change from prior. Results Laboratory Results: 07/09/17 04:04 07/09/17 04:04 07/08/17 07/09/17 07/09/17 17:18 04:04 04:04 WBC 12.2 H RBC 4.42 Hgb 11.3 L Hct 36.6 MCV 83 MCH 25.6 L MCHC 30.9 L RDW 25.1 H Plt Count 28 L* D Seg Neutrophils % Not Reportable Lymphocytes % Not Reportable Monocytes % Not Reportable Eosinophils % Not Reportable Basophils % Not Reportable Absolute Neutrophils Not Reportable Absolute Lymphocytes Not Reportable Absolute Monocytes Not Reportable Absolute Eosinophils Not Reportable Absolute Basophils Not Reportable Sodium 144.2 Potassium 5.5 H Chloride 113 H Carbon Dioxide 20 L Anion Gap 11 BUN 29 H Creatinine 1.00 Est GFR ( Amer) > 60 Est GFR (Non-Af Amer) 56 L Glucose 124 H Calcium 7.3 L Phosphorus 4.6 H Magnesium 2.4 H Albumin 2.7 L Blood Type O NEGATIVE Impressions: Chest X-Ray 07/08/17 11:56 IMPRESSION: There is no acute cardiopulmonary disease. Abdomen/Pelvis CT 07/08/17 13:44 IMPRESSION: No CT evidence of obstructive urinary stones Large amount of stool in the colon Single stone in the gallbladder without CT signs of acute cholecystitis Status: Image reviewed by me Assessment & Plan - Diagnosis (1) Non-small cell carcinoma of left lung, stage 4 Is this a current diagnosis for this admission?: Yes Plan: No treatment planned currently. Most recent CT scans do not show evidence of progression. She has not been out of the hospital long enough to move forward with any treatment. No further immunotherapy is planned due to the ITP. (2) Acute ITP Is this a current diagnosis for this admission?: Yes Plan: She did receive Nplate yesterday. This will be due again in 2 weeks. Her PLT have improved today. I would hold off on giving enemas or other procedures until her PLT are >50. i do not believe platelet transfusion will be of any benefit at this point. I will watch closely. No current evidence of bleeding. (3) Obstipation Is this a current diagnosis for this admission?: Yes Plan: Miralax now, plan for enema later this afternoon. - Plan Summary Plan Summary: I will be happy to follow. Please call with concerns.
--- NOTE | 2017-07-09 09:36 | PDOC PROGRESS REPORT ---
Subjective Progress Note for:: 07/09/17 Subjective:: Reports feeling better. Requesting something to eat. Case was discussed with Dr. Garcia Reason For Visit: ARF THROMBOCYTOPRINA HYPERKALEMIA LUNG CANCER Physical Exam Vital Signs: Temp Pulse Resp BP Pulse Ox 99.5 F 89 24 H 104/82 100 07/09/17 08:00 07/09/17 08:00 07/09/17 08:00 07/09/17 08:00 07/09/17 08:00 Intake & Output 07/08/17 07/09/17 07/10/17 06:59 06:59 06:59 Intake Total 3605 Output Total 1275 90 Balance 2330 -90 Weight 110 lb 0.171 oz General appearance: PRESENT: no acute distress, cooperative, other - Cachectic Respiratory exam: PRESENT: clear to auscultation esdras Cardiovascular exam: PRESENT: RRR GI/Abdominal exam: PRESENT: soft Extremities exam: PRESENT: other - No edema Neurological exam: PRESENT: alert Psychiatric exam: PRESENT: appropriate affect Skin exam: PRESENT: warm. ABSENT: normal color Results Laboratory Results: 07/09/17 04:04 07/09/17 04:04 07/08/17 07/09/17 07/09/17 17:18 04:04 04:04 WBC 12.2 H RBC 4.42 Hgb 11.3 L Hct 36.6 MCV 83 MCH 25.6 L MCHC 30.9 L RDW 25.1 H Plt Count 28 L* D Seg Neutrophils % Not Reportable Lymphocytes % Not Reportable Monocytes % Not Reportable Eosinophils % Not Reportable Basophils % Not Reportable Absolute Neutrophils Not Reportable Absolute Lymphocytes Not Reportable Absolute Monocytes Not Reportable Absolute Eosinophils Not Reportable Absolute Basophils Not Reportable Sodium 144.2 Potassium 5.5 H Chloride 113 H Carbon Dioxide 20 L Anion Gap 11 BUN 29 H Creatinine 1.00 Est GFR ( Amer) > 60 Est GFR (Non-Af Amer) 56 L Glucose 124 H Calcium 7.3 L Phosphorus 4.6 H Magnesium 2.4 H Albumin 2.7 L Blood Type O NEGATIVE Impressions: Chest X-Ray 07/08/17 11:56 IMPRESSION: There is no acute cardiopulmonary disease. Abdomen/Pelvis CT 07/08/17 13:44 IMPRESSION: No CT evidence of obstructive urinary stones Large amount of stool in the colon Single stone in the gallbladder without CT signs of acute cholecystitis Assessment & Plan - Diagnosis (1) Obstipation Is this a current diagnosis for this admission?: Yes Plan: By CT. Dr. Garcia would prefer not to do an enema at this platelet level. Likely narcotic related. The hospital does not have Relistor so I will try Amitiza (2) Non-small cell carcinoma of left lung, stage 4 Is this a current diagnosis for this admission?: Yes Plan: Therapy currently on hold because of her ITP, no evidence of disease progression , so not clear she needs further therapy (3) Nausea & vomiting Qualifiers: Vomiting Intractability: intractable Is this a current diagnosis for this admission?: Yes Plan: Probably due to obstipation (4) Acute ITP Is this a current diagnosis for this admission?: Yes Plan: Nplate which has previously been effective (5) COPD exacerbation Is this a current diagnosis for this admission?: Yes Plan: Treatment with steroids, nebulizers, empiric antibiotics. We may de-escalate rapidly if she stabilizes (6) Tobacco abuse Is this a current diagnosis for this admission?: Yes (7) Malignant cachexia Is this a current diagnosis for this admission?: Yes
[2017-07-09] MEDS: LUBIPROSTONE 24 MCG CAPSULE PO SCH ×2 (10:50→21:32)
[2017-07-09] MEDS: POLYETHYLENE GLYCOL 3350 POWDER 17 GM/1 PACKET PO SCH ×2 (10:51→21:31)
[2017-07-09] MEDS ORDERED: SODIUM POLYSTYRENE SULFONATE 15 GM/60 ML PO ONE (11:00)
[2017-07-09 14:07] LABS: PATH REVIEW PATHOLOGIST REVIEWED
[2017-07-09] MEDS ORDERED: MAGNESIUM CITRATE 296 ML BOTTLE PO ONE (17:30)
[2017-07-09] MEDS: CEFEPIME 1 GM/D5W RTU 1 GM/50 ML RTUPB IV SCH (17:44)
[2017-07-09] MEDS: HYDROMORPHONE HCL INJ/PF 2 MG/ML AMPULE IV PRN ×2 (17:45→21:33)
[2017-07-09] MEDS: VANCOMYCIN HCL 750 MG in DEXTROSE 5%-WATER 250 ML IV SCH (20:21)
[2017-07-09] MEDS: LIDOCAINE 5% (700 MG) TRANSDERMAL ADH..PATCH TP SCH (21:32)
[2017-07-10] MEDS: HYDROMORPHONE HCL INJ/PF 2 MG/ML AMPULE IV PRN ×2 (03:54→10:35)
[2017-07-10] MEDS: PROMETHAZINE HCL INJ 25 MG/1 ML VIAL IV PRN ×2 (04:05→07:57)
[2017-07-10 04:11] LABS: HEMATOCRIT 37.8 % (36.0-47.0); MEAN CORPUSCULAR HEMOGLOBIN 25.7 pg (27.0-33.4); MEAN CORPUSCULAR HGB CONC 31.8 g/dL (32.0-36.0); MEAN CORPUSCULAR VOLUME 81 fl (80-97); RED BLOOD COUNT 4.66 10^6/uL (3.72-5.28); RED CELL DISTRIBUTION WIDTH 25.7 % (11.5-14.0); WHITE BLOOD COUNT 10.4 10^3/uL (4.0-10.5)
[2017-07-10 04:15] LABS: PLATELET COUNT 36 10^3/uL (150-450)
[2017-07-10 04:23] LABS: ALBUMIN 2.8 g/dL (3.5-5.0); ANION GAP 8 (5-19); BLOOD UREA NITROGEN 20 mg/dL (7-20); CALCIUM 8.5 mg/dL (8.4-10.2); CARBON DIOXIDE 24 mmol/L (22-30); CHLORIDE 112 mmol/L (98-107); GLUCOSE 110 mg/dL (75-110); PHOSPHORUS 3.6 mg/dL (2.5-4.5); SODIUM 143.6 mmol/L (137-145)
[2017-07-10 04:34] LABS: POTASSIUM 4.3 mmol/L (3.6-5.0)
[2017-07-10 04:37] LABS: ABSOLUTE LYMPHOCYTES# (MANUAL) 0.2 10^3/uL (0.5-4.7); ABSOLUTE MONOCYTES # (MANUAL) 0.6 10^3/uL (0.1-1.4); ABSOLUTE NEUTROPHILS# (MANUAL) 9.6 10^3/uL (1.7-8.2); BASOPHILS % (MANUAL) 0 % (0-2); EOSINOPHILS % (MANUAL) 0 % (0-6); LYMPHOCYTES % (MANUAL) 2 % (13-45); MONOCYTES % (MANUAL) 6 % (3-13); SEGMENTED NEUTROPHILS % (MAN) 57 % (42-78); TOTAL CELLS COUNTED 100
[2017-07-10 04:38] LABS: TOXIC GRANULATION 2+; TOXIC VACUOLATION PRESENT
[2017-07-10 04:42] LABS: HYPOCHROMASIA 1+
[2017-07-10 04:43] LABS: ANISOCYTOSIS SLIGHT; BURR CELLS SLIGHT; OVALOCYTES SLIGHT; PLATELET COMMENT DECREASED; POIKILOCYTOSIS 1+; TEAR DROP CELLS SLIGHT
[2017-07-10 04:44] LABS: PLATELET ESTIMATE 36 10^3/uL (150-450); PLATELET LARGE PRESENT
[2017-07-10 04:46] LABS: BAND NEUTROPHILS % (MANUAL) 35 % (3-5)
[2017-07-10] MEDS: LEVOTHYROXINE SODIUM 0.15 MG TABLET PO SCH (05:36)
[2017-07-10] MEDS: NORMAL SALINE 100 ML with PANTOPRAZOLE SODIUM 80 MG IV PRN ×2 (05:36)
[2017-07-10] MEDS: METHYLPREDNISOLONE INJ 40 MG/1 ML SDV IV SCH ×3 (05:36→21:37)
[2017-07-10] MEDS: BUPROPION HCL 100 MG TABLET PO SCH ×2 (05:37→13:52)
--- NOTE | 2017-07-10 07:55 | PDOC PROGRESS REPORT ---
Subjective Progress Note for:: 07/10/17 Subjective:: Patient sitting up in bed, reports that her memory is shot. Does not remember falling asleep. Abdomen and back pain continues. Breathing is "OK today." Nurses report no BM overnight. ROS: No nausea. No chest pain. Continued back pain, some confusion, constipation. Reason For Visit: ARF THROMBOCYTOPENIA HYPERKALEMIA LUNG CANCER Physical Exam Vital Signs: Temp Pulse Resp BP Pulse Ox 99.3 F 95 16 117/86 H 99 07/10/17 06:03 07/09/17 20:00 07/10/17 06:03 07/10/17 06:03 07/10/17 06:03 Intake & Output 07/09/17 07/10/17 07/11/17 06:59 06:59 06:59 Intake Total 3605 2394 Output Total 1275 1920 Balance 2330 474 Weight 49.9 kg 50.9 kg General appearance: PRESENT: no acute distress, thin Head exam: PRESENT: atraumatic Respiratory exam: PRESENT: clear to auscultation esdras, unlabored Cardiovascular exam: PRESENT: RRR GI/Abdominal exam: PRESENT: distended, firm Extremities exam: ABSENT: pedal edema Neurological exam: PRESENT: alert, awake, oriented to person, oriented to place. ABSENT: oriented to time Psychiatric exam: PRESENT: appropriate affect Results Laboratory Results: 07/10/17 03:51 07/10/17 03:51 07/10/17 07/10/17 03:51 03:51 WBC 10.4 RBC 4.66 Hgb 12.0 Hct 37.8 MCV 81 MCH 25.7 L MCHC 31.8 L RDW 25.7 H Plt Count 36 L Seg Neutrophils % Not Reportable Lymphocytes % Not Reportable Monocytes % Not Reportable Eosinophils % Not Reportable Basophils % Not Reportable Absolute Neutrophils Not Reportable Absolute Lymphocytes Not Reportable Absolute Monocytes Not Reportable Absolute Eosinophils Not Reportable Absolute Basophils Not Reportable Sodium 143.6 Potassium 4.3 D Chloride 112 H Carbon Dioxide 24 Anion Gap 8 BUN 20 Creatinine 0.63 Est GFR ( Amer) > 60 Est GFR (Non-Af Amer) > 60 Glucose 110 Calcium 8.5 Phosphorus 3.6 Magnesium 2.4 H Albumin 2.8 L Impressions: Chest X-Ray 07/08/17 11:56 IMPRESSION: There is no acute cardiopulmonary disease. Abdomen/Pelvis CT 07/08/17 13:44 IMPRESSION: No CT evidence of obstructive urinary stones Large amount of stool in the colon Single stone in the gallbladder without CT signs of acute cholecystitis Assessment & Plan - Diagnosis (1) Non-small cell carcinoma of left lung, stage 4 Is this a current diagnosis for this admission?: Yes Plan: No treatment planned at present. Recent CT and bone scan have NOT shown any evidence of progression of cancer. (2) Acute ITP Is this a current diagnosis for this admission?: Yes Plan: slowly resolving after Nplate. May consider steroids again for the recurrent nature of attacks. (3) Obstipation Is this a current diagnosis for this admission?: Yes Plan: Enema was ordered. It should be OK to give this now. Continue Miralax 2-3 times a day.
[2017-07-10] MEDS: LUBIPROSTONE 24 MCG CAPSULE PO SCH (09:18)
[2017-07-10] MEDS: POLYETHYLENE GLYCOL 3350 POWDER 17 GM/1 PACKET PO SCH (09:18)
[2017-07-10] MEDS: NORMAL SALINE 1000 ML 1,000 ML IV PRN (11:46)
[2017-07-10 15:40] LABS: PATH REVIEW PATHOLOGIST REVIEWED
[2017-07-10 16:00] LABS: ARTERIAL BLOOD BASE EXCESS -5.8 mmol/L; ARTERIAL BLOOD H2CO3 1.07 mmol/L (1.05-1.35); ARTERIAL BLOOD HCO3 19.1 mmol/L (20-26); ARTERIAL BLOOD O2 SATURATION 97.8 % (94-98); ARTERIAL BLOOD PCO2 35.4 mmHg (35-45); ARTERIAL BLOOD PH 7.35 (7.35-7.45); ARTERIAL BLOOD PO2 108.3 mmHg (80-100); ARTERIAL BLOOD TOTAL CO2 20.2 mmol/L (21-25)
[2017-07-10] MEDS ORDERED: BISACODYL 10 MG SUPP.RECT PR ONE (16:00)
[2017-07-10 16:01] LABS: ARTERIAL BLOOD FIO2 2L
--- NOTE | 2017-07-10 16:12 | RADIOLOGY REPORT (SQ) ---
EXAM DESCRIPTION: CT HEAD WITHOUT COMPLETED DATE/TIME: 07/10/2017 4:02 pm REASON FOR STUDY: AMS COMPARISON: 06/09/2015 TECHNIQUE: Axial images acquired through the brain without intravenous contrast. Images reviewed wi th bone, brain and subdural windows. Additional sagittal and coronal reconstructions were generated. Images stored on PACS. All CT scanners at this facility use dose modulation, iterative reconstruction, and/or weight based d osing when appropriate to reduce radiation dose to as low as reasonably achievable (ALARA). [facility]: Dose Right [facility]: CareDose [facility]: Dose Right [facility]: Teradose 4D [facility]: [employer] RADIATION DOSE: CT Rad equipment meets quality standard of care and radiation dose reduction techniq ues were employed. CTDIvol: 48.5 mGy. DLP: 855 mGy-cm. mGy. LIMITATIONS: None. FINDINGS: VENTRICLES: Normal size and contour. CEREBRUM: No masses. No hemorrhage. No midline shift. No evidence for acute infarction. Few scatte red areas of low density in the white matter most likely chronic small vessel ischemic changes. CEREBELLUM: No masses. No hemorrhage. No alteration of density. No evidence for acute infarction. EXTRAAXIAL SPACES: No fluid collections. No masses. ORBITS AND GLOBE: No intra- or extraconal masses. Normal contour of globe without masses. CALVARIUM: No fracture. PARANASAL SINUSES: No fluid or mucosal thickening. SOFT TISSUES: No mass or hematoma. OTHER: No other significant finding. IMPRESSION: MILD CHRONIC MICROVASCULAR ISCHEMIA. NO ACUTE IMAGING FINDINGS IN THE BRAIN. EVIDENCE OF ACUTE STROKE: NO. COMMENT: Quality ID # [id number]: Final reports with documentation of one or more dose reduction techniques (e.g., Automated exposure control, adjustment of the mA and/or kV according to patient size, use of iterative reconstruction technique) TECHNICAL DOCUMENTATION: JOB ID: [id number] [employer]- All Rights Reserved Reading location - IP/workstation name: [email or web address]
--- NOTE | 2017-07-10 16:29 | RADIOLOGY REPORT (SQ) ---
EXAM DESCRIPTION: CT CHEST WITHOUT; CT ABD/PELVIS NO ORAL OR IV COMPLETED DATE/TIME: 07/10/2017 4:02 pm REASON FOR STUDY: AMS AMS distended abdomen, history of lung cancer COMPARISON: CT brain 07/10/2017 CT abdomen pelvis 07/08/2017 CT angio chest 06/12/2017, 04/03/2017 CT chest 05/03/2017 TECHNIQUE: CT scan of the chest performed without intravenous contrast using helical scanning techni que. Images reviewed with lung, soft tissue and bone windows. Reconstructed coronal and sagittal MPR images reviewed. All images stored on PACS. CT scan of the abdomen and pelvis performed without intravenous contrast and withoutoral contrast usi ng helical scanning technique with dynamic intravenous contrast injection. Images reviewed with lung , soft tissue and bone windows. Reconstructed coronal and sagittal MPR images reviewed. All images stored on PACS. All CT scanners at this facility use dose modulation, iterative reconstruction, and/or weight based d osing when appropriate to reduce radiation dose to as low as reasonably achievable (ALARA). [facility]: Dose Right [facility]: CareDose [facility]: Dose Right [facility]: Teradose 4D [facility]: [employer] RADIATION DOSE: CT Rad equipment meets quality standard of care and radiation dose reduction techniq ues were employed. CTDIvol: 4.4 - 6.2 mGy. DLP: 432 mGy-cm. mGy. LIMITATIONS: No technical limitations. FINDINGS: CHEST: AXILLAE: No adenopathy. CHEST WALL: No masses. No subcutaneous air. LUNGS: End-stage appearance of obstructive lung disease with biapical pleural-parenchymal scarring. There is now a small left pleural effusion, with left basilar consolidation atelectasis versus pneumo theodora. No pneumothorax. PLEURA: Small left pleural effusion THYROID: No masses or significant asymmetry. HILAR AND MEDIASTINAL STRUCTURES: No identified masses or abnormal nodes. AORTA AND GREAT VESSELS: No aneurysm. HEART: No pericardial effusion. HARDWARE AND LIFELINES: Right jugular central line tip superior vena cava BONES: Multiple stable thoracic compression deformities OTHER: No other significant finding. ABDOMEN AND PELVIS: LIVER: Normal size. No masses. No dilated ducts. No portal venous air SPLEEN: Normal size. No focal lesions. PANCREAS: No masses. No significant calcifications. No adjacent inflammation or peripancreatic flui d collections. Pancreatic duct not dilated. GALLBLADDER: Stones in the gallbladder fundus. No wall thickening worrisome for cholecystitis ADRENAL GLANDS: No significant masses or asymmetry. RIGHT KIDNEY AND URETER: No solid masses. Assessment limited by lack of IV contrast. No significant calcifications. No hydronephrosis or hydroureter. LEFT KIDNEY AND URETER: No solid masses. Assessment limited by lack of IV contrast. No significant calcifications. No hydronephrosis or hydroureter. AORTA AND VESSELS: No aneurysm. RETROPERITONEUM: No retroperitoneal adenopathy, hemorrhage or masses. APPENDIX: Not definitely identified LARGE AND SMALL BOWEL: The ascending colon and cecum arm in markedly distended. Air bubbles in the n on dependent cecum and ascending colon are present worrisome for pneumatosis. Bowel ischemia may be present. Findings discussed with Dr. Adair, hospitalist physician ABDOMINAL WALL: There is anterior abdominal wall lymph node in the subcutaneous fat superior to the u mbilicus, 2.6 x 1 cm on axial image 30 PERITONEAL CAVITY: No free intraperitoneal air. No significant free fluid PELVIS: Lopez catheter drains the bladder. Normal size female pelvic organs BONES: Diffuse biconcave compression deformities throughout the lumbar spine OTHER: No other significant finding. IMPRESSION: Small left pleural effusion with minimal left basilar airspace disease. Lungs otherwise exhibited end-stage appearance of obstructive lung disease Air bubbles along the nondependent wall of the cecum and ascending colon worrisome for pneumatosis/ b owel ischemia/bowel infarct Findings discussed with Dr. Adair NORMAL CT OF THE ABDOMEN AND PELVIS WITHOUT INTRAVENOUS CONTRAST. TECHNICAL DOCUMENTATION: JOB ID: [id number] Quality ID # [id number]: Final reports with documentation of one or more dose reduction techniques (e.g., Au tomated exposure control, adjustment of the mA and/or kV according to patient size, use of iterative reconstruction technique) 2010 [employer]- All Rights Reserved Reading location - IP/workstation name: [email or web address]
[2017-07-10] MEDS ORDERED: ASPIRIN 300 MG SUPP, RECTAL PR ONE (18:00)
[2017-07-10 18:13] LABS: HEMATOCRIT 32.2 % (36.0-47.0); HEMOGLOBIN 10.2 g/dL (12.0-15.5); MEAN CORPUSCULAR HGB CONC 31.9 g/dL (32.0-36.0); MEAN CORPUSCULAR VOLUME 82 fl (80-97); RED BLOOD COUNT 3.94 10^6/uL (3.72-5.28); RED CELL DISTRIBUTION WIDTH 25.2 % (11.5-14.0); WHITE BLOOD COUNT 10.6 10^3/uL (4.0-10.5)
[2017-07-10 18:15] LABS: INTERNATIONAL RATION (INR) 0.87; PLATELET COUNT 41 10^3/uL (150-450); PROTHROMBIN TIME 12.3 SEC (11.4-15.4)
[2017-07-10 18:16] LABS: PARTIAL THROMBOPLASTIN TIME 31.1 SEC (23.5-35.8)
[2017-07-10] MEDS ORDERED: DEXTROSE 50%-WATER 25 GM/50 ML DISP.SYRIN IV PRN ×2 (18:19)
[2017-07-10] MEDS ORDERED: GLUCAGON,HUMAN RECOMB 1 MG INJ SUBCUT PRN (18:19)
[2017-07-10] MEDS ORDERED: DEXTROSE 40% GEL 15 GM TUBE PO PRN ×2 (18:19)
[2017-07-10 18:28] LABS: ALANINE AMINOTRANSFERASE 31 U/L (9-52); ALBUMIN 2.3 g/dL (3.5-5.0); ALKALINE PHOSPHATASE 62 U/L (38-126); ANION GAP 10 (5-19); ASPARTATE AMINO TRANSFERASE 29 U/L (14-36); BILIRUBIN,DIRECT 0.2 mg/dL (0.0-0.4); BILIRUBIN,TOTAL 0.2 mg/dL (0.2-1.3); BLOOD UREA NITROGEN 18 mg/dL (7-20); CALCIUM 8.3 mg/dL (8.4-10.2); CARBON DIOXIDE 21 mmol/L (22-30); CHLORIDE 109 mmol/L (98-107); GLUCOSE 117 mg/dL (75-110); POTASSIUM 3.8 mmol/L (3.6-5.0); SODIUM 140.2 mmol/L (137-145); TOTAL PROTEIN 4.4 g/dL (6.3-8.2)
[2017-07-10 18:30] LABS: CREATINE KINASE < 20 U/L (30-135)
[2017-07-10 18:38] LABS: CREATINE KINASE MB 2.09 ng/mL (<4.55)
[2017-07-10 18:39] LABS: TROPONIN I < 0.012 ng/mL
[2017-07-10 18:41] LABS: ABSOLUTE LYMPHOCYTES# (MANUAL) 0.2 10^3/uL (0.5-4.7); ABSOLUTE MONOCYTES # (MANUAL) 0.8 10^3/uL (0.1-1.4); ABSOLUTE NEUTROPHILS# (MANUAL) 9.5 10^3/uL (1.7-8.2); BAND NEUTROPHILS % (MANUAL) 13 % (3-5); BASOPHILS % (MANUAL) 0 % (0-2); EOSINOPHILS % (MANUAL) 0 % (0-6); LYMPHOCYTES % (MANUAL) 2 % (13-45); MONOCYTES % (MANUAL) 8 % (3-13); SEGMENTED NEUTROPHILS % (MAN) 77 % (42-78); TOTAL CELLS COUNTED 100
[2017-07-10 18:43] LABS: ACANTHOCYTES SLIGHT; ANISOCYTOSIS 3+; HYPOCHROMASIA SLIGHT; OVALOCYTES SLIGHT; PLATELET COMMENT DECREASED; POIKILOCYTOSIS 2+; TOXIC GRANULATION SLIGHT
[2017-07-10] MEDS: CEFEPIME 1 GM/D5W RTU 1 GM/50 ML RTUPB IV SCH (19:05)
--- NOTE | 2017-07-10 19:43 | PDOC PROGRESS REPORT ---
Subjective Progress Note for:: 07/10/17 Subjective:: I saw her this morning and she was her usual feisty self. No bowel movement. I was called this afternoon for an acute change in mental status. Apparently while the nurse was talking to her she became unresponsive but still awake. I arrived a few minutes later and found her looking around the room. She did not answer any questions, did not speak, did not appear to understand questions. Reason For Visit: ARF THROMBOCYTOPENIA HYPERKALEMIA LUNG CANCER Physical Exam Vital Signs: Temp Pulse Resp BP Pulse Ox 99.7 F 91 8 L 105/82 100 07/10/17 18:35 07/10/17 18:00 07/10/17 18:35 07/10/17 18:35 07/10/17 18:35 Intake & Output 07/09/17 07/10/17 07/11/17 06:59 06:59 06:59 Intake Total 3605 2394 Output Total 1275 1920 415 Balance 2330 474 -415 Weight 110 lb 0.171 oz 112 lb 3.445 oz Exam: This afternoon after her change in status she was not interactive in any way, but was awake. Eye exam: PRESENT: EOMI, PERRLA Mouth exam: ABSENT: tongue midline Neck exam: PRESENT: JVD - About 3 fingerbreadths above sternal notch Respiratory exam: PRESENT: decreased breath sounds, prolonged expiratory phas, rales - Dependent Cardiovascular exam: PRESENT: RRR GI/Abdominal exam: PRESENT: soft Extremities exam: ABSENT: other - No edema Musculoskeletal exam: PRESENT: normal inspection Neurological exam: PRESENT: awake, other - Right arm was flaccid, right sided facial droop, left arm appeared to be functioning properly, both legs moved but exam was limited by cognition. She developed a right-sided neglect. Focused psych exam: PRESENT: restlessness Skin exam: ABSENT: normal color Results Laboratory Results: 07/10/17 18:00 07/10/17 18:00 07/10/17 07/10/17 07/10/17 03:51 03:51 15:40 WBC 10.4 RBC 4.66 Hgb 12.0 Hct 37.8 MCV 81 MCH 25.7 L MCHC 31.8 L RDW 25.7 H Plt Count 36 L Seg Neutrophils % Not Reportable Lymphocytes % Not Reportable Monocytes % Not Reportable Eosinophils % Not Reportable Basophils % Not Reportable Absolute Neutrophils Not Reportable Absolute Lymphocytes Not Reportable Absolute Monocytes Not Reportable Absolute Eosinophils Not Reportable Absolute Basophils Not Reportable Carbonic Acid 1.07 HCO3/H2CO3 Ratio 17:1 ABG pH 7.35 ABG pCO2 35.4 ABG pO2 108.3 H ABG HCO3 19.1 L ABG O2 Saturation 97.8 ABG Base Excess -5.8 FiO2 2L Sodium 143.6 Potassium 4.3 D Chloride 112 H Carbon Dioxide 24 Anion Gap 8 BUN 20 Creatinine 0.63 Est GFR ( Amer) > 60 Est GFR (Non-Af Amer) > 60 Glucose 110 Calcium 8.5 Phosphorus 3.6 Magnesium 2.4 H Total Bilirubin AST ALT Alkaline Phosphatase Total Protein Albumin 2.8 L 07/10/17 07/10/17 18:00 18:00 WBC 10.6 H RBC 3.94 Hgb 10.2 L Hct 32.2 L MCV 82 MCH 26.0 L MCHC 31.9 L RDW 25.2 H Plt Count 41 L Seg Neutrophils % Not Reportable Lymphocytes % Not Reportable Monocytes % Not Reportable Eosinophils % Not Reportable Basophils % Not Reportable Absolute Neutrophils Not Reportable Absolute Lymphocytes Not Reportable Absolute Monocytes Not Reportable Absolute Eosinophils Not Reportable Absolute Basophils Not Reportable Carbonic Acid HCO3/H2CO3 Ratio ABG pH ABG pCO2 ABG pO2 ABG HCO3 ABG O2 Saturation ABG Base Excess FiO2 Sodium 140.2 Potassium 3.8 Chloride 109 H Carbon Dioxide 21 L Anion Gap 10 BUN 18 Creatinine 0.55 Est GFR ( Amer) > 60 Est GFR (Non-Af Amer) > 60 Glucose 117 H Calcium 8.3 L Phosphorus Magnesium Total Bilirubin 0.2 AST 29 ALT 31 Alkaline Phosphatase 62 Total Protein 4.4 L Albumin 2.3 L 07/10/17 07/10/17 18:00 18:00 Creatine Kinase < 20 L CK-MB (CK-2) 2.09 Troponin I < 0.012 Impressions: Chest X-Ray 07/08/17 11:56 IMPRESSION: There is no acute cardiopulmonary disease. Abdomen/Pelvis CT 07/10/17 00:00 IMPRESSION: Small left pleural effusion with minimal left basilar airspace disease. Lungs otherwise exhibited end-stage appearance of obstructive lung disease Air bubbles along the nondependent wall of the cecum and ascending colon worrisome for pneumatosis/ bowel ischemia/bowel infarct Findings discussed with Dr. Adair NORMAL CT OF THE ABDOMEN AND PELVIS WITHOUT INTRAVENOUS CONTRAST. Chest CT 07/10/17 00:00 IMPRESSION: Small left pleural effusion with minimal left basilar airspace disease. Lungs otherwise exhibited end-stage appearance of obstructive lung disease Air bubbles along the nondependent wall of the cecum and ascending colon worrisome for pneumatosis/ bowel ischemia/bowel infarct Findings discussed with Dr. Adair NORMAL CT OF THE ABDOMEN AND PELVIS WITHOUT INTRAVENOUS CONTRAST. Head CT 07/10/17 00:00 IMPRESSION: MILD CHRONIC MICROVASCULAR ISCHEMIA. NO ACUTE IMAGING FINDINGS IN THE BRAIN. EVIDENCE OF ACUTE STROKE: NO. Assessment & Plan - Diagnosis (1) Acute ischemic left MCA stroke Is this a current diagnosis for this admission?: Yes Plan: Stat CT head was obtained without contrast which showed no acute abnormality. I met with the patient's daughter lives locally and talked by phone with her daughter in [place]. Explained the grave nature of her situation. They agreed to not do chest compressions if they were necessary, but otherwise continue full scope of treatment. We will wait and see how she develops. I will keep her n.p.o. pending a swallow evaluation. (2) Obstipation Is this a current diagnosis for this admission?: Yes Plan: No change despite laxatives and an enema. Repeat CT abdomen suspicious for ischemic bowel. I will not further attempt to disimpact her until this situation clarifies (3) Non-small cell carcinoma of left lung, stage 4 Is this a current diagnosis for this admission?: Yes Plan: Therapy currently on hold because of her ITP, no evidence of disease progression , so not clear she needs further therapy (4) Nausea & vomiting Qualifiers: Vomiting Intractability: intractable Is this a current diagnosis for this admission?: Yes Plan: Probably due to obstipation (5) Acute ITP Is this a current diagnosis for this admission?: Yes Plan: Got Nplate which has previously been effective (6) COPD exacerbation Is this a current diagnosis for this admission?: Yes Plan: Treatment with steroids, nebulizers, empiric antibiotics. (7) Tobacco abuse Is this a current diagnosis for this admission?: Yes (8) Malignant cachexia Is this a current diagnosis for this admission?: Yes
[2017-07-10] MEDS: VANCOMYCIN HCL 750 MG in DEXTROSE 5%-WATER 250 ML IV SCH (20:45)
[2017-07-10] MEDS: LIDOCAINE 5% (700 MG) TRANSDERMAL ADH..PATCH TP SCH (21:36)
--- NOTE | 2017-07-10 23:49 | EKG REPORT ---
SEVERITY:- BORDERLINE ECG - SINUS RHYTHM PROBABLE LEFT ATRIAL ABNORMALITY LOW VOLTAGE IN FRONTAL LEADS : Confirmed by: Denisha Seth 10-Jul-2017 23:48:56
[2017-07-11] MEDS: NORMAL SALINE 100 ML with PANTOPRAZOLE SODIUM 80 MG IV PRN ×6 (06:12→17:48)
[2017-07-11] MEDS: METHYLPREDNISOLONE INJ 40 MG/1 ML SDV IV SCH ×3 (06:12→21:40)
[2017-07-11] MEDS: NORMAL SALINE 1000 ML 1,000 ML IV PRN ×2 (06:17→17:51)
--- NOTE | 2017-07-11 09:23 | PDOC PROGRESS REPORT ---
Subjective Progress Note for:: 07/11/17 Subjective:: Since I last saw her yesterday morning, she is no unable to speak or follow commands. She is awake, but not able to verbalize. Nurses report that this was a sudden change. CT brain without contrast was obtain but did not show acute event. ROS unobtainable due to no verbilization. Reason For Visit: ARF THROMBOCYTOPENIA HYPERKALEMIA LUNG CANCER Physical Exam Vital Signs: Temp Pulse Resp BP Pulse Ox 99.0 F 87 19 107/74 100 07/11/17 07:45 07/11/17 07:57 07/11/17 07:45 07/11/17 07:35 07/11/17 07:45 Intake & Output 07/10/17 07/11/17 07/12/17 06:59 06:59 06:59 Intake Total 2394 1898 Output Total 1920 1225 Balance 474 673 Weight 50.9 kg 53.5 kg General appearance: PRESENT: no acute distress, thin Teeth exam: PRESENT: edentulous Respiratory exam: PRESENT: decreased breath sounds, unlabored Cardiovascular exam: PRESENT: RRR GI/Abdominal exam: PRESENT: distended, firm, rigid Neurological exam: PRESENT: awake. ABSENT: oriented to person, oriented to place, oriented to time, oriented to situation Psychiatric exam: ABSENT: appropriate affect Skin exam: PRESENT: mottled, pallor Results Laboratory Results: 07/10/17 18:00 07/10/17 18:00 07/10/17 07/10/17 07/10/17 15:40 18:00 18:00 WBC 10.6 H RBC 3.94 Hgb 10.2 L Hct 32.2 L MCV 82 MCH 26.0 L MCHC 31.9 L RDW 25.2 H Plt Count 41 L Seg Neutrophils % Not Reportable Lymphocytes % Not Reportable Monocytes % Not Reportable Eosinophils % Not Reportable Basophils % Not Reportable Absolute Neutrophils Not Reportable Absolute Lymphocytes Not Reportable Absolute Monocytes Not Reportable Absolute Eosinophils Not Reportable Absolute Basophils Not Reportable Carbonic Acid 1.07 HCO3/H2CO3 Ratio 17:1 ABG pH 7.35 ABG pCO2 35.4 ABG pO2 108.3 H ABG HCO3 19.1 L ABG O2 Saturation 97.8 ABG Base Excess -5.8 FiO2 2L Sodium 140.2 Potassium 3.8 Chloride 109 H Carbon Dioxide 21 L Anion Gap 10 BUN 18 Creatinine 0.55 Est GFR ( Amer) > 60 Est GFR (Non-Af Amer) > 60 Glucose 117 H Calcium 8.3 L Total Bilirubin 0.2 AST 29 ALT 31 Alkaline Phosphatase 62 Total Protein 4.4 L Albumin 2.3 L 07/10/17 07/10/17 18:00 18:00 Creatine Kinase < 20 L CK-MB (CK-2) 2.09 Troponin I < 0.012 Impressions: Chest X-Ray 07/08/17 11:56 IMPRESSION: There is no acute cardiopulmonary disease. Abdomen/Pelvis CT 07/10/17 00:00 IMPRESSION: Small left pleural effusion with minimal left basilar airspace disease. Lungs otherwise exhibited end-stage appearance of obstructive lung disease Air bubbles along the nondependent wall of the cecum and ascending colon worrisome for pneumatosis/ bowel ischemia/bowel infarct Findings discussed with Dr. Adair NORMAL CT OF THE ABDOMEN AND PELVIS WITHOUT INTRAVENOUS CONTRAST. Chest CT 07/10/17 00:00 IMPRESSION: Small left pleural effusion with minimal left basilar airspace disease. Lungs otherwise exhibited end-stage appearance of obstructive lung disease Air bubbles along the nondependent wall of the cecum and ascending colon worrisome for pneumatosis/ bowel ischemia/bowel infarct Findings discussed with Dr. Adair NORMAL CT OF THE ABDOMEN AND PELVIS WITHOUT INTRAVENOUS CONTRAST. Head CT 07/10/17 00:00 IMPRESSION: MILD CHRONIC MICROVASCULAR ISCHEMIA. NO ACUTE IMAGING FINDINGS IN THE BRAIN. EVIDENCE OF ACUTE STROKE: NO. Status: Image reviewed by me - Air fluid levels thoughout bowel. Assessment & Plan - Diagnosis (1) Non-small cell carcinoma of left lung, stage 4 Is this a current diagnosis for this admission?: Yes (2) Acute ITP Is this a current diagnosis for this admission?: Yes (3) Obstipation Is this a current diagnosis for this admission?: Yes - Plan Summary Plan Summary: I spoke with patient's daughter as well as with Saul Armstrong NP (attending) . Although I have tried to explain to the family that patient now has evidence of bowel obstruction and possible bowel as well as possible brain mets from cancer and that she will most likely not survive this admission, family is still not fully understanding gravity of the situation. She is not a candidate for surgical intervention due to her thrombocytopenia and pulmonary status. My recommendation is to make her comfort care, transfer her out of the ICU so that family can spend more time with her at bedside, and discuss if family would like home Hospice. Ms. Armstrong is also speaking with family to stress the same recommendations. I would consider family meeting with palliative care team. I will be happy to be a part of this conversation. Please call me if needed.
--- NOTE | 2017-07-11 09:34 | PROGRESS NOTE E ---
Progress Note NAME: MERRILL BLAKE : 1955 AGE: 61Y DATE: 07/11/2017 ROOM: 608 SUBJECTIVE: The patient is lying in bed. The patient is still not able to communicate whatsoever. She will awaken but is not able to follow commands. The patient has had no reported episodes of vomiting nor diarrhea. The patient has not been able to have a stool at all. Did speak with the patient's daughter at bedside. There is a consensus for no chest compressions; however, all other measures to be considered. The daughter would like the patient to have an MRI; will proceed with this. The patient's prognosis overall appears grave. REVIEW OF SYSTEMS: Unobtainable. MEDICATIONS: Reviewed. OBJECTIVE: GENERAL: The patient is a 61-year-old female who is nonverbal, nonresponsive, does not appear to be distressed. VITAL SIGNS: As follows: Temperature is 99.0, pulse 82, respirations 19, blood pressure is 107/74, oxygen saturation is 100% on room air. SKIN: Pale, dry. No rash. She is not diaphoretic. HEENT: Pupils are reactive. The patient does have a significant facial droop to the right. Unable to swallow on command. CARDIOVASCULAR: Heart is regular. No rub. CHEST: Diminished, symmetrical, unlabored. ABDOMEN: Distended. Does not appear to be an area of focal tenderness. Hypoactive bowel sounds. EXTREMITIES: No clubbing, cyanosis. The patient does have lower extremity edema. DIAGNOSTICS: Lab values are as follows. Hematology obtained on 07/10/2017: WBCs are 10.6, hemoglobin is 10.2, hematocrit is 32.2, platelet count is 41,000. Chemistry obtained on 07/10/2017: Sodium is 140, potassium 4.8, chloride 109, carbon dioxide 21, BUN 18, creatinine is 0.55, glucose 117, calcium is 8.3, bilirubin is 0.2, AST 29, ALT is 31, alk phos 62, CK is less than 20, total protein 4.4, albumin 2.3. IMPRESSION AND PLAN: 1. ACUTE ISCHEMIC LEFT MCA STROKE. This is the working diagnosis at this point. Will obtain MRI. The case was discussed with the patient's daughter who lives locally and the one in [place]. They have agreed to no chest compressions. Will discuss the case with Oncology. 2. OBSTIPATION. No change despite a laxative and enema. Repeat CT of the abdomen is suspicious for ischemic bowel so no further attempts to disimpact until her situation improves. 3. [id number] CARCINOMA OF THE LEFT LUNG, STAGE IV. The patient's treatment is currently on hold given her thrombocytopenia. No evidence of disease progression. 4. ACUTE THROMBOCYTOPENIA. The patient got Nplates and platelet count is trending up. 5. NAUSEA AND VOMITING, MOST LIKELY DUE TO OBSTIPATION. Has had no further today. 6. COPD EXACERBATION. Will continue steroids, nebulizers and antibiotics. 7. TOBACCO DEPENDENCY, CONTINUOUS. 8. MALIGNANT CACHEXIA. This is contributing to the patient's edema. 9. CHRONIC MALNUTRITION. The patient's BMI is 20 but the albumin is quite low. DISPOSITION: THE PATIENT IS NO CHEST COMPRESSIONS. Pending the patient's symptomatology and diagnostic findings, will re-evaluate as needed. Time spent on this followup, including assessment/plan, physical examination, patient education, review of records, family discussion, speciality collaboration, is 40 minutes. DICTATING PHYSICIAN: MALIKA DIEGO NP [id number] PHY#: [id number] ID: [id number] JOB#: [id number] ACCT: [id number] cc: >
[2017-07-11] MEDS ORDERED: ASPIRIN 300 MG SUPP, RECTAL PR SCH (10:00)
[2017-07-11] MEDS ORDERED: FENTANYL 12 MCG/HR PATCH.TD72 TD SCH (10:00)
--- NOTE | 2017-07-11 12:36 | RADIOLOGY REPORT (SQ) ---
EXAM DESCRIPTION: MRI HEAD COMBO COMPLETED DATE/TIME: 07/11/2017 12:18 pm REASON FOR STUDY: CVA, ?Mets history of stage IV lung cancer with right dee paresis COMPARISON: CT brain 07/10/2017 MRI brain 06/09/2015 TECHNIQUE: Multiplanar imaging includes noncontrasted T1, T2, FLAIR, diffusion with ADC map and post gadolinium contrast T1 sequences. Images stored on PACS. CONTRAST TYPE AND DOSE: 10 mL Multihance. RENAL FUNCTION: GFR > 60. LIMITATIONS: None. FINDINGS: ANATOMY: No developmental anomalies. Normal vascular flow voids. Pituitary fossa normal. CSF SPACES: Normal in size and contour. No hemorrhage. CEREBRUM: Acute large left MCA distribution infarct, nonhemorrhagic. This involves the left frontal, and temporal lobes as well as the lateral half of the basal ganglia and insular cortex/external caps ule. There is mild local mass effect with sulcal effacement. No [id number] subfalcine shift. Fi ndings discussed with Saul Armstrong, 12 noon 07/11/2017. Remainder the brain parenchyma is otherwise unremarkable aside from minimal age-appropriate small ves aristides ischemic change. No enhancing brain parenchymal lesions worrisome for metastatic disease. POSTERIOR FOSSA: No signal alteration. No hemorrhage. No edema, masses, or mass effect. Internal eben tory canals, cerebellopontine angles, mastoids normal. No enhancing lesions. No abnormal enhancement post contrast. DIFFUSION IMAGING: Acute large left MCA distribution nonhemorrhagic infarct ORBITS: No masses. Globes normal. PARANASAL SINUSES: No fluid levels. Mucosa normal. Minimal fluid right mastoid air cells OTHER: No other significant finding. IMPRESSION: Acute large left MCA distribution nonhemorrhagic infarct. No enhancing brain parenchymal or dural lesions worrisome for metastatic disease given history of sta ge IV lung cancer EVIDENCE OF ACUTE STROKE: NO. TECHNICAL DOCUMENTATION: JOB ID: [id number] [employer]- All Rights Reserved Reading location - IP/workstation name: [email or web address]
[2017-07-11] MEDS: HYDROMORPHONE HCL INJ/PF 2 MG/ML AMPULE IV PRN ×2 (12:51→19:08)
[2017-07-11] MEDS: AMPICILLIN SODIUM/SULBACTAM NA 3 GM in NORMAL SALINE 100 ML IV SCH ×2 (15:35→20:23)
--- NOTE | 2017-07-11 17:18 | PDOC PROGRESS REPORT ---
Subjective Progress Note for:: 07/11/17 Subjective:: I was called back to patient's bedside for family meeting. MRI brain showed large CVA. I spoke with patient's Daughter and grand-daughter at bedside with patient. Her other son and Daughter were by telephone. I have explained the situation and our recommendation for comfort measures only. Family is in the process of traveling to be here. They are discussing all of this and I answered all questions. We have all agreed to keep her in the ICU tonight but after family arrives, plan to transfer out of the ICU on comfort measures only and consider home hospice with Palliative care consult while here in the hospital. Reason For Visit: ARF THROMBOCYTOPENIA HYPERKALEMIA LUNG CANCER Physical Exam Vital Signs: Temp Pulse Resp BP Pulse Ox 99.3 F 76 12 113/78 100 07/11/17 16:15 07/11/17 16:00 07/11/17 16:15 07/11/17 16:00 07/11/17 16:15 Intake & Output 07/10/17 07/11/17 07/12/17 06:59 06:59 06:59 Intake Total 2394 1898 Output Total 1920 1225 286 Balance 474 673 -286 Weight 50.9 kg 53.5 kg Results Laboratory Results: 07/10/17 18:00 07/10/17 18:00 07/10/17 07/10/17 18:00 18:00 WBC 10.6 H RBC 3.94 Hgb 10.2 L Hct 32.2 L MCV 82 MCH 26.0 L MCHC 31.9 L RDW 25.2 H Plt Count 41 L Seg Neutrophils % Not Reportable Lymphocytes % Not Reportable Monocytes % Not Reportable Eosinophils % Not Reportable Basophils % Not Reportable Absolute Neutrophils Not Reportable Absolute Lymphocytes Not Reportable Absolute Monocytes Not Reportable Absolute Eosinophils Not Reportable Absolute Basophils Not Reportable Sodium 140.2 Potassium 3.8 Chloride 109 H Carbon Dioxide 21 L Anion Gap 10 BUN 18 Creatinine 0.55 Est GFR ( Amer) > 60 Est GFR (Non-Af Amer) > 60 Glucose 117 H Calcium 8.3 L Total Bilirubin 0.2 AST 29 ALT 31 Alkaline Phosphatase 62 Total Protein 4.4 L Albumin 2.3 L 07/10/17 07/10/17 18:00 18:00 Creatine Kinase < 20 L CK-MB (CK-2) 2.09 Troponin I < 0.012 Impressions: Chest X-Ray 07/08/17 11:56 IMPRESSION: There is no acute cardiopulmonary disease. Abdomen/Pelvis CT 07/10/17 00:00 IMPRESSION: Small left pleural effusion with minimal left basilar airspace disease. Lungs otherwise exhibited end-stage appearance of obstructive lung disease Air bubbles along the nondependent wall of the cecum and ascending colon worrisome for pneumatosis/ bowel ischemia/bowel infarct Findings discussed with Dr. Adair NORMAL CT OF THE ABDOMEN AND PELVIS WITHOUT INTRAVENOUS CONTRAST. Chest CT 07/10/17 00:00 IMPRESSION: Small left pleural effusion with minimal left basilar airspace disease. Lungs otherwise exhibited end-stage appearance of obstructive lung disease Air bubbles along the nondependent wall of the cecum and ascending colon worrisome for pneumatosis/ bowel ischemia/bowel infarct Findings discussed with Dr. Adair NORMAL CT OF THE ABDOMEN AND PELVIS WITHOUT INTRAVENOUS CONTRAST. Head CT 07/10/17 00:00 IMPRESSION: MILD CHRONIC MICROVASCULAR ISCHEMIA. NO ACUTE IMAGING FINDINGS IN THE BRAIN. EVIDENCE OF ACUTE STROKE: NO. Head MRI 07/11/17 08:57 IMPRESSION: Acute large left MCA distribution nonhemorrhagic infarct. No enhancing brain parenchymal or dural lesions worrisome for metastatic disease given history of stage IV lung cancer EVIDENCE OF ACUTE STROKE: NO. Assessment & Plan - Diagnosis (1) Non-small cell carcinoma of left lung, stage 4 Is this a current diagnosis for this admission?: Yes (2) Acute ITP Is this a current diagnosis for this admission?: Yes (3) Obstipation Is this a current diagnosis for this admission?: Yes - Plan Summary Plan Summary: I have spent an additional 50 minutes ICU time in counseling with the patient and family.
[2017-07-11] MEDS: LIDOCAINE 5% (700 MG) TRANSDERMAL ADH..PATCH TP SCH (21:41)
--- NOTE | 2017-07-11 23:25 | Palliative Consultation Report ---
Consultation From:: KEVIN WALTON - [facility] HPI: Palliaive Care Consult visit 07/11/17 12: 05 PM Appreciate palliative care consult request for this very unfortunate 61 year old woman who has advanced lung cancer, recent CVA and bowel obstruction from poor vascularization to bowel. In addition she has malnutrition with albumin at 2.3 and is cachexic. Patient is being taken to MRI to evaluate CVA and I spoke with her daughter. Daughter reports patient was living alone until hospitalization but her granddaughter was spending the night with her. Daughter is very angry about many things and I tried to help her understand about patient's bowel problem not being from a removable clot, why CT was done yesterday and MRI today , and why there is not a lot of focus on a possible problem with the bines of her neck. Daughter admits she is exhausted, as she works two jobs and has been at the hospital whenever not at work. She doesn't want doctors to give up on her mother and I tried to explain that patient has too many conditions to make treating anyone of them possible. We discussed her stroke being very serious but she did not want to discuss until she is told results of the MRI. 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 Garcia before making any decisions. Her siblings will be available to talk with doctor per telephone with her. Support offered but daughter is using her anger and frustration as shield at this point and I hope hearing results of MRI will help her hear what Dr. Garcia has to say. I will visit again tomorrow. Onset: Just prior to arrival Onset/Duration: Sudden Associated Symptoms: Other - nonresponsive Past Medical History(Consults) - General Information Source: Relative, [facility] Records Home Medications: Albuterol Sulfate [Ventolin Hfa] 2 puff IH Q4HP PRN 07/08/17 Atorvastatin Calcium [Lipitor 10 mg Tablet] 10 mg PO QHS 07/08/17 Bupropion HCl [Bupropion HCl Sr] 150 mg PO Q12 07/08/17 Carvedilol [Coreg 3.125 mg Tablet] 3.125 mg PO Q12 07/08/17 Fentanyl [Duragesic 12 Mcg/Hr Transdermal Patch] 1 each TD Q3D 07/08/17 Fluticasone/Vilanterol [Breo Ellipta 100-25 Mcg INH] 1 puff IH DAILY 07/08/17 Ipratropium/Albuterol Sulfate [Duoneb 3 ml Ampul] 3 ml NEB Q6 07/08/17 Ketorolac Tromethamine [Toradol 10 mg Tablet] 10 mg PO Q6HP PRN 07/08/17 Levothyroxine Sodium [Synthroid 0.15 mg Tablet] 0.15 mg PO Q6AM 07/08/17 Lidocaine [Lidoderm 5% (700 mg) Transdermal Patch] 1 patch TP QHS 07/08/17 Lisinopril [Prinivil 5 mg Tablet] 5 mg PO DAILY 07/08/17 Omeprazole 20 mg PO DAILY 07/08/17 Ondansetron [Zofran Odt 4 mg Tablet] 4 mg PO Q6HP PRN 07/08/17 Oxycodone HCl [Oxy-Ir 5 mg Tablet] 5 mg PO Q4HP PRN 07/08/17 Oxycodone HCl/Acetaminophen [Percocet 5-325 mg Tablet] 1 tab PO Q4HP PRN Allergies/Adverse Reactions: No Known Allergies Allergy (Verified 07/08/17 11:54) - Social History Lives with: Family Family History: Reviewed & Not Pertinent, Hypertension Parental Family History Reviewed: No Children Family History Reviewed: No Sibling(s) Family History Reviewed.: No Smoking Status: Former Smoker Frequency of Alcohol Use: None Hx Recreational Drug Use: No Drugs: None, Ecstasy - (No ecstacy, error in typing) Hx Prescription Drug Abuse: No - Past Medical History Cardiac Medical History: Denies: Hx Coronary Artery Disease, Hx Heart Attack Comment Only: Hx Hypertension - HX OF LBP Pulmonary Medical History: Reports: Hx Bronchitis, Hx COPD Denies: Hx Asthma, Hx Pneumonia Neurological Medical History: Denies: Hx Cerebrovascular Accident, Hx Seizures Endocrine Medical History: Reports: Hx Hypothyroidism Renal/ Medical History: Denies: Hx Peritoneal Dialysis Malignancy Medical History: Reports: Hx Lung Cancer - Current GI Medical History: Reports: Hx Ulcer - YRS AGO,. Denies: Hx Hepatitis, Hx Hiatal Hernia Musculoskeltal Medical History: Denies Hx Arthritis Psychiatric Medical History: Reports: Hx Depression Infectious Medical History: Denies: Hx Hepatitis Hematology: Reports: Anemia, Other - ITP Denies: Sickle Cell Disease - Surgical History Past Surgical History: Reports: Hx Abdominal Surgery - hernia repair, Hx Herniorrhaphy, Hx Orthopedic Surgery - back, Other - Lung biopsy. Denies: Hx Hysterectomy, Hx Mastectomy, Hx Open Heart Surgery, Hx Pacemaker Review of systems ROS unobtainable: due to mental statu - Patient is unresponsive, unable to speak Ojective:Exam Vital Signs: Temp Pulse Resp BP Pulse Ox 98.6 F 70 7 L 102/64 100 07/11/17 22:00 07/11/17 20:00 07/11/17 22:00 07/11/17 21:50 07/11/17 22:00 Intake & Output 07/10/17 07/11/17 07/12/17 06:59 06:59 06:59 Intake Total 2394 1898 836 Output Total 1920 1225 556 Balance 474 673 280 Weight 50.9 kg 53.5 kg - General General Appearance: Unresponsive - Respiratory Respiratory Status: No respiratory distress - Cardiovascular Rhythm: Other - Sinus rhythm per monitor, rate 70s - Abdominal Distension: Distended - Neurological Cognition: Other - Nonresponsive Objective-Diagnostic Laboratory: 07/10/17 18:00 07/10/17 18:00 07/10/17 07/10/17 18:00 18:00 Creatine Kinase < 20 L CK-MB (CK-2) 2.09 Troponin I < 0.012 Plan and Recommendation Plan and Recommendation: Introduced palliative care to daughter and let her vent her anger and frustration. These new developments with her mother have happened quickly, and she is focusing on the non fatal aspects. She has little family support here with siblings out of state. I gave her my cell phone number and a copy of "Hard Choices for [place] People " booklet. I will try to meet with ehr again tomorrow after she has gotten the results of MRI and talked with Dr Garcia. Appreciate opportunity to participate in care for this patient and family. - Time Spent with Patient Time spent with patient: 15 to 30 Minutes
[2017-07-12] MEDS: AMPICILLIN SODIUM/SULBACTAM NA 3 GM in NORMAL SALINE 100 ML IV SCH (03:11)
[2017-07-12] MEDS: HYDROMORPHONE HCL INJ/PF 2 MG/ML AMPULE IV PRN (03:38)
[2017-07-12] MEDS: METHYLPREDNISOLONE INJ 40 MG/1 ML SDV IV SCH (05:28)
--- NOTE | 2017-07-12 07:57 | PDOC PROGRESS REPORT ---
Subjective Progress Note for:: 07/12/17 Subjective:: Patient's daughter from [place] is now present. Patient is unchanged from yesterday. She is able to move her head and tries to speak, but is unable to make any sense. She seems to understand and follow some commands. No evidence of flatus or BMs. Nurses report no significant change. Reason For Visit: ARF THROMBOCYTOPENIA HYPERKALEMIA LUNG CANCER Physical Exam Vital Signs: Temp Pulse Resp BP Pulse Ox 98.4 F 68 11 L 98/75 L 100 07/12/17 06:20 07/12/17 04:00 07/12/17 06:20 07/12/17 06:20 07/12/17 06:20 Intake & Output 07/11/17 07/12/17 07/13/17 06:59 06:59 06:59 Intake Total 1898 2237 Output Total 1225 886 Balance 673 1351 Weight 53.5 kg 53.5 kg General appearance: PRESENT: no acute distress, thin Teeth exam: PRESENT: edentulous Respiratory exam: PRESENT: unlabored GI/Abdominal exam: PRESENT: distended, firm, rigid Extremities exam: ABSENT: pedal edema Skin exam: PRESENT: mottled, pallor Results Laboratory Results: 07/10/17 18:00 07/10/17 18:00 07/10/17 07/10/17 18:00 18:00 Creatine Kinase < 20 L CK-MB (CK-2) 2.09 Troponin I < 0.012 Impressions: Chest X-Ray 07/08/17 11:56 IMPRESSION: There is no acute cardiopulmonary disease. Abdomen/Pelvis CT 07/10/17 00:00 IMPRESSION: Small left pleural effusion with minimal left basilar airspace disease. Lungs otherwise exhibited end-stage appearance of obstructive lung disease Air bubbles along the nondependent wall of the cecum and ascending colon worrisome for pneumatosis/ bowel ischemia/bowel infarct Findings discussed with Dr. Adair NORMAL CT OF THE ABDOMEN AND PELVIS WITHOUT INTRAVENOUS CONTRAST. Chest CT 07/10/17 00:00 IMPRESSION: Small left pleural effusion with minimal left basilar airspace disease. Lungs otherwise exhibited end-stage appearance of obstructive lung disease Air bubbles along the nondependent wall of the cecum and ascending colon worrisome for pneumatosis/ bowel ischemia/bowel infarct Findings discussed with Dr. Adair NORMAL CT OF THE ABDOMEN AND PELVIS WITHOUT INTRAVENOUS CONTRAST. Head CT 07/10/17 00:00 IMPRESSION: MILD CHRONIC MICROVASCULAR ISCHEMIA. NO ACUTE IMAGING FINDINGS IN THE BRAIN. EVIDENCE OF ACUTE STROKE: NO. Head MRI 07/11/17 08:57 IMPRESSION: Acute large left MCA distribution nonhemorrhagic infarct. No enhancing brain parenchymal or dural lesions worrisome for metastatic disease given history of stage IV lung cancer EVIDENCE OF ACUTE STROKE: NO. Assessment & Plan - Diagnosis (1) Non-small cell carcinoma of left lung, stage 4 Is this a current diagnosis for this admission?: Yes (2) Acute ITP Is this a current diagnosis for this admission?: Yes (3) Obstipation Is this a current diagnosis for this admission?: Yes - Plan Summary Plan Summary: I spoke with Patient's daughter and answered all questions. She seems to understand gravity of the situation. She has again requested that Palliative Care speak with her sister to explain the situation. I spoke with Paulette Gage who will be here later this morning for another family meeting to discuss code status and comfort measures only. I am hopeful that within a few hours, she will be made comfort measures only and we can transfer her from the ICU. I will be available over the weekend if needed. Please call with any questions or concerns.
[2017-07-12] MEDS ORDERED: PROMETHAZINE HCL INJ 25 MG/1 ML VIAL IV PRN (09:39)
--- NOTE | 2017-07-12 10:34 | PROGRESS NOTE E ---
Progress Note NAME: MERRILL BLAKE : 1955 AGE: 61Y DATE: 07/12/2017 ROOM: 608 SUBJECTIVE: The patient was seen twice today, so far, on rounds, did have a lengthy family discussion. The patient is having an irregular breathing pattern. She is unable to voice any concerns or a chief complaint. The patient was medicated for pain once overnight. In conjunction with Palliative Care, I had a discussion with both of the patient's daughters as well as the son via speaker phone. After discussion, a full consensus was made to proceed with comfort care measures. This is in also agreeance of Oncology. Therefore, the patient will be downgraded with a compromise to IMCU given that the patient is fond of nursing staff there and this is for her own emotional well being. We will proceed with morphine as well for anxiety and pain. Daughters are in agreeance with this detailed plan. REVIEW OF SYSTEMS: Unobtainable. MEDICATIONS: Medications have been reviewed. OBJECTIVE: GENERAL: The patient is an unfortunate 61-year-old female who will awaken, but is nonverbal, unable to communicate, unable to follow commands. She does not appear to be distressed at the moment. VITAL SIGNS: Temperature is 99.0, pulse 70, respirations 18, blood pressure is 116/82, oxygen saturation is 98% on 2 L nasal cannula. SKIN: Pale with dark circles under her eyes. No rash. She is not diaphoretic. HEENT: Pupils are sluggish, but symmetrical. Mucous membranes are dry. NECK: No JVD. CARDIOVASCULAR SYSTEM: Heart is regular. No rub. CHEST: Diminished, symmetrical, unlabored. Does have a regular breathing pattern. ABDOMEN: Distended with no bowel sounds at this moment. Unable to elicit a pain response. EXTREMITIES: No clubbing, cyanosis, but the patient has chronic edema of malnutrition. DIAGNOSTIC DATA: Lab values are as follows: Hematology obtained on 07/10/2017: WBCs are 10.6, hemoglobin is 10.2, hematocrit is 32.2, platelet count is 41,000. Chemistries obtained on 07/10/2017: Sodium is 140, potassium is 3.8, chloride is 109, carbon dioxide 21, BUN 18, creatinine is 0.55, glucose is 117, calcium is 8.3, bilirubin is 0.2, AST 29, ALT is 31, alk phos 62. CK less than 20. IMPRESSION AND PLAN: 1. ACUTE ISCHEMIC LEFT MIDDLE CEREBRAL ARTERY STROKE. THE PATIENT'S NEUROLOGICAL STATUS CONTINUES TO DECOMPENSATE. Will proceed with comfort measures. 2. OBSTIPATION. Medications are on hold given an ischemic bowel. 3. NON-SMALL CELL CARCINOMA OF THE LEFT LUNG, STAGE IV. Treatment was on hold given thrombocytopenia. 4. ACUTE THROMBOCYTOPENIA. The patient got Nplate and her platelet count trended up. 5. NAUSEA AND VOMITING, MOST LIKELY DUE TO OBSTIPATION FROM THE PATIENT'S GUT. 6. CHRONIC OBSTRUCTIVE PULMONARY DISEASE EXACERBATION. Continue steroids, nebulizers, antibiotics. 7. CHRONIC MALNUTRITION WITH A BMI OF 20. THE PATIENT'S ALBUMIN IS QUITE LOW. THIS IS A PROTEIN-CALORIE MALNOURISHMENT. 8. TOBACCO DEPENDENCY, CONTINUOUS. The patient is not smoking at this moment. Will continue a nicotine patch. 9. MALIGNANT CACHEXIA, EVIDENCE TO THE PATIENT'S EDEMA. DISPOSITION: The patient is a DO NOT RESUSCITATE/DO NOT INTUBATE WITH COMFORT CARE MEASURES ONLY. Will downgrade the patient to IMCU at the family's request. TIME: Time spent on this followup including assessment, plan, physical examination, patient education, review of records, family discussion, speciality collaboration was 40 minutes. DICTATING PHYSICIAN: MALIKA DIEGO NP [id number] PHY#: [id number] ID: [id number] JOB#: [id number] ACCT: [id number] cc: >
[2017-07-12] MEDS ORDERED: MORPHINE SULFATE 10 MG/ML INJ ONE ×3 (11:35→16:22)
[2017-07-12] MEDS ORDERED: MORPHINE SULFATE 10 MG/ML INJ IV ONE (14:00)
[2017-07-12] MEDS: MORPHINE SULFATE 60 MG/60 ML RTUINJ IV PRN (14:11)
[2017-07-12] MEDS: LORAZEPAM INJ 2 MG/1 ML VIAL IV PRN ×2 (14:11→16:30)
[2017-07-12] MEDS: MORPHINE SULFATE 10 MG/ML INJ INJ PRN (18:36)
[2017-07-12] MEDS: LIDOCAINE 5% (700 MG) TRANSDERMAL ADH..PATCH TP SCH (21:44)
--- NOTE | 2017-07-12 23:32 | Progress Note ---
Provider Note Provider Note: Palliative Care Follow Up note Visit 07/12/17 9:05- 9:40 AM Saul Armstrong NP hospitalist and I met with patient, her two daughters in person and patient's son on telephone. We discussed at length patient's conditions, prognosis, symptoms, and options for care. Son is trying to come here to visit patient. He deferred decisions about care to his sisters. Patient opens eyes and looks about but does not seem to focus, She had spontaneous movement of her left arm and used her hand to try to pull skin off her lower lips. No attempt to speak noted. No respiratory distress , no evidence pain at present. When lips were moistened with sponge, patient tried to suck water off sponge. Discussed these behaviors with daughters and discussed how misleading these behaviors are in the total situation of her many comorbid conditions. Daughters are unified with decision for comfort care and seem to be more understanding of the problems and futility of aggressive care in light of her many very serious problems. Emotional support offered and all questions answered. They have my cell myles number if they have further questions or issues.
[2017-07-13] MEDS: LORAZEPAM INJ 2 MG/1 ML VIAL IV PRN ×3 (03:59→19:11)
--- NOTE | 2017-07-13 11:25 | PDOC PROGRESS REPORT ---
Subjective Progress Note for:: 07/13/17 Subjective:: Patient was admitted with nausea and vomiting as well as COPD exacerbation. It appears she suffered an acute MCA stroke. She remains unresponsive. She has been made into the DNR with comfort measures only. Reason For Visit: ARF THROMBOCYTOPENIA HYPERKALEMIA LUNG CANCER Physical Exam Vital Signs: Temp Pulse Resp BP Pulse Ox 98.4 F 99 14 103/71 98 07/13/17 08:12 07/13/17 08:12 07/13/17 08:12 07/13/17 08:12 07/13/17 08:12 Intake & Output 07/12/17 07/13/17 07/14/17 06:59 06:59 06:59 Intake Total 2237 226 Output Total 886 500 Balance 1351 -274 Weight 53.5 kg General appearance: PRESENT: thin - unresponsive Head exam: PRESENT: atraumatic Eye exam: PRESENT: PERRLA. ABSENT: scleral icterus Ear exam: PRESENT: normal external ear exam Neck exam: ABSENT: carotid bruit, JVD, lymphadenopathy, thyromegaly Respiratory exam: ABSENT: rales, rhonchi, wheezes Cardiovascular exam: PRESENT: RRR. ABSENT: diastolic murmur, rubs, systolic murmur Vascular exam: PRESENT: normal capillary refill GI/Abdominal exam: PRESENT: soft. ABSENT: distended, guarding, mass, organolmegaly, rebound, tenderness Rectal exam: PRESENT: deferred Extremities exam: PRESENT: full ROM. ABSENT: calf tenderness, clubbing, pedal edema Neurological exam: PRESENT: other - unresponsive. ABSENT: motor sensory deficit Psychiatric exam: PRESENT: suicidal ideation Skin exam: PRESENT: rash Results Laboratory Results: 07/10/17 18:00 07/10/17 18:00 07/11/17 16:23 Lopez Catheter Urine Culture - Final NO GROWTH 2 DAYS 07/10/17 07/10/17 18:00 18:00 Creatine Kinase < 20 L CK-MB (CK-2) 2.09 Troponin I < 0.012 Impressions: Chest X-Ray 07/08/17 11:56 IMPRESSION: There is no acute cardiopulmonary disease. Abdomen/Pelvis CT 07/10/17 00:00 IMPRESSION: Small left pleural effusion with minimal left basilar airspace disease. Lungs otherwise exhibited end-stage appearance of obstructive lung disease Air bubbles along the nondependent wall of the cecum and ascending colon worrisome for pneumatosis/ bowel ischemia/bowel infarct Findings discussed with Dr. Adair NORMAL CT OF THE ABDOMEN AND PELVIS WITHOUT INTRAVENOUS CONTRAST. Chest CT 07/10/17 00:00 IMPRESSION: Small left pleural effusion with minimal left basilar airspace disease. Lungs otherwise exhibited end-stage appearance of obstructive lung disease Air bubbles along the nondependent wall of the cecum and ascending colon worrisome for pneumatosis/ bowel ischemia/bowel infarct Findings discussed with Dr. Adair NORMAL CT OF THE ABDOMEN AND PELVIS WITHOUT INTRAVENOUS CONTRAST. Head CT 07/10/17 00:00 IMPRESSION: MILD CHRONIC MICROVASCULAR ISCHEMIA. NO ACUTE IMAGING FINDINGS IN THE BRAIN. EVIDENCE OF ACUTE STROKE: NO. Head MRI 07/11/17 08:57 IMPRESSION: Acute large left MCA distribution nonhemorrhagic infarct. No enhancing brain parenchymal or dural lesions worrisome for metastatic disease given history of stage IV lung cancer EVIDENCE OF ACUTE STROKE: NO. Assessment & Plan - Diagnosis (1) Acute ischemic left MCA stroke Is this a current diagnosis for this admission?: Yes (2) Bacterial infection, unspecified Is this a current diagnosis for this admission?: Yes (3) History of lung cancer Is this a current diagnosis for this admission?: Yes (4) Hypotension Qualifiers: Hypotension type: unspecified hypotension type Qualified Code(s): I95.9 - Hypotension, unspecified Is this a current diagnosis for this admission?: Yes (5) Malignant cachexia Is this a current diagnosis for this admission?: Yes (6) Thrombocytopenia Is this a current diagnosis for this admission?: Yes (7) Sepsis Qualifiers: Sepsis type: sepsis due to unspecified organism Qualified Code(s): A41.9 - Sepsis, unspecified organism Is this a current diagnosis for this admission?: Yes (8) Tobacco abuse Is this a current diagnosis for this admission?: Yes (9) Acute kidney failure Qualifiers: Acute renal failure type: unspecified Qualified Code(s): N17.9 - Acute kidney failure, unspecified Is this a current diagnosis for this admission?: Yes - Time Time Spent with patient: Less than 15 minutes Anticipated discharge: Hospice - Inpatient Certification Based on my medical assessment, after consideration of the patient's comorbidities, presenting symptoms, or acuity I expect that the services needed warrant INPATIENT care.: Yes Medical Necessity: Other - Awaiting hospice
[2017-07-13] MEDS: MORPHINE SULFATE 10 MG/ML INJ INJ PRN ×2 (14:24→19:50)
[2017-07-13] MEDS: LIDOCAINE 5% (700 MG) TRANSDERMAL ADH..PATCH TP SCH (21:55)
[2017-07-14] MEDS: LORAZEPAM INJ 2 MG/1 ML VIAL IV PRN ×5 (05:45→19:51)
[2017-07-14] MEDS: MORPHINE SULFATE 10 MG/ML INJ INJ PRN ×7 (05:45→23:25)
--- NOTE | 2017-07-14 11:03 | PDOC PROGRESS REPORT ---
Subjective Progress Note for:: 07/14/17 Subjective:: Patient was admitted with nausea and vomiting as well as COPD exacerbation. It appears she suffered an acute MCA stroke. She remains unresponsive. She has been made into the DNR with comfort measures only. She remains comfortably sedated Reason For Visit: ARF THROMBOCYTOPENIA HYPERKALEMIA LUNG CANCER Physical Exam Vital Signs: Temp Pulse Resp BP Pulse Ox 98.2 F 98 6 L 93/61 L 96 07/13/17 23:35 07/14/17 08:00 07/14/17 06:55 07/13/17 23:35 07/14/17 00:42 Intake & Output 07/13/17 07/14/17 07/15/17 06:59 06:59 06:59 Intake Total 226 720 Output Total 500 800 Balance -274 -80 General appearance: PRESENT: thin Respiratory exam: PRESENT: other - agonal Cardiovascular exam: PRESENT: tachycardia Neurological exam: PRESENT: other - unresponsive Results Laboratory Results: 07/10/17 18:00 07/10/17 18:00 07/11/17 16:23 Lopez Catheter Urine Culture - Final NO GROWTH 2 DAYS 07/10/17 07/10/17 18:00 18:00 Creatine Kinase < 20 L CK-MB (CK-2) 2.09 Troponin I < 0.012 Impressions: Chest X-Ray 07/08/17 11:56 IMPRESSION: There is no acute cardiopulmonary disease. Abdomen/Pelvis CT 07/10/17 00:00 IMPRESSION: Small left pleural effusion with minimal left basilar airspace disease. Lungs otherwise exhibited end-stage appearance of obstructive lung disease Air bubbles along the nondependent wall of the cecum and ascending colon worrisome for pneumatosis/ bowel ischemia/bowel infarct Findings discussed with Dr. Adair NORMAL CT OF THE ABDOMEN AND PELVIS WITHOUT INTRAVENOUS CONTRAST. Chest CT 07/10/17 00:00 IMPRESSION: Small left pleural effusion with minimal left basilar airspace disease. Lungs otherwise exhibited end-stage appearance of obstructive lung disease Air bubbles along the nondependent wall of the cecum and ascending colon worrisome for pneumatosis/ bowel ischemia/bowel infarct Findings discussed with Dr. Adair NORMAL CT OF THE ABDOMEN AND PELVIS WITHOUT INTRAVENOUS CONTRAST. Head CT 07/10/17 00:00 IMPRESSION: MILD CHRONIC MICROVASCULAR ISCHEMIA. NO ACUTE IMAGING FINDINGS IN THE BRAIN. EVIDENCE OF ACUTE STROKE: NO. Head MRI 07/11/17 08:57 IMPRESSION: Acute large left MCA distribution nonhemorrhagic infarct. No enhancing brain parenchymal or dural lesions worrisome for metastatic disease given history of stage IV lung cancer EVIDENCE OF ACUTE STROKE: NO. Assessment & Plan - Diagnosis (1) Acute ischemic left MCA stroke Is this a current diagnosis for this admission?: Yes (2) Bacterial infection, unspecified Is this a current diagnosis for this admission?: Yes (3) History of lung cancer Is this a current diagnosis for this admission?: Yes (4) Hypotension Qualifiers: Hypotension type: unspecified hypotension type Qualified Code(s): I95.9 - Hypotension, unspecified Is this a current diagnosis for this admission?: Yes (5) Malignant cachexia Is this a current diagnosis for this admission?: Yes (6) Thrombocytopenia Is this a current diagnosis for this admission?: Yes (7) Sepsis Qualifiers: Sepsis type: sepsis due to unspecified organism Qualified Code(s): A41.9 - Sepsis, unspecified organism Is this a current diagnosis for this admission?: Yes (8) Tobacco abuse Is this a current diagnosis for this admission?: Yes (9) Acute kidney failure Qualifiers: Acute renal failure type: unspecified Qualified Code(s): N17.9 - Acute kidney failure, unspecified Is this a current diagnosis for this admission?: Yes - Time Time Spent with patient: Less than 15 minutes - Inpatient Certification Based on my medical assessment, after consideration of the patient's comorbidities, presenting symptoms, or acuity I expect that the services needed warrant INPATIENT care.: Yes - Plan Summary Plan Summary: Hospice care
[2017-07-14] MEDS: LIDOCAINE 5% (700 MG) TRANSDERMAL ADH..PATCH TP SCH (21:31)
[2017-07-15 00:05] VITALS: BP 94/52
[2017-07-15] MEDS: MORPHINE SULFATE 60 MG/60 ML RTUINJ IV PRN (00:32)
[2017-07-15] MEDS: LORAZEPAM INJ 2 MG/1 ML VIAL IV PRN (02:07)
--- NOTE | 2017-07-15 11:46 | Death Summary ---
Summary Date : 07/15/17 Time of :: 04:20 Autopsy: No Resuscitation Status: Comfort Measures Only Primary Care Provider: Dr. Owens Consulting Provider: Dr. Owens - Final Diagnosis (1) Acute ischemic left MCA stroke Is this a current diagnosis for this admission?: Yes (2) Bacterial infection, unspecified Is this a current diagnosis for this admission?: No (3) Hypotension Is this a current diagnosis for this admission?: Yes (4) Malignant cachexia Is this a current diagnosis for this admission?: Yes (5) Thrombocytopenia Is this a current diagnosis for this admission?: Yes (6) Sepsis Is this a current diagnosis for this admission?: No (7) Tobacco abuse Is this a current diagnosis for this admission?: Yes (8) Acute kidney failure Is this a current diagnosis for this admission?: No (9) Large bowel ischemia Is this a current diagnosis for this admission?: Yes (10) Non-small cell carcinoma of left lung, stage 4 Is this a current diagnosis for this admission?: Yes (11) History of lung cancer Is this a current diagnosis for this admission?: Yes Hospital Course:: This patient was admitted with nausea and vomiting shortly after a recent discharge from the hospital. In the course of admission it appears she suffered an acute large left MCA nonhemorrhagic infarct. Patient admitted with a platelet count of 12,000 which was treated with Nplate and she had been seen by the oncologist due to underlying non-small cell carcinoma of the lung. Patient was also found to have an ischemic bowel. She was moved to the intensive care unit where she was managed due to acute srroke however she made very little recovery and was made a DO NOT RESUSCITATE with comfort measures only with the help of palliative care consultation. Patient subsequently succumbed and on July 15 at 0420.
== END 2017-07-15 05:35 | DRG 871 ==
LOC: ER 11:35 → EH 15:47 → ICU 18:42 → 3N 07-12 10:50
PROVIDERS: ADMIT Internal Medicine; ATTEND Internal Medicine
DX: A41.9 Sepsis, unspecified organism (principal); I63.412 Cerebral infarction due to embolism of left middle cerebral artery; N17.9 Acute kidney failure, unspecified; C34.92 Malignant neoplasm of unspecified part of left bronchus or lung; R64 Cachexia; K55.9 Vascular disorder of intestine, unspecified; D69.3 Immune thrombocytopenic purpura; J44.1 Chronic obstructive pulmonary disease with (acute) exacerbation; E46 Unspecified protein-calorie malnutrition; Z51.5 Encounter for palliative care; Z66 Do not resuscitate; E87.5 Hyperkalemia; Z68.20 Body mass index [BMI] 20.0-20.9, adult; F17.210 Nicotine dependence, cigarettes, uncomplicated; I95.9 Hypotension, unspecified; I10 Essential (primary) hypertension; E03.9 Hypothyroidism, unspecified; J44.9 Chronic obstructive pulmonary disease, unspecified; D64.9 Anemia, unspecified; F32.9 Major depressive disorder, single episode, unspecified; K59.03 Drug induced constipation; T40.605A Adverse effect of unspecified narcotics, initial encounter; B96.89 Other specified bacterial agents as the cause of diseases classified elsewhere; Z60.2 Problems related to living alone; Z79.899 Other long term (current) drug therapy; Z79.82 Long term (current) use of aspirin; Z82.49 Family history of ischemic heart disease and other diseases of the circulatory system
CPT/HCPCS: 36415; 36591; 51702; 70450; 70553; 71045; 71250; 74176; 80053; 80069; 81001; 82550; 82553; 82803; 82962; 83605; 83735; 84484; 85025; 85610; 85730; 86900; 86901; 87040; 87086; 93005; 93010; 94640; 96361; 96374; 96376; 99291; A9577; J0295; J0692; J1170; J1815; J2060; J2270; J2405; J2550; J2796; J2920; J2930; J3370; J3430; J3490; J7030; J7060; S0164